=== PATIENT | male | born 1940 | race Caucasian/White ===

== ENCOUNTER → 2019-10-24 16:56 | Outpatient (BNVA) | payer MEDICARE, SELFPAY | PROVIDERS: Visit Provider Family Medicine | DX: E11.9 Type 2 diabetes mellitus without complications (principal); M1A.9XX0 Chronic gout, unspecified, without tophus (tophi); E03.9 Hypothyroidism, unspecified; F41.8 Other specified anxiety disorders; M54.40 Lumbago with sciatica, unspecified side; G89.29 Other chronic pain | CPT/HCPCS: 80053; 80061; 84443; 84550 ==

== ENCOUNTER → 2020-01-30 10:50 | Outpatient (BNVA) | payer MEDICARE, SELFPAY | PROVIDERS: Visit Provider Family Medicine | DX: E03.9 Hypothyroidism, unspecified (principal); E11.8 Type 2 diabetes mellitus with unspecified complications; E11.9 Type 2 diabetes mellitus without complications; I10 Essential (primary) hypertension; F41.9 Anxiety disorder, unspecified | CPT/HCPCS: 80053; 80061; 83036; 84443 ==

== ENCOUNTER 2021-01-15 17:30 | Observation (INO) | payer MEDICARE, SELFPAY ==
--- NOTE | 2021-01-15 18:38 | PM.HP ---
Providers/Chief Complaint Admitting Physician: Mónica Orellana Primary Care Provider: Della Jensen MD Chief Complaint: anemia, possible cholecystitis, diverticulitis History of Present Illness 80-year-old male with past medical history significant for gout, diabetes mellitus, diabetic neuropathy, hypertension, hypothyroidism, who was recently discharged from by x-ray yesterday previous admitted for urinary tract infection with retention discharged with Salomon catheter who returned to [place] [facility] with complaint of bladder pain. He was wanting salomon to be removed. Stated salomon was not attached to his leg and kept tugging leading to pain. He was discharged home on Omnicef. Upon return to ER lab work up was stable however he was noted to have hypotension with SBP in low 70s. He was given 1L of NS bolus after which BP improved. A CT abd/pelvis was performed which per Er doc showed gallbladder wall thickening suspicious for possible cholecystitis. Patient denied abdominal pain. AST/ALT/ALP were with in normal limits. Patient was transferred to [place] for further work up. Patient was stable, alert, awake and with out any distress at the time of my eval. Review of Systems General: Reports: 10 or more systems reviewed and unremarkable except in HPI and below Medications/Allergies Home Medications Medication Instructions Recorded Confirmed Last Taken Type allopurinol 300 mg tablet 150 mg PO DAILY 10/24/19 03/24/20 Unknown History diltiazem HCl 240 mg 240 mg PO DAILY 10/24/19 03/24/20 Unknown History capsule,extended release 24 hr furosemide 40 mg tablet 40 mg PO BID 10/24/19 03/24/20 Unknown History levalbuterol tartrate 45 2 inh INHALATION Q6H 10/24/19 03/24/20 Unknown History mcg/actuation aerosol inhaler levothyroxine 50 mcg tablet 50 mcg PO DAILY 10/24/19 03/24/20 Unknown History potassium chloride 20 mEq 40 meq PO TID tab 10/24/19 03/24/20 Unknown History tablet,extended release tamsulosin 0.4 mg capsule 0.4 mg PO DAILY 10/24/19 03/24/20 Unknown History Diabetic shoes #1 ea 12/12/19 03/24/20 Unknown Rx mupirocin 2 % topical ointment 1 applic TOPICAL BID #15 gm 12/12/19 03/24/20 Unknown Rx gabapentin 800 mg tablet 800 mg PO TID #90 tab 03/10/20 03/24/20 Unknown Rx glipizide 5 mg tablet, extended 5 mg PO QAM #30 tab 03/10/20 03/24/20 Unknown Rx release 24 hr blood sugar diagnostic #100 each 03/12/20 03/24/20 Unknown Rx omeprazole 40 mg capsule,delayed 40 mg PO .qhs #30 cap 03/24/20 03/24/20 Unknown Rx release clonazepam 1 mg tablet 1 mg PO TID PRN #90 tab 05/06/20 Unknown Rx Allergies Allergy/AdvReac Type Severity Reaction Status Date / Time No Known Allergies Allergy Verified 03/24/20 09:00 PFSH Acute PFSH: Medical History (Updated 01/15/21 @ 20:16 by Mónica Orellana MD) Anxiety BPH (benign prostatic hyperplasia) CHF (congestive heart failure) Diabetes Gout Hypertension Hypothyroidism Social History Smoking and tobacco status: never smoked Alcohol intake: never Physical Exam Narrative: EXAM NARRATIVE: General : Alert, Awake, NAD HEENT : EOMI CVS : RRR Chest : CTABL ABD; Soft, NT, ND Ext: No edema A&P Assessment and plan (1) Urinary retention due to benign prostatic hyperplasia: Status: Acute (2) Hypotension: Status: Acute (3) Abnormal CT scan, gallbladder: Status: Acute (4) Hypothyroidism: Status: Acute (5) Gout: Status: Acute (6) Diabetes: Status: Acute Urinary Retention due to BPH - Will continue salomon - change to leg bag - Continue flomax 0.4 mg PO daily - Will continue Omnicef 300 mg PO BID Suspected cholecystitis - Low suspicion - CMP in am - May consider surgery consult Hypotensive Episode - On Cartia 240 daily and Lasix - Will hold antihypertensive for now Anemia - Stool guiac was negative - Hb 8.3 - Iron studies in am - Will hold anticoagulation Diabetes mellitus - Sliding scale insulin - Diabetic diet Hypothyroidism - Continue Levothyroxine 50 mcg PO daily DVT ppx - SCDS Attestations Medical Necessity Statement*: anticipate less that 2 midnight stay in hospital for eval and treatment Time Spent in Patient Care: Greater than 35 minutes (>than 50% of time spent in counselling and/or direct pt care on unit). Coding Level of Care Code Acute Bullet Lubricant Mixer for Chg Fwd Diagnoses Urinary retention due to benign prostatic hyperplasia N40.1; R33.[address] scan, gallbladder R93.2 Hypothyroidism E03.9 Gout M10.9 Diabetes E11.9
[2021-01-15 18:46] VITALS: BP 126/57; PULSE 80; RESP 18; TEMP 37.1
[2021-01-15 20:00] VITALS: BP 114/68; PULSE 79; RESP 18; TEMP 36.9; O2SAT 93
[2021-01-15 20:29] VITALS: BMI 36.1
[2021-01-15] MEDS: gabapentin 400 mg Capsule 800 MG PO (21:59)
[2021-01-15] MEDS: acetaminophen 325 mg Tablet 650 MG PO (21:59)
[2021-01-15 23:05] LABS: Glucose Point of Care 133 mg/dL (70-110)
[2021-01-15 23:56] VITALS: BP 105/57; PULSE 77; RESP 18; TEMP 36.6; O2SAT 94
[2021-01-16] MEDS: CLONazepam 0.5 mg Tablet 0.25 MG PO (00:52)
[2021-01-16 04:00] VITALS: BP 122/60; PULSE 75; RESP 18; TEMP 36.8; O2SAT 91
[2021-01-16] MEDS: acetaminophen 325 mg Tablet 650 MG PO (04:42)
[2021-01-16 06:12] LABS: Basophils % 0.3 %; Hematocrit 26.2 % (42.0-52.0); Hemoglobin 7.9 g/dL (11.7-16.6); Lymphocytes # 0.8 10^3/uL (0.8-4.8); Lymphocytes % 23.8 %; Mean Corpuscular HGB Conc 30.2 g/dL (30.0-36.0); Mean Corpuscular Hemoglobin 26.4 pg (28.0-34.0); Mean Corpuscular Volume 87.6 fL (80-94); Monocytes # 0.8 10^3/uL (0.2-0.9); Monocytes % 26.7 %; Neutrophils # 1.49 10^3/uL (1.8-7.7); Neutrophils % 47.3 %; Nucleated Red Blood Cells % 0 %; Platelet Count 81 10^3/cmm (130-400); Red Blood Count 2.99 10^6/uL (4.1-5.3); Red Cell Distribution Width 19.5 % (12.1-15.1); White Blood Count 3.2 10^3/uL (4.0-10.0)
[2021-01-16 06:22] LABS: Glucose Point of Care 120 mg/dL (70-110)
[2021-01-16 06:45] LABS: Alanine Aminotransferase < 5 U/L (0-41); Albumin Level 3.6 g/dL (3.5-5.2); Alkaline Phosphatase 62 IU/L (40-130); Anion Gap 15.2 (5-19); Aspartate Amino Transferase 8 U/L (0-40); Blood Urea Nitrogen 12 mg/dL (8-23); Calcium 8.1 mg/dL (8.5-10.5); Carbon Dioxide 23 mmol/L (22-29); Chloride 104 mmol/L (98-107); Globulin 2.6 g/dL (1.3-4.6); Glucose 112 mg/dL (65-115); Osmolality Calculated 287 mOsm/kg (285-295); Potassium 4.2 mmol/L (3.5-5.1); Sodium 138 mmol/L (136-145); Total Bilirubin 0.5 mg/dL (0.15-1.2); Total Protein 6.2 g/dL (6.6-8.7)
[2021-01-16 06:50] LABS: Procalcitonin 0.15 ng/mL (0-0.5)
--- NOTE | 2021-01-16 07:10 | PC.NURSE ---
Bedside report given to MARCIO De Leon at this time.
[2021-01-16 08:00] VITALS: BP 130/64; PULSE 96; RESP 15; TEMP 36.6; O2SAT 92
[2021-01-16] MEDS: levothyroxine 50 mcg Tablet PO (08:30)
[2021-01-16] MEDS: famotidine 20 mg Tablet PO (08:30)
[2021-01-16] MEDS: gabapentin 400 mg Capsule 800 MG PO ×2 (08:30→16:08)
[2021-01-16] MEDS: tamsulosin 0.4 mg Capsule PO (08:30)
--- NOTE | 2021-01-16 09:30 | PC.NURSE ---
Patient's [place] Catheter was removed at this time for a voiding trial. Catheter intact and patient tolerated well.
[2021-01-16 11:07] LABS: Glucose Point of Care 160 mg/dL (70-110)
[2021-01-16 12:00] VITALS: BP 140/67; PULSE 82; RESP 18; TEMP 36.8; O2SAT 95
--- NOTE | 2021-01-16 12:37 | P.PN_ITS ---
Subjective Subjective: Interval history: Patient continued to complain of pain related to salomon, states he is just not able to tolerate. Salomon was removed. Medications: Reviewed: Yes Vitals/I&O/Wt Last Vital Signs Temp 98.3 F 01/16/21 12:00 Pulse 82 01/16/21 12:00 Resp 18 01/16/21 12:00 BP 140/67 01/16/21 12:00 Pulse Ox 95 01/16/21 12:00 01/15/21 01/16/21 01/16/21 22:59 06:59 14:59 Output Total 300 / 300 650 / 950 715 / 715 Balance -300 / -300 -650 / -950 -715 / -715 Weight last 48 hrs Weight 104.78 kg Physical Exam Narrative: EXAM NARRATIVE: General : Alert, Awake, NAD HEENT : EOMI CVS : RRR Chest : CTABL ABD; Soft, NT, ND Ext: No edema Data : 01/16/21 05:42 01/16/21 05:42 A&P Assessment and plan (1) Urinary retention due to benign prostatic hyperplasia: Status: Acute (2) Hypotension: Status: Acute (3) Abnormal CT scan, gallbladder: Status: Acute (4) Hypothyroidism: Status: Acute (5) Gout: Status: Acute (6) Diabetes: Status: Acute Urinary Retention due to BPH - Will continue salomon - change to leg bag - Continue flomax 0.4 mg PO daily - Increase to 0.8 - Omnicef 300 mg PO BID - Paged urology Suspected cholecystitis - Low suspicion - CMP in am - May consider surgery consult - Stable Hypotensive Episode - On Cartia 240 daily and Lasix - Will hold antihypertensive for now Anemia - Stool guiac was negative - Hb 8.3 - 7.9 - Iron studies - Will hold anticoagulation - No evidence of bleeding Diabetes mellitus - Sliding scale insulin - Diabetic diet Hypothyroidism - Continue Levothyroxine 50 mcg PO daily DVT ppx - SCDS Disposition: Possible d/c home later today if able to void. Attestations Medical Necessity Statement*: Possible additional day in hospital for management of urinary retention Time Spent in Patient Care: Greater than 35 minutes (>than 50% of time spent in counselling and/or direct pt care on unit) . Coding Level of Care Code Acute Validation Software Facilitator for g Fwd Diagnoses Urinary retention due to benign prostatic hyperplasia N40.1; R33.[address] scan, gallbladder R93.2 Hypothyroidism E03.9 Gout M10.9 Diabetes E11.9
--- NOTE | 2021-01-16 13:06 | PC.NURSE ---
Post void bladder scan shows 180mls at this time. Dr. Orellana notified.
--- NOTE | 2021-01-16 15:46 | PC.NURSE ---
Post void bladder scan shows 0mls in patient's bladder. Dr. Orellana notified.
--- NOTE | 2021-01-16 15:56 | P.DS_ITS ---
Discharge Providers Date of Admission: 01/15/21 17:30 Date of Discharge: January 16, 2021 Attending Provider at Admission: Mónica Orellana Attending Provider at Discharge: Mónica Orellana Primary Care Provider: Della Jensen MD Diagnoses at Discharge Discharge Diagnosis (1) Urinary retention due to benign prostatic hyperplasia: Status: Acute (2) Hypotension: Status: Resolved (3) Abnormal CT scan, gallbladder: Status: Resolved (4) Hypothyroidism: Status: Acute (5) Gout: Status: Acute (6) Diabetes: Status: Acute Reason for Visit Reason for Visit: anemia, possible cholecystitis, diverticulitis Hospital Course Hospital Course 80-year-old male with past medical history significant for gout, diabetes mellitus, diabetic neuropathy, hypertension, hypothyroidism, who was recently discharged from by x-ray yesterday previous admitted for urinary tract infection with retention discharged with Salomon catheter who returned to [place] ER with complaint of bladder pain. He was wanting salomon to be removed. Stated salomon was not attached to his leg and kept tugging leading to pain. He was discharged home on Omnicef. Upon return to ER lab work up was stable however he was noted to have hypotension with SBP in low 70s. He was given 1L of NS bolus after which BP improved. A CT abd/pelvis was performed which per Er doc showed gallbladder wall thickening suspicious for possible cholecystitis. Patient denied abdominal pain. AST/ALT/ALP were with in normal limits. Patient was transferred to [place] for further work up. Patient was stable, alert, awake and with out any distress at the time of my eval.Upon arrival to hospital he continued to complain of pain with Salomon. Eventually after multiple discussions he stated he understood the risks with the son at bedside and Salomon catheter was removed. Flomax was increased to twice daily. patients postvoid residuals were less than 100 at which point he was discharged home. Advised to continue the antibiotics he was prescribed after recent admission at [place]. Also advised to follow-up with urology. To return to hospital if any recurrence of urinary retention. Verbalized understanding of instructions. Physical Exam Narrative: EXAM NARRATIVE: General : Alert, Awake, NAD HEENT : EOMI CVS : RRR Chest : CTABL ABD; Soft, NT, ND Ext: No edema Discharge Data Data Completed and Pending: Labs from last 24 hours 01/16/21 01/16/21 01/16/21 10:58 06:16 05:42 WBC RBC Hgb Hct MCV MCH MCHC RDW Plt Count MPV Neut % (Auto) Lymph % (Auto) Faulkner % (Auto) Eos % (Auto) Baso % (Auto) Neut # (Auto) Lymph # (Auto) Faulkner # (Auto) Eos # (Auto) Baso # (Auto) Nucleated RBC % (a uto) Nucleated RBCs # Sodium 138 Potassium 4.2 Chloride 104 Carbon Dioxide 23 Anion Gap 15.2 BUN 12 Creatinine 0.8 GFR Calculation Not Reportable Glucose 112 POC Glucose 160 H 120 H Calculated Osmolal ity 287 Calcium 8.1 L Total Bilirubin 0.5 AST 8 ALT < 5 Alkaline Phosphata se 62 Total Protein 6.2 L Albumin 3.6 Globulin 2.6 Procalcitonin 0.15 01/16/21 01/15/21 05:42 22:57 WBC 3.2 L RBC 2.99 L Hgb 7.9 L Hct 26.2 L MCV 87.6 MCH 26.4 L MCHC 30.2 RDW 19.5 H Plt Count 81 L MPV 10.0 Neut % (Auto) 47.3 Lymph % (Auto) 23.8 Faulkner % (Auto) 26.7 Eos % (Auto) 0.0 Baso % (Auto) 0.3 Neut # (Auto) 1.49 L Lymph # (Auto) 0.8 Faulkner # (Auto) 0.8 Eos # (Auto) 0.0 Baso # (Auto) 0.0 Nucleated RBC % (a uto) 0 Nucleated RBCs # 0.0 Sodium Potassium Chloride Carbon Dioxide Anion Gap BUN Creatinine GFR Calculation Glucose POC Glucose 133 H Calculated Osmolal ity Calcium Total Bilirubin AST ALT Alkaline Phosphata se Total Protein Albumin Globulin Procalcitonin Vitals: Last Vital Signs Temp 98.3 F 01/16/21 12:00 Pulse 82 01/16/21 12:00 Resp 18 01/16/21 12:00 BP 140/67 01/16/21 12:00 Pulse Ox 95 01/16/21 12:00 Discharge Plan Discharge Patient Disposition: Home Condition: Stable Prescriptions: New tamsulosin 0.4 mg Capsule 0.4 mg PO BID Qty: 60 RF: 0 Continued allopurinol 300 mg tablet 150 mg PO DAILY@1999 RF: 0 levothyroxine 50 mcg tablet 50 mcg PO DAILY@0800 RF: 0 levalbuterol tartrate [Xopenex HFA] 45 mcg/actuation HFA aerosol inhaler 2 inh INHALATION Q6H RF: 0 (DME) Diabetic shoes Qty: 1 RF: 0 (DME) True Metrix Glucose Test Strip Strip See Rx Instructions .ROUTE .MEDSUPPLY Qty: 100 RF: 2 atorvastatin 40 mg tablet 40 mg PO DAILY@0800 RF: 0 metformin 1,000 mg tablet 1,000 mg PO BID@799,1999 RF: 0 clonazepam 1 mg tablet 1 mg PO TID PRN (Reason: Anxiety) RF: 0 aspirin 81 mg Tablet,Delayed Release (Dr/Ec) 81 mg PO DAILY@0800 RF: 0 gabapentin 300 mg capsule 900 mg PO BID@799,1999 RF: 0 cefdinir 300 mg Capsule 300 mg PO Q12H RF: 0 Changed metoprolol tartrate 25 mg tablet 12.5 mg PO BID@799,1999 Qty: 30 RF: 0 Discontinued furosemide 40 mg tablet 120 mg PO BID@799,1999 RF: 0 potassium chloride 20 mEq tablet extended release 40 meq PO TID@799,1199,1999 RF: 0 tamsulosin 0.4 mg capsule 0.4 mg PO DAILY@0600 RF: 0 Discharge Orders: Discharge Order (Routine); Ordered 01/16/21 Ordered By: Mónica Orellana Referrals: Tim Mejia MD [Physician] - 1 week Della Jensen MD [Primary Care Provider] - 1-3 days (Please call your primary care provider Monday morning to make a follow-up appointment. ) Discharge Diet: Usual diet Discharge Activity: Increase activity as tolerated Patient Instructions: Tamsulosin (By mouth), Urinary Retention in Men (GEN), Opioid Safety Activity Restrictions/Additional Instructions: Return to ER if having difficulty voiding Discharge Attestations Time Spent in Discharge Care*: greater than 30 min Specific Discharge Activities: educating patient, educating and/or supporting family/caregiver, discussing with pcp/other providers (Discussed with urology environmental field services technician), discussing with counseling case manager/social workers/dc planners, documenting/other paperwork and evaluating patient/reviewing data Quality Metrics Clinical Quality Measures During this hospital stay, did patient experience: None Coding Level of Care Code Acute Chg FW DC note Diagnoses Urinary retention due to benign prostatic hyperplasia N40.1; R33.[address] scan, gallbladder R93.2 Hypothyroidism E03.9 Gout M10.9 Diabetes E11.9
[2021-01-16 16:41] VITALS: BP 140/67; PULSE 82; RESP 18; TEMP 36.8; O2SAT 95
--- NOTE | 2021-01-16 16:45 | PC.NURSE ---
IV removed intact. Patient tolerated well. Reviewed patient's discharge with patient and daughter in law Blanca. Patient and Blanca verbalized understanding of discharge instructions including follow up appointments and medication changes. Patient is A&Ox3. Respirations even and non-labored on room air. Patient wheel chaired to private car.
== END 2021-01-16 16:48 | disposition home or self-care (01) ==
PROVIDERS: Admitting Provider Hospitalist; PCP Family Medicine; Visit Provider Hospitalist
DX: N40.1 Benign prostatic hyperplasia with lower urinary tract symptoms (principal); R33.8 Other retention of urine; I95.9 Hypotension, unspecified; R93.2 Abnormal findings on diagnostic imaging of liver and biliary tract; E03.9 Hypothyroidism, unspecified; M10.9 Gout, unspecified; E11.40 Type 2 diabetes mellitus with diabetic neuropathy, unspecified; D64.9 Anemia, unspecified; I11.0 Hypertensive heart disease with heart failure; I50.9 Heart failure, unspecified
CPT/HCPCS: 36415; 36416; 80053; 82962; 84145; 85025; 96372; 97161; G0378; G0379; J1815

== ENCOUNTER → 2021-10-28 12:05 | Outpatient (BNVA) | payer MEDICARE, SELFPAY | PROVIDERS: PCP Family Medicine; Visit Provider Nurse Practitioner Family | DX: E03.9 Hypothyroidism, unspecified (principal); I10 Essential (primary) hypertension; M10.9 Gout, unspecified; Z12.5 Encounter for screening for malignant neoplasm of prostate; E11.9 Type 2 diabetes mellitus without complications; N40.0 Benign prostatic hyperplasia without lower urinary tract symptoms; I50.9 Heart failure, unspecified | CPT/HCPCS: 80053 ==

== ENCOUNTER 2021-12-23 09:44 | Oncology outpatient (recurring) (ONCR) | payer MEDICARE, SELFPAY ==
[2021-12-23 12:54] LABS: LAB Peripheral Smear Sent for Review; Reticulocyte % 1.3 % (0.5-2.0)
[2021-12-23 12:58] LABS: Basophils % 0.3 %; Eosinophils % 0.3 %; Hematocrit 27.5 % (42.0-52.0); Lymphocytes % 31.1 %; Mean Corpuscular HGB Conc 32.7 g/dL (30.0-36.0); Mean Corpuscular Hemoglobin 28.3 pg (28.0-34.0); Mean Corpuscular Volume 86.5 fl (80-94); Monocytes # 0.7 10^3/uL (0.2-0.9); Monocytes % 22.8 %; Neutrophils # 1.28 10^3/uL (1.8-7.7); Nucleated Red Blood Cells % 0 %; Platelet Count 63 10^3/cmm (130-400); Red Blood Count 3.18 10^6/uL (4.1-5.3); Red Cell Distribution Width 18.6 % (12.1-15.1); White Blood Count 3.1 10^3/uL (4.0-10.0)
[2021-12-23 13:16] LABS: Alanine Aminotransferase 19 U/L (0-41); Albumin Level 5.1 g/dL (3.5-5.2); Alkaline Phosphatase 106 IU/L (40-130); Anion Gap 19.7 (5-19); Aspartate Amino Transferase 17 U/L (0-40); Blood Urea Nitrogen 45 mg/dL (8-23); Calcium 9.9 mg/dL (8.5-10.5); Carbon Dioxide 23 mmol/L (22-29); Chloride 97 mmol/L (98-107); Globulin 2.9 g/dL (1.3-4.6); Glucose 104 mg/dL (65-115); Iron 62 ug/dL (59-158); Osmolality Calculated 292 mOsm/kg (285-295); Percent Saturation 27.4 % (20-50); Potassium 4.7 mmol/L (3.5-5.1); Sodium 135 mmol/L (136-145); Total Bilirubin 0.5 mg/dL (0.15-1.2); Total Iron Binding Capacity 226 mcg/dl; Unsaturated Iron Binding 164 ug/dL (112-347)
[2021-12-23 13:28] LABS: Ferritin 1246 ng/mL (30-400)
[2021-12-23 13:29] LABS: Vitamin B12 666 pg/mL (232-1245)
[2021-12-23 13:33] LABS: Erythrocyte Sedimentation Rate 1 mm/hr (0-10); Slide Review Slide Review Perform
[2021-12-23 13:57] LABS: Estmated Average Glucose 128; Hemoglobin A1C 6.1 % (4.0-6.0)
== END 2022-01-04 23:59 | disposition home or self-care (01) ==
PROVIDERS: PCP Family Medicine; Visit Provider Internal Medicine Medical Oncology
DX: D61.818 Other pancytopenia (principal); D64.9 Anemia, unspecified; C80.1 Malignant (primary) neoplasm, unspecified; C77.0 Secondary and unspecified malignant neoplasm of lymph nodes of head, face and neck; K52.9 Noninfective gastroenteritis and colitis, unspecified; Z79.899 Other long term (current) drug therapy; E11.9 Type 2 diabetes mellitus without complications; Z79.4 Long term (current) use of insulin
CPT/HCPCS: 80053; 82607; 82728; 83010; 83036; 83540; 83550; 85025; 85045; 85651; 88184; 88185; 99204; 99205; 99999

== ENCOUNTER 2022-01-03 22:51 | Inpatient (IN) | payer MEDICARE, SELFPAY ==
--- NOTE | 2022-01-03 22:52 | ECG_ITS ---
[facility] Test Date: 2022-01-03 Pat Name: Guido Crump Department: Room: Gender: Male Tax Accountant: : 1940 Requested By: Dequan Rashid Order Number: [id number] Tari MD: Kvng Guerin M.D. Measurements Intervals [place] Rate: 126 P: 193 VA: 110 QRS: -11 QRSD: 130 T: 124 QT: 315 QTc: 458 Interpretive Statements ECTOPIC ATRIAL TACHYCARDIA WITH SHORT VA INTERVAL LEFT VENTRICULAR HYPERTROPHY AND ST-T CHANGE [VOLTAGE CRITERIA PLUS ST/T ABNORMALITY] No previous ECG available for comparison Electronically Signed On 01-04-2022 18:30:43 CDT by Kvng Guerin M.D. [email or web address]
--- NOTE | 2022-01-03 22:52 | XRR_ITS ---
PROCEDURE INFORMATION: Exam: XR Chest Exam date and time: 01/03/2022 11:14 PM Age: 81 years old Clinical indication: Pain; Chest pressure; Additional info: Cp TECHNIQUE: Imaging protocol: XR of the chest. Views: 1 view. COMPARISON: DX XR chest 1V portable [id number] 09/27/2021 3:20 AM FINDINGS: Lungs: Unremarkable. No consolidation. Pleural spaces: Unremarkable. No pleural effusion. No pneumothorax. Heart/Mediastinum: Unremarkable. No cardiomegaly. Bones/joints: Severe thoracic spondylosis. Mild dextroscoliosis. XR/XR chest 1V portable [id number] IMPRESSION: No acute findings.
--- NOTE | 2022-01-03 23:09 | CTR_ITS ---
PROCEDURE INFORMATION: Exam: CT Chest Without Contrast; Diagnostic Exam date and time: 01/04/2022 12:09 AM Age: 81 years old Clinical indication: Abdominal pain; On breathing; Additional info: Cp TECHNIQUE: Imaging protocol: Diagnostic computed tomography of the chest without contrast. Radiation optimization: All CT scans at this facility use at least one of these dose optimization techniques: automated exposure control; mA and/or kV adjustment per patient size (includes targeted exams where dose is matched to clinical indication); or iterative reconstruction. COMPARISON: CT chest w con* [id number] 08/16/2021 3:18 PM RADIATION DOSE METRICS: Total DLP (mGy-cm): 2500.87 FINDINGS: Lungs: Mild degree of smooth septal thickening changes of the lower lungs. No focal airspace consolidation. Left lower lobe small calcified pulmonary granuloma. Negative for endobronchial obstruction. Pleural spaces: Unremarkable. No pneumothorax. No pleural effusion. Heart: Unremarkable. No cardiomegaly. No pericardial effusion. Lymph nodes: Unremarkable. No enlarged lymph nodes. Vasculature: Unremarkable. No aortic aneurysm. Bones/joints: The thoracic spine demonstrates moderate degenerative changes at multiple levels. Circumscribed rounded lucency within the anterior aspect T8 is stable from comparison. Soft tissues: Unremarkable. PROCEDURE INFORMATION: Exam: CT Abdomen And Pelvis Without Contrast Exam date and time: 01/04/2022 12:09 AM Age: 81 years old Clinical indication: Abdominal pain; On breathing; Additional info: Cp TECHNIQUE: Imaging protocol: Computed tomography of the abdomen and pelvis without contrast. Radiation optimization: All CT scans at this facility use at least one of these dose optimization techniques: automated exposure control; mA and/or kV adjustment per patient size (includes targeted exams where dose is matched to clinical indication); or iterative reconstruction. COMPARISON: [place] [id number] 08/23/2021 12:43 PM RADIATION DOSE METRICS: Total DLP (mGy-cm): 2500.87 FINDINGS: Liver: Normal. No mass. Gallbladder and bile ducts: Normal. No calcified stones. No ductal dilation. Pancreas: Mostly fatty replaced. No ductal dilation. Small round hyperdense nodular structure in the anterior distal pancreatic body region stable in size from comparison. Spleen: Normal. No splenomegaly. Adrenal glands: Normal. No mass. Kidneys and ureters: No hydronephrosis. No renal stones. Small simple right kidney posterior lower pole cortical cyst. Adjacent partially exophytic circumscribed hyperdense lesion is stable in size from prior; favor proteinaceous cyst. Stomach and bowel: Unremarkable. No obstruction. No mucosal thickening. Appendix: No evidence of appendicitis. Intraperitoneal space: Unremarkable. No free air. No significant fluid collection. Vasculature: Diffuse abdominal aorta atherosclerosis without aneurysm. Lymph nodes: Unremarkable. No enlarged lymph nodes. Urinary bladder: Unremarkable as visualized. Reproductive: Unremarkable as visualized. Bones/joints: The lumbar spine demonstrates moderate discogenic and apophyseal joint degenerative changes at multiple levels. No fractures. Soft tissues: Unremarkable. CT/CT chest abd pel wo con IMPRESSION: Smooth septal thickening features of the lungs consistent with mild severity interstitial edema. IMPRESSION: 1. Negative for acute abdominopelvic abnormality. 2. No significant changes from comparison. COMMENTS: Consistent with the [employer]'s Incidental Findings Committee white paper (J Am Patrice Radiol 2018): Any incidental renal lesion less than 1 cm or classified as too small to characterize, or any incidental cystic renal lesion characterized as simple-appearing, is likely benign. No follow-up imaging is recommended for these lesions per consensus recommendations based on imaging criteria.
[2022-01-03 23:13] VITALS: BP 151/93; PULSE 123; RESP 20; TEMP 36.7; O2SAT 98; BMI 33.2
--- NOTE | 2022-01-03 23:20 | W.ED.CHESTPA ---
HPI - Chest Pain General: Chief Complaint: Chest Pain Stated Complaint: cp Time Seen by Provider: 01/03/22 22:53 Source: patient Mode of arrival: ambulatory Limitations: no limitations History of Present Illness: 7-year-old male states that 2 hours ago he started having severe chest pain in the center of his chest radiates to his back. States the pain is currently a 10 out of 10 he is also had some vomiting with it. Denies any abdominal pain denies any fevers patient states he actually had had a heart cath last year at [place] that was negative and had another [address] [facility] in September that was negative. He does have a history congestive heart failure. Associated symptoms: Reports vomiting; Deny abdominal pain, dyspnea, fever(s) or nausea Review of Systems Const: Denies: fever(s), chills, body aches or change in appetite Eyes: Denies: blurry vision or eye discomfort ENMT: Denies: throat pain or dental pain Card: Reports: chest pain Resp: Denies: dyspnea GI: Reports: vomiting; Denies: abdominal pain, nausea or diarrhea : Denies: dysuria Musc: Denies: neck pain or back pain Skin/Breast: Denies: rash Neuro: Denies: headache(s) Psych: Denies: depression Royce/Lymph: Denies: easy bruising All/Imm: Denies: urticaria PFSH ED PFSH: Medical History Anemia Anxiety BPH (benign prostatic hyperplasia) CHF (congestive heart failure) Diabetes Gout Hyperlipidemia Hypertension Hypothyroidism Pancytopenia Recurrent urinary tract infection 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 Surgical History History of cataract surgery History of parotidectomy (09/22/21) right parotidectomy with facial nerve preservation, with cervicofacial advancement flap, and with the right modified radical neck dissection Status post surgical removal of malignant neoplasm of skin (09/22/21) resection of right ear squamous cell carcinoma in situ Family History Father CAD (coronary artery disease) Mother CAD (coronary artery disease) Son Diabetes Grandfather Cancer Prostate Hypertension Grandmother Hypertension Denies family history of Clotting disorder Dementia Hyperlipidemia Psychiatric illness Chronic kidney disease (CKD) Suicide Anesthesia complication Bleeding disorder Lung disease Stroke Social History (Updated 12/23/21 @ 10:41 by Stefani Tanner LPN) Smoking and tobacco status: former smoker Alcohol intake: never Physical Exam Const: COMMON NORMALS: patient oriented x3 HENMT: COMMON NORMALS: normocephalic and atraumatic HEAD & SCALP: normocephalic and atraumatic Eye: COMMON NORMALS: Equal, round and reactive pupils present and EOMs intact bilaterally PUPIL: Yes Equal, round and reactive pupils present Neck/C-Spine: COMMON NORMALS: full ROM and supple Chest: COMMONS NORMALS: normal inspection of the chest and normal palpation of entire chest wall Resp: COMMON NORMALS: normal respiratory effort, No retractions, No use of accessory muscles and clear to auscultation bilaterally AUSCULTATION: clear to auscultation bilaterally Cardio: COMMON NORMALS: regular rhythm and No murmurs present (Cardio) RATE: tachycardic RHYTHM: regular rhythm GI: COMMON NORMALS: Normal to inspection, nondistended, normoactive bowel sounds present, Soft to palpation, non-tender and no masses PALPATION: Yes Soft to palpation Extremity: COMMON NORMALS: normal to inspection and full ROM Neuro: COMMON NORMALS: patient oriented x3, moves all extremities and no focal motor deficits Psych: COMMON NORMALS: mental status grossly normal, Normal thought process present and cooperative THOUGHT PROCESS: Normal thought process present Skin: COMMON NORMALS: no rashes or lesions noted and no wounds GENERAL SKIN EXAM: no rashes or lesions noted Course Vital Signs: Vital signs: Vital Signs Temperature 98.0 F 01/03/22 23:13 Pulse Rate 111 H 01/04/22 01:15 Respiratory Rate 18 01/04/22 01:15 Blood Pressure 126/66 01/04/22 01:15 Pulse Oximetry 94 01/04/22 01:15 MDM - Chest Pain Medical Decision Making Patient presents here with chest pain initial troponin is mildly elevated no signs of ST elevation on his EKG repeat troponin was elevated will start on Lovenox he did have a recent cardiac cath in September that was normal we will get results CT scanning of his chest abdomen pelvis here normal does have acute kidney injury with appearance of dehydration spoke to hospitalist will admit at this time. Lab Data : 01/03/22 23:10 01/03/22 23:10 Radiology Impressions Chest X-Ray 01/03/22 22:52 IMPRESSION: No acute findings. Chest/Abdomen/Pelvis CT 01/03/22 23:09 IMPRESSION: Smooth septal thickening features of the lungs consistent with mild severity interstitial edema. IMPRESSION: 1. Negative for acute abdominopelvic abnormality. 2. No significant changes from comparison. COMMENTS: Consistent with the [employer]'s Incidental Findings Committee white paper (J Am Patrice Radiol 2018): Any incidental renal lesion less than 1 cm or classified as too small to characterize, or any incidental cystic renal lesion characterized as simple-appearing, is likely benign. No follow-up imaging is recommended for these lesions per consensus recommendations based on imaging criteria. Laboratory Results WBC 2.7 10^3/uL (4.0-10.0) L 01/03/22 23:10 RBC 2.67 10^6/uL (4.1-5.3) L 01/03/22 23:10 Hgb 7.7 g/dL (11.7-16.6) L 01/03/22 23:10 Hct 23.1 % (42.0-52.0) L 01/03/22 23:10 MCV 86.5 fl (80-94) 01/03/22 23:10 MCH 28.8 pg (28.0-34.0) 01/03/22 23:10 MCHC 33.3 g/dL (30.0-36.0) 01/03/22 23:10 RDW 18.6 % (12.1-15.1) H 01/03/22 23:10 Plt Count 80 10^3/cmm (130-400) L 01/03/22 23:10 MPV 12.9 fL (7.4-10.4) H 01/03/22 23:10 Neut % (Auto) 35.0 % 01/03/22 23:10 Lymph % (Auto) 41.3 % 01/03/22 23:10 Coal % (Auto) 18.1 % 01/03/22 23:10 Eos % (Auto) 0.4 % 01/03/22 23:10 Baso % (Auto) 0.0 % 01/03/22 23:10 Neut # (Auto) 0.95 10^3/uL (1.8-7.7) L* 01/03/22 23:10 Lymph # (Auto) 1.1 10^3/uL (0.8-4.8) 01/03/22 23:10 Coal # (Auto) 0.5 10^3/uL (0.2-0.9) 01/03/22 23:10 Eos # (Auto) 0.0 10^3/uL (0.0-0.8) 01/03/22 23:10 Baso # (Auto) 0.0 10^3/uL (0.0-0.1) 01/03/22 23:10 Nucleated RBC % (auto) 0 % 01/03/22 23:10 Nucleated RBCs # 0.0 /100WBC 01/03/22 23:10 PT 14.20 SECONDS (12.1-14.9) 01/03/22 23:10 INR 1.07 (0.8-1.2) 01/03/22 23:10 Sodium 135 mmol/L (136-145) L 01/03/22 23:10 Potassium 5.7 mmol/L (3.5-5.1) H 01/03/22 23:10 Chloride 99 mmol/L (98-107) 01/03/22 23:10 Carbon Dioxide 18 mmol/L (22-29) L 01/03/22 23:10 Anion Gap 23.7 (5-19) H 01/03/22 23:10 BUN 91 mg/dL (8-23) H* D 01/03/22 23:10 Creatinine 2.5 mg/dL (0.7-1.2) H 01/03/22 23:10 GFR Calculation Not Reportable 01/03/22 23:10 Glucose 208 mg/dL (65-115) H 01/03/22 23:10 Calculated Osmolality 314 mOsm/kg (285-295) H 01/03/22 23:10 Calcium 9.5 mg/dL (8.5-10.5) 01/03/22 23:10 Total Bilirubin 0.4 mg/dL (0.15-1.2) 01/03/22 23:10 AST 12 U/L (0-40) 01/03/22 23:10 ALT 15 U/L (0-41) 01/03/22 23:10 Alkaline Phosphatase 116 IU/L (40-130) 01/03/22 23:10 Troponin T Baseline 44 ng/L (0-15) H 01/03/22 23:10 Total Protein 7.4 g/dL (6.6-8.7) 01/03/22 23:10 Albumin 4.9 g/dL (3.5-5.2) 01/03/22 23:10 Globulin 2.5 g/dL (1.3-4.6) 01/03/22 23:10 EKG Data EKG 1: I personally reviewed and interpreted this EKG as follows: EKG interpretation date: 01/03/22 EKG interpretation time: 23:00 Interpretation: tachycardia hr [address] or t wave abnormalities qrs 130 qtc 390 EKG 2: I personally reviewed and interpreted this EKG as follows: EKG interpretation date: 01/04/22 EKG interpretation time: 01:03 Interpretation: sinus tach hr [address] depression qrs 126 qtc 396 Discharge Plan Discharge Patient Disposition: Admitted As Inpatient Admit Provider: Mingo Flanagan Clinical Impression: Chest pain, Acute kidney injury Condition: Stable Coding Level of Care Code ED Transactional Paralegal for Chg Fwd Exam Comprehensive
[2022-01-03 23:21] LABS: Eosinophils % 0.4 %; Hematocrit 23.1 % (42.0-52.0); Hemoglobin 7.7 g/dL (11.7-16.6); Lymphocytes # 1.1 10^3/uL (0.8-4.8); Lymphocytes % 41.3 %; Mean Corpuscular HGB Conc 33.3 g/dL (30.0-36.0); Mean Corpuscular Hemoglobin 28.8 pg (28.0-34.0); Mean Corpuscular Volume 86.5 fl (80-94); Mean Platelet Volume 12.9 fL (7.4-10.4); Monocytes # 0.5 10^3/uL (0.2-0.9); Monocytes % 18.1 %; Nucleated Red Blood Cells % 0 %; Platelet Count 80 10^3/cmm (130-400); Red Blood Count 2.67 10^6/uL (4.1-5.3); Red Cell Distribution Width 18.6 % (12.1-15.1); White Blood Count 2.7 10^3/uL (4.0-10.0)
[2022-01-03] MEDS: ondansetron 2 mg/ML SDV 2 mL 4 MG IVP (23:23)
[2022-01-03 23:24] VITALS: RESP 24
[2022-01-03] MEDS: morphine 4 mg/mL SDV 1 mL IVP (23:24)
[2022-01-03 23:32] LABS: INR 1.07 (0.8-1.2)
[2022-01-03 23:37] LABS: Troponin(5th) Baseline 44 ng/L (0-15)
[2022-01-03 23:39] LABS: Alanine Aminotransferase 15 U/L (0-41); Albumin Level 4.9 g/dL (3.5-5.2); Alkaline Phosphatase 116 IU/L (40-130); Anion Gap 23.7 (5-19); Aspartate Amino Transferase 12 U/L (0-40); Calcium 9.5 mg/dL (8.5-10.5); Carbon Dioxide 18 mmol/L (22-29); Chloride 99 mmol/L (98-107); Globulin 2.5 g/dL (1.3-4.6); Glucose 208 mg/dL (65-115); Osmolality Calculated 314 mOsm/kg (285-295); Potassium 5.7 mmol/L (3.5-5.1); Sodium 135 mmol/L (136-145); Total Bilirubin 0.4 mg/dL (0.15-1.2); Total Protein 7.4 g/dL (6.6-8.7)
[2022-01-03 23:42] LABS: Blood Urea Nitrogen 91 mg/dL (8-23)
[2022-01-03 23:48] VITALS: BP 156/75; PULSE 117; RESP 18; O2SAT 100
[2022-01-03 23:56] LABS: Neutrophils # 0.95 10^3/uL (1.8-7.7)
[2022-01-03 23:57] LABS: Slide Review Slide Review Perform
[2022-01-04] VITALS (22 sets, daily range): BP systolic 90–141; BP diastolic 40–74; PULSE 86–114; RESP 14–30; TEMP 36.2–36.8; O2SAT 92–100; BMI 34.9
[2022-01-04] MEDS: HYDROmorphone 1 mg/mL INJ 1 mL 0.5 MG IVP (00:27)
[2022-01-04] MEDS: sodium chloride 0.9% 500 ML 999 ML IV (00:28)
--- NOTE | 2022-01-04 00:52 | ECG_ITS ---
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 Measurements Intervals [place] Rate: 109 P: 93 MA: 209 QRS: -11 QRSD: 126 T: 126 QT: 332 QTc: 448 Interpretive Statements SINUS TACHYCARDIA LEFT VENTRICULAR HYPERTROPHY AND ST-T CHANGE [VOLTAGE CRITERIA PLUS ST/T ABNORMALITY] Compared to ECG 01/03/2022 23:00:40 Short MA interval no longer present ST (T wave) deviation still present Electronically Signed On 01-04-2022 18:38:26 CDT by Kvng Guerin M.D. [id number]
[2022-01-04 01:40] LABS: Troponin 5 2HR 72.63 ng/L (0-15)
--- NOTE | 2022-01-04 01:40 | P.HP_ITS ---
Providers/Chief Complaint Admitting Physician: Mingo Flanagan MD Primary Care Provider: Della Jensen MD Chief Complaint: cp History of Present Illness Guiod Crump is a 81 year old male with a past medical history of myelodysplastic syndrome, pancytopenia, transfusion dependent anemia, BPH, dut-ylithtn-fmnxibngl type 2 diabetes mellitus, hypothyroidism, hypertension, CHF who presents to [facility] due to weakness, fatigue, lightheadedness, low blood pressures, chest pain. 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 He has had intermittent chest pain that is what prompted his cath back in September. He is received 3 units of blood in the last 2 weeks, due to his myelodysplastic syndrome. He lives at home, with his son, he ambulates with a wheeled walker, no recent falls. Patient tells me that recently he has been experiencing increased weakness, increased fatigue, has been feeling more winded. He also reports lightheadedness and dizziness, but no falls. No passing out. He also reports intermittent substernal chest pain, nonradiating, no nausea, no vomiting. The chest pain is a pressure-like pain, he tells me its similar to the chest pain when he had his cath. Denies any dysuria, but recently was treated for UTI. Review of Systems Const: Denies: fever(s) Eyes: Denies: change in vision Resp: Denies: productive cough, non-productive cough or wheezing GI: Denies: abdominal pain, nausea, vomiting or diarrhea : Denies: flank pain, difficulty urinating or dysuria Musc: Denies: back pain Neuro: Denies: headache(s) Medications/Allergies Home Medications Medication Instructions Recorded Confirmed Last Taken Type levalbuterol tartrate 45 2 inh INHALATION Q6H 10/24/19 12/23/21 Unknown History mcg/actuation aerosol inhaler (Xopenex HFA) levothyroxine 50 mcg tablet 50 mcg PO DAILY@0800 10/24/19 12/23/21 01/15/21 History Diabetic shoes #1 ea 12/12/19 10/28/21 Unknown Rx blood sugar diagnostic (True #100 each 03/12/20 12/23/21 Unknown Rx Metrix Glucose Test Strip) aspirin 81 mg tablet,delayed 81 mg PO DAILY@0800 01/16/21 12/23/21 01/15/21 History release atorvastatin 40 mg tablet 40 mg PO DAILY@0800 01/16/21 12/23/21 01/15/21 History metformin 1,000 mg tablet 1,000 mg PO BID@0800,199901/16/21 12/23/21 01/15/21 History tamsulosin 0.4 mg capsule 0.4 mg PO BID #60 cap 01/16/21 12/23/21 Unknown Rx allopurinol 300 mg tablet 300 mg PO DAILY tab 12/23/21 12/23/21 Unknown History clonazepam 1 mg tablet 1 mg PO TID 12/23/21 12/23/21 Unknown History clopidogrel 75 mg tablet 75 mg PO DAILY 12/23/21 12/23/21 Unknown History ferrous sulfate 325 mg (65 mg 325 mg PO BID 12/23/21 12/23/21 Unknown History iron) tablet finasteride 5 mg tablet 5 mg PO DAILY 12/23/21 12/23/21 Unknown History furosemide 80 mg tablet 80 mg PO BID 12/23/21 12/23/21 Unknown History gabapentin 300 mg capsule 600 mg PO DAILY cap 12/23/21 12/23/21 Unknown History lisinopril 5 mg tablet 5 mg PO DAILY 12/23/21 12/23/21 Unknown History metoprolol tartrate 25 mg tablet 50 mg PO BID@0800,1999 tab 12/23/21 Unknown History potassium chloride 20 mEq oral 40 meq PO BID ea 12/23/21 12/23/21 Unknown History packet (Klor-Con) trazodone 50 mg tablet 25 mg PO BEDTIME tab 12/23/21 12/23/21 Unknown History Allergies Allergy/AdvReac Type Severity Reaction Status Date / Time No Known Allergies Allergy Verified 12/23/21 10:36 PFSH Acute PFSH: Medical History Anemia Anxiety BPH (benign prostatic hyperplasia) CHF (congestive heart failure) Diabetes Gout Hyperlipidemia Hypertension Hypothyroidism Pancytopenia Recurrent urinary tract infection 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 Surgical History History of cataract surgery History of parotidectomy (09/22/21) right parotidectomy with facial nerve preservation, with cervicofacial advancement flap, and with the right modified radical neck dissection Status post surgical removal of malignant neoplasm of skin (09/22/21) resection of right ear squamous cell carcinoma in situ Family History Father CAD (coronary artery disease) Mother CAD (coronary artery disease) Son Diabetes Grandfather Cancer Prostate Hypertension Grandmother Hypertension Denies family history of Clotting disorder Dementia Hyperlipidemia Psychiatric illness Chronic kidney disease (CKD) Suicide Anesthesia complication Bleeding disorder Lung disease Stroke Social History (Updated 12/23/21 @ 10:41 by Stefani Tanner LPN) Smoking and tobacco status: former smoker Alcohol intake: never Vitals/I&O/Wt Last Vital Signs Temp 98.0 F 01/03/22 23:13 Pulse 109 H 01/04/22 00:47 Resp 20 H 01/04/22 00:47 BP 140/72 01/04/22 00:47 Pulse Ox 95 01/04/22 00:47 Weight last 48 hrs Weight 96.162 kg Physical Exam Const: COMMON NORMALS: no acute distress and patient oriented x3 HENMT: COMMON NORMALS: normocephalic HEAD & SCALP: normocephalic Neck/C-Spine: COMMON NORMALS: no JVD Resp: COMMON NORMALS: normal respiratory effort, No retractions, No use of accessory muscles and clear to auscultation bilaterally AUSCULTATION: clear to auscultation bilaterally Cardio: COMMON NORMALS: no JVD, regular rate, regular rhythm, S1 normal heart sound present and S2 normal heart sound present RATE: regular rate RHYTHM: regular rhythm HEART SOUNDS: S1 normal heart sound present and S2 normal heart sound present GI: COMMON NORMALS: Normal to inspection, nondistended, normoactive bowel sounds present, Soft to palpation, non-tender, No hepatosplenomegaly present, no masses and no bruits PALPATION: Yes Soft to palpation and Yes No hepat osplenomegaly present Extremity: COMMON NORMALS: capillary refill normal, no clubbing, cyanosis or edema, no calf tenderness and no pedal edema Neuro: COMMON NORMALS: patient oriented x3, CN's II-XII intact bilaterally, moves all extremities and no focal motor deficits Psych: COMMON NORMALS: mental status grossly normal Skin: NARRATIVE SKIN EXAM: 1+ pitting edema bilateral lower extremity Data : 01/03/22 23:10 01/03/22 23:10 A&P Assessment and plan (1) Chest pain: Status: Acute Qualifiers: Chest pain type: unspecified Qualified Code(s): R07.9 - Chest pain, unspecified (2) 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: Status: Acute (3) Anemia: Status: Acute (4) Pancytopenia: Status: Acute (5) Chronic diarrhea: Status: Acute (6) Diabetes: Status: Acute (7) CHF (congestive heart failure): Status: Acute (8) BPH (benign prostatic hyperplasia): Status: Acute Plan Chest pain -Substernal, atypical in nature -According to patient and family had a negative cardiac cath back in September, no history of stenting -Baseline troponin 44, 120-minute 72.63, delta 28.63 -EKG no acute ST-T wave changes Plan -Continue aspirin, statin, Plavix -Has received therapeutic Lovenox, hold off on further dosing -Order cardiac echocardiogram -Serial EKGs, serial troponins, monitor for chest pain -Sounds more like supply demand ischemia associated with anemia, RAHDA, -Full code -SCDs for DVT prophylaxis, anticoagulation relatively contraindicated given anemia, thrombocytopenia Weakness, fatigue, low blood pressures -Likely multifactorial, from RADHA, from anemia -UA pending, possible UTI Pancytopenia -Secondary myelodysplastic syndrome -Hemoglobin 7.7, has received 3 units in the last 2 weeks, will give 1 unit PRBC -Monitor platelet count -Has neutropenia, follow UA for UTI Bilateral lower extremity edema, 1+, avoid fluid overload Acute kidney injury on chronic kidney disease -BUN 91, creatinine 2.5 -Is on Lasix, lisinopril -Will hold off on giving fluids due to 1+ pitting edema -Has not received 1 L in the ER, will receive 500 cc of blood -Monitor creatinine, monitor urine output -CPK, urine studies Weakness, fatigue, PT OT Type 2 diabetes mellitus, low-dose sliding scale Chronic diarrhea, stool studies Attestations Medical Necessity Statement*: Patient requires hospitalization, outpatient with observation, chest pain, weakness, anemia Coding Level of Care Code Acute Seating And Mobility Technologist for [facility] Diagnoses Chest pain R07.9 Chest pain type: unspecified 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
[2022-01-04 01:43] LABS: Troponin 5 2HR Delta 28.63 ABS# (0-10)
[2022-01-04] MEDS: enoxaparin 100 mg/mL Syringe SUBCUT (02:04)
--- NOTE | 2022-01-04 02:13 | USCV_ITS ---
Guido Crump Age: 81 Gender: M : 1940 Exam Date: 01/04/2022 02:48 Ordering Phys: Mingo Flanagan MD Technologist: CKTwan Exam Location: [facility] [place], [place] Indication: murmur BP: / HR: 111 Rhythm: Sinus Technical Quality: Technically difficult study MEASUREMENTS (Male / Female) Normal Values 2D ECHO LV Diastolic Diameter PLAX 5.5 cm 4.2 - 5.9 / 3.9 - 5.3 cm LV Systolic Diameter PLAX 4.3 cm IVS Diastolic Thickness 1.1 cm 0.6 - 1.0 / 0.6 - 0.9 cm IVS Systolic Thickness 0.9 cm LVPW Diastolic Thickness 1.3 cm 0.6 - 1.0 / 0.6 - 0.9 cm LVPW Systolic Thickness 2.0 cm LVOT Diameter 1.9 cm LV Ejection Fraction 2D Teich 42.3 % LA Diameter 3.4 cm LA Width 3.3 cm LA Height 5.7 cm RA Width 3.8 cm RA Height 6.4 cm Aorta at Sinotubular Diameter 2.3 cm IVC Diameter 2.1 cm M-MODE Aortic Annulus Diameter 2.3 cm LA Ao Ratio MM 1.5 MV E Point Septal Separation 2.1 cm DOPPLER LVOT Peak Velocity 82.0 cm/s MV Peak Velocity 196.0 cm/s MV Area PHT 5.0 cm squared MV E' Velocity 205.0 cm/s TR Peak Velocity 293.2 cm/s TR Peak Gradient 34.4 mmHg TR Mean Velocity 217.7 cm/s TR Mean Gradient 21.2 mmHg TR Velocity Time Integral 61.8 cm Right Atrial Pressure 10.0 mmHg Pulmonary Artery Systolic Pressu 44.4 mmHg PV Peak Velocity 167.0 cm/s RV Acceleration Time 0.1 s RV Ejection Time 0.3 s RV AcT/ET 0.3 FINDINGS Left Ventricle Technically poor quality echocardiogram because of poor ultrasonic windows. LV is dilated. LV systolic function is at least moderately reduced. Regional wall motion abnormalities cannot be assessed accurately because of limited visualization Right Ventricle Grossly normal Right Atrium Not well visualized Left Atrium Normal in size Mitral Valve Moderate mitral annular calcification. There is mild mitral regurgitation Aortic Valve Aortic valve is thickened. No significant aortic regurgitation Tricuspid Valve Grossly normal. Mild tricuspid regurgitation. Insufficient TR jet to calculate RVSP Pulmonic Valve Not visualized Pericardium Grossly normal Aorta Normal in size IVC CONCLUSIONS Technically poor quality echocardiogram because of poor ultrasonic windows. LV is dilated. LV systolic function is at least moderately reduced. Regional wall motion abnormalities cannot be assessed accurately because of limited visualization Moderate mitral annular calcification. There is mild mitral regurgitation Mild tricuspid regurgitation. No comparison studies are available Kvng Guerin MD (Electronically Signed) Final Date: 04 Jan 2022 17:32 S
--- NOTE | 2022-01-04 02:26 | PC.NURSE ---
ADMIT NOTE Pt received to floor from ER via gurney. Ambulated with 2 assist to bed. Is weak with unsteadiness. Says he has been feeling bad with increased weakness, nausea/vomiting, fatigue and SOB. Came to the hospital for this and chest pain. Denies any chest pain at this time. Says he has been getting blood transfusions but not sure how oftern. Is to receive one unit tonight. Is pleasant and talkative. RN to bedside for admission assessment
[2022-01-04 02:52] LABS: Add Urine Microscopic? NO; Charge for UA Resulting for Rev
[2022-01-04 02:56] LABS: Bilirubin Urine Neg (Negative); Blood Urine Neg (Negative); Glucose Urine UA Norm (Normal); Ketones Urine Negative (Negative); Leukocyte Esterase Urine Negative (Negative); Nitrate Urine Negative (Negative); Protein Urine Neg (Negative); Specific Gravity, Urine 1.015 (1.005-1.030); Urine Appearance Clear (CLEAR); Urine Color Yellow (Yellow); Urobilinogen Urine Norm (Negative); pH Urine 5 (5-7)
[2022-01-04 03:07] LABS: Potassium, Radom Urine 42 mmol/L; Urine Creatinine 37 mg/dL (39-259); Urine Random Chloride 75 mmol/L; Urine Random Sodium 65 mmol/L
[2022-01-04] MEDS: sodium polystyrene sulfonate 15 gm/60 mL Btl PO ×2 (03:18→08:58)
[2022-01-04] MEDS: pantoprazole 40 mg SDV IVP ×2 (03:34→17:09)
[2022-01-04 03:55] LABS: Eosinophil Urine No Eosinophils Seen
[2022-01-04 04:12] LABS: Lactate (Lactic Acid level) 2.7 mmol/L (0.5-2.2)
[2022-01-04 04:24] LABS: NT Pro B Type Natriuretic Pept 3436 pg/mL (0-450); Procalcitonin 0.15 ng/mL (0-0.5)
[2022-01-04 04:35] LABS: Creatine Phosphokinase 81 U/L (39-308)
--- NOTE | 2022-01-04 04:52 | ECG_ITS ---
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 Measurements Intervals [place] Rate: 106 P: 33 DE: 202 QRS: 29 QRSD: 130 T: 151 QT: 331 QTc: 439 Interpretive Statements SINUS TACHYCARDIA MODERATE INTRAVENTRICULAR CONDUCTION DELAY [105+ ms QRS DURATION, 80+ ms Q/S IN V1/V2, NO Q AND 60+ ms R IN I/aVL/V5/V6] ST DEVIATION AND MODERATE T-WAVE ABNORMALITY, CONSIDER LATERAL ISCHEMIA [-0.1+ mV T-WAVE IN I/aVL/V5/V6] Compared to ECG 01/04/2022 01:03:59 Intraventricular conduction delay now present T-wave abnormality now present Possible ischemia now present Left ventricular hypertrophy no longer present ST (T wave) deviation no longer present Electronically Signed On 01-04-2022 18:38:22 CDT by Kvng Guerin M.D. [id number]
--- NOTE | 2022-01-04 05:27 | PC.NURSE ---
BLOOD TRANSFUSION Unit of PRBC's started by RN. Will monitor closely. Consent for transfusion was obtained
[2022-01-04 05:48] LABS: Troponin 5 6HR 130.6 ng/L (0-15); Troponin 5 6HR Delta 86.6 ng/L (0-12)
[2022-01-04 08:47] LABS: Glucose Point of Care 141 mg/dL (70-110)
[2022-01-04] MEDS: aspirin 81 mg EC Tablet PO (08:56)
[2022-01-04] MEDS: finasteride 5 mg Tablet PO (08:57)
[2022-01-04] MEDS: tamsulosin 0.4 mg Capsule PO ×2 (08:57→17:09)
[2022-01-04] MEDS: ferrous sulfate EC 325 mg Tablet PO ×2 (08:57→17:09)
[2022-01-04 08:58] LABS: Glucose Point of Care 130 mg/dL (70-110)
[2022-01-04] MEDS: CLONazepam 1 mg Tablet PO ×3 (08:58→20:59)
[2022-01-04] MEDS: clopidogrel 75 mg Tablet PO (08:58)
[2022-01-04] MEDS: levothyroxine 50 mcg Tablet PO (08:58)
[2022-01-04] MEDS: atorvastatin 40 mg Tablet PO (08:58)
[2022-01-04] MEDS: gabapentin 300 mg Capsule 600 MG PO (08:58)
--- NOTE | 2022-01-04 09:33 | PC.PHAR ---
PT UNABLE TO VERIFY. PT DAUGHTER [place] TAKES CARE OF HIS MEDS, ABLE TO CONTACT HER AND SHE VERIFIED ON PHONE
[2022-01-04 14:04] LABS: Glucose Point of Care 140 mg/dL (70-110)
--- NOTE | 2022-01-04 16:20 | PM.CONSULT ---
Providers/Reason For Consult Consulting Physician/Specialty*: Dr. 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 His hemoglobin goal is 8. His current hemoglobin is 7.7 and he is receiving a transfusion of PRBCs. He reported to the emergency room approximately 1 day ago with sudden severe substernal chest pain radiating to his back. The pain was sharp and constant. Nothing made the pain worse. Narcotics made the pain better. He is now pain free. He did have some nonbloody emesis associated with the pain which resolved when the pain resolved. He denies any abdominal pain. He does report that he has hemorrhoids and gets occasional hematochezia. Denies melena. He had an EGD and colonoscopy several years ago at an outside hospital but does not remember the results. Denies any other symptoms. Review of Systems General: Reports: 10 or more systems reviewed and unremarkable except in HPI and below Medications/Allergies Home Medications Medication Instructions Recorded Confirmed Last Taken Type levalbuterol tartrate 45 2 inh INHALATION Q6H 10/24/19 01/04/22 Unknown History mcg/actuation aerosol inhaler (Xopenex HFA) levothyroxine 50 mcg tablet 50 mcg PO DAILY@0800 10/24/19 01/04/22 01/15/21 History Diabetic shoes #1 ea 12/12/19 01/04/22 Unknown Rx blood sugar diagnostic (True #100 each 03/12/20 01/04/22 Unknown Rx Metrix Glucose Test Strip) aspirin 81 mg tablet,delayed 81 mg PO DAILY@0800 01/16/21 01/04/22 01/15/21 History release atorvastatin 40 mg tablet 40 mg PO DAILY@0801/16/21 01/04/22 01/15/21 History metformin 1,000 mg tablet 1,000 mg PO BID@0800,2000 01/16/21 01/04/22 01/15/21 History tamsulosin 0.4 mg capsule 0.4 mg PO BID #60 cap 01/16/21 01/04/22 Unknown Rx allopurinol 300 mg tablet 300 mg PO DAILY tab 12/23/21 01/04/22 Unknown History clonazepam 1 mg tablet 1 mg PO TID 12/23/21 01/04/22 Unknown History clopidogrel 75 mg tablet 75 mg PO DAILY 12/23/21 01/04/22 Unknown History finasteride 5 mg tablet 5 mg PO DAILY 12/23/21 01/04/22 Unknown History furosemide 80 mg tablet 80 mg PO BID 12/23/21 01/04/22 Unknown History gabapentin 300 mg capsule 600 mg PO DAILY cap 12/23/21 01/04/22 Unknown History lisinopril 5 mg tablet 5 mg PO DAILY 12/23/21 01/04/22 Unknown History metoprolol tartrate 25 mg tablet 50 mg PO BID@0800,1999 tab 12/23/21 01/04/22 Unknown History potassium chloride 20 mEq oral 40 meq PO BID ea 12/23/21 01/04/22 Unknown History packet ([employer]) Allergies Allergy/AdvReac Type Severity Reaction Status Date / Time No Known Allergies Allergy Verified 12/23/21 10:36 Current Medications Generic Name Dose Route Start Last Admin Trade Name Cedricq PRN Reason Stop Dose Admin Aspirin 81 mg 01/04/22 08:00 01/04/22 08:56 Aspirin 81 Mg Ec Tablet PO 81 mg DAILY@0800 VANDANA Administration Atorvastatin Calcium 40 mg 01/04/22 08:00 01/04/22 08:58 Atorvastatin 40 Mg Tablet PO 40 mg DAILY@0800 VANDANA Administration Clonazepam 1 mg 01/04/22 09:00 01/04/22 14:44 Clonazepam 1 Mg Tablet PO 1 mg TID VANDANA Administration Clopidogrel Bisulfate 75 mg 01/04/22 09:00 01/04/22 08:58 Clopidogrel 75 Mg Tablet PO 75 mg DAILY VANDANA Administration Ferrous Sulfate 325 mg 01/04/22 09:00 01/04/22 08:57 Ferrous Sulfate Ec 325 Mg Tablet PO 325 mg BID VANDANA Administration Finasteride 5 mg 01/04/22 09:00 01/04/22 08:57 Finasteride 5 Mg Tablet PO 5 mg DAILY VANDANA Administration Gabapentin 600 mg 01/04/22 09:00 01/04/22 08:58 Gabapentin 300 Mg Capsule PO 600 mg DAILY VANDANA Administration Insulin Human Lispro 0 unit 01/04/22 08:00 01/04/22 13:28 Insulin Lispro 100 Unit/1 Ml SUBCUT Not Given TIDWM [facility] Protocol Levothyroxine Sodium 50 mcg 01/04/22 08:00 01/04/22 08:58 Levothyroxine 50 Mcg Tablet PO 50 mcg DAILY@0800 VANDANA Administration Sodium Polystyrene Sulfonate 15 gm 01/04/22 02:13 01/04/22 14:45 Sodium Polystyrene Sulfonate 15 Gm/60 Ml Btl PO Not Given Q6H [facility] Tamsulosin HCl 0.4 mg 01/04/22 09:00 01/04/22 08:57 Tamsulosin 0.4 Mg Capsule PO 0.4 mg BID VANDANA Administration PFSH Acute PFSH: Medical History (Updated 01/04/22 @ 16:27 by Lucio Lima DO) Anemia Anxiety BPH (benign prostatic hyperplasia) CHF (congestive heart failure) Diabetes Gout Hemorrhoid Hyperlipidemia Hypertension Hypothyroidism Pancytopenia Recurrent urinary tract infection 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 Surgical History History of cataract surgery History of parotidectomy (09/22/21) right parotidectomy with facial nerve preservation, with cervicofacial advancement flap, and with the right modified radical neck dissection Status post surgical removal of malignant neoplasm of skin (09/22/21) resection of right ear squamous cell carcinoma in situ Family History Father CAD (coronary artery disease) Mother CAD (coronary artery disease) Son Diabetes Grandfather Cancer Prostate Hypertension Grandmother Hypertension Denies family history of Clotting disorder Dementia Hyperlipidemia Psychiatric illness Chronic kidney disease (CKD) Suicide Anesthesia complication Bleeding disorder Lung disease Stroke Social History Smoking and tobacco status: former smoker Alcohol intake: never Vitals/I&O/Wt Last Vital Signs Temp 98.1 F 01/04/22 15:43 Pulse 100 01/04/22 15:43 Resp 18 01/04/22 15:43 BP 90/40 01/04/22 15:43 Pulse Ox 100 01/04/22 15:43 01/04/22 01/04/22 01/04/22 06:59 14:59 22:59 Intake Total 620 / 620 710 / 710 Output Total 600 / 600 520 / 520 Balance 190 / 190 Weight last 48 hrs Weight 223 lb Weight 212 lb Physical Exam Narrative: General : Patient is well developed , no acute distress, oriented x3 Head : Normal cephalic, a-traumatic. Ears : Pinnae and external canal are normal. Hearing is normal. Eyes : PERRLA, Sclera and injection are normal. No conjunctival discharge. Nose : Mucous membranes are without erythema. Throat : buccal mucosa is normal, gums are without significant recession or hypertrophy. Lungs : Equal chest rise bilaterally, no use of accessory muscles, trachea is midline. Cor : Rate and rhythm are normal. Abdomen : Soft, ND, NT, no g/r/m Extremities : No edema, no cyanosis or clubbing, dorsalis pedis pulses are present bilaterally, non-tender to palpation of calves. Upper extremities are normal bilaterally. Back : non-tender to palpation, no CVA tenderness. Neuro : CN II - XII intact, Upper and lower extremities have equal and full strength Data : 01/03/22 23:10 01/03/22 23:10 Micro: Microbiology 01/04/22 05:14 Blood Culture - Preliminary Blood SPECIMEN COLLECTED 01/04/22 03:39 Blood Culture - Preliminary Blood SPECIMEN COLLECTED A&P Assessment and plan (1) Anemia: Status: Acute (2) Myelodysplasia (myelodysplastic syndrome): Status: Acute (3) Hemorrhoid: Status: Acute Plan EGD and colonoscopy to rule out intestinal source of bleeding causing anemia The risks and benefits of the procedure, including bleeding, infection, intestinal perforation requiring surgery, missed lesion, or explained to the patient. He is understanding of the risks and wishes to proceed. Patient will be scheduled as an outpatient for next Monday Thank you for this consultation Coding Level of Care Code Acute [place] Department Supervisor for [facility] Fwd Diagnoses Anemia D64.9 Myelodysplasia (myelodysplastic syndrome) D46.9 Hemorrhoid K64.9
[2022-01-04 16:38] LABS: Anion Gap 18.2 (5-19); Blood Urea Nitrogen 77 mg/dL (8-23); Carbon Dioxide 19 mmol/L (22-29); Chloride 102 mmol/L (98-107); Glucose 135 mg/dL (65-115); Iron 137 ug/dL (59-158); Lactate Dehydrogenase 277 U/L (135-225); Osmolality Calculated 303 mOsm/kg (285-295); Percent Saturation 60.6 % (20-50); Potassium 5.2 mmol/L (3.5-5.1); Sodium 134 mmol/L (136-145); Total Iron Binding Capacity 226 mcg/dl; Unsaturated Iron Binding 89 ug/dL (112-347)
[2022-01-04 16:53] LABS: Folate Level 11.4 ng/mL (4.5-32.2)
[2022-01-04 16:54] LABS: Vitamin B12 627 pg/mL (232-1245)
[2022-01-04 16:58] LABS: Troponin T (5th) Once 440 ng/L (0-15)
[2022-01-04 17:02] LABS: Glucose Point of Care 132 mg/dL (70-110)
[2022-01-04] MEDS: insulin regular-human 10 UNIT in SYRINGE 1 EACH IVP (17:49)
--- NOTE | 2022-01-04 18:17 | P.CONIM_ITS ---
Providers/Reason For Consult Consulting Physician/Specialty*: ALEAH Hassan MD/cardiology Reason for Consult*: Patient's elevated troponin T Requesting Physician: Dr. Ken Attending Physician: Jose Ken MD Primary Care Provider: Della Jensen MD History of Present Illness History of Present Illness Guido Crump is a 81 year old male, is admitted to the hospital through the emergency room where he presented with complaints of severe chest pain. He was found to have elevated troponin T with a significant delta. Cardiology consult is requested for further cardiac evaluation recommendations. This patient extremely poor historian. Information is mostly with her medical records and medical staff. Based on the ER records, patient presented with a severe chest pain of 10/10 in intensity. Based on the information from the family members, patient was having generalized weakness, dizziness and some chest discomfort. His blood pressure also was running low at home. 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 Hematuria had of 4 units of blood transfusion so far within the last 2 weeks. He came with a hemoglobin of 7.7 and received another unit of transfusion in the hospital. This patient is known to have coronary artery disease and had a most recent cardiac colorization at the [facility] in [place]. He was found to have chronic total occlusion of the right coronary artery with [id number] collaterals. Nonobstructive disease in the circumflex artery on the left anterior descending artery. Apparently he had a more or less similar findings on the angiogram done approximately a year ago in monitor at home as well. He had a recent carotid endarterectomy at? [facility]. At the time of my examination, patient denies having any chest pain. He just wanted to go home. Patient is known to have chronic diarrhea and GI bleed. He came to the hospital with elevated troponin T of 44. He had a 2-hour delta of 28 and a 6-hour delta of 86. No repeat troponin T level went up to 444. Has no chest pain or shortness of breath at this time. No fever, chills or cough. His myelodysplastic syndrome is being treated conservatively. He is being followed by our oncology service. He is deemed not to be an ideal candidate for treatment with hypo methylating agents Medications/Allergies Home Medications Medication Instructions Recorded Confirmed Last Taken Type levalbuterol tartrate 45 2 inh INHALATION Q6H 10/24/19 01/04/22 Unknown History mcg/actuation aerosol inhaler (Xopenex HFA) levothyroxine 50 mcg tablet 50 mcg PO DAILY@0800 10/24/19 01/04/22 01/15/21 History Diabetic shoes #1 ea 12/12/19 01/04/22 Unknown Rx blood sugar diagnostic (True #100 each 03/12/20 01/04/22 Unknown Rx Metrix Glucose Test Strip) aspirin 81 mg tablet,delayed 81 mg PO DAILY@0800 01/16/21 01/04/22 01/15/21 History release atorvastatin 40 mg tablet 40 mg PO DAILY@79901/16/21 01/04/22 01/15/21 History metformin 1,000 mg tablet 1,000 mg PO BID@0800,199901/16/21 01/04/22 01/15/21 History tamsulosin 0.4 mg capsule 0.4 mg PO BID #60 cap 01/16/21 01/04/22 Unknown Rx allopurinol 300 mg tablet 300 mg PO DAILY tab 12/23/21 01/04/22 Unknown History clonazepam 1 mg tablet 1 mg PO TID 12/23/21 01/04/22 Unknown History clopidogrel 75 mg tablet 75 mg PO DAILY 12/23/21 01/04/22 Unknown History finasteride 5 mg tablet 5 mg PO DAILY 12/23/21 01/04/22 Unknown History furosemide 80 mg tablet 80 mg PO BID 12/23/21 01/04/22 Unknown History gabapentin 300 mg capsule 600 mg PO DAILY cap 12/23/21 01/04/22 Unknown History lisinopril 5 mg tablet 5 mg PO DAILY 12/23/21 01/04/22 Unknown History metoprolol tartrate 25 mg tablet 50 mg PO BID@799,1999 tab 12/23/21 01/04/22 Unknown History potassium chloride 20 mEq oral 40 meq PO BID ea 12/23/21 01/04/22 Unknown History packet ([employer]) Allergies Allergy/AdvReac Type Severity Reaction Status Date / Time No Known Allergies Allergy Verified 12/23/21 10:36 Current Medications Generic Name Dose Route Start Last Admin Trade Name Freq PRN Reason Stop Dose Admin Aspirin 81 mg 01/04/22 08:00 01/04/22 08:56 Aspirin 81 Mg Ec Tablet PO 81 mg DAILY@0800 VANDANA Administration Atorvastatin Calcium 40 mg 01/04/22 08:00 01/04/22 08:58 Atorvastatin 40 Mg Tablet PO 40 mg DAILY@0800 VANDANA Administration Clonazepam 1 mg 01/04/22 09:00 01/04/22 14:44 Clonazepam 1 Mg Tablet PO 1 mg TID VANDANA Administration Clopidogrel Bisulfate 75 mg 01/04/22 09:00 01/04/22 08:58 Clopidogrel 75 Mg Tablet PO 75 mg DAILY VANDANA Administration Ferrous Sulfate 325 mg 01/04/22 09:00 01/04/22 17:09 Ferrous Sulfate Ec 325 Mg Tablet PO 325 mg BID VANDANA Administration Finasteride 5 mg 01/04/22 09:00 01/04/22 08:57 Finasteride 5 Mg Tablet PO 5 mg DAILY VANDANA Administration Gabapentin 600 mg 01/04/22 09:00 01/04/22 08:58 Gabapentin 300 Mg Capsule PO 600 mg DAILY VANDANA Administration Insulin Human Lispro 0 unit 01/04/22 08:00 01/04/22 18:09 Insulin Lispro 100 Unit/1 Ml SUBCUT Not Given TIDWM [facility] Protocol Levothyroxine Sodium 50 mcg 01/04/22 08:00 01/04/22 08:58 Levothyroxine 50 Mcg Tablet PO 50 mcg DAILY@0800 VANDANA Administration Pantoprazole Sodium 40 mg 01/04/22 18:00 01/04/22 17:09 Pantoprazole 40 Mg Sdv IVP 40 mg BID VANDANA Administration Tamsulosin HCl 0.4 mg 01/04/22 09:00 01/04/22 17:09 Tamsulosin 0.4 Mg Capsule PO 0.4 mg BID VANDANA Administration PFSH Acute PFSH: Medical History Anemia Anxiety BPH (benign prostatic hyperplasia) CHF (congestive heart failure) Diabetes Gout Hemorrhoid Hyperlipidemia Hypertension Hypothyroidism Pancytopenia Recurrent urinary tract infection 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 Surgical History History of cataract surgery History of parotidectomy (09/22/21) right parotidectomy with facial nerve preservation, with cervicofacial advancement flap, and with the right modified radical neck dissection Status post surgical removal of malignant neoplasm of skin (09/22/21) resection of right ear squamous cell carcinoma in situ Family History Father CAD (coronary artery disease) Mother CAD (coronary artery disease) Son Diabetes Grandfather Cancer Prostate Hypertension Grandmother Hypertension Denies family history of Clotting disorder Dementia Hyperlipidemia Psychiatric illness Chronic kidney disease (CKD) Suicide Anesthesia complication Bleeding disorder Lung disease Stroke Social History Smoking and tobacco status: former smoker Alcohol intake: never Vitals/I&O/Wt Last Vital Signs Temp 98.1 F 01/04/22 15:43 Pulse 100 01/04/22 15:43 Resp 18 01/04/22 15:43 BP 90/40 01/04/22 15:43 Pulse Ox 100 01/04/22 15:43 01/04/22 01/04/22 01/04/22 06:59 14:59 22:59 Intake Total 620 / 620 710 / 710 240 / 950 Output Total 600 / 600 520 / 520 Balance 190 / 190 240 / 430 Weight last 48 hrs Weight 223 lb Weight 212 lb Physical Exam Narrative: GENERAL: The patient is alert and oriented to place and person. Extremely poor historian .seems to have very poor comprehension. Not in any acute distress. HEENT: Moderate pallor with no, icterus or lymphadenopathy. The pupils are symmetrical oral cavity: There are no mucous membrane lesions. Funduscopic examination: Fundus is not visualized NECK: Trachea appears to be central. No masses noted. No JVD or thyromegaly appreciated. No carotid bruit. RESPIRATORY: Chest is symmetrical. No intercostals muscle retraction or any accessory muscle activation. There is no chest wall tenderness. Breath sounds are heard bilaterally. No rales or rhonchi heard. No evidence of any co nsolidation. BREASTS: Deferred. HEART: The PMI is not palpated. No other palpable precordial events. First and second heart sounds are normal. No S3. Short systolic murmur in the left sternal border. No diastolic murmurs. ABDOMEN: No vessel pulsations or distention. No tenderness. No organomegaly appreciated. No abdominal bruit. Bowel sounds are normally heard. : Deferred. RECTAL: Deferred. EXTREMITIES: 1-2+ edema both lower extremities. No cyanosis. Peripheral pulses are palpable but weak bilaterally. MUSCULOSKELETAL: No acute joint deformities or swelling SKIN: There are no significant scars or skin rash noted. NEUROPSYCHIATRIC: The patient is alert and oriented x3. Appears to be in a good mood. The higher functions are grossly within normal limits. No tremors or rigidity noted. Data : 01/04/22 22:00 01/04/22 15:59 Other Labs: Laboratory Last Values WBC 2.7 10^3/uL (4.0-10.0) L 01/03/22 23:10 RBC 2.67 10^6/uL (4.1-5.3) L 01/03/22 23:10 Hgb 7.7 g/dL (11.7-16.6) L 01/03/22 23:10 Hct 23.1 % (42.0-52.0) L 01/03/22 23:10 MCV 86.5 fl (80-94) 01/03/22 23:10 MCH 28.8 pg (28.0-34.0) 01/03/22 23:10 MCHC 33.3 g/dL (30.0-36.0) 01/03/22 23:10 RDW 18.6 % (12.1-15.1) H 01/03/22 23:10 Plt Count 80 10^3/cmm (130-400) L 01/03/22 23:10 MPV 12.9 fL (7.4-10.4) H 01/03/22 23:10 Neut % (Auto) 35.0 % 01/03/22 23:10 Lymph % (Auto) 41.3 % 01/03/22 23:10 [place] % (Auto) 18.1 % 01/03/22 23:10 Eos % (Auto) 0.4 % 01/03/22 23:10 Baso % (Auto) 0.0 % 01/03/22 23:10 Neut # (Auto) 0.95 10^3/uL (1.8-7.7) L* 01/03/22 23:10 Lymph # (Auto) 1.1 10^3/uL (0.8-4.8) 01/03/22 23:10 [place] # (Auto) 0.5 10^3/uL (0.2-0.9) 01/03/22 23:10 Eos # (Auto) 0.0 10^3/uL (0.0-0.8) 01/03/22 23:10 Baso # (Auto) 0.0 10^3/uL (0.0-0.1) 01/03/22 23:10 Nucleated RBC % (auto) 0 % 01/03/22 23:10 Nucleated RBCs # 0.0 /100WBC 01/03/22 23:10 PT 14.20 SECONDS (12.1-14.9) 01/03/22 23:10 INR 1.07 (0.8-1.2) 01/03/22 23:10 Sodium 134 mmol/L (136-145) L 01/04/22 15:59 Potassium 5.2 mmol/L (3.5-5.1) H 01/04/22 15:59 Chloride 102 mmol/L (98-107) 01/04/22 15:59 Carbon Dioxide 19 mmol/L (22-29) L 01/04/22 15:59 Anion Gap 18.2 (5-19) 01/04/22 15:59 BUN 77 mg/dL (8-23) H 01/04/22 15:59 Creatinine 2.0 mg/dL (0.7-1.2) H 01/04/22 15:59 GFR Calculation Not Reportable 01/04/22 15:59 Glucose 135 mg/dL (65-115) H 01/04/22 15:59 POC Glucose 132 mg/dL (70-110) H 01/04/22 16:57 Calculated Osmolality 303 mOsm/kg (285-295) H 01/04/22 15:59 Lactate 2.7 mmol/L (0.5-2.2) H 01/04/22 03:39 Calcium 9.0 mg/dL (8.5-10.5) 01/04/22 15:59 Iron 137 ug/dL (59-158) 01/04/22 15:59 TIBC 226 mcg/dl 01/04/22 15:59 % Saturation 60.6 % (20-50) H 01/04/22 15:59 Unsat Iron Binding 89 ug/dL (112-347) L 01/04/22 15:59 Total Bilirubin 0.4 mg/dL (0.15-1.2) 01/03/22 23:10 AST 12 U/L (0-40) 01/03/22 23:10 ALT 15 U/L (0-41) 01/03/22 23:10 Alkaline Phosphatase 116 IU/L (40-130) 01/03/22 23:10 Lactate Dehydrogenase 277 U/L (135-225) H 01/04/22 15:59 Creatine Kinase 81 U/L (39-308) 01/04/22 03:39 Troponin T Baseline 44 ng/L (0-15) H 01/03/22 23:10 Troponin T 120 Minute 72.63 ng/L (0-15) H 01/04/22 01:10 Delta Troponin T 28.63 ABS# (0-10) H* 01/04/22 01:10 Troponin T Hi Sens 6Hr 130.6 ng/L (0-15) H 01/04/22 05:14 Troponin T Hi Sens 6Hr Delta 86.6 ng/L (0-12) H* 01/04/22 05:14 C-Reactive Protein 3.0 mg/L (0.0-4.9) 01/04/22 03:39 Troponin T Gen 5 ng/L 440 ng/L (0-15) H* 01/04/22 15:59 NT-Pro-B Natriuret Pep 3436 pg/mL (0-450) H 01/04/22 03:39 Total Protein 7.4 g/dL (6.6-8.7) 01/03/22 23:10 Albumin 4.9 g/dL (3.5-5.2) 01/03/22 23:10 Globulin 2.5 g/dL (1.3-4.6) 01/03/22 23:10 Vitamin B12 627 pg/mL (232-1245) 01/04/22 15:59 Folate 11.4 ng/mL (4.5-32.2) 01/04/22 15:59 Procalcitonin 0.15 ng/mL (0-0.5) 01/04/22 03:39 TSH 3.90 uIU/mL (0.27-4.20) 01/04/22 03:39 Urine Color Yellow (Yellow) 01/04/22 02:45 Urine Appearance Clear (CLEAR) 01/04/22 02:45 Urine pH 5 (5-7) 01/04/22 02:45 Ur Specific [place] 1.015 (1.005-1.030) 01/04/22 02:45 Urine Protein Neg (Negative) 01/04/22 02:45 Urine Glucose (UA) Norm (Normal) 01/04/22 02:45 Urine Ketones Negative (Negative) 01/04/22 02:45 Urine Blood Neg (Negative) 01/04/22 02:45 Urine Nitrate Negative (Negative) 01/04/22 02:45 Urine Bilirubin Neg (Negative) 01/04/22 02:45 Urine Urobilinogen Norm mg/dL (Negative) 01/04/22 02:45 Ur Leukocyte Esterase Negative (Negative) 01/04/22 02:45 Ur Eosinophil Smear Not Reportable 01/04/22 02:45 Urine Eosinophils No eosinophils seen 01/04/22 02:45 Ur Random Sodium 65 mmol/L 01/04/22 02:45 Ur Random Potassium 42 mmol/L 01/04/22 02:45 Ur Random Chloride 75 mmol/L 01/04/22 02:45 Urine Creatinine 37 mg/dL (39-259) L 01/04/22 02:45 Blood Type O Positive 01/04/22 03:39 Rho(D) Type Positive 01/04/22 03:39 Antibody Screen Negative 01/04/22 03:39 Crossmatch See Detail 01/04/22 03:39 Micro: Microbiology 01/04/22 05:14 Blood Culture - Preliminary Blood SPECIMEN COLLECTED 01/04/22 03:39 Blood Culture - Preliminary Blood SPECIMEN COLLECTED Echo: My impression: ?Technically poor quality echocardiogram because of poor ?ultrasonic windows. ?LV is dilated.? LV systolic function is at least moderately ?reduced.? Regional wall motion abnormalities cannot be assessed ?accurately because of limited visualization ?Moderate mitral annular calcification. There is mild mitral ?regurgitation ?Mild tricuspid regurgitation. ?No comparison studies are available EKG 1: My Interpretation: The EKG showed sinus tachycardia rate of [address]-T changes involving lead V4 to V6, I and aVL and lead II. Poor R wave progression. Nonspecific IVCD. EKG computer-generated impression: Chest X-Ray 01/03/22 22:52 IMPRESSION: No acute findings. Chest/Abdomen/Pelvis CT 01/03/22 23:09 IMPRESSION: Smooth septal thickening features of the lungs consistent with mild severity interstitial edema. IMPRESSION: 1. Negative for acute abdominopelvic abnormality. 2. No significant changes from comparison. COMMENTS: Consistent with the [employer]'s Incidental Findings Committee white paper (J Am Patrice Radiol 2018): Any incidental renal lesion less than 1 cm or classified as too small to characterize, or any incidental cystic renal lesion characterized as simple-appearing, is likely benign. No follow-up imaging is recommended for these lesions per consensus recommendations based on imaging criteria. A&P Assessment and plan (1) Elevated troponin: The patient is the clinical features are consistent with a non-ST elevation m yocardial infarction. Hemodynamically he seems to be stable. At this point because of the transfusion dependent anemia and the GI bleed, he may not be a candidate for IV anticoagulation. He may be kept on the clopidogrel and aspirin. His hemoglobin needs to be closely monitored. Status: Acute (2) Ischemic cardiomyopathy: Patient seems to have moderately depressed LV ejection fraction by echocardiogram. The echo was a suboptimal quality. We do not have any medical records to compare with the previous echocardiogram. In view of his hypotension, he may not be able to tolerate many of the GDMT agents Status: Acute (3) Myelodysplasia (myelodysplastic syndrome): Patient only had 1 units of blood transfusion. This is being followed by oncology service. Status: Acute (4) Transfusion-dependent anemia: As mentioned above Status: Acute (5) Hyperlipidemia: May continue on the atorvastatin for the time being. Status: Acute (6) Acute kidney injury superimposed on chronic kidney disease: His BUN/creatinine seems to be progressively getting worse Status: Acute Plan Patient's family is not available for discussion at this time. Because of the markedly increased troponin T, it may be appropriate to do a myocardial perfusion imaging to evaluate for any underlying coronary ischemia. This decision will be made after discussing with the family. Based on the clinical progress, further recommendations will be made. Consult Attestations Medical Necessity Statement: Patient requires continued hospital stay for close monitoring and further management Coding Level of Care Code Acute Address Change Clerk for [facility] Fwd Diagnoses Elevated troponin R77.8 Ischemic cardiomyopathy I25.5 Myelodysplasia (myelodysplastic syndrome) D46.9 Transfusion-dependent anemia D64.9 Hyperlipidemia E78.5 Acute kidney injury superimposed on chronic kidney disease N17.9; N18.9
[2022-01-04 21:35] LABS: Glucose Point of Care 220 mg/dL (70-110)
--- NOTE | 2022-01-04 21:40 | ECG_ITS ---
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 Interpretive Statements NAME OF STUDY: LEXISCAN SESTAMIBI STRESS TEST INDICATION: Chest Pain PROCEDURE: At the baseline, the EKG revealed normal sinus rhythm with a poor R wave progression. Possible old anterior wall IA paroxysmal nocturnal dyspnea diffuse nonspecific ST-T changes. The baseline blood pressure was 103/59 mm Hg with a heart rate of 95 beats/min. Lexiscan was infused over a period of 20 seconds. A total of 0.4 milligrams of Lexiscan was infused. The stress phase was continued for a total of 5 minutes. Heart rate at the end of the stress phase was 100 with a blood pressure 91/43. The EKG at the peak infusion revealed no significant changes. Sestamibi was injected 20 seconds after the Lexiscan infusion. Blood pressure at the end of the recovery phase was 92/42 with a heart rate of 100 per minute. CONCLUSION: 1. No significant EKG changes with the LexiScan infusion 2. No LexiScan induced chest pain or cardiac arrhythmia 3. Normal blood pressure and heart rate response 4. Sestamibi/sestamibi perfusion scan pending; see separate report. Electronically Signed On 01-07-2022 12:27:01 CDT by Jl Hassan M.D. [id number]
[2022-01-04 22:28] LABS: Hematocrit 21.8 % (42.0-52.0); Hemoglobin 7.3 g/dL (11.7-16.6); Mean Corpuscular HGB Conc 33.5 g/dL (30.0-36.0); Mean Corpuscular Hemoglobin 28.7 pg (28.0-34.0); Mean Corpuscular Volume 85.8 fl (80-94); Mean Platelet Volume 12.2 fL (7.4-10.4); Platelet Count 62 10^3/cmm (130-400); Red Blood Count 2.54 10^6/uL (4.1-5.3); Red Cell Distribution Width 18.6 % (12.1-15.1); White Blood Count 2.1 10^3/uL (4.0-10.0)
[2022-01-04 23:52] LABS: Absolute Neutrophil 1.1 10^3/cmm (1.4-6.5); Absolute Segmented Neutrophil 1.1 10/cmm (1.6-7.1); Band Neutrophils Absolute 0.1 10^3/cmm (0.0-1.2); Eosinophils 0 %; Lymphocytes 34 %; Lymphocytes Absolute 0.7 10^3/cmm (1.2-3.4); Monocytes Absolute 0.2 10^3/cmm (0.1-0.6); Platelet Estimate Decreased (Normal); Segmented Neutrophils 51 %; Total Cells Counted 100 (0-100)
[2022-01-04 23:53] LABS: Poikilocytosis 1+
[2022-01-04 23:54] LABS: Anisocytosis 1+; Ovalocytes Trace; Schistocytes Trace; Tear Drop Cells Trace
[2022-01-05] VITALS (17 sets, daily range): BP systolic 97–145; BP diastolic 54–86; PULSE 63–119; RESP 16–19; TEMP 36.3–37.2; O2SAT 91–100
--- NOTE | 2022-01-05 06:59 | SUR.PREOP ---
STRESS ON HOLD AT THIS POINT. PATIENT UNSURE IF HE WANTS TO PROCEED. ON HOLD PENDING MD DISCUSSION WITH THE PATIENT. AWAITING FURTHER ORDERS.
[2022-01-05 07:14] LABS: Glucose Point of Care 118 mg/dL (70-110)
[2022-01-05 09:08] LABS: Hemoglobin 9.4 g/dL (11.7-16.6); Mean Corpuscular HGB Conc 33.6 g/dL (30.0-36.0); Mean Corpuscular Hemoglobin 28.6 pg (28.0-34.0); Mean Corpuscular Volume 85.1 fl (80-94); Platelet Count 64 10^3/cmm (130-400); Red Blood Count 3.29 10^6/uL (4.1-5.3); Red Cell Distribution Width 17.3 % (12.1-15.1)
--- NOTE | 2022-01-05 09:19 | PC.NURSE ---
spoke with patients sonFernando. per patients request. Patient agreed to lexiscan. Nuc med notified.
[2022-01-05] MEDS: aspirin 81 mg EC Tablet PO (09:28)
[2022-01-05] MEDS: finasteride 5 mg Tablet PO (09:28)
[2022-01-05] MEDS: atorvastatin 40 mg Tablet PO (09:28)
[2022-01-05] MEDS: ferrous sulfate EC 325 mg Tablet PO ×2 (09:28→17:23)
[2022-01-05] MEDS: clopidogrel 75 mg Tablet PO (09:28)
[2022-01-05] MEDS: pantoprazole 40 mg SDV IVP ×2 (09:29→17:24)
[2022-01-05] MEDS: gabapentin 300 mg Capsule 600 MG PO (09:29)
[2022-01-05] MEDS: levothyroxine 50 mcg Tablet PO (09:29)
[2022-01-05] MEDS: CLONazepam 1 mg Tablet PO ×3 (09:29→20:12)
[2022-01-05] MEDS: tamsulosin 0.4 mg Capsule PO ×2 (09:29→17:24)
[2022-01-05 09:32] LABS: Chol HDL Ratio 2.15 mg/dL (1.0-5.00); Cholesterol 84 mg/dL (0-200); HDL Cholesterol 39 mg/dL (60-100); LDL Cholesterol Calculated 29 mg/dL (50-129); Lactate (Lactic Acid level) 1.3 mmol/L (0.5-2.2); Triglycerides 78 mg/dL (0-150); VLDL Cholestrol Calculation 16 mg/dL (0-30)
[2022-01-05 09:34] LABS: Estmated Average Glucose 105; Hemoglobin A1C 5.3 % (4.0-6.0)
[2022-01-05 09:36] LABS: Troponin T (5th) Once 512 ng/L (0-15)
--- NOTE | 2022-01-05 09:48 | PM.PN ---
Subjective Subjective: Patient received 1 unit of blood transfusion last night. The most recent hemoglobin was 7.3 from around midnight. Repeat hemoglobin is pending. Patient denies any chest pain. No unusual shortness of breath. He is refusing to have a stress test. Medications: Medication Review Details: Current Medications Acetaminophen (Acetaminophen 325 Mg Tablet) 650 mg PO Q6H PRN PRN Reason: Mild/Mod Pain Or Temp >/= 101 Allopurinol (Allopurinol 300 Mg Tablet) 300 mg PO DAILY [facility] Aminophylline (Aminophylline 25 Mg/Ml Sdv 10 Ml) 25 mg IVP Q2M PRN PRN Reason: see dose instructions Stop: 01/06/22 06:52 Aspirin (Aspirin 81 Mg Ec Tablet) 81 mg PO DAILY@0800 [facility] Last Admin: 01/05/22 09:28 Dose: 81 mg Documented by: Atorvastatin Calcium (Atorvastatin 40 Mg Tablet) 40 mg PO DAILY@0800 [facility] Last Admin: 01/05/22 09:28 Dose: 40 mg Documented by: Clonazepam (Clonazepam 1 Mg Tablet) 1 mg PO TID [facility] Last Admin: 01/05/22 09:29 Dose: 1 mg Documented by: Clopidogrel Bisulfate (Clopidogrel 75 Mg Tablet) 75 mg PO DAILY [facility] Last Admin: 01/05/22 09:28 Dose: 75 mg Documented by: Dextrose (Dextrose 50% Syringe 50 Ml) 25 ml IVP ONCE PRN; Protocol PRN Reason: hypoglycemia protocol Dextrose (Dextrose 50% Syringe 50 Ml) 50 ml IVP PRN PRN; Protocol PRN Reason: hypoglycemia protocol Ferrous Sulfate (Ferrous Sulfate Ec 325 Mg Tablet) 325 mg PO BID [facility] Last Admin: 01/05/22 09:28 Dose: 325 mg Documented by: Finasteride (Finasteride 5 Mg Tablet) 5 mg PO DAILY [facility] Last Admin: 01/05/22 09:28 Dose: 5 mg Documented by: Furosemide (Furosemide 40 Mg Tablet) 80 mg PO BID [facility] Gabapentin (Gabapentin 300 Mg Capsule) 600 mg PO DAILY [facility] Last Admin: 01/05/22 09:29 Dose: 600 mg Documented by: Glucagon (Glucagon 1 Mg/Ml Inj 1 Ml) 1 mg IM ONCE PRN; Protocol PRN Reason: Adult Acute Hypoglycemia Prot. Dextrose (D5w) 500 mls @ 100 mls/hr IV ONCE PRN; Protocol PRN Reason: Adult Acute Hypoglycemia Prot Insulin Human Lispro (Insulin Lispro 100 Unit/1 Ml) 0 unit SUBCUT TIDWM [facility]; Protocol Last Admin: 01/05/22 08:12 Dose: Not Given Documented by: Levothyroxine Sodium (Levothyroxine 50 Mcg Tablet) 50 mcg PO DAILY@0800 [facility] Last Admin: 01/05/22 09:29 Dose: 50 mcg Documented by: Metformin HCl (Metformin 500 Mg Tablet) 1,000 mg PO BID@ [facility] Metoprolol Tartrate (Metoprolol Tartrate 50 Mg Tablet) 50 mg PO BID@ [facility] Morphine Sulfate (Morphine 4 Mg/Ml Sdv 1 Ml) 1 mg IVP Q4H PRN PRN Reason: SEVERE PAIN Nitroglycerin (Nitroglycerin 0.4 Mg Sublingual Tablet) 0.4 mg SUBLINGUAL Q5M PRN PRN Reason: CHEST PAIN Stop: 01/06/22 06:52 Non-Formulary Medication (Levalbuterol Tartrate [Xopenex Hfa]) 2 inh INHALATION Q6H [facility] Ondansetron HCl (Ondansetron 2 Mg/Ml Sdv 2 Ml) 4 mg IVP Q8H PRN PRN Reason: vomiting, or N/V if npo Ondansetron HCl (Ondansetron 2 Mg/Ml Sdv 2 Ml) 4 mg IVP Q2M PRN PRN Reason: NAUSEA Pantoprazole Sodium (Pantoprazole 40 Mg Sdv) 40 mg IVP BID [facility] Last Admin: 01/05/22 09:29 Dose: 40 mg Documented by: Potassium Chloride (Potassium Chloride Er 20 Meq Tablet) 40 meq PO BID [facility] Regadenoson (Regadenoson 0.4 Mg/5 Ml Syringe) 0.4 mg IVP ONCE PRN PRN Reason: Lexiscan Stress Test Tamsulosin HCl (Tamsulosin 0.4 Mg Capsule) 0.4 mg PO BID [facility] Last Admin: 01/05/22 09:29 Dose: 0.4 mg Documented by: Vitals/I&O/Wt Last Vital Signs Temp 97.7 F 01/05/22 08:00 Pulse 93 01/05/22 08:00 Resp 16 01/05/22 08:00 BP 139/74 01/05/22 08:00 Pulse Ox 98 01/05/22 08:00 01/04/22 01/05/2222 22:59 06:59 14:59 Intake Total 530.1 / 1240.1 480 / 1720.1 Output Total 825 / 1345 Balance 530.1 / 720.1 -345 / 375.1 Weight last 48 hrs Weight 223 lb Weight 212 lb Physical Exam Narrative: GENERAL: The patient is alert and oriented to place and person. Extremely poor historian .seems to have very poor comprehension. Not in any acute distress. HEENT: Moderate pallor with no, icterus or lymphadenopathy. The pupils are symmetrical oral cavity: There are no mucous membrane lesions. NECK: Trachea appears to be central. No masses noted. No JVD or thyromegaly appreciated. No carotid bruit. RESPIRATORY: Chest is symmetrical. No intercostals muscle retraction or any accessory muscle activation. There is no chest wall tenderness. Breath sounds are heard bilaterally. No rales or rhonchi heard. No evidence of any consolidation. BREASTS: Deferred. HEART: The PMI is not palpated. No other palpable precordial events. First and second heart sounds are normal. No S3. Short systolic murmur in the left sternal border. No diastolic murmurs. ABDOMEN: No vessel pulsations or distention. No tenderness. No organomegaly appreciated. No abdominal bruit. Bowel sounds are normally heard. : Deferred. RECTAL: Deferred. EXTREMITIES:1+ edema both lower extremities. No cyanosis. Peripheral pulses are palpable but weak bilaterally. MUSCULOSKELETAL: No acute joint deformities or swelling SKIN: There are no significant scars or skin rash noted. NEUROPSYCHIATRIC: The patient is alert and oriented x2. Appears to be in a good mood. No tremors or rigidity noted Data : 01/05/22 08:40 01/05/22 08:40 Micro: Microbiology 01/04/22 05:14 Blood Culture - Preliminary Blood NEGATIVE TO DATE 01/04/22 03:39 Blood Culture - Preliminary Blood NEGATIVE TO DATE A&P Assessment and plan (1) Elevated troponin: The patient is the clinical features are consistent with a non-ST elevation myocardial infarction. Hemodynamically he seems to be stable. At this point because of the transfusion dependent anemia and the GI bleed, he may not be a candidate for IV anticoagulation. Status: Acute (2) Ischemic cardiomyopathy: Patient seems to have moderately depressed LV ejection fraction by echocardiogram. The echo was a suboptimal quality. We do not have any medical records to compare with the previous echocardiogram. The blood pressure currently seems to be improving. Status: Acute (3) Myelodysplasia (myelodysplastic syndrome): Patient had 2 units of blood transfusion so far. Repeat CBC is pending. Status: Acute (4) Transfusion-dependent anemia: As mentioned above Status: Acute (5) Hyperlipidemia: May continue on the atorvastatin for the time being. Status: Acute (6) Acute kidney injury superimposed on chronic kidney disease: His BUN/creatinine seems to be progressively getting worse Status: Acute Plan After reviewing the repeat CBC, if the patient is willing to go for the procedure, we may consider doing the Lexiscan/sestamibi/sestamibi stress test today. I had discussed with the patient's son yesterday about the procedure. He is wanting to go ahead with the procedure. However since the patient is refusing it today, he may need to talk with his father again Attestations Medical Necessity Statement*: Patient requires continued hospital stay for close monitoring and further management Coding Level of Care Code Acute Financial Developer for Chg Fwd History Expanded Problem Focused Exam Expanded Problem Focused Medical Decision Making Moderate Complexity Diagnoses Elevated troponin R77.8 Ischemic cardiomyopathy I25.5 Myelodysplasia (myelodysplastic syndrome) D46.9 Transfusion-dependent anemia D64.9 Hyperlipidemia E78.5 Acute kidney injury superimposed on chronic kidney disease N17.9; N18.9
[2022-01-05 10:24] LABS: Alanine Aminotransferase 13 U/L (0-41); Albumin Level 4.7 g/dL (3.5-5.2); Alkaline Phosphatase 94 IU/L (40-130); Anion Gap 18.2 (5-19); Aspartate Amino Transferase 24 U/L (0-40); Blood Urea Nitrogen 63 mg/dL (8-23); Calcium 9.2 mg/dL (8.5-10.5); Carbon Dioxide 21 mmol/L (22-29); Chloride 103 mmol/L (98-107); Glucose 103 mg/dL (65-115); Magnesium 2.2 mg/dL (1.7-2.3); Osmolality Calculated 302 mOsm/kg (285-295); Phosphorus 3.4 mg/dL (2.5-4.5); Potassium 5.2 mmol/L (3.5-5.1); Sodium 137 mmol/L (136-145); Total Bilirubin 0.8 mg/dL (0.15-1.2); Total Protein 6.7 g/dL (6.6-8.7)
[2022-01-05 10:35] LABS: Absolute Segmented Neutrophil 0.5 10/cmm (1.6-7.1); Band Neutrophils Absolute 0.2 10^3/cmm (0.0-1.2); Lymphocytes 38 %; Monocytes Absolute 0.3 10^3/cmm (0.1-0.6); Segmented Neutrophils 24 %; Total Cells Counted 100 (0-100)
[2022-01-05 10:36] LABS: Anisocytosis 2+; Eosinophils 4 %; Giant Platelets Trace; Hypochromasia 1+; Lymphocytes Absolute 0.9 10^3/cmm (1.2-3.4); Macrocytosis 1+; Microcytosis Trace; Platelet Estimate Decreased (Normal)
[2022-01-05 10:37] LABS: Acanthocytes 2+; Ovalocytes 2+; Schistocytes 1+
[2022-01-05 10:39] LABS: Absolute Neutrophil 0.7 10^3/cmm (1.4-6.5)
[2022-01-05 10:42] LABS: Glucose Point of Care 133 mg/dL (70-110)
--- NOTE | 2022-01-05 10:54 | SUR.PREOP ---
STRESS TEST NOTE CBC results called to Dr Hassan. He states that medically the patient can have lexiscan today as long as the patient is still agreeable to proceed. Floor notified and they state that the patient is agreeable to proceed. Nuclear med notified to inject.
--- NOTE | 2022-01-05 11:02 | PC.CHAP ---
Pastoral Care Encounter/Spiritual Assessment Type of Contact [] Declined associate professor of history visit [] Patient/Family/Request visit [] Outpatient visit [] Follow-up visit [] Physician referral [] Code/Alert [x] Routine visit [] Staff referral [] Actively dying [] Patient sleeping [] Family support [] [] Out of room [] Palliative care [] [] Receiving care in room [] Pre-surgical visit [] Trauma [] Long length of stay [] ICU visit [] Other: Relational/Emotional Strength [x Spirituality of Patient []x Person of Aliyah [x Attends Anglican of their Aliyah [x] Believes in Prayer [] Reads Bible or Yazdanism materials [] There are Spiritual issues to be addressed Forging Operator Interventions [] Prayer [] Active listening [] Non-anxious presence [] Spiritual/emotional support [] Crisis/trauma care [] Spiritual counseling [] Bereavement support [] Provided bereavement packet [] Provided Bible/devotional materials [] Provided toy/stuffed animal, coloring book to patient or family member [] Provided Communion [] Anointing/Roy [] Salvation [] Completed spiritual assessment [] Other: Impact on Illness or Injury [] Angry [] Fearful [] Anxious [] Often cries [] Exhaustion [] Unable to work [] Unable to attend evangelical [] Unable to walk/stand [] Unable to read [] Unable to drive [] Unable to eat/drink [] Unable to sleep [] Unable to be with family [] Patient intubated [] Other: Summary Time spent with patient
[2022-01-05] MEDS: regadenoson 0.4 Mg/5 ml Syringe IVP (13:08)
--- NOTE | 2022-01-05 15:47 | PM.PN ---
Subjective Subjective: No acute distress overnight. Examination today patient lying comfortably in bed. Received 2 units of blood transfusion yesterday. Hemoglobin up to 9.4 today. Denies any active chest pain. Troponin cycle abnormal. Has remained hemodynamically stable and afebrile. On examination today patient is also slightly confused but after redirecting is able to have complete conversation. Vitals/I&O/Wt Last Vital Signs Temp 97.3 F L 01/05/22 15:20 Pulse 98 01/05/22 15:20 Resp 16 01/05/22 15:20 BP 126/75 01/05/22 15:20 Pulse Ox 99 01/05/22 15:20 01/05/22 01/05/22 01/05/22 06:59 14:59 22:59 Intake Total 480 / 1720.1 360 / 360 Output Total 825 / 1345 Balance -345 / 375.1 360 / 360 Weight last 48 hrs Weight 101.151 kg Weight 96.162 kg Physical Exam Const: COMMON NORMALS: no acute distress and patient oriented x3 HENMT: COMMON NORMALS: normocephalic HEAD & SCALP: normocephalic Neck/C-Spine: COMMON NORMALS: no JVD Resp: COMMON NORMALS: normal respiratory effort, No retractions, No use of accessory muscles and clear to auscultation bilaterally AUSCULTATION: clear to auscultation bilaterally Cardio: COMMON NORMALS: no JVD, regular rate, regular rhythm, S1 normal heart sound present and S2 normal heart sound present RATE: regular rate RHYTHM: regular rhythm HEART SOUNDS: S1 normal heart sound present and S2 normal heart sound present GI: COMMON NORMALS: Normal to inspection, nondistended, normoactive bowel sounds present, Soft to palpation, non-tender, No hepatosplenomegaly present, no masses and no bruits PALPATION: Yes Soft to palpation and Yes No hepatosplenomegaly present Extremity: COMMON NORMALS: capillary refill normal, no clubbing, cyanosis or edema, no calf tenderness and no pedal edema Neuro: COMMON NORMALS: patient oriented x3, CN's II-XII intact bilaterally, moves all extremities and no focal motor deficits Psych: COMMON NORMALS: mental status grossly normal Skin: NARRATIVE SKIN EXAM: 1+ pitting edema bilateral lower extremity Data : 01/05/22 08:40 01/05/22 08:40 Micro: Microbiology 01/04/22 05:14 Blood Culture - Preliminary Blood NEGATIVE TO DATE 01/04/22 03:39 Blood Culture - Preliminary Blood NEGATIVE TO DATE A&P Assessment and plan (1) NSTEMI (non-ST elevated myocardial infarction): Status: Acute (2) Ischemic cardiomyopathy: Status: Acute (3) Acute kidney injury superimposed on chronic kidney disease: Status: Acute (4) Transfusion-dependent anemia: Status: Acute (5) Myelodysplasia (myelodysplastic syndrome): Status: Acute (6) Diabetes: Status: Acute (7) CHF (congestive heart failure): Status: Acute (8) BPH (benign prostatic hyperplasia): Status: Acute Plan Non-ST elevation [place]: Troponin trending up. Echocardiogram done shows dilated LV, moderately reduced LV systolic function, mild MR. Appreciate cardiology recommendations. Keep hemoglobin over 8. Continue with aspirin, Plavix, statin. Continue with metoprolol. Hold off on anticoagulation given acute anemia. Plan for Lexiscan stress test today. Transfusion dependent anemia/myelodysplastic syndrome: Post unit blood transfusion. Appreciate iron panel, LDH, vitamin B12 level. Continue with oral iron supplementation. Continue with Protonix 40 mg twice daily. Appreciate surgical recommendations. Plan for endoscopy and colonoscopy as an outpatient. Ischemic cardiomyopathy: Echocardiogram as above. Monitor saturation. No current symptoms of CHF. Will try to uptitrate medications for heart failure regimen. Currently blood pressures on softer side. Hypertension: Goal blood pressure less than 140/90 mmHg with mean over 65. For now continue with metoprolol. Thrombocytopenia/leukopenia: Secondary to MDS. Follows up with oncology. Acute on chronic kidney disease: Medical reconciliation done for nephrotoxic drugs. Monitor renal function daily for now. Improving currently. FENa?2.5%. Intrinsic. Strict input output charting. Full code. Cardiac diet. SCD for DVT prophylaxis. Protonix will suffice for PUD prophylaxis. Patient's care discussed in detail with his son Mr. King over the phone. All the questions were answered. Attestations Medical Necessity Statement*: Requires further hospitalization for management of non-ST elevation [place] in setting of acute on chronic transfusion dependent anemia, ischemic cardiomyopathy, acute on chronic kidney disease Time Spent in Patient Care: Greater than 35 minutes Coding Level of Care Code Acute Electronics System Mechanic for [facility] Fwd Diagnoses Diabetes E11.9 CHF (congestive heart failure) I50.9 BPH (benign prostatic hyperplasia) N40.0 Transfusion-dependent anemia D64.9 Ischemic cardiomyopathy I25.5 NSTEMI (non-ST elevated myocardial infarction) I21.4 Acute kidney injury superimposed on chronic kidney disease N17.9; N18.9 Myelodysplasia (myelodysplastic syndrome) D46.9
[2022-01-05 17:17] LABS: Glucose Point of Care 221 mg/dL (70-110)
[2022-01-05] MEDS: potassium chloride ER 20 mEq Tablet 40 MEQ PO (17:24)
[2022-01-05] MEDS: insulin lispro 100 unit/1 mL SUBCUT (17:24)
[2022-01-05] MEDS: metoprolol tartrate 25 mg Tablet PO (20:12)
--- NOTE | 2022-01-05 21:41 | NMCV_ITS ---
NM dary perf SPECT r/s* [id number] Guiod Crump Age: 81 Gender: M : 1940 Exam Date: 01/05/2022 21:41 Ordering Phys: Jl Hassan MD ([email or web address]) Technologist: KIRT Tyler Exam Location: [facility] Indications: CHEST PAIN STRESS TEST Please [facility] IMAGE PROTOCOL Rest/Stress 1 Lexiscan Day Radiopharmaceutical Dose (mCi) Administration Site Administered by Rest: Tc-99m 10.9 IV KIRT Guerrero Sestamibi Stress:Tc-99m 32.5 IV KIRT Tyler Sestamisterling Rest: 05-Jan-2022 60 Discovery 630 Stress: 05-Jan-2022 30 Discovery 630 0.4mg Lexiscan. Supine position only as patient was unable to lay prone. SPECT RESULTS Technical Quality: Excellent Raw Data Analysis: Normal Image Corrections: No attenuation or motion correction applied Summed Stress Score: 21 Summed Rest Score: 21 Summed Difference Score: 4 PERFUSION FINDINGS Moderate area of severely decreased tracer uptake was noted in the basal mid and apical inferior, LV apex and apical lateral regions. Subtle areas of reversibility was noted in the LV apex and mid inferior regions. Small areas of decreased tracer uptake were noted in the inferoseptal and inferolateral regions with no significant reversibility. Small area of decreased tracer break was noted in the mid anterior region with some reversibility. FUNCTIONAL RESULTS (calculated via Gated SPECT) Stress Image LV EF (%): 34 Stress EDV (mL):153 TID: 1.09 Stress ESV (mL):101 FUNCTIONAL FINDINGS: Segmental wall motion analysis revealing severe diffuse hypokinesia of the LV apex, septum and moderate hypokinesia of the inferior wall regions. IMPRESSIONS 1. Myocardial perfusion imaging revealing moderate large areas of persistent decreases uptake in the inferior wall, inferoseptal, inferolateral and apical regions with a subtle areas of reversibility, suggesting myocardial scarring with very small area of sandra-infarction ischemia. Scarring is mostly in the distribution of the right coronary artery with some involvement of all the other arteries as well. Small area of reversibility in the mid anterior region, suggestive of ischemia in the distribution of the left anterior descending artery. 2. Diminished LV ejection fraction of 34%. 3. Multiple wall motion normalities as mentioned above. 4. Moderately dilated LV cavity with an end-systolic volume of 101 mL. No similar previous studies are available for comparison Dr Jl Hassan MD [facility] (Electronically Signed) Final Date: 05 January 2022 16:58 S
[2022-01-06] VITALS: BP 138/66; PULSE 78; RESP 18; TEMP 36.6; O2SAT 98
[2022-01-06 04:00] VITALS: BP 125/68; PULSE 80; RESP 18; TEMP 36.7; O2SAT 96
[2022-01-06 04:56] LABS: Eosinophils % 1.1 %; Hematocrit 23.6 % (42.0-52.0); Hemoglobin 7.8 g/dL (11.7-16.6); Lymphocytes # 0.8 10^3/uL (0.8-4.8); Lymphocytes % 42.3 %; Mean Corpuscular HGB Conc 33.1 g/dL (30.0-36.0); Mean Corpuscular Hemoglobin 28.4 pg (28.0-34.0); Mean Corpuscular Volume 85.8 fl (80-94); Monocytes # 0.4 10^3/uL (0.2-0.9); Monocytes % 21.2 %; Neutrophils % 29.6 %; Nucleated Red Blood Cells % 0 %; Platelet Count 54 10^3/cmm (130-400); Red Blood Count 2.75 10^6/uL (4.1-5.3); Red Cell Distribution Width 17.5 % (12.1-15.1); White Blood Count 1.9 10^3/uL (4.0-10.0)
[2022-01-06 05:17] LABS: Alanine Aminotransferase 11 U/L (0-41); Albumin Level 3.8 g/dL (3.5-5.2); Alkaline Phosphatase 80 IU/L (40-130); Anion Gap 16.7 (5-19); Aspartate Amino Transferase 14 U/L (0-40); Blood Urea Nitrogen 42 mg/dL (8-23); Calcium 8.7 mg/dL (8.5-10.5); Carbon Dioxide 20 mmol/L (22-29); Chloride 104 mmol/L (98-107); Globulin 2.2 g/dL (1.3-4.6); Glucose 105 mg/dL (65-115); Magnesium 2.2 mg/dL (1.7-2.3); Osmolality Calculated 293 mOsm/kg (285-295); Phosphorus 3.1 mg/dL (2.5-4.5); Potassium 4.7 mmol/L (3.5-5.1); Sodium 136 mmol/L (136-145); Total Bilirubin 0.6 mg/dL (0.15-1.2)
[2022-01-06 05:19] LABS: Mean Platelet Volume 12.9 fL (7.4-10.4)
[2022-01-06 05:20] LABS: Neutrophils # 0.56 10^3/uL (1.8-7.7)
[2022-01-06 05:21] LABS: Slide Review Slide Review Perform
[2022-01-06 05:57] VITALS: PULSE 88
[2022-01-06 07:22] VITALS: BP 177/70; PULSE 75; RESP 16; TEMP 36.6; O2SAT 98
[2022-01-06 07:51] LABS: Glucose Point of Care 121 mg/dL (70-110)
[2022-01-06] MEDS: finasteride 5 mg Tablet PO (07:56)
[2022-01-06] MEDS: gabapentin 300 mg Capsule 600 MG PO (07:56)
[2022-01-06] MEDS: metoprolol tartrate 25 mg Tablet PO (07:56)
[2022-01-06] MEDS: potassium chloride ER 20 mEq Tablet 40 MEQ PO (07:56)
[2022-01-06] MEDS: pantoprazole 40 mg SDV IVP (07:57)
[2022-01-06] MEDS: CLONazepam 1 mg Tablet PO (07:57)
[2022-01-06] MEDS: levothyroxine 50 mcg Tablet PO (07:57)
[2022-01-06] MEDS: allopurinol 300 mg Tablet PO (07:57)
[2022-01-06] MEDS: atorvastatin 40 mg Tablet PO (07:57)
[2022-01-06] MEDS: clopidogrel 75 mg Tablet PO (07:57)
[2022-01-06] MEDS: ferrous sulfate EC 325 mg Tablet PO (07:58)
[2022-01-06] MEDS: tamsulosin 0.4 mg Capsule PO (07:58)
[2022-01-06] MEDS: aspirin 81 mg EC Tablet PO (09:10)
[2022-01-06 11:26] LABS: Glucose Point of Care 168 mg/dL (70-110)
[2022-01-06 11:35] VITALS: BP 105/62; PULSE 66; RESP 12; TEMP 36.6; O2SAT 98
--- NOTE | 2022-01-06 11:39 | P.DS_ITS ---
Discharge Providers Date of Admission: 01/04/22 01:00 Date of Discharge: January 06, 2022 Attending Provider at Admission: Mingo Flanagan MD Attending Provider at Discharge: Jose Ken MD Consults: Cardiology: Dr. Hassan Surgery: Dr. Lima Primary Care Provider: Della Jensen MD Diagnoses at Discharge Discharge Diagnosis (1) Elevated troponin: Status: Acute (2) Ischemic cardiomyopathy: Status: Acute (3) Myelodysplasia (myelodysplastic syndrome): Status: Acute (4) Transfusion-dependent anemia: Status: Acute (5) Hyperlipidemia: Status: Acute (6) Acute kidney injury superimposed on chronic kidney disease: Status: Acute Reason for Visit Reason for Visit: cp Brief History: History as per HPI: Guido Crump is a 81 year old male with a past medical history of myelodysplastic syndrome, pancytopenia, transfusion dependent anemia, BPH, [id number] type 2 diabetes mellitus, hypothyroidism, hypertension, CHF who presents to [facility] due to weakness, fatigue, lightheadedness, low blood pressures, chest pain.? 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 He has had intermittent chest pain that is what prompted his cath back in September.? He is received 3 units of blood in the last 2 weeks, due to his myelodysplastic syndrome.? He lives at home, with his son, he ambulates with a wheeled walker, no recent falls.? Patient tells me that recently he has been experiencing increased weakness, increased fatigue, has been feeling more winded.? He also reports lightheadedness and dizziness, but no falls.? No passing out.? He also reports intermittent substernal chest pain, nonradiating, no nausea, no vomiting.? The chest pain is a pressure-like pain, he tells me its similar to the chest pain when he had his cath.? Denies any dysuria, but recently was treated for UTI. Hospital Course Hospital Course Patient was admitted to the hospital further evaluation and management of acute on chronic anemia and chest pain secondary to non-ST elevation AL. He received overall 2 units of blood transfusion. His hemoglobin remained stable at 7.8. Patient gave history of on and off black tarry bowel movements for which surgery was consulted for possibility of EGD and colonoscopy. As per surgical recommendation patient is to follow-up as an outpatient for further evaluation in around 10 days. On admission patient was also found to have elevated troponin with a positive delta cycle. Cardiology was consulted for concerns of non-ST ovation AL. Patient underwent echocardiogram which was concerning for dilated LV with at least moderately reduced LV functions. He underwent Lexiscan stress test on 01/05 which revealed?moderate large areas of persistent?decreases uptake in the inferior wall, inferoseptal, inferolateral and apical?regions with a subtle areas of reversibility, suggesting myocardial scarring?with very small area of sandra-infarction ischemia.? Scarring is mostly in the?distribution of the right coronary artery with some involvement of all the?other arteries as well.? Small area of reversibility in the? mid anterior?region, suggestive of ischemia in the distribution of the left anterior?descending artery with an EF of 34%. Given patient's persistent anemia secondary to myelodysplastic syndrome, possible slow GI bleed it is believed patient is not a good candidate for anticoagulation, given his CKD patient is at high risk of renal failure if he undergoes cardiac angiogram so decision was made to continue treatment medically. Multiple treatment options were discussed in detail with the family. Patient and the family were agreeable. He is been discharged in hemodynamically stable condition with advised to follow-up with Dr. Lima from surgery within the next 10 days, Dr. Hassan from cardiology within the next 2 weeks. He is being discharged on lisinopril, Lasix and metoprolol with advised to follow-up with the providers as above. Physical Exam Const: COMMON NORMALS: no acute distress and patient oriented x3 HENMT: COMMON NORMALS: normocephalic HEAD & SCALP: normocephalic Neck/C-Spine: COMMON NORMALS: no JVD Resp: COMMON NORMALS: normal respiratory effort, No retractions, No use of accessory muscles and clear to auscultation bilaterally AUSCULTATION: clear to auscultation bilaterally Cardio: COMMON NORMALS: no JVD, regular rate, regular rhythm, S1 normal heart sound present and S2 normal heart sound present RATE: regular rate RHYTHM: regular rhythm HEART SOUNDS: S1 normal heart sound present and S2 normal heart sound present GI: COMMON NORMALS: Normal to inspection, nondistended, normoactive bowel sounds present, Soft to palpation, non-tender, No hepatosplenomegaly present, no masses and no bruits PALPATION: Yes Soft to palpation and Yes No hepatosplenomegaly present Extremity: COMMON NORMALS: capillary refill normal, no clubbing, cyanosis or edema, no calf tenderness and no pedal edema Neuro: COMMON NORMALS: patient oriented x3, CN's II-XII intact bilaterally, moves all extremities and no focal motor deficits Psych: COMMON NORMALS: mental status grossly normal Skin: NARRATIVE SKIN EXAM: 1+ pitting edema bilateral lower extremity Discharge Data Studies Completed and Pending Completed Studies During Hospitalization Category Date Time Status CT chest abd pel wo con Urgent Cat Scan 01/03/22 23:09 Completed Cardiac Stress Test MIBI [Sestamibi Stress Test Request Exams 01/04/22 21:40 Draft ] Routine XR chest 1V portable [id number] Stat Exams 01/03/22 22:52 Completed NM dary perf SPECT r/s* [id number] Routine Nuc Med 01/05/22 21:41 Completed CV. echo complete* [id number] Routine Ultrasound 01/04/22 02:13 Completed Pending at discharge Category Date Time Status Blood Culture Routine Lab 01/04/22 05:14 Results Clostridioides Difficile PCR Routine Lab 01/04/22 02:13 Ordered Complete Blood Count w/Auto AM LABS Lab 01/07/22 04:00 Ordered Comprehensive Metabolic Panel AM LABS Lab 01/07/22 04:00 Ordered Enteric Bacterial Panel by PCR Routine Lab 01/04/22 02:13 Ordered Enteric Parasite Panel by PCR Routine Lab 01/04/22 02:13 Ordered Immunochemical Fecal OCB Routine Lab 01/04/22 02:13 Ordered Lactoferrin Routine Lab 01/04/22 02:13 Ordered Magnesium AM LABS Lab 01/07/22 04:00 Ordered Phosphorus AM LABS Lab 01/07/22 04:00 Ordered Radiology Impressions Chest X-Ray 01/03/22 22:52 IMPRESSION: No acute findings. Chest/Abdomen/Pelvis CT 01/03/22 23:09 IMPRESSION: Smooth septal thickening features of the lungs consistent with mild severity interstitial edema. IMPRESSION: 1. Negative for acute abdominopelvic abnormality. 2. No significant changes from comparison. COMMENTS: Consistent with the [employer]'s Incidental Findings Committee white paper (J Am Patrice Radiol 2018): Any incidental renal lesion less than 1 cm or classified as too small to characterize, or any incidental cystic renal lesion characterized as simple-appearing, is likely benign. No follow-up imaging is recommended for these lesions per consensus recommendations based on imaging criteria. Echocardiogram: ?CONCLUSIONS ?Technically poor quality echocardiogram because of poor ?ultrasonic windows. ?LV is dilated.? LV systolic function is at least moderately ?reduced.? Regional wall motion abnormalities cannot be assessed ?accurately because of limited visualization ?Moderate mitral annular calcification. There is mild mitral ?regurgitation ?Mild tricuspid regurgitation. ?No comparison studies are available ?Kvng Guerin MD ?(Electronically Signed) ?Final Date:? ? ? 04 Jan 2022 17:32 Lexiscan stress test: PERFUSION FINDINGS ?Moderate area of severely decreased tracer uptake was noted in the basal mid?and apical inferior, LV apex and apical lateral regions.? Subtle areas of?reversibility was noted in the LV apex and mid inferior regions.? Small areas?of decreased tracer uptake were noted in the inferoseptal and inferolateral?regions with no significant reversibility.? Small area of decreased tracer?break was noted in the mid anterior region with some reversibility. ?FUNCTIONAL RESULTS ? ? (calculated via Gated SPECT) ? Stress Image LV EF (%):? ? 34 ? Stress EDV (mL):153? TID:? 1.09 ? Stress ESV (mL):101 ?FUNCTIONAL FINDINGS: ?Segmental wall motion analysis revealing severe diffuse hypokinesia of the LV?apex, septum and moderate hypokinesia of the inferior wall regions. ?IMPRESSIONS ?1.? Myocardial perfusion imaging revealing moderate large areas of persistent?decreases uptake in the inferior wall, inferoseptal, inferolateral and apical?regions with a subtle areas of reversibility, suggesting myocardial scarring?with very small area of sandra-infarction ischemia.? Scarring is mostly in the?distribution of the right coronary artery with some involvement of all the?other arteries as well.? Small area of reversibility in the? mid anterior?region, suggestive of ischemia in the distribution of the left anterior?descending artery. ?2.? Diminished LV ejection fraction of 34%. ?3.? Multiple wall motion normalities as mentioned above. ?4.? Moderately dilated LV cavity with an end-systolic volume of 101 mL. ?No similar previous studies are available for comparison ?Dr Jl Hassan MD [facility] ?(Electronically Signed) ?Final Date:? ? ? 05 January 2022 ? 16:58 Laboratory Results WBC 1.9 10^3/uL (4.0-10.0) L 01/06/22 04:30 RBC 2.75 10^6/uL (4.1-5.3) L 01/06/22 04:30 Hgb 7.8 g/dL (11.7-16.6) L 01/06/22 04:30 Hct 23.6 % (42.0-52.0) L 01/06/22 04:30 MCV 85.8 fl (80-94) 01/06/22 04:30 MCH 28.4 pg (28.0-34.0) 01/06/22 04:30 MCHC 33.1 g/dL (30.0-36.0) 01/06/22 04:30 RDW 17.5 % (12.1-15.1) H 01/06/22 04:30 Plt Count 54 10^3/cmm (130-400) L 01/06/22 04:30 MPV 12.9 fL (7.4-10.4) H 01/06/22 04:30 Neut % (Auto) 29.6 % 01/06/22 04:30 Lymph % (Auto) 42.3 % 01/06/22 04:30 Meigs % (Auto) 21.2 % 01/06/22 04:30 Eos % (Auto) 1.1 % 01/06/22 04:30 Baso % (Auto) 0.0 % 01/06/22 04:30 Neut # (Auto) 0.56 10^3/uL (1.8-7.7) L* 01/06/22 04:30 Lymph # (Auto) 0.8 10^3/uL (0.8-4.8) 01/06/22 04:30 Meigs # (Auto) 0.4 10^3/uL (0.2-0.9) 01/06/22 04:30 Eos # (Auto) 0.0 10^3/uL (0.0-0.8) 01/06/22 04:30 Baso # (Auto) 0.0 10^3/uL (0.0-0.1) 01/06/22 04:30 Nucleated RBC % (auto) 0 % 01/06/22 04:30 Total Counted 100 (0-100) 01/05/22 08:40 Atypical Lymphs % 6.0 % (0-5) H 01/05/22 08:40 Absolute Neutrophils 0.7 10^3/cmm (1.4-6.5) L* 01/05/22 08:40 Segmented Neutrophils 24 % 01/05/22 08:40 Abs Segm Neuts (Man) 0.5 10/cmm (1.6-7.1) L 01/05/22 08:40 Band Neutrophils 9.0 % 01/05/22 08:40 Abs Band Neuts (Man) 0.2 10^3/cmm (0.0-1.2) 01/05/22 08:40 Absolute Lymphocytes 0.9 10^3/cmm (1.2-3.4) L 01/05/22 08:40 Lymphocytes (Manual) 38 % 01/05/22 08:40 Monocytes (Manual) 17.0 % 01/05/22 08:40 Absolute Monocytes 0.3 10^3/cmm (0.1-0.6) 01/05/22 08:40 Eosinophils (Manual) 4 % 01/05/22 08:40 Absolute Eosinophils 0.0 10^3/cmm (0.0-0.7) 01/05/22 08:40 Basophils (Manual) Not Reportable 01/05/22 08:40 Absolute Basophils 0.0 10^3/cmm (0.0-0.2) 01/04/22 22:00 Metamyelocytes 1.0 % 01/05/22 08:40 Nucleated RBCs 1.0 /100WBC (0-1) 01/05/22 08:40 Nucleated RBCs # 0.0 /100WBC 01/06/22 04:30 Platelet Estimate Decreased (Normal) 01/05/22 08:40 Giant Platelets Trace 01/05/22 08:40 Hypochromasia 1+ H 01/05/22 08:40 Poikilocytosis 1+ H 01/04/22 22:00 Anisocytosis 2+ H 01/05/22 08:40 Microcytosis Trace 01/05/22 08:40 Macrocytosis 1+ H 01/05/22 08:40 Tear Drop Cells Trace 01/04/22 22:00 Ovalocytes 2+ H 01/05/22 08:40 Acanthocytes (Spur) 2+ H 01/05/22 08:40 Schistocytes 1+ H 01/05/22 08:40 PT 14.20 SECONDS (12.1-14.9) 01/03/22 23:10 INR 1.07 (0.8-1.2) 01/03/22 23:10 Sodium 136 mmol/L (136-145) 01/06/22 04:30 Potassium 4.7 mmol/L (3.5-5.1) 01/06/22 04:30 Chloride 104 mmol/L (98-107) 01/06/22 04:30 Carbon Dioxide 20 mmol/L (22-29) L 01/06/22 04:30 Anion Gap 16.7 (5-19) 01/06/22 04:30 BUN 42 mg/dL (8-23) H 01/06/22 04:30 Creatinine 1.4 mg/dL (0.7-1.2) H 01/06/22 04:30 GFR Calculation Not Reportable 01/06/22 04:30 Glucose 105 mg/dL (65-115) 01/06/22 04:30 POC Glucose 168 mg/dL (70-110) H 01/06/22 11:11 Estimat Average Glucose 105 01/05/22 08:40 Hemoglobin A1c 5.3 % (4.0-6.0) 01/05/22 08:40 Calculated Osmolality 293 mOsm/kg (285-295) 01/06/22 04:30 Lactate 1.3 mmol/L (0.5-2.2) 01/05/22 08:40 Calcium 8.7 mg/dL (8.5-10.5) 01/06/22 04:30 Phosphorus 3.1 mg/dL (2.5-4.5) 01/06/22 04:30 Magnesium 2.2 mg/dL (1.7-2.3) 01/06/22 04:30 Iron 137 ug/dL (59-158) 01/04/22 15:59 TIBC 226 mcg/dl 01/04/22 15:59 % Saturation 60.6 % (20-50) H 01/04/22 15:59 Unsat Iron Binding 89 ug/dL (112-347) L 01/04/22 15:59 Total Bilirubin 0.6 mg/dL (0.15-1.2) 01/06/22 04:30 AST 14 U/L (0-40) 01/06/22 04:30 ALT 11 U/L (0-41) 01/06/22 04:30 Alkaline Phosphatase 80 IU/L (40-130) 01/06/22 04:30 Lactate Dehydrogenase 277 U/L (135-225) H 01/04/22 15:59 Creatine Kinase 81 U/L (39-308) 01/04/22 03:39 Troponin T Baseline 44 ng/L (0-15) H 01/03/22 23:10 Troponin T 120 Minute 72.63 ng/L (0-15) H 01/04/22 01:10 Delta Troponin T 28.63 ABS# (0-10) H* 01/04/22 01:10 Troponin T Hi Sens 6Hr 130.6 ng/L (0-15) H 01/04/22 05:14 Troponin T Hi Sens 6Hr Delta 86.6 ng/L (0-12) H* 01/04/22 05:14 C-Reactive Protein 3.0 mg/L (0.0-4.9) 01/04/22 03:39 Troponin T Gen 5 ng/L 512 ng/L (0-15) H* 01/05/22 08:40 NT-Pro-B Natriuret Pep 3436 pg/mL (0-450) H 01/04/22 03:39 Total Protein 6.0 g/dL (6.6-8.7) L 01/06/22 04:30 Albumin 3.8 g/dL (3.5-5.2) 01/06/22 04:30 Globulin 2.2 g/dL (1.3-4.6) 01/06/22 04:30 Triglycerides 78 mg/dL (0-150) 01/05/22 08:40 Cholesterol 84 mg/dL (0-200) 01/05/22 08:40 LDL Cholesterol, Calc 29 mg/dL (50-129) L 01/05/22 08:40 Total VLDL Cholesterol 16 mg/dL (0-30) 01/05/22 08:40 HDL Cholesterol 39 mg/dL (60-100) L 01/05/22 08:40 Cholesterol/HDL Ratio 2.15 mg/dL (1.0-5.00) 01/05/22 08:40 Vitamin B12 627 pg/mL (232-1245) 01/04/22 15:59 Folate 11.4 ng/mL (4.5-32.2) 01/04/22 15:59 Procalcitonin 0.15 ng/mL (0-0.5) 01/04/22 03:39 TSH 3.90 uIU/mL (0.27-4.20) 01/04/22 03:39 Urine Color Yellow (Yellow) 01/04/22 02:45 Urine Appearance Clear (CLEAR) 01/04/22 02:45 Urine pH 5 (5-7) 01/04/22 02:45 Ur Specific [place] 1.015 (1.005-1.030) 01/04/22 02:45 Urine Protein Neg (Negative) 01/04/22 02:45 Urine Glucose (UA) Norm (Normal) 01/04/22 02:45 Urine Ketones Negative (Negative) 01/04/22 02:45 Urine Blood Neg (Negative) 01/04/22 02:45 Urine Nitrate Negative (Negative) 01/04/22 02:45 Urine Bilirubin Neg (Negative) 01/04/22 02:45 Urine Urobilinogen Norm mg/dL (Negative) 01/04/22 02:45 Ur Leukocyte Esterase Negative (Negative) 01/04/22 02:45 Ur Eosinophil Smear Not Reportable 01/04/22 02:45 Urine Eosinophils No eosinophils seen 01/04/22 02:45 Ur Random Sodium 65 mmol/L 01/04/22 02:45 Ur Random Potassium 42 mmol/L 01/04/22 02:45 Ur Random Chloride 75 mmol/L 01/04/22 02:45 Urine Creatinine 37 mg/dL (39-259) L 01/04/22 02:45 Blood Type O Positive 01/04/22 03:39 Rho(D) Type Positive 01/04/22 03:39 Antibody Screen Negative 01/04/22 03:39 Crossmatch See Detail 01/04/22 03:39 Vitals Last Vital Signs Temp 97.8 F 01/06/22 11:35 Pulse 66 01/06/22 11:35 Resp 12 01/06/22 11:35 BP 105/62 01/06/22 11:35 Pulse Ox 98 01/06/22 11:35 Discharge Plan Discharge Patient Disposition: Home Condition: Stable Prescriptions: New Protonix 40 mg tablet,delayed release (DR/EC) 40 mg PO BID 56 Days Qty: 112 0RF Carafate 1 gram tablet 1 g PO BID 84 Days Qty: 168 0RF Continued levothyroxine 50 mcg tablet 50 mcg PO DAILY@0800 0RF levalbuterol tartrate [Xopenex HFA] 45 mcg/actuation HFA aerosol inhaler 2 inh INHALATION Q6H 0RF allopurinol 300 mg tablet 300 mg PO DAILY 0RF (DME) Diabetic shoes Qty: 1 0RF Rx Instructions: As directed metoprolol tartrate 25 mg tablet 50 mg PO BID@799,1999 0RF finasteride 5 mg tablet 5 mg PO DAILY 0RF clopidogrel 75 mg tablet 75 mg PO DAILY 0RF potassium chloride [Klor-Con] 20 mEq packet 40 meq PO BID 0RF (DME) True Metrix Glucose Test Strip Strip See Rx Instructions .ROUTE .MEDSUPPLY Qty: 100 2RF Rx Instructions: TEST TWICE A DAY AND PRN atorvastatin 40 mg tablet 40 mg PO DAILY@0800 0RF tamsulosin 0.4 mg Capsule 0.4 mg PO BID Qty: 60 0RF clonazepam 1 mg tablet 1 mg PO TID 0RF gabapentin 300 mg capsule 600 mg PO DAILY 0RF Changed lisinopril 5 mg tablet 10 mg PO DAILY Qty: 0 0RF furosemide 80 mg tablet 40 mg PO BID Qty: 0 0RF Discontinued metformin 1,000 mg tablet 1,000 mg PO BID@799,1999 0RF aspirin 81 mg Tablet,Delayed Release (Dr/Ec) 81 mg PO DAILY@0800 0RF Discharge Orders: Discharge Order (Routine); Ordered 01/06/22 Ordered By: Jose Ken Referrals: [facility] [Other] Lucio Lima DO [Physician] - 4-7 days Jl Hassan MD [Physician] - 2 weeks Shay Tse MD [Hospitalist] - 2 weeks Della Jensen MD [Primary Care Provider] - Discharge Diet: Cardiac Discharge Activity: Resume usual activity Patient Instructions: Opioid Safety Activity Restrictions/Additional Instructions: Multiple medication changes has been done. Do not take aspirin or metformin going forward. We do not have diabetes anymore so you do not need any medicine for diabetes. Dose of Lasix has been decreased to 40 mg twice daily. Dose of lisinopril has been increased to 10 mg daily. Take Protonix 40 mg twice daily along with sucralfate twice daily before meals. Please follow-up with surgery/Dr. Lima within next [address] Hassan from cardiology within next [address] Tse from oncology within next 2 weeks. Discharge Attestations Time Spent in Discharge Care*: greater than 30 min Specific Discharge Activities: educating patient, educating and/or supporting family/caregiver, discussing with pcp/other providers, discussing with case operator/social workers/dc planners, documenting/other paperwork and evaluating patient/reviewing data Status at Discharge: Cognitive status at discharge: cognitively intact , Behavioral status at discharge: cooperative , Functional status at discharge: uses cane/walker , Overall status at discharge: patient is progressing back to baseline Quality Metrics Clinical Quality Measures [ Acute Myocardial Infaction { Clinical Trial Participant: No; Contraindication to aspirin: Medical contraindication; Contraindication to statin: None; Statin prescribed; Contraindication to PCI: Medical contraindication; Contraindication to Fibrinolytics: Medical contraindication}. No reported AMI, CVA or VTE this stay] Coding Level of Care Code Acute [facility] note History Comprehensive Exam Comprehensive Medical Decision Making High Complexity Diagnoses Elevated troponin R77.8 Ischemic cardiomyopathy I25.5 Myelodysplasia (myelodysplastic syndrome) D46.9 Transfusion-dependent anemia D64.9 Hyperlipidemia E78.5 Acute kidney injury superimposed on chronic kidney disease N17.9; N18.9
[2022-01-06] MEDS: insulin lispro 100 unit/1 mL SUBCUT (12:10)
--- NOTE | 2022-01-06 17:59 | PM.PN ---
Subjective Subjective: Patient had a myocardial perfusion imaging yesterday. He was found to have areas of fixed defect with small areas of reversible defect. Since the patient is remaining stable with no recurrence of chest pain, it was thought to be appropriate to continue the medical treatment. He denies any chest pain or shortness of breath. No fever or chills. Vitals/I&O/Wt Last Vital Signs Temp 97.8 F 01/06/22 11:35 Pulse 66 01/06/22 11:35 Resp 12 01/06/22 11:35 BP 105/62 01/06/22 11:35 Pulse Ox 98 01/06/22 11:35 01/06/22 01/06/22 01/06/22 06:59 14:59 22:59 Intake Total 120 / 1320 240 / 240 Output Total 200 / 200 Balance 120 / 520 40 / 40 Physical Exam Narrative: GENERAL: The patient is alert and oriented to place and person. Extremely poor historian .seems to have very poor comprehension. Not in any acute distress. HEENT: Moderate pallor with no, icterus or lymphadenopathy. The pupils are symmetrical oral cavity: There are no mucous membrane lesions. NECK: Trachea appears to be central. No masses noted. No JVD or thyromegaly appreciated. No carotid bruit. RESPIRATORY: Chest is symmetrical. No intercostals muscle retraction or any accessory muscle activation. There is no chest wall tenderness. Breath sounds are heard bilaterally. No rales or rhonchi heard. No evidence of any consolidation. BREASTS: Deferred. HEART: The PMI is not palpated. No other palpable precordial events. First and second heart sounds are normal. No S3. Short systolic murmur in the left sternal border. No diastolic murmurs. ABDOMEN: No vessel pulsations or distention. No tenderness. No organomegaly appreciated. No abdominal bruit. Bowel sounds are normally heard. : Deferred. RECTAL: Deferred. EXTREMITIES:1+ edema both lower extremities. No cyanosis. Peripheral pulses are palpable but weak bilaterally. MUSCULOSKELETAL: No acute joint deformities or swelling SKIN: There are no significant scars or skin rash noted. NEUROPSYCHIATRIC: The patient is alert and oriented x2. Appears to be in a good mood. No tremors or rigidity noted Data : 01/06/22 04:30 01/06/22 04:30 A&P Assessment and plan (1) Elevated troponin: The myocardial imaging from yesterday was reviewed. The results are discussed with the patient and his son. Since the area of ischemia is small and the patient is remaining stable with no recurrence of chest pain, it was thought to be appropriate to continue the medical treatment. Because of his anemia and high bleeding risk, may take him off the aspirin and just keep him on Plavix . Status: Acute (2) Ischemic cardiomyopathy: Patient may be continued on the current medications for the time being. Status: Acute (3) Myelodysplasia (myelodysplastic syndrome): Patient had 2 units of blood transfusion so far. The hemoglobin seems to be dropping again. Management as per the oncology/primary care Status: Acute (4) Transfusion-dependent anemia: As mentioned above Status: Acute (5) Hyperlipidemia: May continue on the atorvastatin for the time being. Status: Acute (6) Acute kidney injury superimposed on chronic kidney disease: The BUN/creatinine levels seems to be improving. Status: Acute Plan I discussed in detail with the patient's son about the current cardiac status, implications of the test findings. Since the patient's overall cardiovascular status seems to be stable, he may continue on the current medications. He may keep his follow-up appointments with his licensed master social worker in [place]. Discussed my recommendations with Dr. Suellen Han Medical Necessity Statement*: Disposition as per the primary Coding Level of Care Code Acute Transit Coach Operator for [facility] Fwd Diagnoses Elevated troponin R77.8 Ischemic cardiomyopathy I25.5 Myelodysplasia (myelodysplastic syndrome) D46.9 Transfusion-dependent anemia D64.9 Hyperlipidemia E78.5 Acute kidney injury superimposed on chronic kidney disease N17.9; N18.9
== END 2022-01-06 13:47 | disposition home health service (06) | DRG 811 ==
LOC: ER 01-04 01:02 → MEDSURG 01-04 01:34
PROVIDERS: Admitting Provider Family Medicine; Emergency Provider Emergency Medicine; PCP Family Medicine; Visit Provider Student in an Organized Health Care Education/Training Program
DX: D46.9 Myelodysplastic syndrome, unspecified (principal); I21.4 Non-ST elevation (NSTEMI) myocardial infarction; I13.0 Hypertensive heart and chronic kidney disease with heart failure and stage 1 through stage 4 chronic kidney disease, or unspecified chronic kidney disease; I50.20 Unspecified systolic (congestive) heart failure; C79.9 Secondary malignant neoplasm of unspecified site; C77.0 Secondary and unspecified malignant neoplasm of lymph nodes of head, face and neck; N17.9 Acute kidney failure, unspecified; F41.9 Anxiety disorder, unspecified; N40.0 Benign prostatic hyperplasia without lower urinary tract symptoms; N18.9 Chronic kidney disease, unspecified; E11.22 Type 2 diabetes mellitus with diabetic chronic kidney disease; M10.9 Gout, unspecified; E78.5 Hyperlipidemia, unspecified; E03.9 Hypothyroidism, unspecified; Z87.440 Personal history of urinary (tract) infections; Z85.828 Personal history of other malignant neoplasm of skin; Z87.891 Personal history of nicotine dependence; Z99.81 Dependence on supplemental oxygen; Z79.02 Long term (current) use of antithrombotics/antiplatelets; I25.5 Ischemic cardiomyopathy; I25.10 Atherosclerotic heart disease of native coronary artery without angina pectoris; F03.90 Unspecified dementia, unspecified severity, without behavioral disturbance, psychotic disturbance, mood disturbance, and anxiety; K64.9 Unspecified hemorrhoids; K52.9 Noninfective gastroenteritis and colitis, unspecified; D70.9 Neutropenia, unspecified
CPT/HCPCS: 36415; 36416; 36430; 71045; 71250; 74176; 78452; 80048; 80053; 80061; 81003; 82436; 82550; 82570; 82607; 82746; 82962; 83036; 83540; 83550; 83605; 83615; 83735; 83880; 84100; 84133; 84145; 84300; 84443; 84484; 85007; 85025; 85610; 85999; 86140; 86850; 86900; 86920; 87040; 93005; 93017; 93306; 94664; 96372; 96374; 96375; 97110; 97116; 97161; 97165; 97530; 99285; A9500; C9113; J1170; J1650; J1815; J2270; J2405; J2785; J7040; P9016

== ENCOUNTER 2022-01-09 21:15 | Inpatient (IN) | payer MEDICARE, SELFPAY ==
[2022-01-09 21:20] VITALS: BP 130/81; PULSE 103; RESP 24; TEMP 36.6; O2SAT 97
--- NOTE | 2022-01-09 21:42 | XRR_ITS ---
PROCEDURE INFORMATION: Exam: XR Chest Exam date and time: 01/09/2022 10:23 PM Age: 81 years old Clinical indication: Sternal or substernal pain; Additional info: Cp TECHNIQUE: Imaging protocol: XR of the chest. Views: 1 view. COMPARISON: CT chest abd pel wo con 01/04/2022 12:09 AM FINDINGS: Lungs: There is enlargement of the pulmonary vascularity. There is thickening of the interstitial markings. Pleural spaces: Unremarkable. No pleural effusion. No pneumothorax. Heart/Mediastinum: The heart is mildly enlarged. Bones/joints: Unremarkable. XR/XR chest 1V portable [id number] IMPRESSION: Congestive heart failure.
--- NOTE | 2022-01-09 21:42 | ECG_ITS ---
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 Measurements Intervals [place] Rate: 103 P: 68 [place]: 201 QRS: 24 QRSD: 101 T: 82 QT: 315 QTc: 414 Interpretive Statements SINUS TACHYCARDIA ST & T-WAVE ABNORMALITY, consider lateral ischemia ABNORMAL RHYTHM ECG Compared to ECG 01/04/2022 04:32:06 Intraventricular conduction delay no longer present T-wave abnormality still present Electronically Signed On 01-10-2022 16:22:14 CDT by Ace Simon M.D. [email or web address] [employer] Accountingblanch[facility] valley [email or web address] system.[email or web address]/store/OM/[id number]
[2022-01-09 22:00] VITALS: BP 88/48
--- NOTE | 2022-01-09 22:00 | ED_ITS ---
HPI - Chest Pain General: Chief Complaint: Chest Pain Stated Complaint: Chest Pain Time Seen by Provider: 01/09/22 21:39 Source: patient and EMS History of Present Illness: 81-year-old gentleman with a history heart failure, hypertension, myelodysplastic syndrome. He had a recent admission with discharge on 01/06 for acute on chronic anemia with heart failure. He presents confused. He is complaining of chest pain and shortness of breath, but also states I need to pee . He has tried to urinate in the room, with only a few drops of very bloody urine in the jug. MD complaint: chest pain Pertinent past history: coronary artery disease and other Onset (ago): hour(s) Prior episodes: Yes Onset: during rest Pain location: right chest Pain radiation: none Relieving factors: nothing Associated symptoms: Reports dyspnea Review of Systems General: Reports: ROS unobtainable due to mental status Card: Reports: chest pain Resp: Reports: dyspnea : Reports: urinary frequency, urinary urgency and urinary dribbling PFSH ED PFSH: Medical History Anemia Anxiety BPH (benign prostatic hyperplasia) CHF (congestive heart failure) Chronic diarrhea Diabetes Gout Hemorrhoid Hyperlipidemia Hypertension Hypothyroidism Myelodysplasia (myelodysplastic syndrome) Pancytopenia Recurrent urinary tract infection 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 Surgical History History of cataract surgery History of parotidectomy (09/22/21) right parotidectomy with facial nerve preservation, with cervicofacial advancement flap, and with the right modified radical neck dissection Status post surgical removal of malignant neoplasm of skin (09/22/21) resection of right ear squamous cell carcinoma in situ Family History Father CAD (coronary artery disease) Mother CAD (coronary artery disease) Son Diabetes Grandfather Cancer Prostate Hypertension Grandmother Hypertension Denies family history of Clotting disorder Dementia Hyperlipidemia Psychiatric illness Chronic kidney disease (CKD) Suicide Anesthesia complication Bleeding disorder Lung disease Stroke Social History Smoking and tobacco status: former smoker Alcohol intake: never Physical Exam Const: COMMON NORMALS: no acute distress HENMT: COMMON NORMALS: normocephalic and atraumatic HEAD & SCALP: normocephalic and atraumatic Eye: COMMON NORMALS: Equal, round and reactive pupils present and EOMs intact bilaterally PUPIL: Yes Equal, round and reactive pupils present Chest: CHEST: Yes Symmetrical chest wall rise Resp: COMMON NORMALS: clear to auscultation bilaterally EFFORT & INSPECTION: Yes tachypneic and Yes respiratory distress (mild) AUSCULTATION: clear to auscultation bilaterally Cardio: COMMON NORMALS: regular rate and regular rhythm RATE: regular rate RHYTHM: regular rhythm GI: INSPECTION: Yes abdominal distension Extremity: GENERAL: Yes edema (trace) Neuro: BLAIR COMA SCALE: document GCS findings Blair coma scale eye opening: Spontaneous Blair coma scale verbal response: Confused Franklin coma scale motor response: Obey commands Franklin coma scale total score: 14 Course Vital Signs: Vital signs: Vital Signs Temperature 98.4 F 01/14/22 00:00 Pulse Rate 100 01/14/22 00:00 Respiratory Rate 18 01/14/22 00:00 Blood Pressure 123/74 01/14/22 00:00 Pulse Oximetry 97 01/14/22 00:00 MDM - Chest Pain Medical Decision Making 81 yo confused male with signficant urinary retention. His pain is improved after catheter placement. His tropnin ben significantly at 2h. He presented ill appearing and tachycardic. He will be admitted for the above findings, given his history. Lab Data : 01/13/22 05:17 01/13/22 05:[address] 01/10/22 14:36 IMPRESSION: 1. No evidence of intracranial hemorrhage or mass effect. 2. Moderate small vessel changes with moderate parenchymal volume loss. 3. No acute intracranial findings. Chest X-Ray 01/13/22 06:00 IMPRESSION: 1. Interval cardiomegaly. 2. Increased ground-glass opacities in the lungs slightly worse on the left versus the right, which may be seen with pulmonary edema versus pneumonia. Recommend clinical correlation. Laboratory Results WBC 2.8 10^3/uL (4.0-10.0) L 01/09/22 22:17 RBC 3.16 10^6/uL (4.1-5.3) L 01/09/22 22:17 Hgb 9.1 g/dL (11.7-16.6) L 01/09/22 22:17 Hct 27.9 % (42.0-52.0) L 01/09/22 22:17 MCV 88.3 fl (80-94) 01/09/22 22:17 MCH 28.8 pg (28.0-34.0) 01/09/22 22:17 MCHC 32.6 g/dL (30.0-36.0) 01/09/22 22:17 RDW 17.3 % (12.1-15.1) H 01/09/22 22:17 Plt Count 50 10^3/cmm (130-400) L 01/09/22 22:17 MPV Not Reportable 01/09/22 22:17 Neut % (Auto) 56.7 % 01/09/22 22:17 Lymph % (Auto) 25.5 % 01/09/22 22:17 Mineral % (Auto) 12.1 % 01/09/22 22:17 Eos % (Auto) 0.0 % 01/09/22 22:17 Baso % (Auto) 0.4 % 01/09/22 22:17 Neut # (Auto) 1.60 10^3/uL (1.8-7.7) L 01/09/22 22:17 Lymph # (Auto) 0.7 10^3/uL (0.8-4.8) L 01/09/22 22:17 Mineral # (Auto) 0.3 10^3/uL (0.2-0.9) 01/09/22 22:17 Eos # (Auto) 0.0 10^3/uL (0.0-0.8) 01/09/22 22:17 Baso # (Auto) 0.0 10^3/uL (0.0-0.1) 01/09/22 22:17 Nucleated RBC % (auto) 0 % 01/09/22 22:17 Nucleated RBCs # 0.0 /100WBC 01/09/22 22:17 Poikilocytosis 2+ H 01/09/22 22:17 Anisocytosis 2+ H 01/09/22 22:17 Spherocytes Trace 01/09/22 22:17 Tear Drop Cells 1+ 01/09/22 22:17 Ovalocytes 1+ H 01/09/22 22:17 Sodium 136 mmol/L (136-145) 01/09/22 22:17 Potassium 5.8 mmol/L (3.5-5.1) H 01/09/22 22:17 Chloride 102 mmol/L (98-107) 01/09/22 22:17 Carbon Dioxide 22 mmol/L (22-29) 01/09/22 22:17 Anion Gap 17.8 (5-19) 01/09/22 22:17 BUN 35 mg/dL (8-23) H 01/09/22 22:17 Creatinine 1.6 mg/dL (0.7-1.2) H 01/09/22 22:17 GFR Calculation Not Reportable 01/09/22 22:17 Glucose 141 mg/dL (65-115) H 01/09/22 22:17 Calculated Osmolality 292 mOsm/kg (285-295) 01/09/22 22:17 Calcium 8.8 mg/dL (8.5-10.5) 01/09/22 22:17 Total Bilirubin 0.6 mg/dL (0.15-1.2) 01/09/22 22:17 AST 14 U/L (0-40) 01/09/22 22:17 ALT 17 U/L (0-41) 01/09/22 22:17 Alkaline Phosphatase 107 IU/L (40-130) 01/09/22 22:17 Troponin T Baseline 614 ng/L (0-15) H* 01/09/22 22:17 Troponin T 120 Minute 568.1 ng/L (0-15) H 01/10/22 00:45 Delta Troponin T -45.9 ABS# (0-10) L 01/10/22 00:45 NT-Pro-B Natriuret Pep 5135 pg/mL (0-450) H 01/09/22 22:17 Total Protein 7.2 g/dL (6.6-8.7) 01/09/22 22:17 Albumin 4.7 g/dL (3.5-5.2) 01/09/22 22:17 Globulin 2.5 g/dL (1.3-4.6) 01/09/22 22:17 Urine Color Yellow (Yellow) 01/09/22 22:30 Urine Appearance Clear (CLEAR) 01/09/22 22:30 Urine pH 5 (5-7) 01/09/22 22:30 Ur Specific [place] 1.010 (1.005-1.030) 01/09/22 22:30 Urine Protein Neg (Negative) 01/09/22 22:30 Urine Glucose (UA) Norm (Normal) 01/09/22 22:30 Urine Ketones Negative (Negative) 01/09/22 22:30 Urine Blood Neg (Negative) 01/09/22 22:30 Urine Nitrate Negative (Negative) 01/09/22 22:30 Urine Bilirubin Neg (Negative) 01/09/22 22:30 Urine Urobilinogen Norm mg/dL (Negative) 01/09/22 22:30 Ur Leukocyte Esterase Negative (Negative) 01/09/22 22:30 Discharge Plan Discharge Patient Disposition: Admitted As Inpatient Admit Provider: Gaston Giles Clinical Impression: Acute kidney injury superimposed on chronic kidney disease, Urinary retention due to benign prostatic hyperplasia, NSTEMI (non-ST elevated myocardial infarction) Condition: Stable Discharge Diet: As Directed and Cardiac Discharge Activity: Increase activity as tolerated and As per PT/OT instructions Coding Level of Care Code ED Commercial Intern for Chg Fwd Exam Comprehensive
[2022-01-09] MEDS: lidocaine 2% Urojet 20 mL TOPICAL (22:10)
[2022-01-09 22:22] LABS: Basophils % 0.4 %; Hematocrit 27.9 % (42.0-52.0); Hemoglobin 9.1 g/dL (11.7-16.6); Lymphocytes # 0.7 10^3/uL (0.8-4.8); Lymphocytes % 25.5 %; Mean Corpuscular HGB Conc 32.6 g/dL (30.0-36.0); Mean Corpuscular Hemoglobin 28.8 pg (28.0-34.0); Mean Corpuscular Volume 88.3 fl (80-94); Monocytes # 0.3 10^3/uL (0.2-0.9); Monocytes % 12.1 %; Neutrophils % 56.7 %; Nucleated Red Blood Cells % 0 %; Platelet Count 50 10^3/cmm (130-400); Red Blood Count 3.16 10^6/uL (4.1-5.3); Red Cell Distribution Width 17.3 % (12.1-15.1); White Blood Count 2.8 10^3/uL (4.0-10.0)
[2022-01-09 22:41] LABS: Add RBC Morph Yes; RBC Morph Comp No; Slide Review Slide Review Perform
[2022-01-09 22:42] LABS: Anisocytosis 2+; Ovalocytes 1+; Poikilocytosis 2+; Spherocytes Trace; Tear Drop Cells 1+
[2022-01-09 22:43] LABS: Alanine Aminotransferase 17 U/L (0-41); Albumin Level 4.7 g/dL (3.5-5.2); Alkaline Phosphatase 107 IU/L (40-130); Anion Gap 17.8 (5-19); Aspartate Amino Transferase 14 U/L (0-40); Blood Urea Nitrogen 35 mg/dL (8-23); Calcium 8.8 mg/dL (8.5-10.5); Carbon Dioxide 22 mmol/L (22-29); Chloride 102 mmol/L (98-107); Globulin 2.5 g/dL (1.3-4.6); Glucose 141 mg/dL (65-115); Osmolality Calculated 292 mOsm/kg (285-295); Potassium 5.8 mmol/L (3.5-5.1); Sodium 136 mmol/L (136-145); Total Bilirubin 0.6 mg/dL (0.15-1.2); Total Protein 7.2 g/dL (6.6-8.7)
[2022-01-09 22:44] LABS: Troponin(5th) Baseline 614 ng/L (0-15)
[2022-01-09 22:47] LABS: NT Pro B Type Natriuretic Pept 5135 pg/mL (0-450)
[2022-01-09] MEDS: ondansetron 2 mg/ML SDV 2 mL 4 MG IVP (22:50)
[2022-01-09] MEDS: morphine 4 mg/mL SDV 1 mL IVP (22:50)
[2022-01-09 22:57] LABS: Add Urine Microscopic? NO; Charge for UA Resulting for Rev
[2022-01-09 23:02] LABS: Bilirubin Urine Neg (Negative); Blood Urine Neg (Negative); Glucose Urine UA Norm (Normal); Ketones Urine Negative (Negative); Leukocyte Esterase Urine Negative (Negative); Nitrate Urine Negative (Negative); Protein Urine Neg (Negative); Urine Appearance Clear (CLEAR); Urine Color Yellow (Yellow); Urobilinogen Urine Norm (Negative); pH Urine 5 (5-7)
[2022-01-09 23:30] VITALS: BP 93/62
--- NOTE | 2022-01-09 23:42 | ECG_ITS ---
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 Measurements Intervals [place] Rate: 101 P: 59 [place]: 208 QRS: 30 QRSD: 97 T: 77 QT: 316 QTc: 411 Interpretive Statements SINUS TACHYCARDIA ST & T-WAVE ABNORMALITY, consider lateral ischemia ABNORMAL RHYTHM ECG INTERPRETATION BASED ON A DEFAULT AGE OF 40 YEARS Compared to ECG 01/04/2022 04:32:06 Intraventricular conduction delay no longer present T-wave abnormality still present Electronically Signed On 01-10-2022 16:29:53 CDT by Ace Simon M.D. [email or web address] [email or web address] medical specialty [facility] [place].[employer]/store/NU/[id number] f
[2022-01-10] VITALS (31 sets, daily range): BP systolic 79–112; BP diastolic 40–76; PULSE 60–97; RESP 12–24; TEMP 36.6–37.3; O2SAT 90–99
[2022-01-10 01:32] LABS: Troponin 5 2HR 568.1 ng/L (0-15)
--- NOTE | 2022-01-10 03:37 | P.HP_ITS ---
Providers/Chief Complaint Admitting Physician: Gaston Giles MD Primary Care Provider: Della Jensen MD Chief Complaint: Chest Pain History of Present Illness Guido Crump is a 81 year old male with past medical history of HFrEF, gout, MDS, chronic blood transfusion dependent anemia, CKD, Came in with chief complaint of right-sided chest pain, shortness of breath, as well as difficulty passing urine. Post Greene placement in the ER, he voided close to 800 cc urine.Patient is a poor historian, history taking has been very difficult, at the time of my evaluation, he was not complaining of chest pain or shortness of breath. Upon arrival in the ER he was worked up for above-mentioned complaints: Pertinent imaging studies: X-ray chest: Pulmonary vascular congestion. EKG: Sinus tach with nonspecific ST-T wave changes Pertinent labs: WBC 2.8, H&H 9.1 / 27.9 , PLT : 50 , serum sodium 136 serum potassium 5.8 BUN serum creatinine 35/ 1.6 , random blood sugar 141 Troponin trend:614,568 , proBNP:5135 Urinalysis clean Review of Systems General: Reports: 10 or more systems reviewed and unremarkable except in HPI and below Const: Denies: fever(s), chills, body aches, change in appetite or diaphoresis Card: Denies: palpitations, edema, swelling of feet/ankles, dyspnea on exertion, orthopnea or leg pain with exertion Resp: Reports: dyspnea; Denies: productive cough, wheezing or pain on inspiration GI: Denies: abdominal pain, nausea, vomiting, diarrhea or constipation : Reports: difficulty urinating; Denies: flank pain Musc: Denies: back pain, extremity pain or extremity swelling Neuro: Denies: headache(s), difficulty walking or confusion Medications/Allergies Home Medications Medication Instructions Recorded Confirmed Last Taken Type levothyroxine 50 mcg tablet 50 mcg PO DAILY@0800 10/24/19 01/04/22 01/15/21 History Diabetic shoes #1 ea 12/12/19 01/04/22 Unknown Rx blood sugar diagnostic (True #100 each 03/12/20 01/04/22 Unknown Rx Metrix Glucose Test Strip) atorvastatin 40 mg tablet 40 mg PO DAILY@0800 01/16/21 01/04/22 01/15/21 History allopurinol 300 mg tablet 300 mg PO DAILY tab 12/23/21 01/04/22 Unknown History clonazepam 1 mg tablet 1 mg PO TID 12/23/21 01/04/22 Unknown History clopidogrel 75 mg tablet 75 mg PO DAILY 12/23/21 01/04/22 Unknown History finasteride 5 mg tablet 5 mg PO DAILY 12/23/21 01/04/22 Unknown History metoprolol tartrate 25 mg tablet 50 mg PO BID@0800,2000 tab 12/23/21 01/04/22 Unknown History furosemide 80 mg tablet 40 mg PO BID #0 tab 01/06/22 01/04/22 Unknown Rx pantoprazole 40 mg tablet,delayed 40 mg PO BID 56 Days #112 tab 01/06/22 Unknown Rx release (Protonix) sucralfate 1 gram tablet (Carafate) 1 g PO BID 84 Days #168 tab 01/06/22 Unknown Rx albuterol sulfate 90 mcg/actuation 2 puff INHALATION QID PRN 01/10/22 01/10/22 Unknown History aerosol inhaler (ProAir HFA) gabapentin 600 mg tablet 600 mg PO BID 01/10/22 01/10/22 Unknown History lisinopril 5 mg tablet 10 mg PO DAILY@12 01/10/22 01/10/22 Unknown History nystatin-triamcinolone 100,000 1 applic TOPICAL BID PRN 01/10/22 01/10/22 Unknown History unit/g-0.1 % topical cream potassium chloride 20 mEq 40 meq PO BID 01/10/22 01/10/22 Unknown History tablet,extended release(part/cryst) (Klor-Con M) tamsulosin 0.4 mg capsule (Flomax) 0.4 mg PO DAILY@12 01/10/22 01/10/22 Unknown History Allergies Allergy/AdvReac Type Severity Reaction Status Date / Time No Known Allergies Allergy Verified 01/10/22 09:25 PFSH Acute PFSH: Medical History Anemia Anxiety BPH (benign prostatic hyperplasia) CHF (congestive heart failure) Chronic diarrhea Diabetes Gout Hemorrhoid Hyperlipidemia Hypertension Hypothyroidism Myelodysplasia (myelodysplastic syndrome) Pancytopenia Recurrent urinary tract infection 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 Surgical History History of cataract surgery History of parotidectomy (09/22/21) right parotidectomy with facial nerve preservation, with cervicofacial advancement flap, and with the right modified radical neck dissection Status post surgical removal of malignant neoplasm of skin (09/22/21) resection of right ear squamous cell carcinoma in situ Family History Father CAD (coronary artery disease) Mother CAD (coronary artery disease) Son Diabetes Grandfather Cancer Prostate Hypertension Grandmother Hypertension Denies family history of Clotting disorder Dementia Hyperlipidemia Psychiatric illness Chronic kidney disease (CKD) Suicide Anesthesia complication Bleeding disorder Lung disease Stroke Social History Smoking and tobacco status: former smoker Alcohol intake: never Vitals/I&O/Wt Last Vital Signs Temp 97.8 F 01/09/22 21:20 Pulse 93 01/10/22 02:31 Resp 18 01/10/22 02:31 BP 104/62 01/10/22 02:31 Pulse Ox 95 01/10/22 02:31 Physical Exam HENMT: COMMON NORMALS: normocephalic and atraumatic HEAD & SCALP: normocephalic and atraumatic Chest: CHEST: Yes Symmetrical chest wall rise Resp: COMMON NORMALS: normal respiratory effort, No retractions, No use of accessory muscles and clear to auscultation bilaterally EFFORT & INSPECTION: Yes symmetric chest movement AUSCULTATION: clear to auscultation bilaterally Cardio: COMMON NORMALS: regular rate, regular rhythm, S1 normal heart sound present, S2 normal heart sound present, No gallops present (Cardio), No murmurs present (Cardio), No rub (Cardio) and Peripheral pulses 2+ throughout RATE: regular rate RHYTHM: regular rhythm HEART SOUNDS: S1 normal heart sound present and S2 normal heart sound present PERIPHERAL PULSES: Peripheral pulses 2+ throughout GI: COMMON NORMALS: Normal to inspection, nondistended, normoactive bowel sounds present, Soft to palpation, non-tender, No hepatosplenomegaly present and no masses AUSCULTATION: Yes normoactive bowel sounds PALPATION: Yes Soft to palpation and Yes No hepatosplenomegaly present RECTAL EXAM: Yes deferred Extremity: OTHER: 2+ bilateral lower extremity pitting edema Neuro: COMMON NORMALS: patient oriented x3 Urinary Catheter Management: Greene: Cath Placed During This Visit: yes Urinary Catheter Date of Insertion: 01/09/22 Urinary Catheter Time of Insertion: 20:10 Data : 01/10/22 05:30 01/10/22 10:55 A&P Assessment and plan (1) NSTEMI (non-ST elevated myocardial infarction): Status: Acute (2) Chest pain: Status: Acute Qualifiers: Chest pain type: unspecified Qualified Code(s): R07.9 - Chest pain, unspecified (3) Hypothyroidism: Status: Acute (4) Gout: Status: Acute (5) CKD (chronic kidney disease): Status: Acute (6) Myelodysplastic syndrome: Status: Acute (7) Thrombocytopenia: Status: Acute (8) Heart failure: Status: Acute (9) Transfusion-dependent anemia: Status: Acute Plan 81 year old male with past medical history of HFrEF, gout, MDS, chronic blood transfusion dependent anemia, CKD, Came in with chief complaint of right-sided chest pain, shortness of breath, as well as difficulty passing urine. Assessment: NSTEMI: Likely type II NSTEMI: In the presence of decompensated heart failure CKD, Patient is a recent coronary angiogram done in September this year: Which showed some nonocclusive coronary artery disease Recent nuclear stress test: ?moderate large areas of persistent ?decreases uptake in the inferior wall, inferoseptal, inferolateral and apical ?regions with a subtle areas of reversibility, suggesting myocardial scarring?with very small area of sandra-infarction ischemia. EKG is failed to show any new: ST-T wave changes Currently patient is denying any chest pain Continue Plavix, statin, sublingual nitro as needed. Follow 6-hour troponin Possible cardiology consult Continue telemetry monitoring #Chest pain: Plan as above # HFrEF: Continue Lasix 40 mg p.o. twice daily Monitor intake output charting Monitor daily weight K>4, MG>2 #History of MDS: Monitor H&H #History of chronic thrombocytopenia Monitor platelet count #RADHA On CKD stage III:Likely 2/2 Obstructive uropathy Admission serum creatinine is 1.6 Monitor BMP Avoid nephrotoxic's Monitoring intake output charting Hyperkalemia: Admission serum potassium is 5.8. Hyperkalemia Cocktail Follow repeat BMP No significant EKG changes #BPH: Continue tamsulosin and finasteride #Acute urinary retention: S/p Greene placement Voiding trial prior to discharge Attestations Medical Necessity Statement*: Patient needs to be in hospital for management of NSTEMI. Anticipated length of stay greater than 2 midnights Time Spent in Patient Care: Greater than 35 minutes (>than 50% of time spent in counselling and/or direct pt care on unit) . Coding Level of Care Code Acute Accordion Repairer for g Fwd Exam Detailed Diagnoses NSTEMI (non-ST elevated myocardial infarction) I21.4 Chest pain R07.9 Chest pain type: unspecified Hypothyroidism E03.9 Gout M10.9 CKD (chronic kidney disease) N18.9 Myelodysplastic syndrome D46.9 Thrombocytopenia D69.6 Heart failure I50.9 Transfusion-dependent anemia D64.9
--- NOTE | 2022-01-10 03:42 | ECG_ITS ---
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 Measurements Intervals [place] Rate: 80 P: 50 KY: 223 QRS: 16 QRSD: 107 T: 51 QT: 371 QTc: 428 Interpretive Statements SINUS RHYTHM WITH FIRST DEGREE AV BLOCK NONSPECIFIC ST & T-WAVE ABNORMALITY Compared to ECG 01/09/2022 22:45:31 First degree AV block now present Sinus tachycardia no longer present T-wave abnormality still present Electronically Signed On 01-10-2022 16:32:12 CDT by Ace Simon M.D. [email or web address].[employer]/store/OM/[id number]
[2022-01-10] MEDS: midodrine 5 mg TABLET 10 MG PO ×4 (04:42→22:09)
[2022-01-10 06:05] LABS: Basophils % 0.3 %; Eosinophils % 0.1 %; Hematocrit 24.7 % (42.0-52.0); Hemoglobin 7.9 g/dL (11.7-16.6); Lymphocytes # 0.7 10^3/uL (0.8-4.8); Lymphocytes % 6.4 %; Mean Corpuscular Hemoglobin 28.7 pg (28.0-34.0); Mean Corpuscular Volume 89.8 fl (80-94); Monocytes # 2.2 10^3/uL (0.2-0.9); Monocytes % 20.8 %; Neutrophils # 7.37 10^3/uL (1.8-7.7); Neutrophils % 69.6 %; Nucleated Red Blood Cells % 0 %; Platelet Count 56 10^3/cmm (130-400); Red Blood Count 2.75 10^6/uL (4.1-5.3); Red Cell Distribution Width 17.3 % (12.1-15.1); White Blood Count 10.6 10^3/uL (4.0-10.0)
[2022-01-10 06:35] LABS: Anion Gap 16.7 (5-19); Blood Urea Nitrogen 37 mg/dL (8-23); Calcium 8.5 mg/dL (8.5-10.5); Carbon Dioxide 23 mmol/L (22-29); Chloride 103 mmol/L (98-107); Glucose 131 mg/dL (65-115); Osmolality Calculated 292 mOsm/kg (285-295); Sodium 136 mmol/L (136-145)
[2022-01-10 06:42] LABS: Potassium 6.7 mmol/L (3.5-5.1)
[2022-01-10 06:43] LABS: Troponin 5 6HR 621.4 ng/L (0-15); Troponin 5 6HR Delta 7.4 ng/L (0-12)
--- NOTE | 2022-01-10 07:15 | PC.NURSE ---
received report, reviewed poc and assumed care of patient. no needs identified at this time
[2022-01-10] MEDS: dextrose 50% syringe 50 mL 25 ML IVP (07:33)
[2022-01-10] MEDS: insulin regular-human 5 UNIT in SYRINGE 1 EACH IVP (07:33)
[2022-01-10] MEDS: sodium polystyrene sulfonate 15 gm/60 mL Btl PO ×2 (07:34→18:48)
[2022-01-10] MEDS: finasteride 5 mg Tablet PO (07:39)
[2022-01-10] MEDS: levothyroxine 50 mcg Tablet PO (07:39)
[2022-01-10] MEDS: atorvastatin 40 mg Tablet PO (07:39)
[2022-01-10] MEDS: pantoprazole DR 40 mg Tablet PO ×2 (07:39→18:47)
[2022-01-10] MEDS: FUROsemide 40 mg Tablet PO ×2 (07:40→18:48)
[2022-01-10] MEDS: tamsulosin 0.4 mg Capsule PO ×2 (07:40→18:48)
[2022-01-10] MEDS: clopidogrel 75 mg Tablet PO (07:40)
--- NOTE | 2022-01-10 09:26 | PC.PHAR ---
pt states his daughter in law liudmila [phone] takes care of his medications-liudmila states the pt takes the medications entered-notes are made in the pharmacy comments-liudmila states the pts plavix was put on hold on monday01/07/22 states the pt has a colonoscopy scheduled for 01/12/22-liudmila states the pts aspirin,diltiazem er 240mg,metformin,metolazone and trazodone was dced-notes are made in the pharmacy comments
--- NOTE | 2022-01-10 09:27 | PC.NURSE ---
Dr. Lopez notified that pt is refusing kayexalate. I will continue to encourage him to take it
--- NOTE | 2022-01-10 09:40 | P.PN_ITS ---
Subjective Subjective: Denies chest pain, shortness of breath. Is asking for ice cream. Vitals/I&O/Wt Last Vital Signs Temp 99.1 F 01/10/22 04:30 Pulse 75 01/10/22 09:00 Resp 23 H 01/10/22 09:00 BP 98/51 01/10/22 09:00 Pulse Ox 96 01/10/22 09:00 01/09/22 01/10/22 01/10/22 22:59 06:59 14:59 Intake Total 100 / 100 0.05 / 0.05 Output Total 850 / 850 Balance -750 / -750 0.05 / 0.05 Physical Exam Const: COMMON NORMALS: alert GENERAL APPEARANCE: cooperative NUTRITIONAL APPEARANCE: obese ORIENTATION/CONSCIOUSNESS: Yes awake OTHER: Mildly [place], slightly sluggish HENMT: COMMON NORMALS: normocephalic, EAC's normal, Normal external nose present and moist oral mucous membranes HEAD & SCALP: normocephalic NOSE: Normal external nose present EXTERNAL AUDITORY CANAL: EAC's normal Neck/C-Spine: COMMON NORMALS: no meningeal signs Chest: CHEST: Yes Symmetrical chest wall rise Resp: COMMON NORMALS: clear to auscultation bilaterally AUSCULTATION: clear to auscultation bilaterally Cardio: COMMON NORMALS: regular rate, regular rhythm and No murmurs present (Cardio) RATE: regular rate RHYTHM: regular rhythm GI: COMMON NORMALS: Normal to inspection, nondistended, normoactive bowel sounds present, Soft to palpation and non-tender PALPATION: Yes Soft to palpation Extremity: COMMON NORMALS: no pedal edema Neuro: COMMON NORMALS: moves all extremities SENSORIUM/ORIENTATION: Yes alert MENINGEAL SIGNS: Yes no meningeal signs Psych: COMMON NORMALS: mental status grossly normal Skin: COMMON NORMALS: no wounds RASHES: no rashes Urinary Catheter Management: Greene: Cath Placed During This Visit: yes Reason for Continuing Indwelling Catheter: Accurate Measurement of Urinary Output in Critically Ill Patients Urinary Catheter Date of Insertion: 01/09/22 Urinary Catheter Time of Insertion: 20:10 Data : 01/10/22 05:30 01/10/22 05:30 A&P Assessment and plan (1) Hypotension: Hold lisinopril, metoprolol. Monitor blood pressure. Reassess renal function. Low K diet. Status: Acute (2) Hyperkalemia: Received Kayexalate. Lisinopril, potassium supplement held. Follow-up recheck potassium. Status: Acute (3) Acute kidney injury superimposed on CKD: Creatinine up to 1.9. Also with associated hyperkalemia. Potassium 6.7. RADHA on CKD, suspect secondary to episodes of hypotension. Hold lisinopril, metoprolol. Monitor blood pressure. Status: Acute (4) NSTEMI (non-ST elevated myocardial infarction): He denies any chest pain or pressure. In the setting of RADHA on CKD. Troponin elevated, without peak. Had an angiogram in September after abnormal stress which showed nonobstructive disease. Status: Acute (5) Chest pain: Denies any chest pain or pressure. Status: Acute Qualifiers: Chest pain type: unspecified Qualified Code(s): R07.9 - Chest pain, unspecified (6) Hypothyroidism: Status: Acute (7) Gout: Status: Acute (8) CKD (chronic kidney disease): Status: Acute (9) Myelodysplastic syndrome: Status: Acute (10) Thrombocytopenia: Status: Acute (11) Heart failure: Status: Acute (12) Transfusion-dependent anemia: Status: Acute Plan #BPH: Continue tamsulosin and finasteride #Acute urinary retention: S/p Greene placement Continue flomax, increased to BID Attestations Medical Necessity Statement*: Continue admission for assessment management of hypotension, RADHA on CKD, hyperkalemia, elevated troponin. Coding Level of Care Code Acute Financial Reporting Accountant for [facility] Fwd Exam Comprehensive Diagnoses NSTEMI (non-ST elevated myocardial infarction) I21.4 Chest pain R07.9 Chest pain type: unspecified Hypothyroidism E03.9 Gout M10.9 CKD (chronic kidney disease) N18.9 Myelodysplastic syndrome D46.9 Thrombocytopenia D69.6 Heart failure I50.9 Transfusion-dependent anemia D64.9 Hypotension I95.9 Acute kidney injury superimposed on CKD N17.9; N18.9 Hyperkalemia E87.5
--- NOTE | 2022-01-10 10:02 | PC.CHAP ---
Pastoral Care Encounter/Spiritual Assessment Type of Contact [] Declined electrical software engineer visit [] Patient/Family/Request visit [] Outpatient visit [] Follow-up visit [] Physician referral [] Code/Alert [x] Routine visit [] Staff referral [] Actively dying [x] Patient sleeping [] Family support [] [] Out of room [] Palliative care [] [] Receiving care in room [] Pre-surgical visit [] Trauma [] Long length of stay [x] ICU visit [] Other: Relational/Emotional Strength [] Patient feels connected with others/family/visitors/staff [] Distress [] Loneliness/isolation [] Abandonment Spirituality of Patient [] Person of Aliyah [] Attends Oriental Orthodox of their Aliyah [] Believes in Prayer [] Reads Bible or Sabianist materials [] There are Spiritual issues to be addressed Cnc Grinder Interventions [x] Prayer [] Active listening [] Non-anxious presence [] Spiritual/emotional support [] Crisis/trauma care [] Spiritual counseling [] Bereavement support [] Provided bereavement packet [] Provided Bible/devotional materials [] Provided toy/stuffed animal, coloring book to patient or family member [] Provided Communion [] Anointing/[place] [] Salvation [x] Completed spiritual assessment [] Other: Impact on Illness or Injury [] Angry [] Fearful [] Anxious [] Often cries [] Exhaustion [] Unable to work [] Unable to attend yazidi [] Unable to walk/stand [] Unable to read [] Unable to drive [] Unable to eat/drink [] Unable to sleep [] Unable to be with family [] Patient intubated [] Other: Summary Time spent with patient
[2022-01-10 11:43] LABS: Anion Gap 15.1 (5-19); Blood Urea Nitrogen 42 mg/dL (8-23); Calcium 8.3 mg/dL (8.5-10.5); Carbon Dioxide 23 mmol/L (22-29); Chloride 105 mmol/L (98-107); Glucose 105 mg/dL (65-115); Osmolality Calculated 295 mOsm/kg (285-295); Potassium 6.1 mmol/L (3.5-5.1); Sodium 137 mmol/L (136-145)
--- NOTE | 2022-01-10 14:36 | CT_ITS ---
WS: [id number] CT HEAD TECHNIQUE: Noncontrast CT of the head obtained from the skullbase to the vertex. CLINICAL INFORMATION: confused, speech problem COMPARISON: September 26, 2021 DLP: 701.[address] scans at [facility] use at least one of these dose optimization techniques: automated e xposure control; mA and/or kV adjustment per patient size (includes targeted exams where dose is matc hed to clinical indication); or iterative reconstruction. FINDINGS: No evidence of intracranial hemorrhage or mass effect. Ventricular system and basal cisterns are corrales nt. Moderate small vessel changes with moderate parenchymal volume loss. No extra-axial fluid collect ions. No evidence of mass or mass effect. Small retention cyst LEFT maxillary sinus. Mastoid air cells well aerated. CT/CT head wo con* [id number] IMPRESSION: 1. No evidence of intracranial hemorrhage or mass effect. 2. Moderate small vessel changes with moderate parenchymal volume loss. 3. No acute intracranial findings.
[2022-01-10] MEDS: CLONazepam 1 mg Tablet 0.5 MG PO ×2 (15:56→22:08)
[2022-01-10] MEDS: acetaminophen 325 mg Tablet 650 MG PO (16:06)
--- NOTE | 2022-01-10 16:13 | PC.NURSE ---
dr colorado called regarding pts neuro status earlier. he is confused, difficulty finding his words and following directions. head ct done. son is at bedside and states that pt is not normally confused, this is an acute change for him. pt is now getting aggitated but still confused. dr schofield. bed alarm on.
[2022-01-11] VITALS (21 sets, daily range): BP systolic 84–169; BP diastolic 43–79; PULSE 60–107; RESP 13–26; TEMP 36.5–37.2; O2SAT 92–100
[2022-01-11 04:32] LABS: Basophils % 0.2 %; Eosinophils % 0.2 %; Hemoglobin 6.6 g/dL (11.7-16.6); Lymphocytes # 0.8 10^3/uL (0.8-4.8); Lymphocytes % 14.4 %; Mean Corpuscular Hemoglobin 28.4 pg (28.0-34.0); Mean Corpuscular Volume 88.8 fl (80-94); Monocytes # 0.7 10^3/uL (0.2-0.9); Monocytes % 13.3 %; Neutrophils # 3.83 10^3/uL (1.8-7.7); Nucleated Red Blood Cells % 0 %; Platelet Count 38 10^3/cmm (130-400); Red Blood Count 2.32 10^6/uL (4.1-5.3); Red Cell Distribution Width 17.7 % (12.1-15.1); White Blood Count 5.6 10^3/uL (4.0-10.0)
[2022-01-11 04:33] LABS: Anion Gap 14.6 (5-19); Blood Urea Nitrogen 46 mg/dL (8-23); Calcium 8.2 mg/dL (8.5-10.5); Carbon Dioxide 24 mmol/L (22-29); Chloride 102 mmol/L (98-107); Glucose 106 mg/dL (65-115); Osmolality Calculated 294 mOsm/kg (285-295); Potassium 4.6 mmol/L (3.5-5.1); Sodium 136 mmol/L (136-145)
[2022-01-11 05:07] LABS: Hematocrit 20.6 % (42.0-52.0)
[2022-01-11 05:08] LABS: Slide Review Slide Review Perform
--- NOTE | 2022-01-11 07:34 | PC.NURSE ---
received report, reviewed poc and assumed care of patient. sitting in bed, no needs identified, waiting for blood to be ready.
[2022-01-11] MEDS: levothyroxine 50 mcg Tablet PO (08:23)
[2022-01-11] MEDS: CLONazepam 1 mg Tablet 0.5 MG PO ×3 (08:23→20:35)
[2022-01-11] MEDS: atorvastatin 40 mg Tablet PO (08:23)
[2022-01-11] MEDS: pantoprazole DR 40 mg Tablet PO ×2 (08:23→18:20)
[2022-01-11] MEDS: tamsulosin 0.4 mg Capsule PO ×2 (08:23→18:20)
[2022-01-11] MEDS: clopidogrel 75 mg Tablet PO (08:23)
[2022-01-11] MEDS: midodrine 5 mg TABLET 10 MG PO ×3 (08:23→20:35)
[2022-01-11] MEDS: FUROsemide 40 mg Tablet PO ×2 (08:23→18:20)
[2022-01-11] MEDS: finasteride 5 mg Tablet PO (08:24)
--- NOTE | 2022-01-11 09:45 | PC.CHAP ---
Pastoral Care Encounter/Spiritual Assessment Type of Contact [] Declined broadband technician visit [] Patient/Family/Request visit [] Outpatient visit [] Follow-up visit [] Physician referral [] Code/Alert [x] Routine visit [] Staff referral [] Actively dying [] Patient sleeping [] Family support [] [] Out of room [] Palliative care [] [] Receiving care in room [] Pre-surgical visit [] Trauma [] Long length of stay [x] ICU visit [] Other: Relational/Emotional Strength [] Patient feels connected with others/family/visitors/staff [] Distress [] Loneliness/isolation [] Abandonment Spirituality of Patient [] Person of Aliyah [] Attends Presybeterian of their Aliyah [] Believes in Prayer [] Reads Bible or Yazdanism materials [] There are Spiritual issues to be addressed Director Child Abuse Therapy Interventions [x] Prayer [x] Active listening [x] Non-anxious presence [x] Spiritual/emotional support [] Crisis/trauma care [] Spiritual counseling [] Bereavement support [] Provided bereavement packet [] Provided Bible/devotional materials [] Provided toy/stuffed animal, coloring book to patient or family member [] Provided Communion [] Anointing/[place] [] Salvation [x] Completed spiritual assessment [] Other: Impact on Illness or Injury [] Angry [] Fearful [] Anxious [] Often cries [] Exhaustion [] Unable to work [] Unable to attend christianity [] Unable to walk/stand [] Unable to read [] Unable to drive [] Unable to eat/drink [] Unable to sleep [] Unable to be with family [] Patient intubated [] Other: Summary some weakness and confusion ... but feeling stronger Time spent with patient 10 min
[2022-01-11 16:43] LABS: Hemoglobin 8.5 g/dL (11.7-16.6)
--- NOTE | 2022-01-11 19:16 | P.PN_ITS ---
Subjective Subjective: This morning hemoglobin 6.6. She did not notice any active bleeding. Denies noticing hematochezia or melena. No hematuria. Reports he is doing all right today. Denies chest pain or pressure. States is not short of breath. Vitals/I&O/Wt Last Vital Signs Temp 98.1 F 01/11/22 17:30 Pulse 78 01/11/22 17:30 Resp 17 01/11/22 17:30 BP 126/74 01/11/22 17:30 Pulse Ox 94 01/11/22 17:30 01/11/22 01/11/22 01/11/22 06:59 14:59 22:59 Intake Total 240 / 640.05 300 / 300 Output Total 1400 / 2200 1825 / 1825 Balance -1160 / -1559.95 300 / 300 -1825 / -1525 Physical Exam Const: COMMON NORMALS: alert GENERAL APPEARANCE: cooperative NUTRITIONAL APPEARANCE: obese ORIENTATION/CONSCIOUSNESS: Yes awake OTHER: [place] HENMT: COMMON NORMALS: normocephalic, EAC's normal, Normal external nose present and moist oral mucous membranes HEAD & SCALP: normocephalic NOSE: Normal external nose present EXTERNAL AUDITORY CANAL: EAC's normal Neck/C-Spine: COMMON NORMALS: no meningeal signs Chest: CHEST: Yes Symmetrical chest wall rise Resp: COMMON NORMALS: clear to auscultation bilaterally AUSCULTATION: clear to auscultation bilaterally Cardio: COMMON NORMALS: regular rate, regular rhythm and No murmurs present (Cardio) RATE: regular rate RHYTHM: regular rhythm GI: COMMON NORMALS: Normal to inspection, nondistended, normoactive bowel sounds present, Soft to palpation and non-tender PALPATION: Yes Soft to palpation Extremity: COMMON NORMALS: no pedal edema Neuro: COMMON NORMALS: moves all extremities SENSORIUM/ORIENTATION: Yes alert MENINGEAL SIGNS: Yes no meningeal signs Psych: COMMON NORMALS: mental status grossly normal Skin: COMMON NORMALS: no wounds RASHES: no rashes Urinary Catheter Management: Greene: Cath Placed During This Visit: yes Reason for Continuing Indwelling Catheter: Acute Urinary Retention or Obstruction Urinary Catheter Date of Insertion: 01/09/22 Urinary Catheter Time of Insertion: 20:10 Data : 01/11/22 16:18 01/11/22 03:41 A&P Assessment and plan (1) Transfusion-dependent anemia: Acute anemia this morning, hemoglobin dropped to 6.6. Had to receive 1 unit PBC transfusion. Hemoglobin rechecked, and appears to responded well to 8.5. Hemoccult requested. Platelets are slightly lower today at 38,000. Recheck hemoglobin and platelets in the morning. For now is continued on Plavix. Status: Acute (2) Hypotension: Blood pressures appear to be gradually improving. Monitor for now. Continue to hold lisinopril, metoprolol. Renal function appears to have steadied with creatinine 2.1 Status: Acute (3) Acute kidney injury superimposed on CKD: Renal function appears to have steadied with creatinine 2.1 Continue to prioritize blood pressure, monitor, avoid hypotension. Recheck chemistry in the morning. Status: Acute (4) NSTEMI (non-ST elevated myocardial infarction): He denies any chest pain or pressure.? In the setting of RADHA on CKD. Troponin elevated, without peak. Had an angiogram in September after abnormal stress which showed nonobstructive disease. Status: Acute (5) Chest pain: No chest pain. Status: Acute Qualifiers: Chest pain type: unspecified Qualified Code(s): R07.9 - Chest pain, unspecified (6) Hypothyroidism: Status: Acute (7) Gout: Status: Acute (8) CKD (chronic kidney disease): Status: Acute (9) Myelodysplastic syndrome: Status: Acute (10) Thrombocytopenia: Status: Acute (11) Heart failure: Status: Acute (12) Hyperkalemia: Status: Acute Attestations Medical Necessity Statement*: Continue admission for reassessment of acute an emia requiring transfusion, acute kidney injury in the setting of hypotension. Coding Level of Care Code Acute Control Area Operator for [facility] Diagnoses NSTEMI (non-ST elevated myocardial infarction) I21.4 Chest pain R07.9 Chest pain type: unspecified Hypothyroidism E03.9 Gout M10.9 CKD (chronic kidney disease) N18.9 Myelodysplastic syndrome D46.9 Thrombocytopenia D69.6 Heart failure I50.9 Transfusion-dependent anemia D64.9 Hypotension I95.9 Hyperkalemia E87.5 Acute kidney injury superimposed on CKD N17.9; N18.9
[2022-01-12] VITALS (7 sets, daily range): BP systolic 120–157; BP diastolic 65–83; PULSE 0–105; RESP 14–24; TEMP 36.4–37; O2SAT 90–96
[2022-01-12] MEDS: acetaminophen 325 mg Tablet 650 MG PO ×2 (00:36→19:52)
[2022-01-12 06:32] LABS: Hematocrit 23.9 % (42.0-52.0); Hemoglobin 8.1 g/dL (11.7-16.6); Lymphocytes # 0.7 10^3/uL (0.8-4.8); Lymphocytes % 26.2 %; Mean Corpuscular HGB Conc 33.9 g/dL (30.0-36.0); Mean Corpuscular Hemoglobin 28.5 pg (28.0-34.0); Mean Corpuscular Volume 84.2 fl (80-94); Monocytes # 0.4 10^3/uL (0.2-0.9); Monocytes % 13.1 %; Neutrophils # 1.62 10^3/uL (1.8-7.7); Neutrophils % 57.5 %; Nucleated Red Blood Cells % 0 %; Platelet Count 49 10^3/cmm (130-400); Red Blood Count 2.84 10^6/uL (4.1-5.3); Red Cell Distribution Width 16.7 % (12.1-15.1); White Blood Count 2.8 10^3/uL (4.0-10.0)
[2022-01-12 07:03] LABS: Anion Gap 15.6 (5-19); Blood Urea Nitrogen 35 mg/dL (8-23); Calcium 8.9 mg/dL (8.5-10.5); Carbon Dioxide 25 mmol/L (22-29); Chloride 100 mmol/L (98-107); Glucose 126 mg/dL (65-115); Osmolality Calculated 294 mOsm/kg (285-295); Potassium 3.6 mmol/L (3.5-5.1); Sodium 137 mmol/L (136-145)
[2022-01-12 07:11] LABS: Slide Review Slide Review Perform
[2022-01-12] MEDS: clopidogrel 75 mg Tablet PO (08:46)
[2022-01-12] MEDS: levothyroxine 50 mcg Tablet PO (08:46)
[2022-01-12] MEDS: pantoprazole DR 40 mg Tablet PO ×2 (08:46→17:57)
[2022-01-12] MEDS: atorvastatin 40 mg Tablet PO (08:46)
[2022-01-12] MEDS: FUROsemide 40 mg Tablet PO ×2 (08:47→17:57)
[2022-01-12] MEDS: midodrine 5 mg TABLET 10 MG PO ×3 (08:47→20:01)
[2022-01-12] MEDS: tamsulosin 0.4 mg Capsule PO ×2 (08:47→17:57)
[2022-01-12] MEDS: CLONazepam 1 mg Tablet 0.5 MG PO ×3 (08:47→20:01)
[2022-01-12] MEDS: finasteride 5 mg Tablet PO (08:47)
--- NOTE | 2022-01-12 13:11 | PC.NURSE ---
Nurse entered room to find patient with small nosebleed. Discussed with patient to apply pressure and lean head forward. Patient has scant amount of blood in tissue.
--- NOTE | 2022-01-12 19:45 | PM.PN ---
Subjective Subjective: This morning he denies any complaints. Denies chest pain or pressure. Denies being short of breath. Request how he can get the Greene catheter out, discussed with him nursing staff to take it out, asking him to make sure not to pull it out due to catheter balloon causing injury, states he is aware. With nursing observation getting up to restroom with one-person to standby assist. Later on during the visit by his son, he is found to be confused, did not recognize his son until later on in the visit. Vitals/I&O/Wt Last Vital Signs Temp 98.3 F 01/12/22 16:00 Pulse 90 01/12/22 16:00 Resp 17 01/12/22 16:00 BP 133/65 01/12/22 16:00 Pulse Ox 92 01/12/22 16:00 01/12/22 01/12/22 01/12/22 06:59 14:59 22:59 Intake Total 100 / 450 100 / 100 Output Total 2250 / 4575 1018 / 1018 480 / 1498 Balance -2150 / -4125 -1018 / -1018 -380 / -1398 Physical Exam Const: COMMON NORMALS: alert GENERAL APPEARANCE: cooperative NUTRITIONAL APPEARANCE: obese ORIENTATION/CONSCIOUSNESS: Yes awake OTHER: [place] HENMT: COMMON NORMALS: normocephalic, EAC's normal, Normal external nose present and moist oral mucous membranes HEAD & SCALP: normocephalic NOSE: Normal external nose present EXTERNAL AUDITORY CANAL: EAC's normal Neck/C-Spine: COMMON NORMALS: no meningeal signs Chest: CHEST: Yes Symmetrical chest wall rise Resp: COMMON NORMALS: clear to auscultation bilaterally AUSCULTATION: clear to auscultation bilaterally Cardio: COMMON NORMALS: regular rate, regular rhythm and No murmurs present (Cardio) RATE: regular rate RHYTHM: regular rhythm GI: COMMON NORMALS: Normal to inspection, nondistended, normoactive bowel sounds present, Soft to palpation and non-tender PALPATION: Yes Soft to palpation Extremity: COMMON NORMALS: no pedal edema Neuro: COMMON NORMALS: moves all extremities SENSORIUM/ORIENTATION: Yes alert MENINGEAL SIGNS: Yes no meningeal signs Psych: COMMON NORMALS: mental status grossly normal Skin: COMMON NORMALS: no wounds RASHES: no rashes Urinary Catheter Management: Greene: Cath Placed During This Visit: yes Reason for Continuing Indwelling Catheter: Acute Urinary Retention or Obstruction Urinary Catheter Date of Insertion: 01/09/22 Urinary Catheter Time of Insertion: 20:10 Data : 01/12/22 06:02 01/12/22 06:02 A&P Assessment and plan (1) Acute encephalopathy: Recurrent confusional states. On presentation particularly confused, try to get out of bed, restless, at that time with acute metabolic encephalopathy with acute kidney injury, possibly toxic encephalopathy secondary to some of the medications, possibly gabapentin, possibly clonazepam. Versus possible withdrawal. Hypotension at that time as well. No suggestion of acute infection. He has been afebrile, without leukocytosis, although with pancytopenia with history of MDS, with chest imaging nostras of pneumonia, no other symptoms of pneumonia, urinalysis consistent with UTI. Blood cultures without growth. Mental status overall improved, but still episodic confusion, and noted confused again today by his son, more so, not recognizing family. This despite improvement in his blood pressures, gradually improving renal function. Clonazepam had been continued at lower dose. Will resume gabapentin at lower dose as well in case he is now withdrawing. This prescription with his son, not formally diagnosed with dementia, usually does not normally show signs of dementia, but with acute illness does get confused, and last time during hospitalization took him a while to recover, at least several days after confusional state. Discussed additional possibility of protracted delirium secondary to acute medical condition on presentation which now itself may be resolved, but may take him a while to return to his previous baseline, and discussed also consideration and sometimes with underlying cognitive impairment possibility may be also not returning entirely to the prior baseline. Once he is out of acute illness we discussed that he may benefit also from more formal assessment for possible dementia with neuropsychiatric battery on outpatient basis to which son expressed agreement. Given pancytopenia we will repeat again chest x-ray, urinalysis. As he is also noted to require 1 person standby assist, with multiple recent hospitalizations, will request also assessment by PT. Status: Acute (2) Transfusion-dependent anemia: Responded well to RBC transfusion. Hemoccult has been requested, so far not collected. Follow-up hemoglobin in the morning. For now is continued on Plavix. Status: Acute (3) Hypotension: Improved. Now with some hyper, discontinue midodrine. Hold his antihypertensives for now. Status: Acute (4) Acute kidney injury superimposed on CKD: Improving. Continue to prioritize blood pressure, monitor, avoid hypotension. Recheck chemistry in the morning. Discontinued Greene catheter, voiding trial. Status: Acute (5) NSTEMI (non-ST elevated myocardial infarction): He denies any chest pain or pressure.? In the setting of RADHA on CKD. Troponin elevated, without peak. Had an angiogram in September after abnormal stress which showed nonobstructive disease. Status: Acute (6) Chest pain: No chest pain. Status: Acute Qualifiers: Chest pain type: unspecified Qualified Code(s): R07.9 - Chest pain, unspecified (7) Hypothyroidism: Status: Acute (8) Gout: Status: Acute (9) CKD (chronic kidney disease): Status: Acute (10) Myelodysplastic syndrome: Status: Acute (11) Thrombocytopenia: Status: Acute (12) Heart failure: Continue Lasix Status: Acute (13) Hyperkalemia: Status: Acute Plan Minor epistaxis: Today, resolved after external compression, reassess for any additional bleeding. Prior history of epistaxis, follow-up with ENT. Attestations Medical Necessity Statement*: Continue admission for assessment and management of acute encephalopathy. Coding Level of Care Code Acute Engine Repair Supervisor for [facility] Diagnoses Transfusion-dependent anemia D64.9 Hypotension I95.9 Acute kidney injury superimposed on CKD N17.9; N18.9 NSTEMI (non-ST elevated myocardial infarction) I21.4 Chest pain R07.9 Chest pain type: unspecified Hypothyroidism E03.9 Gout M10.9 CKD (chronic kidney disease) N18.9 Myelodysplastic syndrome D46.9 Thrombocytopenia D69.6 Heart failure I50.9 Hyperkalemia E87.5 Acute encephalopathy G93.40
[2022-01-12] MEDS: gabapentin 100 mg Capsule 200 MG PO (20:02)
[2022-01-13] VITALS (7 sets, daily range): BP systolic 110–146; BP diastolic 49–70; PULSE 0–104; RESP 13–20; TEMP 36.3–36.8; O2SAT 92–96
[2022-01-13 04:29] LABS: Add Urine Microscopic? YES; Bilirubin Urine Neg (Negative); Blood Urine Neg (Negative); Glucose Urine UA Norm (Normal); Ketones Urine Negative (Negative); Leukocyte Esterase Urine 2+ (Negative); Nitrate Urine Negative (Negative); Protein Urine Neg (Negative); RBC Urine 0-4 /hpf (0-2); Urine Appearance SL Hazy (CLEAR); Urine Color Yellow (Yellow); Urobilinogen Urine Norm (Negative); pH Urine 5 (5-7)
[2022-01-13 04:30] LABS: Add Urine Culture? Yes; Bacteria Urine 3+ /hpf; Mucus Urine TRACE /hpf; Squamous Epithelial Cell Urine 0-4 /hpf (0-5); WBC Urine 15-25 /hpf (0-5)
[2022-01-13 05:36] LABS: Hematocrit 25.4 % (42.0-52.0); Hemoglobin 8.1 g/dL (11.7-16.6); Lymphocytes # 0.7 10^3/uL (0.8-4.8); Lymphocytes % 36.5 %; Mean Corpuscular HGB Conc 31.9 g/dL (30.0-36.0); Mean Corpuscular Hemoglobin 28.4 pg (28.0-34.0); Mean Corpuscular Volume 89.1 fl (80-94); Monocytes # 0.3 10^3/uL (0.2-0.9); Monocytes % 18.8 %; Neutrophils % 39.7 %; Nucleated Red Blood Cells % 0 %; Platelet Count 48 10^3/cmm (130-400); Red Blood Count 2.85 10^6/uL (4.1-5.3); Red Cell Distribution Width 16.8 % (12.1-15.1); White Blood Count 1.8 10^3/uL (4.0-10.0)
--- NOTE | 2022-01-13 06:00 | XRR_ITS ---
PROCEDURE INFORMATION: Exam: XR Chest Exam date and time: 01/13/2022 6:01 AM Age: 81 years old Clinical indication: Other: Hypoxia TECHNIQUE: Imaging protocol: XR of the chest. Views: 1 view. COMPARISON: CR (CHEST, ) 01/09/2022 10:23 PM FINDINGS: Lungs: Increased ground-glass opacities in the lungs slightly worse on the left versus the right. Pleural spaces: No pneumothorax. No large pleural effusion. Heart/Mediastinum: The cardiomediastinal silhouette is enlarged, worsened compared to prior exam. Bones/joints: Unremarkable. XR/XR chest 1V portable [id number] IMPRESSION: 1. Interval cardiomegaly. 2. Increased ground-glass opacities in the lungs slightly worse on the left versus the right, which may be seen with pulmonary edema versus pneumonia. Recommend clinical correlation.
[2022-01-13 06:09] LABS: Anion Gap 15.2 (5-19); Blood Urea Nitrogen 23 mg/dL (8-23); Calcium 8.7 mg/dL (8.5-10.5); Carbon Dioxide 25 mmol/L (22-29); Chloride 102 mmol/L (98-107); Glucose 122 mg/dL (65-115); Osmolality Calculated 293 mOsm/kg (285-295); Potassium 3.2 mmol/L (3.5-5.1); Sodium 139 mmol/L (136-145)
[2022-01-13 07:30] LABS: Add RBC Morph Yes
[2022-01-13 07:31] LABS: Slide Review Slide Review Perform
[2022-01-13 07:33] LABS: Neutrophils # 0.72 10^3/uL (1.8-7.7)
[2022-01-13 07:38] LABS: Anisocytosis 2+; Giant Platelets 1+; Ovalocytes 2+; Polychromasia Trace; Tear Drop Cells 1+
[2022-01-13 07:39] LABS: Pathology Refferal No; Schistocytes 1+
[2022-01-13 07:40] LABS: RBC Morph Comp Yes
[2022-01-13 07:41] LABS: Macrocytosis 1+; Microcytosis Trace
[2022-01-13] MEDS: piperacillin-tazobactam 3.375 GM in sodium chloride 0.9% (plus) 50 ML IV (09:46)
[2022-01-13] MEDS: tamsulosin 0.4 mg Capsule PO ×2 (09:49→17:07)
[2022-01-13] MEDS: levothyroxine 50 mcg Tablet PO (09:49)
[2022-01-13] MEDS: FUROsemide 40 mg Tablet PO ×2 (09:50→17:07)
[2022-01-13] MEDS: clopidogrel 75 mg Tablet PO (09:50)
[2022-01-13] MEDS: pantoprazole DR 40 mg Tablet PO ×2 (09:50→17:07)
[2022-01-13] MEDS: CLONazepam 1 mg Tablet 0.5 MG PO ×3 (09:50→19:31)
[2022-01-13] MEDS: atorvastatin 40 mg Tablet PO (09:50)
[2022-01-13] MEDS: potassium chloride ER 20 mEq Tablet PO (09:50)
[2022-01-13] MEDS: finasteride 5 mg Tablet PO (09:51)
[2022-01-13] MEDS: gabapentin 100 mg Capsule 200 MG PO ×2 (09:55→17:07)
--- NOTE | 2022-01-13 13:41 | PC.SOCIAL ---
Pg 2 IMM Explained to pt Pg 2 IMM. No questions voiced. Provided pt a copy. Initialed, dated, & timed a copy & placed in chart.
--- NOTE | 2022-01-13 18:30 | PM.PN ---
Subjective Subjective: Tells me he is doing okay today. He is looking for his shoes. Knows he is in the [facility] . States the year is 2020. Denies abdominal pain or discomfort. Denies difficulty urinating. Vitals/I&O/Wt Last Vital Signs Temp 97.9 F 01/13/22 07:49 Pulse 86 01/13/22 16:00 Resp 13 01/13/22 07:49 BP 146/70 01/13/22 16:00 Pulse Ox 96 01/13/22 16:00 01/13/22 01/13/22 01/13/22 06:59 14:59 22:59 Intake Total 840 / 1360 150 / 150 Output Total 700 / 2198 Balance 140 / -838 150 / 150 Weight last 48 hrs Weight 101 kg Physical Exam Const: COMMON NORMALS: alert GENERAL APPEARANCE: cooperative NUTRITIONAL APPEARANCE: obese ORIENTATION/CONSCIOUSNESS: Yes awake and Yes oriented to place; not oriented to time OTHER: [place] HENMT: COMMON NORMALS: normocephalic, EAC's normal, Normal external nose present and moist oral mucous membranes HEAD & SCALP: normocephalic NOSE: Normal external nose present EXTERNAL AUDITORY CANAL: EAC's normal Neck/C-Spine: COMMON NORMALS: no meningeal signs Chest: CHEST: Yes Symmetrical chest wall rise Resp: COMMON NORMALS: clear to auscultation bilaterally AUSCULTATION: clear to auscultation bilaterally Cardio: COMMON NORMALS: regular rate, regular rhythm and No murmurs present (Cardio) RATE: regular rate RHYTHM: regular rhythm GI: COMMON NORMALS: Normal to inspection, nondistended, normoactive bowel sounds present, Soft to palpation and non-tender PALPATION: Yes Soft to palpation Extremity: COMMON NORMALS: no pedal edema Neuro: COMMON NORMALS: moves all extremities SENSORIUM/ORIENTATION: Yes alert, Yes oriented to place and No oriented to time MENINGEAL SIGNS: Yes no meningeal signs Psych: COMMON NORMALS: mental status grossly normal Skin: COMMON NORMALS: no wounds RASHES: no rashes Urinary Catheter Management: Greene: Cath Placed During This Visit: yes Reason for Continuing Indwelling Catheter: Acute Urinary Retention or Obstruction Urinary Catheter Date of Insertion: 01/09/22 Urinary Catheter Time of Insertion: 20:10 Data : 01/13/22 05:17 01/13/22 05:17 A&P Assessment and plan (1) Acute encephalopathy: Confusion appears to be slightly better today. On reassessment he is more neutropenic, 0.72 ANC. UA repeated, appears to have possible UTI, with 15-25 WBC. Started on Zosyn empirically. Follow-up urine culture. Noted increased groundglass opacities in the lungs slightly worse on the left versus right on chest x-ray. Pulmonary edema versus pneumonia. Recurrent confusional states. On presentation particularly confused, try to get out of bed, restless, at that time with acute metabolic encephalopathy with acute kidney injury, possibly toxic encephalopathy secondary to some of the medications, possibly gabapentin, possibly clonazepam. Versus possible withdrawal. Hypotension at that time as well. No suggestion of acute infection. He has been afebrile, without leukocytosis, although with pancytopenia with history of MDS, with chest imaging nostras of pneumonia, no other symptoms of pneumonia, initial urinalysis not consistent with UTI. Blood cultures without growth. Mental status overall improved, but still episodic confusion, and noted confused again today by his son, more so, not recognizing family. This despite improvement in his blood pressures, gradually improving renal function. Clonazepam had been continued at lower dose. Will resume gabapentin at lower dose as well in case he is now withdrawing. This prescription with his son, not formally diagnosed with dementia, usually does not normally show signs of dementia, but with acute illness does get confused, and last time during hospitalization took him a while to recover, at least several days after confusional state. Discussed additional possibility of protracted delirium secondary to acute medical condition on presentation which now itself may be resolved, but may take him a while to return to his previous baseline, and discussed also consideration and sometimes with underlying cognitive impairment possibility may be also not returning entirely to the prior baseline. Once he is out of acute illness we discussed that he may benefit also from more formal assessment for possible dementia with neuropsychiatric battery on outpatient basis to which son expressed agreement. Did well with PT. Status: Acute (2) UTI (urinary tract infection): Zosyn. Follow-up culture. Status: Acute (3) Transfusion-dependent anemia: Responded well to RBC transfusion. Hemoccult has been requested, so far not collected. Follow-up hemoglobin in the morning. For now is continued on Plavix. Status: Acute (4) Hypotension: Improved. Now with some hyper, discontinue midodrine. Hold his antihypertensives for now. Status: Acute (5) Acute kidney injury superimposed on CKD: Improving. Continue to prioritize blood pressure, monitor, avoid hypotension. Recheck chemistry in the morning. Discontinued Greene catheter, voiding trial. Status: Acute (6) NSTEMI (non-ST elevated myocardial infarction): He denies any chest pain or pressure.? In the setting of RADHA on CKD. Troponin elevated, without peak. Had an angiogram in September after abnormal stress which showed nonobstructive disease. Status: Acute (7) Chest pain: No chest pain. Status: Acute Qualifiers: Chest pain type: unspecified Qualified Code(s): R07.9 - Chest pain, unspecified (8) Hypothyroidism: Status: Acute (9) Gout: Status: Acute (10) CKD (chronic kidney disease): Status: Acute (11) Myelodysplastic syndrome: Status: Acute (12) Thrombocytopenia: Status: Acute (13) Heart failure: Continue Lasix Status: Acute (14) Hyperkalemia: Status: Acute Plan Minor epistaxis: 01/12. Resolved. Prior history of epistaxis, follow-up with ENT. Neutropenia: neutropenic precautions. Underlying MDS. As above. Will need follow-up with hematology. Attestations Medical Necessity Statement*: Continue admission for cyst management of acute encephalopathy, UTI and gentleman with neutropenia. Coding Level of Care Code Acute Shiftman for [facility] Fwd Exam Comprehensive Diagnoses Acute encephalopathy G93.40 Transfusion-dependent anemia D64.9 Hypotension I95.9 Acute kidney injury superimposed on CKD N17.9; N18.9 NSTEMI (non-ST elevated myocardial infarction) I21.4 Chest pain R07.9 Chest pain type: unspecified Hypothyroidism E03.9 Gout M10.9 CKD (chronic kidney disease) N18.9 Myelodysplastic syndrome D46.9 Thrombocytopenia D69.6 Heart failure I50.9 Hyperkalemia E87.5 UTI (urinary tract infection) N39.0
--- NOTE | 2022-01-13 19:16 | PC.NURSE ---
Patient has no IV access at this time. Unable to administer IV Zosyn. Per report from day shift, 3 nurses attempted IV access. tire center supervisor notified. IV access will be attempted with US. IV Zosyn will be administered when access is obtained.
[2022-01-14] VITALS (7 sets, daily range): BP systolic 122–128; BP diastolic 72–74; PULSE 95–102; RESP 18; TEMP 36.6–37.1; O2SAT 94–98
[2022-01-14] MEDS: piperacillin-tazobactam 3.375 GM in sodium chloride 0.9% (plus) 50 ML IV ×2 (00:45→08:03)
[2022-01-14 06:44] LABS: Hematocrit 24.1 % (42.0-52.0); Hemoglobin 8.1 g/dL (11.7-16.6); Mean Corpuscular HGB Conc 33.6 g/dL (30.0-36.0); Mean Corpuscular Hemoglobin 28.5 pg (28.0-34.0); Mean Corpuscular Volume 84.9 fl (80-94); Platelet Count 56 10^3/cmm (130-400); Red Blood Count 2.84 10^6/uL (4.1-5.3); Red Cell Distribution Width 16.6 % (12.1-15.1); White Blood Count 1.8 10^3/uL (4.0-10.0)
[2022-01-14 06:57] LABS: Alanine Aminotransferase 9 U/L (0-41); Albumin Level 3.8 g/dL (3.5-5.2); Alkaline Phosphatase 71 IU/L (40-130); Anion Gap 17.2 (5-19); Aspartate Amino Transferase 11 U/L (0-40); Blood Urea Nitrogen 21 mg/dL (8-23); Calcium 8.5 mg/dL (8.5-10.5); Carbon Dioxide 24 mmol/L (22-29); Chloride 99 mmol/L (98-107); Globulin 2.9 g/dL (1.3-4.6); Glucose 129 mg/dL (65-115); Osmolality Calculated 289 mOsm/kg (285-295); Potassium 3.2 mmol/L (3.5-5.1); Sodium 137 mmol/L (136-145); Total Bilirubin 1.1 mg/dL (0.15-1.2); Total Protein 6.7 g/dL (6.6-8.7)
[2022-01-14] MEDS: tamsulosin 0.4 mg Capsule PO (08:01)
[2022-01-14] MEDS: CLONazepam 1 mg Tablet 0.5 MG PO (08:01)
[2022-01-14] MEDS: pantoprazole DR 40 mg Tablet PO (08:02)
[2022-01-14] MEDS: levothyroxine 50 mcg Tablet PO (08:02)
[2022-01-14] MEDS: gabapentin 100 mg Capsule 200 MG PO (08:02)
[2022-01-14] MEDS: atorvastatin 40 mg Tablet PO (08:02)
[2022-01-14] MEDS: clopidogrel 75 mg Tablet PO (08:02)
[2022-01-14] MEDS: FUROsemide 40 mg Tablet PO (08:02)
[2022-01-14] MEDS: finasteride 5 mg Tablet PO (08:03)
[2022-01-14 08:28] LABS: Slide Review Slide Review Perform
[2022-01-14 08:29] LABS: Absolute Segmented Neutrophil 0.9 10/cmm (1.6-7.1); Eosinophils 0 %; Lymphocytes 38 %; Lymphocytes Absolute 0.7 10^3/cmm (1.2-3.4); Monocytes Absolute 0.2 10^3/cmm (0.1-0.6); Platelet Estimate Decreased (Normal); Segmented Neutrophils 50 %; Total Cells Counted 100 (0-100)
[2022-01-14 08:33] LABS: Absolute Neutrophil 0.9 10^3/cmm (1.4-6.5)
--- NOTE | 2022-01-14 14:53 | PM.DCS ---
Discharge Providers Date of Admission: 01/10/22 03:17 Date of Discharge: January 14, 2022 Attending Provider at Admission: Gaston Giles MD Attending Provider at Discharge: Reynaldo Vásquez Primary Care Provider: Della Jensen MD Diagnoses at Discharge Discharge Diagnosis (1) Acute encephalopathy: Status: Acute (2) UTI (urinary tract infection): Status: Acute (3) Transfusion-dependent anemia: Status: Acute (4) Hypotension: Status: Acute (5) Acute kidney injury superimposed on CKD: Status: Acute (6) NSTEMI (non-ST elevated myocardial infarction): Status: Acute (7) Chest pain: Status: Acute Qualifiers: Chest pain type: unspecified Qualified Code(s): R07.9 - Chest pain, unspecified (8) Hypothyroidism: Status: Acute (9) Gout: Status: Acute (10) CKD (chronic kidney disease): Status: Acute (11) Myelodysplastic syndrome: Status: Acute (12) Thrombocytopenia: Status: Acute (13) Heart failure: Status: Acute (14) Hyperkalemia: Status: Acute Reason for Visit Reason for Visit: Chest Pain Hospital Course Hospital Course Very pleasant 81-year-old gentleman with MDS, blood transfusion dependent anemia, HFrEF, CKD, BPH, other chronic morbidities return to the hospital after recent hospitalization with complaint of right-sided chest pain, shortness of breath, difficulty passing urine. Greene catheter was placed transiently during hospitalization. Initial urine studies not suggestive of urinary infection. With on and off confusional episodes during hospitalization. Clonazepam dose was reduced 2.5 mg. Please continue to wean off benzodiazepine and consider discontinuation entirely. Gabapentin dose was reduced down to 300 mg twice daily. On repeat urine studies he is also found to have urinary tract infection, already growing gram-negative nora so far, pending ID and sensitivities. Chest x-ray repeated as well, with finding of increased groundglass opacities in the lung slightly worse on the left versus right. Afebrile without respiratory symptoms. Consideration of pulmonary edema in setting of diastolic CHF, was continued on Lasix. Did well in terms of oxygenation, continues on 2 L nasal cannula oxygen saturating in the high 90s. He was started on Zosyn while in the hospital, antibiotic course with Levaquin. With noted pancytopenia, with neutropenia, ANC with fluctuation, lowest 700 on 01/13. Today better at 2.9, but still low. Discussed with him and his son regarding maintaining neutropenic precautions, neutropenic diet. Mental status has improved. He is oriented x3, comfortable, following directions. Discussed with his son consideration of additional assessment for possible progressive cognitive impairment/early dementia if mental status not improving for a while after recovery from acute conditions. On presentation also with acute kidney injury which has been gradually improving. Creatinine down to 1.4. For now lisinopril is held. With soft blood pressures here, metoprolol is held for now as well, possibly some blood pressures contributed to RADHA on CKD. Please reassess blood pressures, reassess renal function, resume medications if needed and if renal function stable. During hospitalization received 1 unit RBC transfusion after hemoglobin found down trended to 6.6. Responded well to transfusion, hemoglobin staying at 8.1. Hemoccult was negative. On presentation troponin elevation, but without definite peak, without chest pain or pressure, thought to be demand ischemia also in setting of RADHA on CKD. He is continued on Plavix, although platelets are on the low side, 56,000. During hospitalization had a minor self-limited nasal bleed on 01/12 which had resolved. Please reassess platelet level and safety of continuation of Plavix. He is asked to follow-up with hematology with regards to MDS, as well as ENT for reassessment given he had previously had a nosebleed in the past which required cauterization. He he did well, independent to standby assist on physical therapy assessment. On voiding trial did well, without any further urinary difficulties, continues on BPH therapy. Physical Exam Narrative: Pleasant, conversant, asking about going home. Denies any pain or discomfort. States he is doing great. States he had urinated twice, had a bowel movement. States a stool sample was sent to the lab. Const: COMMON NORMALS: alert GENERAL APPEARANCE: cooperative NUTRITIONAL APPEARANCE: obese ORIENTATION/CONSCIOUSNESS: Yes awake and Yes oriented to place; not oriented to time OTHER: [place]: COMMON NORMALS: normocephalic, EAC's normal, Normal external nose present and moist oral mucous membranes HEAD & SCALP: normocephalic NOSE: Normal external nose present EXTERNAL AUDITORY CANAL: EAC's normal Neck/C-Spine: COMMON NORMALS: no meningeal signs Chest: CHEST: Yes Symmetrical chest wall rise Resp: COMMON NORMALS: clear to auscultation bilaterally AUSCULTATION: clear to auscultation bilaterally Cardio: COMMON NORMALS: regular rate, regular rhythm and No murmurs present (Cardio) RATE: regular rate RHYTHM: regular rhythm GI: COMMON NORMALS: Normal to inspection, nondistended, normoactive bowel sounds present, Soft to palpation and non-tender PALPATION: Yes Soft to palpation Extremity: COMMON NORMALS: no pedal edema Neuro: COMMON NORMALS: moves all extremities SENSORIUM/ORIENTATION: Yes alert, Yes oriented to place and No oriented to time MENINGEAL SIGNS: Yes no meningeal signs Psych: COMMON NORMALS: mental status grossly normal Skin: COMMON NORMALS: no wounds RASHES: no rashes Urinary Catheter Management: Greene: Cath Placed During This Visit: yes Reason for Continuing Indwelling Catheter: Acute Urinary Retention or Obstruction Urinary Catheter Date of Insertion: 01/09/22 Urinary Catheter Time of Insertion: 20:10 Discharge Data Studies Completed and Pending Completed Studies During Hospitalization Category Date Time Status CT head wo con* [id number] Urgent Cat Scan 01/10/22 14:36 Completed XR chest 1V portable [id number] Routine Exams 01/13/22 06:00 Completed XR chest 1V portable [id number] Stat Exams 01/09/22 21:42 Completed Pending at discharge Category Date Time Status Complete Blood Count w/Auto AM LABS Lab 01/15/22 04:00 Ordered Complete Blood Count w/Auto AM LABS Lab 01/16/22 04:00 Ordered Comprehensive Metabolic Panel AM LABS Lab 01/15/22 04:00 Ordered Comprehensive Metabolic Panel AM LABS Lab 01/16/22 04:00 Ordered Urine Culture Routine Lab 01/13/22 04:00 Results Radiology Impressions Head CT 01/10/22 14:36 IMPRESSION: 1. No evidence of intracranial hemorrhage or mass effect. 2. Moderate small vessel changes with moderate parenchymal volume loss. 3. No acute intracranial findings. Chest X-Ray 01/13/22 06:00 IMPRESSION: 1. Interval cardiomegaly. 2. Increased ground-glass opacities in the lungs slightly worse on the left versus the right, which may be seen with pulmonary edema versus pneumonia. Recommend clinical correlation. Laboratory Results WBC 1.8 10^3/uL (4.0-10.0) L 01/14/22 05:16 RBC 2.84 10^6/uL (4.1-5.3) L 01/14/22 05:16 Hgb 8.1 g/dL (11.7-16.6) L 01/14/22 05:16 Hct 24.1 % (42.0-52.0) L 01/14/22 05:16 MCV 84.9 fl (80-94) 01/14/22 05:16 MCH 28.5 pg (28.0-34.0) 01/14/22 05:16 MCHC 33.6 g/dL (30.0-36.0) D 01/14/22 05:16 RDW 16.6 % (12.1-15.1) H 01/14/22 05:16 Plt Count 56 10^3/cmm (130-400) L 01/14/22 05:16 MPV Not Reportable 01/14/22 05:16 Neut % (Auto) 39.7 % 01/13/22 05:17 Lymph % (Auto) Not Reportable 01/14/22 05:16 [place] % (Auto) Not Reportable 01/14/22 05:16 Eos % (Auto) 0.0 % 01/13/22 05:17 Baso % (Auto) 0.0 % 01/13/22 05:17 Neut # (Auto) Service Station Helper 01/14/22 05:16 Lymph # (Auto) Not Reportable 01/14/22 05:16 [place] # (Auto) Not Reportable 01/14/22 05:16 Eos # (Auto) 0.0 10^3/uL (0.0-0.8) 01/13/22 05:17 Baso # (Auto) 0.0 10^3/uL (0.0-0.1) 01/13/22 05:17 Nucleated RBC % (auto) 0 % 01/13/22 05:17 Total Counted 100 (0-100) 01/14/22 05:16 Atypical Lymphs % 0.0 % (0-5) 01/14/22 05:16 Absolute Neutrophils 0.9 10^3/cmm (1.4-6.5) L 01/14/22 05:16 Segmented Neutrophils 50 % 01/14/22 05:16 Abs Segm Neuts (Man) 0.9 10/cmm (1.6-7.1) L 01/14/22 05:16 Band Neutrophils 0.0 % 01/14/22 05:16 Abs Band Neuts (Man) 0.0 10^3/cmm (0.0-1.2) 01/14/22 05:16 Absolute Lymphocytes 0.7 10^3/cmm (1.2-3.4) L 01/14/22 05:16 Lymphocytes (Manual) 38 % 01/14/22 05:16 Monocytes (Manual) 12.0 % 01/14/22 05:16 Absolute Monocytes 0.2 10^3/cmm (0.1-0.6) 01/14/22 05:16 Eosinophils (Manual) 0 % 01/14/22 05:16 Absolute Eosinophils 0.0 10^3/cmm (0.0-0.7) 01/14/22 05:16 Basophils (Manual) 0.0 % 01/14/22 05:16 Absolute Basophils 0.0 10^3/cmm (0.0-0.2) 01/14/22 05:16 Nucleated RBCs 1.0 /100WBC (0-1) 01/14/22 05:16 Nucleated RBCs # 0.0 /100WBC 01/13/22 05:17 Pathologist Review No 01/13/22 05:17 Platelet Estimate Decreased (Normal) 01/14/22 05:16 Giant Platelets 1+ H 01/13/22 05:17 Polychromasia Trace 01/13/22 05:17 Poikilocytosis 2+ H 01/09/22 22:17 Anisocytosis 2+ H 01/13/22 05:17 Microcytosis Trace 01/13/22 05:17 Macrocytosis 1+ H 01/13/22 05:17 Spherocytes Trace 01/09/22 22:17 Tear Drop Cells 1+ 01/13/22 05:17 Ovalocytes 2+ H 01/13/22 05:17 Schistocytes 1+ H 01/13/22 05:17 Sodium 137 mmol/L (136-145) 01/14/22 05:16 Potassium 3.2 mmol/L (3.5-5.1) L 01/14/22 05:16 Chloride 99 mmol/L (98-107) 01/14/22 05:16 Carbon Dioxide 24 mmol/L (22-29) 01/14/22 05:16 Anion Gap 17.2 (5-19) 01/14/22 05:16 BUN 21 mg/dL (8-23) 01/14/22 05:16 Creatinine 1.4 mg/dL (0.7-1.2) H 01/14/22 05:16 GFR Calculation Not Reportable 01/14/22 05:16 Glucose 129 mg/dL (65-115) H 01/14/22 05:16 Calculated Osmolality 289 mOsm/kg (285-295) 01/14/22 05:16 Calcium 8.5 mg/dL (8.5-10.5) 01/14/22 05:16 Total Bilirubin 1.1 mg/dL (0.15-1.2) 01/14/22 05:16 AST 11 U/L (0-40) 01/14/22 05:16 ALT 9 U/L (0-41) 01/14/22 05:16 Alkaline Phosphatase 71 IU/L (40-130) 01/14/22 05:16 Troponin T Baseline 614 ng/L (0-15) H* 01/09/22 22:17 Troponin T 120 Minute 568.1 ng/L (0-15) H 01/10/22 00:45 Delta Troponin T -45.9 ABS# (0-10) L 01/10/22 00:45 Troponin T Hi Sens 6Hr 621.4 ng/L (0-15) H 01/10/22 05:30 Troponin T Hi Sens 6Hr Delta 7.4 ng/L (0-12) 01/10/22 05:30 NT-Pro-B Natriuret Pep 5135 pg/mL (0-450) H 01/09/22 22:17 Total Protein 6.7 g/dL (6.6-8.7) 01/14/22 05:16 Albumin 3.8 g/dL (3.5-5.2) 01/14/22 05:16 Globulin 2.9 g/dL (1.3-4.6) 01/14/22 05:16 Urine Color Yellow (Yellow) 01/13/22 04:00 Urine Appearance Sl hazy (CLEAR) 01/13/22 04:00 Urine pH 5 (5-7) 01/13/22 04:00 Ur Specific Jal 1.010 (1.005-1.030) 01/13/22 04:00 Urine Protein Neg (Negative) 01/13/22 04:00 Urine Glucose (UA) Norm (Normal) 01/13/22 04:00 Urine Ketones Negative (Negative) 01/13/22 04:00 Urine Blood Neg (Negative) 01/13/22 04:00 Urine Nitrate Negative (Negative) 01/13/22 04:00 Urine Bilirubin Neg (Negative) 01/13/22 04:00 Urine Urobilinogen Norm mg/dL (Negative) 01/13/22 04:00 Ur Leukocyte Esterase 2+ (Negative) H 01/13/22 04:00 Urine RBC 0-4 /hpf (0-2) H 01/13/22 04:00 Urine WBC 15-25 /hpf (0-5) H 01/13/22 04:00 Ur Squamous Epith Cells 0-4 /hpf (0-5) H 01/13/22 04:00 Amorphous Sediment Not Reportable 01/13/22 04:00 Urine Bacteria 3+ /hpf (NONE) H 01/13/22 04:00 Urine Mucus Trace /hpf 01/13/22 04:00 Blood Type O Positive 01/11/22 06:09 Rho(D) Type Positive 01/11/22 06:09 Antibody Screen Negative 01/11/22 06:09 Crossmatch See Detail 01/11/22 06:09 Vitals Last Vital Signs Temp 97.8 F 01/14/22 11:51 Pulse 101 H 01/14/22 11:51 Resp 18 01/14/22 11:51 BP 124/74 01/14/22 11:51 Pulse Ox 96 01/14/22 11:51 Discharge Plan Discharge Patient Disposition: Home Health Service Condition: Stable Prescriptions: New levofloxacin 750 mg tablet 750 mg PO DAILY 7 Days Qty: 7 0RF Continued levothyroxine 50 mcg tablet 50 mcg PO DAILY@05 0RF allopurinol 300 mg tablet 300 mg PO BEDTIME 0RF (DME) Diabetic shoes Qty: 1 0RF Rx Instructions: As directed finasteride 5 mg tablet 5 mg PO DAILY@1200 0RF clopidogrel 75 mg tablet 75 mg PO DAILY 0RF (DME) True Metrix Glucose Test Strip Strip See Rx Instructions .ROUTE .MEDSUPPLY Qty: 100 2RF Rx Instructions: TEST TWICE A DAY AND PRN atorvastatin 40 mg tablet 40 mg PO DAILY@1200 0RF Flomax 0.4 mg Capsule 0.4 mg PO DAILY@12 0RF nystatin-triamcinolone 100,000-0.1 unit/g-% cream 1 applic TOPICAL BID PRN (Reason: Rash) 0RF ProAir HFA 90 mcg/actuation Hfa Aerosol Inhaler 2 puff INHALATION QID PRN (Reason: Shortness Of Breath) 0RF pantoprazole [Protonix] 40 mg tablet,delayed release (DR/EC) 40 mg PO BID 56 Days Qty: 112 0RF sucralfate [Carafate] 1 gram tablet 1 g PO BID 84 Days Qty: 168 0RF furosemide 80 mg tablet 40 mg PO BID Qty: 0 0RF Changed gabapentin 600 mg tablet 300 mg PO BID Qty: 0 0RF clonazepam 1 mg tablet 0.5 mg PO TID Qty: 0 0RF Klor-Con M20 20 mEq tablet,ER particles/crystals 10 meq PO DAILY Qty: 0 0RF Discontinued metoprolol tartrate 25 mg tablet 25 mg PO BID 0RF lisinopril 5 mg tablet 10 mg PO DAILY@12 0RF Discharge Orders: Discharge Order (Routine); Ordered 01/14/22 Ordered By: Reynaldo Vásquez Referrals: [facility] [Provider Group] - 2 weeks (Recurrent epistaxis) Whitney Gonzalez FNP [Nurse Practitioner] - 01/20/22 1:15 pm Shay Tse MD [Hospitalist] - 1 week (please call monday to set up follow up appointment with Dr. Tse) Della Jensen MD [Primary Care Provider] - 01/24/22 3:20 pm Discharge Diet: As Directed and Cardiac Discharge Activity: Increase activity as tolerated and As per PT/OT instructions Patient Instructions: Levofloxacin (By mouth), Acute Kidney Injury (GEN), Hypotension (GEN), Neutropenic Precautions (GEN), Neutropenic Diet Activity Restrictions/Additional Instructions: Please monitor blood pressures at least twice daily, write down values to bring to your appointment. For now please do not restart lisinopril, metoprolol due to low blood pressures noted initially, also with kidney injury. Do not also resume potassium supplementation due to high potassium at the beginning of hospitalization. Please have your primary doctor follow-up your blood pressures, consider resumption of metoprolol and lisinopril at lower doses if blood pressures are rising and if kidney function is stabilized. Have your primary doctor recheck your kidney function to make sure it is continuing to improve. Avoid any NSAIDs like ibuprofen, Aleve, or other medications that may cause kidney injury. Please follow-up with your hematolgist for reassessment. Please have your primary doctor and industrial maintenance mechanic recheck your blood counts. Due to noted low white blood cell counts including low neutrophils, for now please maintain neutropenic precautions and neutropenic diet. Complete antibiotic course for possible urinary tract infection. Due to low platelets, in case of bleeding, stop Plavix, in case bleeding is not resolving, seek medical attention. In case of nosebleed, hold pressure on your nose from outside for 10-15 minutes, leaning forward, do not lean backwards. Do not insert anything in your nose. Follow-up with ear nose throat doctor. Discharge Attestations Time Spent in Discharge Care*: greater than 30 min Status at Discharge: Cognitive status at discharge: cognitively intact, Behavioral status at discharge: cooperative, Quality Metrics Clinical Quality Measures [ No reported AMI, CVA or VTE this stay] Coding Level of Care Code Acute Chg FW DC note Diagnoses Acute encephalopathy G93.40 UTI (urinary tract infection) N39.0 Transfusion-dependent anemia D64.9 Hypotension I95.9 Acute kidney injury superimposed on CKD N17.9; N18.9 NSTEMI (non-ST elevated myocardial infarction) I21.4 Chest pain R07.9 Chest pain type: unspecified Hypothyroidism E03.9 Gout M10.9 CKD (chronic kidney disease) N18.9 Myelodysplastic syndrome D46.9 Thrombocytopenia D69.6 Heart failure I50.9 Hyperkalemia E87.5
== END 2022-01-14 16:30 | disposition home health service (06) | DRG 682 ==
LOC: ER 01-10 02:53 → ICU 01-10 03:27 → MEDSURG 01-11 16:45
PROVIDERS: Admitting Provider Internal Medicine; Emergency Provider Emergency Medicine; PCP Family Medicine; Visit Provider Internal Medicine
DX: N17.9 Acute kidney failure, unspecified (principal); G93.41 Metabolic encephalopathy; I13.0 Hypertensive heart and chronic kidney disease with heart failure and stage 1 through stage 4 chronic kidney disease, or unspecified chronic kidney disease; I50.32 Chronic diastolic (congestive) heart failure; N13.8 Other obstructive and reflux uropathy; C77.0 Secondary and unspecified malignant neoplasm of lymph nodes of head, face and neck; K11.3 Abscess of salivary gland; I24.8 Other forms of acute ischemic heart disease; N39.0 Urinary tract infection, site not specified; D46.9 Myelodysplastic syndrome, unspecified; N18.30 Chronic kidney disease, stage 3 unspecified; E11.22 Type 2 diabetes mellitus with diabetic chronic kidney disease; N40.1 Benign prostatic hyperplasia with lower urinary tract symptoms; R33.8 Other retention of urine; K52.9 Noninfective gastroenteritis and colitis, unspecified; M10.9 Gout, unspecified; E78.5 Hyperlipidemia, unspecified; E03.9 Hypothyroidism, unspecified; Z87.440 Personal history of urinary (tract) infections; C80.1 Malignant (primary) neoplasm, unspecified; Z85.828 Personal history of other malignant neoplasm of skin; Z87.891 Personal history of nicotine dependence; I25.10 Atherosclerotic heart disease of native coronary artery without angina pectoris; E87.5 Hyperkalemia; Z79.02 Long term (current) use of antithrombotics/antiplatelets; F03.90 Unspecified dementia, unspecified severity, without behavioral disturbance, psychotic disturbance, mood disturbance, and anxiety; I95.9 Hypotension, unspecified
CPT/HCPCS: 36415; 51702; 70450; 71045; 80048; 80053; 81001; 81003; 82274; 83880; 84484; 85007; 85018; 85025; 86403; 86850; 86900; 86920; 87077; 87086; 87186; 87449; 93005; 96374; 96375; 97110; 97116; 97161; 97530; 99285; J1815; J2270; J2405; J2543; P9016

== ENCOUNTER 2022-01-18 13:44 | Outpatient (CLI) | payer MEDICARE, SELFPAY ==
[2022-01-18 14:34] LABS: Hematocrit 23.8 % (42.0-52.0); Lymphocytes # 0.8 10^3/uL (0.8-4.8); Lymphocytes % 40.5 %; Mean Corpuscular HGB Conc 33.6 g/dL (30.0-36.0); Mean Corpuscular Hemoglobin 28.3 pg (28.0-34.0); Mean Corpuscular Volume 84.1 fl (80-94); Monocytes # 0.4 10^3/uL (0.2-0.9); Monocytes % 19.5 %; Nucleated Red Blood Cells % 0 %; Platelet Count 74 10^3/cmm (130-400); Positive C 1; Positive M 1; Red Blood Count 2.83 10^6/uL (4.1-5.3); Red Cell Distribution Width 16.3 % (12.1-15.1); White Blood Count 1.9 10^3/uL (4.0-10.0)
[2022-01-18 15:09] LABS: Neutrophils # 0.61 10^3/uL (1.8-7.7)
[2022-01-18 15:10] LABS: Slide Review Slide Review Perform
== END 2022-01-18 13:45 | disposition home or self-care (01) ==
PROVIDERS: PCP Family Medicine; Visit Provider Internal Medicine Medical Oncology
DX: D64.9 Anemia, unspecified (principal)
CPT/HCPCS: 36415; 85025

== ENCOUNTER 2022-02-03 08:17 | Oncology outpatient (recurring) (ONCR) | payer MEDICARE, SELFPAY ==
[2022-01-21] VITALS (11 sets, daily range): BP systolic 100–154; BP diastolic 58–73; PULSE 68–81; RESP 16–20; TEMP 35.9–36.4; O2SAT 92–100
[2022-01-21] MEDS: diphenhydrAMINE 25 mg Capsule PO (08:07)
[2022-01-21] MEDS: acetaminophen 325 mg Tablet 650 MG PO (08:08)
[2022-01-21] MEDS: sodium chloride 0.9% 100 mL Bag 250 ML IV (08:08)
[2022-01-21] MEDS: FUROsemide 10 mg/mL SDV 2mL 20 MG IVP (10:32)
[2022-02-03 09:35] LABS: Eosinophils % 0.6 %; Hematocrit 26.9 % (42.0-52.0); Hemoglobin 9.1 g/dL (11.7-16.6); Lymphocytes # 0.6 10^3/uL (0.8-4.8); Lymphocytes % 40.6 %; Mean Corpuscular HGB Conc 33.8 g/dL (30.0-36.0); Mean Corpuscular Volume 82.8 fl (80-94); Monocytes # 0.4 10^3/uL (0.2-0.9); Monocytes % 27.1 %; Neutrophils % 27.8 %; Nucleated Red Blood Cells % 0 %; Platelet Count 63 10^3/cmm (130-400); Red Blood Count 3.25 10^6/uL (4.1-5.3); Red Cell Distribution Width 16.1 % (12.1-15.1); White Blood Count 1.6 10^3/uL (4.0-10.0)
[2022-02-03 10:22] LABS: Neutrophils # 0.43 10^3/uL (1.8-7.7); Slide Review Slide Review Perform
== END 2022-02-03 23:59 | disposition home or self-care (01) ==
PROVIDERS: Internal Medicine Medical Oncology; PCP Family Medicine; Visit Provider Nurse Practitioner Family
DX: Z53.9 Procedure and treatment not carried out, unspecified reason (principal); D61.818 Other pancytopenia; D64.9 Anemia, unspecified; C77.0 Secondary and unspecified malignant neoplasm of lymph nodes of head, face and neck; C80.1 Malignant (primary) neoplasm, unspecified; Z79.899 Other long term (current) drug therapy; Z98.890 Other specified postprocedural states; Z87.891 Personal history of nicotine dependence
CPT/HCPCS: 36415; 36430; 85025; 86850; 86900; 86920; 96375; 99214; J1940; P9040

== ENCOUNTER 2022-03-03 07:41 | Oncology outpatient (recurring) (ONCR) | payer MEDICARE, SELFPAY ==
[2022-03-03] VITALS (10 sets, daily range): BP systolic 132–169; BP diastolic 63–75; PULSE 66–90; RESP 16–18; TEMP 35.8–36.2; O2SAT 95–98
[2022-03-03 08:00] LABS: Eosinophils % 0.4 %; Hematocrit 24.2 % (42.0-52.0); Hemoglobin 7.8 g/dL (11.7-16.6); Lymphocytes # 1.1 10^3/uL (0.8-4.8); Lymphocytes % 45.9 %; Mean Corpuscular HGB Conc 32.2 g/dL (30.0-36.0); Mean Corpuscular Hemoglobin 28.1 pg (28.0-34.0); Mean Corpuscular Volume 87.1 fl (80-94); Monocytes # 0.5 10^3/uL (0.2-0.9); Monocytes % 18.7 %; Neutrophils % 30.5 %; Nucleated Red Blood Cells % 0 %; Platelet Count 67 10^3/cmm (130-400); Red Blood Count 2.78 10^6/uL (4.1-5.3); Red Cell Distribution Width 19.2 % (12.1-15.1); White Blood Count 2.5 10^3/uL (4.0-10.0)
[2022-03-03 08:36] LABS: Slide Review Slide Review Perform
[2022-03-03 08:38] LABS: Neutrophils # 0.75 10^3/uL (1.8-7.7)
[2022-03-03] MEDS: acetaminophen 325 mg Tablet 650 MG PO (11:16)
[2022-03-03] MEDS: sodium chloride 0.9% 250 ML 75 ML IV (11:16)
[2022-03-03] MEDS: diphenhydrAMINE 25 mg Capsule PO (11:17)
[2022-03-03] MEDS: FUROsemide 10 mg/mL SDV 2mL 20 MG IVP (13:32)
== END 2022-03-06 23:59 | disposition home or self-care (01) ==
PROVIDERS: Internal Medicine Medical Oncology; PCP Family Medicine; Visit Provider Nurse Practitioner Family
DX: D46.9 Myelodysplastic syndrome, unspecified (principal); L57.0 Actinic keratosis; D61.818 Other pancytopenia; Z85.09 Personal history of malignant neoplasm of other digestive organs; Z79.899 Other long term (current) drug therapy
CPT/HCPCS: 36415; 36430; 85025; 86850; 86900; 86920; 96375; 99214; 99215; J1940; J7050; P9040

== ENCOUNTER 2022-03-31 08:30 | Oncology outpatient (recurring) (ONCR) | payer MEDICARE, SELFPAY ==
[2022-03-17 12:56] LABS: Basophils % 0.5 %; Eosinophils % 0.5 %; Hematocrit 28.1 % (42.0-52.0); Hemoglobin 8.7 g/dL (11.7-16.6); Lymphocytes % 49.2 %; Mean Corpuscular Hemoglobin 27.4 pg (28.0-34.0); Mean Corpuscular Volume 88.6 fl (80-94); Monocytes # 0.4 10^3/uL (0.2-0.9); Monocytes % 17.8 %; Neutrophils % 26.9 %; Nucleated Red Blood Cells % 0 %; Platelet Count 81 10^3/cmm (130-400); Red Blood Count 3.17 10^6/uL (4.1-5.3); Red Cell Distribution Width 17.9 % (12.1-15.1)
[2022-03-17 13:16] LABS: Slide Review Slide Review Perform
[2022-03-17 13:19] LABS: Neutrophils # 0.53 10^3/uL (1.8-7.7)
--- NOTE | 2022-03-17 15:58 | PC.NURSE ---
phone call to the home talking with patient son with the results of the lab reports earlier per Dr Tse's review which the patient did not have any issues that seemed out of ordinary for the son. I did review the lab results and informed him if Guido should be running a temp or any changes to go to ER with voiced understanding.arabella
[2022-03-31 09:39] LABS: Eosinophils % 0.5 %; Hematocrit 28.3 % (42.0-52.0); Hemoglobin 8.8 g/dL (11.7-16.6); Lymphocytes # 1.1 10^3/uL (0.8-4.8); Lymphocytes % 48.4 %; Mean Corpuscular HGB Conc 31.1 g/dL (30.0-36.0); Mean Corpuscular Hemoglobin 27.5 pg (28.0-34.0); Mean Corpuscular Volume 88.4 fl (80-94); Monocytes # 0.4 10^3/uL (0.2-0.9); Monocytes % 20.3 %; Neutrophils % 25.3 %; Nucleated Red Blood Cells % 0 %; Platelet Count 68 10^3/cmm (130-400); Red Cell Distribution Width 19.1 % (12.1-15.1); White Blood Count 2.2 10^3/uL (4.0-10.0)
[2022-03-31 10:30] LABS: Neutrophils # 0.55 10^3/uL (1.8-7.7)
[2022-03-31 10:31] LABS: Slide Review Slide Review Perform
== END 2022-04-06 23:59 | disposition home or self-care (01) ==
PROVIDERS: Internal Medicine Medical Oncology; PCP Family Medicine; Visit Provider Nurse Practitioner Family
DX: D64.9 Anemia, unspecified (principal)
CPT/HCPCS: 36415; 85025; 86850; 86900

== ENCOUNTER 2022-04-28 08:30 | Oncology outpatient (recurring) (ONCR) | payer MEDICARE, SELFPAY ==
[2022-04-14 09:31] LABS: Basophils % 0.5 %; Hematocrit 25.5 % (42.0-52.0); Lymphocytes # 0.9 10^3/uL (0.8-4.8); Lymphocytes % 45.4 %; Mean Corpuscular HGB Conc 31.4 g/dL (30.0-36.0); Mean Corpuscular Hemoglobin 27.7 pg (28.0-34.0); Mean Corpuscular Volume 88.2 fl (80-94); Monocytes # 0.4 10^3/uL (0.2-0.9); Monocytes % 22.7 %; Neutrophils % 26.2 %; Nucleated Red Blood Cells % 0 %; Platelet Count 67 10^3/cmm (130-400); Red Blood Count 2.89 10^6/uL (4.1-5.3); Red Cell Distribution Width 19.6 % (12.1-15.1); White Blood Count 1.9 10^3/uL (4.0-10.0)
[2022-04-14 09:56] LABS: Neutrophils # 0.51 10^3/uL (1.8-7.7); Slide Review Slide Review Perform
[2022-04-18] VITALS (10 sets, daily range): BP systolic 122–158; BP diastolic 58–67; PULSE 57–84; RESP 16–18; TEMP 36.1–36.2; O2SAT 98–99
[2022-04-18 08:27] LABS: Hematocrit 24.3 % (42.0-52.0); Hemoglobin 7.9 g/dL (11.7-16.6); Mean Corpuscular HGB Conc 32.5 g/dL (30.0-36.0); Mean Corpuscular Hemoglobin 27.1 pg (28.0-34.0); Mean Corpuscular Volume 83.2 fl (80-94); Platelet Count 77 10^3/cmm (130-400); Red Blood Count 2.92 10^6/uL (4.1-5.3); Red Cell Distribution Width 19.5 % (12.1-15.1); White Blood Count 2.7 10^3/uL (4.0-10.0)
[2022-04-18 09:03] LABS: Slide Review Slide Review Perform
[2022-04-18 09:22] LABS: Absolute Segmented Neutrophil 0.7 10/cmm (1.6-7.1); Band Neutrophils Absolute 0.1 10^3/cmm (0.0-1.2); Eosinophils 0 %; Lymphocytes 55 %; Lymphocytes Absolute 1.5 10^3/cmm (1.2-3.4); Monocytes Absolute 0.1 10^3/cmm (0.1-0.6); Segmented Neutrophils 25 %; Total Cells Counted 100 (0-100)
[2022-04-18 09:23] LABS: Anisocytosis 1+; Poikilocytosis 2+; Tear Drop Cells 1+
[2022-04-18 09:24] LABS: Giant Platelets Trace; Schistocytes Trace
[2022-04-18 09:25] LABS: Ovalocytes 1+; Platelet Estimate Decreased (Normal)
[2022-04-18 09:26] LABS: Absolute Neutrophil 0.8 10^3/cmm (1.4-6.5)
[2022-04-18] MEDS: acetaminophen 325 mg Tablet 650 MG PO (09:27)
[2022-04-18] MEDS: sodium chloride 0.9% 100 mL Bag 250 ML IV (09:27)
[2022-04-18] MEDS: diphenhydrAMINE 25 mg Capsule PO (09:27)
[2022-04-18] MEDS: FUROsemide 10 mg/mL SDV 2mL 20 MG IVP (11:42)
[2022-04-28 09:06] LABS: Eosinophils % 0.3 %; Hematocrit 27.7 % (42.0-52.0); Lymphocytes # 1.1 10^3/uL (0.8-4.8); Lymphocytes % 29.6 %; Mean Corpuscular HGB Conc 32.5 g/dL (30.0-36.0); Mean Corpuscular Hemoglobin 27.9 pg (28.0-34.0); Mean Corpuscular Volume 85.8 fl (80-94); Monocytes % 25.1 %; Neutrophils % 42.4 %; Nucleated Red Blood Cells % 0 %; Platelet Count 49 10^3/cmm (130-400); Red Blood Count 3.23 10^6/uL (4.1-5.3); Red Cell Distribution Width 18.9 % (12.1-15.1); White Blood Count 3.8 10^3/uL (4.0-10.0)
[2022-04-28 09:09] LABS: Slide Review Slide Review Perform
== END 2022-05-06 23:59 | disposition home or self-care (01) ==
PROVIDERS: Internal Medicine Medical Oncology; PCP Family Medicine; Visit Provider Nurse Practitioner Family
DX: D64.9 Anemia, unspecified (principal)
CPT/HCPCS: 36415; 36430; 85007; 85025; 86850; 86900; 86920; 96375; J1940; P9040

== ENCOUNTER 2022-05-26 10:30 | Oncology outpatient (recurring) (ONCR) | payer MEDICARE, SELFPAY ==
[2022-05-12 09:49] LABS: Hematocrit 26.3 % (42.0-52.0); Hemoglobin 8.5 g/dL (11.7-16.6); Mean Corpuscular HGB Conc 32.3 g/dL (30.0-36.0); Mean Corpuscular Hemoglobin 27.8 pg (28.0-34.0); Mean Corpuscular Volume 85.9 fl (80-94); Platelet Count 66 10^3/cmm (130-400); Red Blood Count 3.06 10^6/uL (4.1-5.3); Red Cell Distribution Width 19.1 % (12.1-15.1); White Blood Count 2.4 10^3/uL (4.0-10.0)
[2022-05-12 10:37] LABS: Absolute Segmented Neutrophil 0.8 10/cmm (1.6-7.1); Segmented Neutrophils 32 %; Total Cells Counted 100 (0-100)
[2022-05-12 10:38] LABS: Absolute Neutrophil 0.9 10^3/cmm (1.4-6.5); Band Neutrophils Absolute 0.2 10^3/cmm (0.0-1.2); Eosinophils 1 %; Lymphocytes 46 %; Lymphocytes Absolute 1.1 10^3/cmm (1.2-3.4); Monocytes Absolute 0.3 10^3/cmm (0.1-0.6); Platelet Estimate Decreased (Normal)
[2022-05-12 10:39] LABS: Anisocytosis 2+; Ovalocytes 1+; Tear Drop Cells 1+
[2022-05-26] VITALS (11 sets, daily range): BP systolic 100–131; BP diastolic 54–64; PULSE 75–98; RESP 16; TEMP 36.2–36.7; O2SAT 98–99
[2022-05-26 09:36] LABS: Basophils % 0.4 %; Hemoglobin 7.5 g/dL (11.7-16.6); Lymphocytes # 0.9 10^3/uL (0.8-4.8); Lymphocytes % 36.8 %; Mean Corpuscular HGB Conc 32.6 g/dL (30.0-36.0); Mean Corpuscular Hemoglobin 28.1 pg (28.0-34.0); Mean Corpuscular Volume 86.1 fl (80-94); Monocytes # 0.4 10^3/uL (0.2-0.9); Monocytes % 17.1 %; Neutrophils % 39.7 %; Nucleated Red Blood Cells % 0 %; Platelet Count 54 10^3/cmm (130-400); Red Blood Count 2.67 10^6/uL (4.1-5.3); Red Cell Distribution Width 20.1 % (12.1-15.1); White Blood Count 2.3 10^3/uL (4.0-10.0)
[2022-05-26 10:09] LABS: Neutrophils # 0.93 10^3/uL (1.8-7.7); Slide Review Slide Review Perform
[2022-05-26 10:34] LABS: Alanine Aminotransferase 15 U/L (0-41); Albumin Level 4.4 g/dL (3.5-5.2); Alkaline Phosphatase 123 U/L (40-130); Aspartate Amino Transferase 13 U/L (0-40); Blood Urea Nitrogen 46 mg/dL (8-23); Calcium 9.3 mg/dL (8.5-10.5); Carbon Dioxide 23 mmol/L (22-29); Chloride 101 mmol/L (98-107); Globulin 2.9 g/dL (1.3-4.6); Glucose 128 mg/dL (65-115); Iron 88 ug/dL (59-158); Osmolality Calculated 296 mOsm/kg (285-295); Percent Saturation 45.3 % (20-50); Sodium 136 mmol/L (136-145); Total Bilirubin 0.4 mg/dL (0.15-1.2); Total Iron Binding Capacity 194 mcg/dl; Total Protein 7.3 g/dL (6.6-8.7); Unsaturated Iron Binding 106 ug/dL (112-347)
[2022-05-26 10:46] LABS: Ferritin 1550 ng/mL (30-400)
[2022-05-26] MEDS: acetaminophen 325 mg Tablet 650 MG PO (10:55)
[2022-05-26] MEDS: diphenhydrAMINE 25 mg Capsule PO (10:56)
[2022-05-26] MEDS: FUROsemide 10 mg/mL SDV 2mL 20 MG IVP (13:08)
== END 2022-06-06 23:59 | disposition home or self-care (01) ==
PROVIDERS: Internal Medicine Medical Oncology; PCP Nurse Practitioner Family; Visit Provider Nurse Practitioner Family
DX: Z53.9 Procedure and treatment not carried out, unspecified reason (principal); D61.818 Other pancytopenia; Z79.899 Other long term (current) drug therapy; D46.9 Myelodysplastic syndrome, unspecified; R06.02 Shortness of breath; E83.118 Other hemochromatosis
CPT/HCPCS: 36415; 36430; 80053; 82728; 83540; 83550; 85007; 85025; 86850; 86900; 86920; 96375; 99214; J1940; P9040

== ENCOUNTER → 2022-05-31 10:31 | Outpatient (BNVA) | payer MEDICARE, SELFPAY | PROVIDERS: PCP Nurse Practitioner Family; Visit Provider Internal Medicine Cardiovascular Disease | DX: I20.8 Other forms of angina pectoris (principal); R06.02 Shortness of breath; I25.5 Ischemic cardiomyopathy; I13.0 Hypertensive heart and chronic kidney disease with heart failure and stage 1 through stage 4 chronic kidney disease, or unspecified chronic kidney disease; E11.22 Type 2 diabetes mellitus with diabetic chronic kidney disease; N18.9 Chronic kidney disease, unspecified; I50.9 Heart failure, unspecified; Z87.891 Personal history of nicotine dependence; Z79.84 Long term (current) use of oral hypoglycemic drugs; E78.5 Hyperlipidemia, unspecified; D46.9 Myelodysplastic syndrome, unspecified; I49.3 Ventricular premature depolarization | CPT/HCPCS: 93005; 99214; 99215 ==

== ENCOUNTER 2022-06-23 08:00 | Oncology outpatient (recurring) (ONCR) | payer MEDICARE, SELFPAY ==
[2022-06-09 08:45] VITALS: BP 161/72; PULSE 59; RESP 18; TEMP 36.4
[2022-06-09 09:00] LABS: Basophils % 0.4 %; Eosinophils % 0.4 %; Hematocrit 26.1 % (42.0-52.0); Hemoglobin 8.4 g/dL (11.7-16.6); Mean Corpuscular HGB Conc 32.2 g/dL (30.0-36.0); Mean Corpuscular Hemoglobin 28.4 pg (28.0-34.0); Mean Corpuscular Volume 88.2 fl (80-94); Monocytes # 0.5 10^3/uL (0.2-0.9); Monocytes % 17.8 %; Neutrophils # 0.99 10^3/uL (1.8-7.7); Neutrophils % 35.9 %; Nucleated Red Blood Cells % 0 %; Platelet Count 57 10^3/cmm (130-400); Red Blood Count 2.96 10^6/uL (4.1-5.3); Red Cell Distribution Width 19.2 % (12.1-15.1); White Blood Count 2.8 10^3/uL (4.0-10.0)
[2022-06-09 09:37] LABS: Slide Review Slide Review Perform
[2022-06-09] MEDS: acetaminophen 325 mg Tablet 650 MG PO (10:08)
[2022-06-09] MEDS: diphenhydrAMINE 25 mg Capsule PO (10:09)
[2022-06-09] MEDS: sodium chloride 0.9% 50 ML IV (10:14)
[2022-06-09 10:21] VITALS: BP 161/72; PULSE 59; RESP 18; TEMP 36.6; O2SAT 98
[2022-06-09 10:40] VITALS: BP 155/75; PULSE 57; RESP 18; TEMP 36.4; O2SAT 98
[2022-06-09 10:55] VITALS: BP 138/68; PULSE 59; RESP 18; TEMP 36.6; O2SAT 98
[2022-06-09 11:25] VITALS: BP 166/69; PULSE 56; RESP 18; TEMP 36.6; O2SAT 98
[2022-06-09 12:00] VITALS: BP 164/74; PULSE 57; RESP 18; TEMP 36.6; O2SAT 98
[2022-06-23 09:08] LABS: Eosinophils % 0.3 %; Hematocrit 29.7 % (42.0-52.0); Hemoglobin 9.6 g/dL (11.7-16.6); Lymphocytes % 35.3 %; Mean Corpuscular HGB Conc 32.3 g/dL (30.0-36.0); Mean Corpuscular Hemoglobin 28.5 pg (28.0-34.0); Mean Corpuscular Volume 88.1 fl (80-94); Monocytes # 0.6 10^3/uL (0.2-0.9); Monocytes % 21.1 %; Neutrophils % 34.6 %; Nucleated Red Blood Cells % 0.7 %; Platelet Count 54 10^3/cmm (130-400); Red Blood Count 3.37 10^6/uL (4.1-5.3); Red Cell Distribution Width 18.7 % (12.1-15.1); White Blood Count 2.9 10^3/uL (4.0-10.0)
== END 2022-07-06 23:59 | disposition home or self-care (01) ==
PROVIDERS: Internal Medicine Medical Oncology; PCP Nurse Practitioner Family; Visit Provider Nurse Practitioner Family
DX: D64.9 Anemia, unspecified (principal)
CPT/HCPCS: 36415; 36430; 85025; 86850; 86900; 86920; P9040

== ENCOUNTER → 2022-06-27 14:13 | Outpatient (BNVA) | payer MEDICARE, SELFPAY | PROVIDERS: PCP Nurse Practitioner Family; Visit Provider Family Medicine | DX: J02.9 Acute pharyngitis, unspecified (principal) | CPT/HCPCS: 87880 ==

== ENCOUNTER 2022-08-04 08:00 | Oncology outpatient (recurring) (ONCR) | payer MEDICARE, SELFPAY ==
[2022-07-07] VITALS (9 sets, daily range): BP systolic 142–156; BP diastolic 62–74; PULSE 56–68; RESP 18; TEMP 36.4–36.6; O2SAT 96–98
[2022-07-07 08:27] LABS: Hematocrit 22.9 % (42.0-52.0); Hemoglobin 7.4 g/dL (11.7-16.6); Lymphocytes # 1.1 10^3/uL (0.8-4.8); Mean Corpuscular HGB Conc 32.3 g/dL (30.0-36.0); Mean Corpuscular Volume 86.7 fl (80-94); Monocytes # 0.5 10^3/uL (0.2-0.9); Monocytes % 17.1 %; Neutrophils % 34.7 %; Nucleated Red Blood Cells % 0 %; Platelet Count 49 10^3/cmm (130-400); Red Blood Count 2.64 10^6/uL (4.1-5.3); Red Cell Distribution Width 18.8 % (12.1-15.1); White Blood Count 2.8 10^3/uL (4.0-10.0)
[2022-07-07 08:49] LABS: Neutrophils # 0.97 10^3/uL (1.8-7.7); Slide Review Slide Review Perform
[2022-07-07] MEDS: acetaminophen 325 mg Tablet 650 MG PO (09:53)
[2022-07-07] MEDS: diphenhydrAMINE 25 mg Capsule PO (09:54)
[2022-07-07] MEDS: sodium chloride 0.9% 250 mL Bag IV ×2 (09:55→10:03)
[2022-07-07] MEDS: FUROsemide 10 mg/mL SDV 2mL 20 MG IVP (12:35)
[2022-07-21] VITALS (9 sets, daily range): BP systolic 124–165; BP diastolic 65–80; PULSE 55–74; RESP 18; TEMP 36.1–36.6; O2SAT 94–98
[2022-07-21 08:32] LABS: Basophils % 0.3 %; Hematocrit 24.7 % (42.0-52.0); Hemoglobin 7.9 g/dL (11.7-16.6); Lymphocytes # 1.1 10^3/uL (0.8-4.8); Lymphocytes % 32.6 %; Mean Corpuscular Hemoglobin 28.6 pg (28.0-34.0); Mean Corpuscular Volume 89.5 fl (80-94); Monocytes # 0.5 10^3/uL (0.2-0.9); Monocytes % 12.9 %; Neutrophils # 1.55 10^3/uL (1.8-7.7); Neutrophils % 44.2 %; Nucleated Red Blood Cells % 0 %; Platelet Count 47 10^3/cmm (130-400); Red Blood Count 2.76 10^6/uL (4.1-5.3); Red Cell Distribution Width 18.9 % (12.1-15.1); White Blood Count 3.5 10^3/uL (4.0-10.0)
[2022-07-21 09:11] LABS: Add RBC Morph Yes; Anisocytosis 2+; Ovalocytes 2+; Poikilocytosis 2+; RBC Morph Comp No; Slide Review Slide Review Perform
[2022-07-21 09:12] LABS: Tear Drop Cells 1+
[2022-07-21] MEDS: diphenhydrAMINE 25 mg Capsule PO (09:50)
[2022-07-21] MEDS: acetaminophen 325 mg Tablet 650 MG PO (09:50)
[2022-07-21] MEDS: sodium chloride 0.9% 250 mL Bag IV ×2 (09:51)
[2022-07-21] MEDS: FUROsemide 10 mg/mL SDV 2mL 20 MG IVP (09:51)
[2022-08-04 08:26] LABS: Hematocrit 28.8 % (42.0-52.0); Hemoglobin 9.2 g/dL (11.7-16.6); Mean Corpuscular HGB Conc 31.9 g/dL (30.0-36.0); Mean Corpuscular Hemoglobin 27.1 pg (28.0-34.0); Platelet Count 46 10^3/cmm (130-400); Red Blood Count 3.39 10^6/uL (4.1-5.3); Red Cell Distribution Width 19.5 % (12.1-15.1); White Blood Count 2.4 10^3/uL (4.0-10.0)
[2022-08-04] MEDS: acetaminophen 325 mg Tablet 650 MG PO (08:37)
[2022-08-04 09:43] LABS: Slide Review Slide Review Perform
[2022-08-04 09:45] LABS: Absolute Segmented Neutrophil 0.7 10/cmm (1.6-7.1); Band Neutrophils Absolute 0.1 10^3/cmm (0.0-1.2); Eosinophils 0 %; Lymphocytes 56 %; Lymphocytes Absolute 1.3 10^3/cmm (1.2-3.4); Segmented Neutrophils 28 %; Total Cells Counted 25 (0-100)
[2022-08-04 09:46] LABS: Absolute Neutrophil 0.8 10^3/cmm (1.4-6.5); Monocytes Absolute 0.2 10^3/cmm (0.1-0.6); Platelet Estimate Decreased (Normal)
[2022-08-04 09:48] LABS: Poikilocytosis 1+; Schistocytes 1+
[2022-08-04 09:50] VITALS: BP 137/67; PULSE 54; RESP 18; TEMP 36.7; O2SAT 97
== END 2022-08-06 23:59 | disposition home or self-care (01) ==
PROVIDERS: Internal Medicine Hematology & Oncology; Internal Medicine Medical Oncology; PCP Nurse Practitioner Family; Visit Provider Nurse Practitioner Family
DX: D64.9 Anemia, unspecified (principal)
CPT/HCPCS: 36415; 36430; 85007; 85025; 86850; 86900; 86920; 96375; 99213; J1940; J7050; P9040

== ENCOUNTER 2022-08-30 08:30 | Oncology outpatient (recurring) (ONCR) | payer MEDICARE, SELFPAY ==
[2022-08-18 08:32] LABS: Hematocrit 27.3 % (42.0-52.0); Hemoglobin 8.6 g/dL (11.7-16.6); Lymphocytes # 1.4 10^3/uL (0.8-4.8); Lymphocytes % 47.6 %; Mean Corpuscular HGB Conc 31.5 g/dL (30.0-36.0); Mean Corpuscular Hemoglobin 26.5 pg (28.0-34.0); Mean Corpuscular Volume 84.3 fl (80-94); Monocytes # 0.5 10^3/uL (0.2-0.9); Monocytes % 15.8 %; Neutrophils % 31.5 %; Nucleated Red Blood Cells % 0 %; Platelet Count 43 10^3/cmm (130-400); Red Blood Count 3.24 10^6/uL (4.1-5.3); Red Cell Distribution Width 20.2 % (12.1-15.1); White Blood Count 2.9 10^3/uL (4.0-10.0)
[2022-08-18 08:39] LABS: Neutrophils # 0.92 10^3/uL (1.8-7.7); Slide Review Slide Review Perform
[2022-08-18 08:49] LABS: Alanine Aminotransferase 19 U/L (0-41); Albumin Level 4.4 g/dL (3.5-5.2); Alkaline Phosphatase 123 U/L (40-130); Aspartate Amino Transferase 18 U/L (0-40); Blood Urea Nitrogen 24 mg/dL (8-23); Calcium 9.6 mg/dL (8.5-10.5); Carbon Dioxide 27 mmol/L (22-29); Chloride 100 mmol/L (98-107); Globulin 3.2 g/dL (1.3-4.6); Glucose 112 mg/dL (65-115); Iron 121 ug/dL (59-158); Lactate Dehydrogenase 319 U/L (135-225); Osmolality Calculated 289 mOsm/kg (285-295); Percent Saturation 57.6 % (20-50); Sodium 137 mmol/L (136-145); Total Bilirubin 0.9 mg/dL (0.15-1.2); Total Iron Binding Capacity 210 mcg/dl; Total Protein 7.6 g/dL (6.6-8.7); Unsaturated Iron Binding 89 ug/dL (112-347)
[2022-08-18 09:12] LABS: Ferritin 1832 ng/mL (30-400)
[2022-08-30] VITALS (10 sets, daily range): BP systolic 118–152; BP diastolic 53–68; PULSE 55–67; RESP 18; TEMP 36.1–36.6; O2SAT 93–98
[2022-08-30 08:43] LABS: Basophils % 0.4 %; Hematocrit 23.7 % (42.0-52.0); Hemoglobin 7.4 g/dL (11.7-16.6); Lymphocytes # 1.2 10^3/uL (0.8-4.8); Lymphocytes % 42.7 %; Mean Corpuscular HGB Conc 31.2 g/dL (30.0-36.0); Mean Corpuscular Hemoglobin 26.7 pg (28.0-34.0); Mean Corpuscular Volume 85.6 fl (80-94); Monocytes # 0.5 10^3/uL (0.2-0.9); Monocytes % 17.2 %; Neutrophils % 31.1 %; Nucleated Red Blood Cells % 0.7 %; Platelet Count 45 10^3/cmm (130-400); Red Blood Count 2.77 10^6/uL (4.1-5.3); Red Cell Distribution Width 21.7 % (12.1-15.1); White Blood Count 2.8 10^3/uL (4.0-10.0)
[2022-08-30 09:25] LABS: Slide Review Slide Review Perform
[2022-08-30 09:27] LABS: Neutrophils # 0.87 10^3/uL (1.8-7.7)
[2022-08-30] MEDS: acetaminophen 325 mg Tablet 650 MG PO (09:57)
[2022-08-30] MEDS: sodium chloride 0.9% 250 mL Bag IV (09:58)
[2022-08-30] MEDS: diphenhydrAMINE 25 mg Capsule PO (09:58)
[2022-08-30] MEDS: FUROsemide 10 mg/mL SDV 2mL 20 MG IVP (12:15)
== END 2022-09-06 23:59 | disposition home or self-care (01) ==
PROVIDERS: Internal Medicine Medical Oncology; PCP Clinical Nurse Specialist Adult Health; Visit Provider Nurse Practitioner Family
DX: D46.9 Myelodysplastic syndrome, unspecified; D61.818 Other pancytopenia; Z79.891 Long term (current) use of opiate analgesic; Z79.899 Other long term (current) drug therapy
CPT/HCPCS: 36415; 36430; 80053; 82728; 83540; 83550; 83615; 85025; 86850; 86900; 86920; 99214; J1940; J7050; P9040

== ENCOUNTER 2022-09-27 08:00 | Oncology outpatient (recurring) (ONCR) | payer MEDICARE, SELFPAY ==
[2022-09-13] VITALS (13 sets, daily range): BP systolic 141–154; BP diastolic 52–80; PULSE 58–64; RESP 18; TEMP 36.2–36.5; O2SAT 96–98
[2022-09-13 08:43] LABS: Basophils % 0.3 %; Hematocrit 24.6 % (42.0-52.0); Hemoglobin 7.9 g/dL (11.7-16.6); Lymphocytes # 1.3 10^3/uL (0.8-4.8); Lymphocytes % 37.1 %; Mean Corpuscular HGB Conc 32.1 g/dL (30.0-36.0); Mean Corpuscular Hemoglobin 26.7 pg (28.0-34.0); Mean Corpuscular Volume 83.1 fl (80-94); Monocytes # 0.6 10^3/uL (0.2-0.9); Monocytes % 16.1 %; Neutrophils # 1.34 10^3/uL (1.8-7.7); Neutrophils % 37.1 %; Nucleated Red Blood Cells % 0.6 %; Platelet Count 46 10^3/cmm (130-400); Red Blood Count 2.96 10^6/uL (4.1-5.3); Red Cell Distribution Width 20.7 % (12.1-15.1); White Blood Count 3.6 10^3/uL (4.0-10.0)
[2022-09-13 09:31] LABS: Slide Review Slide Review Perform
[2022-09-13] MEDS: acetaminophen 325 mg Tablet 650 MG PO (10:33)
[2022-09-13] MEDS: FUROsemide 10 mg/mL SDV 2mL 20 MG IVP (10:34)
[2022-09-13] MEDS: sodium chloride 0.9% 250 mL Bag IV (10:34)
[2022-09-13] MEDS: diphenhydrAMINE 25 mg Capsule PO (10:34)
[2022-09-27 08:29] LABS: Basophils % 0.3 %; Hematocrit 27.8 % (42.0-52.0); Lymphocytes # 1.1 10^3/uL (0.8-4.8); Lymphocytes % 33.7 %; Mean Corpuscular HGB Conc 32.4 g/dL (30.0-36.0); Mean Corpuscular Hemoglobin 27.5 pg (28.0-34.0); Monocytes # 0.6 10^3/uL (0.2-0.9); Monocytes % 17.6 %; Neutrophils # 1.31 10^3/uL (1.8-7.7); Neutrophils % 40.7 %; Nucleated Red Blood Cells % 0 %; Platelet Count 37 10^3/cmm (130-400); Red Blood Count 3.27 10^6/uL (4.1-5.3); Red Cell Distribution Width 20.8 % (12.1-15.1); White Blood Count 3.2 10^3/uL (4.0-10.0)
[2022-09-27 08:45] VITALS: BP 120/76; PULSE 74; RESP 18; TEMP 36.6; O2SAT 98
[2022-09-27 09:18] LABS: Slide Review Slide Review Perform
--- NOTE | 2022-09-27 14:30 | PC.NURSE ---
Labs drawn with the results informed with Dr Tse with no transfusion today. Repeat labs in 2 weeks.arabella
== END 2022-10-04 23:59 | disposition home or self-care (01) ==
PROVIDERS: PCP Clinical Nurse Specialist Adult Health; Visit Provider Internal Medicine Medical Oncology
DX: D64.9 Anemia, unspecified (principal)
CPT/HCPCS: 36415; 36430; 85025; 86850; 86900; 86920; 96374; J1940; J7050; P9016

== ENCOUNTER 2022-10-21 09:37 | Outpatient (CLI) | payer MEDICARE, SELFPAY ==
--- NOTE | 2022-10-21 10:00 | USCV_ITS ---
Crump Guido Age: 82 Gender: M : 1940 Exam Date: 10/21/2022 10:35 Ordering Phys: Jl Hassan MD ([email or web address]) Technologist: ZBIGNIEW Exam Location: [facility] [place] Indication: AORTIC STENOSIS BP: 129 / 69 HR: 68 Rhythm: Sinus Technical Quality: Adequate MEASUREMENTS (Male / Female) Normal Values 2D ECHO LVOT Diameter 2.0 cm LV Ejection Fraction MOD 2C 54.1 % LV Ejection Fraction 2C AL 56.7 % LA Diameter 3.6 cm LA Width 4.3 cm LA Height 4.9 cm RA Width 3.7 cm RA Height 5.0 cm Aorta at Sinotubular Diameter 2.4 cm IVC Diameter 1.5 cm M-MODE Aortic Annulus Diameter 3.1 cm LA Ao Ratio MM 1.2 MV E Point Septal Separation 1.3 cm DOPPLER AV Peak Velocity 299.8 cm/s MV Peak Velocity 168.0 cm/s MV Area PHT 2.6 cm squared Mitral E to A Ratio 0.9 MV E' Velocity 76.0 cm/s Mitral E to MV E' Ratio 17.9 Mitral E to LV E' Lateral Ratio 13.2 Mitral E to LV E' Septal Ratio 28.3 TR Peak Velocity 257.1 cm/s TR Peak Gradient 26.4 mmHg TR Mean Velocity 216.3 cm/s TR Mean Gradient 20.0 mmHg TR Velocity Time Integral 78.4 cm TV Peak E Velocity 52.0 cm/s Right Atrial Pressure 3.0 mmHg Pulmonary Artery Systolic Pressu 29.4 mmHg PV Peak Velocity 172.0 cm/s RV Acceleration Time 0.1 s RV Ejection Time 0.3 s RV AcT/ET 0.4 FINDINGS Left Ventricle Normal left ventricular size with mild diffuse hypokinesia of the LV apex. Ejection fraction around 53%. Grade I/IV diastolic dysfunction (abnormal relaxation filling pattern), normal to mildly elevated filling pressures. Mild hypokinesia of the basal inferior wall segment Right Ventricle The right ventricle is normal in size and function. Right Atrium The right atrium is normal in size. Left Atrium Mildly increased left atrial size. Mitral Valve Thickened mitral valve. Moderate mitral annular calcification. Mild mitral valve regurgitation. Aortic Valve Thickened aortic valve. Trace aortic valve regurgitation. The aortic valve peak velocity of 3.45 m/s with a peak gradient of 50 and a mean gradient of 30 mmHg. The valve area was calculated to be 0.66 cm squared Tricuspid Valve No gross abnormalities noted.trace tricuspid valve regurgitation. Pulmonic Valve Pulmonic valve not well visualized. Pericardium No pericardial effusion. Aorta Normal aortic annulus size. IVC Normal inferior vena cava. CONCLUSIONS Severe low gradient aortic valve stenosis with a valve area of 0.66 cm squared. Peak velocity of 3.45 m/s, peak gradient of 50 and a mean gradient of 30 mmHg. Ejection fraction around 53%. Type I diastolic dysfunction. Wall motion normalities as mentioned above Thickened mitral valve. Moderate mitral annular calcification. Mild mitral valve regurgitation. Estimated pulmonary artery peak systolic pressure 29 mmHg There is no pericardial effusion. Comparison with the previous study is difficult because of the difference in the technical quality. Dr Jl Hassan MD [facility] (Electronically Signed) Final Date: 26 October 2022 08:41 S
[2022-10-21] MEDS: perflutren protein-a microsphr 0.22 mg/mL SDV 3 mL IV (11:01)
== END 2022-10-21 09:38 | disposition home or self-care (01) ==
PROVIDERS: PCP Clinical Nurse Specialist Adult Health; Visit Provider Internal Medicine Cardiovascular Disease
DX: I08.3 Combined rheumatic disorders of mitral, aortic and tricuspid valves (principal)
CPT/HCPCS: 99214; C8929; Q9956

== ENCOUNTER 2022-11-01 08:00 | Oncology outpatient (recurring) (ONCR) | payer MEDICARE, SELFPAY ==
[2022-10-11] VITALS (10 sets, daily range): BP systolic 118–137; BP diastolic 52–66; PULSE 56–58; RESP 16–18; TEMP 35.8–36.7; O2SAT 95–98
[2022-10-11 08:27] LABS: Basophils % 0.3 %; Hematocrit 24.7 % (42.0-52.0); Hemoglobin 7.8 g/dL (11.7-16.6); Lymphocytes # 2.3 10^3/uL (0.8-4.8); Lymphocytes % 30.9 %; Mean Corpuscular HGB Conc 31.6 g/dL (30.0-36.0); Mean Corpuscular Hemoglobin 27.4 pg (28.0-34.0); Mean Corpuscular Volume 86.7 fl (80-94); Monocytes # 1.3 10^3/uL (0.2-0.9); Monocytes % 18.3 %; Neutrophils # 2.87 10^3/uL (1.8-7.7); Neutrophils % 39.5 %; Nucleated Red Blood Cells % 0.4 %; Platelet Count 69 10^3/cmm (130-400); Red Blood Count 2.85 10^6/uL (4.1-5.3); Red Cell Distribution Width 21.2 % (12.1-15.1); White Blood Count 7.3 10^3/uL (4.0-10.0)
[2022-10-11 09:29] LABS: Slide Review Slide Review Perform
[2022-10-11] MEDS: sodium chloride 0.9% 250 mL Bag IV (10:42)
[2022-10-11] MEDS: acetaminophen 325 mg Tablet 650 MG PO (10:45)
[2022-10-11] MEDS: diphenhydrAMINE 25 mg Capsule PO (10:45)
[2022-10-25 08:25] VITALS: BP 112/63; PULSE 66; RESP 18; TEMP 36.3; O2SAT 94
[2022-10-25 09:12] LABS: Hematocrit 24.7 % (42.0-52.0); Hemoglobin 7.9 g/dL (11.7-16.6); Mean Corpuscular Hemoglobin 27.2 pg (28.0-34.0); Mean Corpuscular Volume 85.2 fl (80-94); Platelet Count 40 10^3/cmm (130-400); Red Cell Distribution Width 20.4 % (12.1-15.1); White Blood Count 4.5 10^3/uL (4.0-10.0)
[2022-10-25 10:34] LABS: Absolute Segmented Neutrophil 1.3 10/cmm (1.6-7.1); Band Neutrophils Absolute 0.4 10^3/cmm (0.0-1.2); Segmented Neutrophils 29 %; Slide Review Slide Review Perform; Total Cells Counted 100 (0-100)
[2022-10-25 10:35] LABS: Absolute Neutrophil 1.7 10^3/cmm (1.4-6.5); Eosinophils 1 %; Lymphocytes 48 %; Lymphocytes Absolute 2.2 10^3/cmm (1.2-3.4); Monocytes Absolute 0.3 10^3/cmm (0.1-0.6); Platelet Estimate Decreased (Normal); Tear Drop Cells 1+
[2022-10-25 10:36] LABS: Acanthocytes Trace; Ovalocytes Trace
[2022-10-25] MEDS: acetaminophen 325 mg Tablet 650 MG PO (12:03)
[2022-10-25] MEDS: sodium chloride 0.9% 250 mL Bag IV (12:03)
[2022-10-25] MEDS: diphenhydrAMINE 25 mg Capsule PO (12:03)
[2022-10-25 12:27] VITALS: BP 112/52; PULSE 58; RESP 18; TEMP 36.6; O2SAT 94
[2022-10-25 12:35] VITALS: BP 108/63; PULSE 57; RESP 18; TEMP 36.3; O2SAT 94
[2022-10-25 12:52] VITALS: BP 118/61; PULSE 58; RESP 18; TEMP 36.3; O2SAT 94
[2022-10-25 13:19] VITALS: BP 119/54; PULSE 60; RESP 18; TEMP 36.3; O2SAT 94
[2022-10-25 13:20] VITALS: BP 119/54; PULSE 60; RESP 18; TEMP 36.3; O2SAT 94
[2022-11-01 08:10] VITALS: BP 151/74; PULSE 74; RESP 18; TEMP 36.7; O2SAT 98
[2022-11-01 08:50] LABS: Basophils % 0.2 %; Hematocrit 29.6 % (42.0-52.0); Hemoglobin 9.5 g/dL (11.7-16.6); Lymphocytes # 1.6 10^3/uL (0.8-4.8); Lymphocytes % 36.2 %; Mean Corpuscular HGB Conc 32.1 g/dL (30.0-36.0); Mean Corpuscular Hemoglobin 27.5 pg (28.0-34.0); Mean Corpuscular Volume 85.5 fl (80-94); Monocytes # 0.7 10^3/uL (0.2-0.9); Monocytes % 16.3 %; Neutrophils # 1.66 10^3/uL (1.8-7.7); Nucleated Red Blood Cells % 0 %; Platelet Count 51 10^3/cmm (130-400); Red Blood Count 3.46 10^6/uL (4.1-5.3); Red Cell Distribution Width 19.9 % (12.1-15.1); White Blood Count 4.5 10^3/uL (4.0-10.0)
[2022-11-01 09:25] LABS: Slide Review Slide Review Perform
== END 2022-11-04 23:59 | disposition home or self-care (01) ==
PROVIDERS: Nurse Practitioner; PCP Clinical Nurse Specialist Adult Health; Visit Provider Internal Medicine Medical Oncology
DX: D46.9 Myelodysplastic syndrome, unspecified (principal); Z79.899 Other long term (current) drug therapy
CPT/HCPCS: 36430; 85007; 85025; 86850; 86900; 86920; 96374; J7050; P9016

== ENCOUNTER → 2022-11-10 16:29 | Outpatient (BNVA) | payer MEDICARE, SELFPAY | PROVIDERS: PCP Clinical Nurse Specialist Adult Health; Visit Provider Internal Medicine Cardiovascular Disease | DX: I35.0 Nonrheumatic aortic (valve) stenosis (principal); I25.5 Ischemic cardiomyopathy; I50.9 Heart failure, unspecified; E11.9 Type 2 diabetes mellitus without complications; D46.9 Myelodysplastic syndrome, unspecified; E78.5 Hyperlipidemia, unspecified; Z87.891 Personal history of nicotine dependence | CPT/HCPCS: 36415; 80048; 80053; 82728; 83540; 83550; 83880; 85007; 85025; 86850; 86900; 99214 ==

== ENCOUNTER → 2022-11-16 08:58 | Outpatient (BNVA) | payer MEDICARE, SELFPAY | PROVIDERS: PCP Clinical Nurse Specialist Adult Health; Visit Provider Clinical Nurse Specialist Adult Health | DX: E11.9 Type 2 diabetes mellitus without complications (principal); E78.5 Hyperlipidemia, unspecified | CPT/HCPCS: 80061; 83036 ==

== ENCOUNTER 2022-11-29 08:00 | Oncology outpatient (recurring) (ONCR) | payer MEDICARE, SELFPAY ==
[2022-11-15] VITALS (7 sets, daily range): BP systolic 120–143; BP diastolic 63–74; PULSE 57–60; RESP 18; TEMP 36.2–36.4; O2SAT 93–98
[2022-11-15 08:31] LABS: Hematocrit 24.5 % (42.0-52.0); Mean Corpuscular HGB Conc 32.7 g/dL (30.0-36.0); Mean Corpuscular Hemoglobin 27.7 pg (28.0-34.0); Mean Corpuscular Volume 84.8 fl (80-94); Platelet Count 51 10^3/cmm (130-400); Red Blood Count 2.89 10^6/uL (4.1-5.3); White Blood Count 4.1 10^3/uL (4.0-10.0)
[2022-11-15 09:29] LABS: Slide Review Slide Review Perform
[2022-11-15 09:30] LABS: Absolute Neutrophil 1.8 10^3/cmm (1.4-6.5); Absolute Segmented Neutrophil 1.3 10/cmm (1.6-7.1); Band Neutrophils Absolute 0.5 10^3/cmm (0.0-1.2); Eosinophils 0 %; Lymphocytes 33 %; Lymphocytes Absolute 1.8 10^3/cmm (1.2-3.4); Monocytes Absolute 0.3 10^3/cmm (0.1-0.6); Platelet Estimate Decreased (Normal); Segmented Neutrophils 32 %; Total Cells Counted 100 (0-100)
[2022-11-15 09:33] LABS: Giant Platelets Trace; Polychromasia Trace
[2022-11-15 09:34] LABS: Macrocytosis 1+
[2022-11-15] MEDS: acetaminophen 325 mg Tablet 650 MG PO (10:14)
[2022-11-15] MEDS: diphenhydrAMINE 25 mg Capsule PO (10:15)
[2022-11-29] VITALS (7 sets, daily range): BP systolic 103–124; BP diastolic 56–78; PULSE 57–68; RESP 18; TEMP 36–36.6; O2SAT 94–98
[2022-11-29 08:30] LABS: Hematocrit 24.2 % (42.0-52.0); Hemoglobin 7.9 g/dL (11.7-16.6); Mean Corpuscular HGB Conc 32.6 g/dL (30.0-36.0); Mean Corpuscular Hemoglobin 27.8 pg (28.0-34.0); Mean Corpuscular Volume 85.2 fl (80-94); Platelet Count 40 10^3/cmm (130-400); Red Blood Count 2.84 10^6/uL (4.1-5.3); Red Cell Distribution Width 19.8 % (12.1-15.1); White Blood Count 4.6 10^3/uL (4.0-10.0)
[2022-11-29 09:11] LABS: Slide Review Slide Review Perform
[2022-11-29 09:14] LABS: Absolute Segmented Neutrophil 1.6 10/cmm (1.6-7.1); Band Neutrophils Absolute 0.4 10^3/cmm (0.0-1.2); Lymphocytes 3 %; Monocytes Absolute 0.9 10^3/cmm (0.1-0.6); Segmented Neutrophils 34 %; Total Cells Counted 100 (0-100)
[2022-11-29 09:15] LABS: Lymphocytes Absolute 0.3 10^3/cmm (1.2-3.4)
[2022-11-29 09:16] LABS: Absolute Neutrophil 1.9 10^3/cmm (1.4-6.5); Blastocytes 2 % (0-0); Platelet Estimate Decreased (Normal)
[2022-11-29 09:17] LABS: Anisocytosis 2+; Tear Drop Cells Trace
[2022-11-29 09:18] LABS: Poikilocytosis 1+
[2022-11-29] MEDS: acetaminophen 325 mg Tablet 650 MG PO (09:48)
[2022-11-29] MEDS: diphenhydrAMINE 25 mg Capsule PO (09:49)
[2022-11-29] MEDS: FUROsemide 10 mg/mL SDV 2mL 20 MG IVP (09:49)
[2022-11-29] MEDS: sodium chloride 0.9% 250 ML IV (09:54)
== END 2022-12-04 23:59 | disposition home or self-care (01) ==
PROVIDERS: PCP Clinical Nurse Specialist Adult Health; Visit Provider Internal Medicine Medical Oncology
DX: D46.9 Myelodysplastic syndrome, unspecified (principal); Z79.899 Other long term (current) drug therapy
CPT/HCPCS: 36415; 36430; 85007; 85025; 86850; 86900; 86920; 96375; 99214; J1940; J7050; P9016

== ENCOUNTER 2022-12-27 08:00 | Oncology outpatient (recurring) (ONCR) | payer MEDICARE, SELFPAY ==
[2022-12-13 08:10] VITALS: BP 110/78; PULSE 60; RESP 18; O2SAT 98
[2022-12-13 09:05] LABS: Hematocrit 27.5 % (42.0-52.0); Mean Corpuscular HGB Conc 32.7 g/dL (30.0-36.0); Mean Corpuscular Hemoglobin 27.6 pg (28.0-34.0); Mean Corpuscular Volume 84.4 fl (80-94); Platelet Count 43 10^3/cmm (130-400); Red Blood Count 3.26 10^6/uL (4.1-5.3); Red Cell Distribution Width 19.5 % (12.1-15.1); White Blood Count 4.5 10^3/uL (4.0-10.0)
[2022-12-13 10:12] LABS: Slide Review Slide Review Perform
[2022-12-13 10:13] LABS: Absolute Segmented Neutrophil 1.6 10/cmm (1.6-7.1); Band Neutrophils Absolute 0.3 10^3/cmm (0.0-1.2); Eosinophils 1 %; Lymphocytes 30 %; Monocytes Absolute 0.5 10^3/cmm (0.1-0.6); Segmented Neutrophils 36 %; Total Cells Counted 100 (0-100)
[2022-12-13 10:14] LABS: Absolute Neutrophil 1.9 10^3/cmm (1.4-6.5); Giant Platelets 1+; Macrocytosis 1+; Microcytosis 1+; Platelet Estimate Decreased (Normal)
[2022-12-13 10:15] LABS: Ovalocytes 1+; Tear Drop Cells 1+
[2022-12-13 10:16] LABS: Stomatocytes 1+
--- NOTE | 2022-12-13 15:46 | PC.NURSE ---
labs reviewed by Dr Tse no transfusion needed repeat in 2 weeks/mm
[2022-12-27] VITALS (8 sets, daily range): BP systolic 112–154; BP diastolic 62–77; PULSE 56–76; RESP 18; TEMP 36.3–36.6; O2SAT 93–96
[2022-12-27 08:35] LABS: Hemoglobin 7.8 g/dL (11.7-16.6); Mean Corpuscular HGB Conc 32.5 g/dL (30.0-36.0); Mean Corpuscular Hemoglobin 27.4 pg (28.0-34.0); Mean Corpuscular Volume 84.2 fl (80-94); Platelet Count 41 10^3/cmm (130-400); Red Blood Count 2.85 10^6/uL (4.1-5.3); White Blood Count 5.1 10^3/uL (4.0-10.0)
[2022-12-27 09:24] LABS: Slide Review Slide Review Perform
[2022-12-27 09:25] LABS: Absolute Neutrophil 2.5 10^3/cmm (1.4-6.5); Absolute Segmented Neutrophil 2.1 10/cmm (1.6-7.1); Band Neutrophils Absolute 0.4 10^3/cmm (0.0-1.2); Eosinophils 0 %; Lymphocytes 24 %; Lymphocytes Absolute 1.8 10^3/cmm (1.2-3.4); Monocytes Absolute 0.5 10^3/cmm (0.1-0.6); Platelet Estimate Decreased (Normal); Segmented Neutrophils 42 %; Total Cells Counted 100 (0-100)
[2022-12-27 09:26] LABS: Macrocytosis Trace; Microcytosis Trace; Ovalocytes 1+; Polychromasia Trace; Tear Drop Cells 1+
[2022-12-27] MEDS: acetaminophen 325 mg Tablet 650 MG PO (10:40)
[2022-12-27] MEDS: sodium chloride 0.9% 250 mL Bag IV (10:41)
[2022-12-27] MEDS: diphenhydrAMINE 25 mg Capsule PO (10:41)
[2022-12-27] MEDS: FUROsemide 10 mg/mL SDV 2mL 20 MG IVP (13:09)
== END 2023-01-04 23:59 | disposition home or self-care (01) ==
PROVIDERS: PCP Clinical Nurse Specialist Adult Health; Visit Provider Internal Medicine Medical Oncology
DX: D46.9 Myelodysplastic syndrome, unspecified (principal); D64.9 Anemia, unspecified
CPT/HCPCS: 36415; 36430; 36591; 85007; 85025; 86850; 86900; 86920; 96374; J1940; J7050; P9016

== ENCOUNTER 2023-01-31 10:04 | Oncology outpatient (recurring) (ONCR) | payer MEDICARE, SELFPAY ==
[2023-01-10 08:20] VITALS: BP 143/65; PULSE 94; RESP 18; TEMP 36.9; O2SAT 95
[2023-01-10 08:45] LABS: Hematocrit 28.2 % (42.0-52.0); Mean Corpuscular HGB Conc 31.9 g/dL (30.0-36.0); Mean Corpuscular Hemoglobin 27.6 pg (28.0-34.0); Mean Corpuscular Volume 86.5 fl (80-94); Platelet Count 40 10^3/cmm (130-400); Red Blood Count 3.26 10^6/uL (4.1-5.3)
[2023-01-10 09:24] LABS: Absolute Segmented Neutrophil 1.6 10/cmm (1.6-7.1); Band Neutrophils Absolute 0.4 10^3/cmm (0.0-1.2); Eosinophils 0 %; Lymphocytes 25 %; Monocytes Absolute 0.2 10^3/cmm (0.1-0.6); Segmented Neutrophils 39 %; Slide Review Slide Review Perform; Total Cells Counted 100 (0-100)
[2023-01-10 09:25] LABS: Lymphocytes Absolute 1.4 10^3/cmm (1.2-3.4); Macrocytosis 1+; Microcytosis 1+; Ovalocytes Trace; Platelet Estimate Decreased (Normal); Tear Drop Cells Trace
[2023-01-10 11:00] VITALS: BP 110/78; PULSE 64; RESP 18; TEMP 36.6; O2SAT 98
--- NOTE | 2023-01-10 15:17 | PC.NURSE ---
Addendum entered by Jimena Marina RN 01/10/23 15:19: DR Hercules reviewed the cbc with new orders for today and return in 2 weeks.mm Original Note: Dr Clay
[2023-01-24 07:41] VITALS: BP 120/58; PULSE 79; RESP 16; TEMP 36.3; O2SAT 95
[2023-01-24 07:57] LABS: Basophils % 0.3 %; Hematocrit 26.2 % (42.0-52.0); Hemoglobin 8.4 g/dL (11.7-16.6); Lymphocytes # 1.4 10^3/uL (0.8-4.8); Lymphocytes % 35.4 %; Mean Corpuscular HGB Conc 32.1 g/dL (30.0-36.0); Mean Corpuscular Hemoglobin 27.3 pg (28.0-34.0); Mean Corpuscular Volume 85.1 fl (80-94); Monocytes # 0.7 10^3/uL (0.2-0.9); Monocytes % 18.1 %; Neutrophils # 1.42 10^3/uL (1.8-7.7); Neutrophils % 36.6 %; Nucleated Red Blood Cells % 0 %; Platelet Count 47 10^3/cmm (130-400); Positive C 1; Positive M 1; Red Blood Count 3.08 10^6/uL (4.1-5.3); Red Cell Distribution Width 21.2 % (12.1-15.1); White Blood Count 3.9 10^3/uL (4.0-10.0)
[2023-01-31 10:04] VITALS: BP 93/52; PULSE 77; RESP 18; TEMP 36.7; O2SAT 94
[2023-01-31 10:36] LABS: Hematocrit 24.1 % (42.0-52.0); Hemoglobin 7.6 g/dL (11.7-16.6); Mean Corpuscular HGB Conc 31.5 g/dL (30.0-36.0); Mean Corpuscular Hemoglobin 26.9 pg (28.0-34.0); Mean Corpuscular Volume 85.2 fl (80-94); Platelet Count 45 10^3/cmm (130-400); Red Blood Count 2.83 10^6/uL (4.1-5.3); Red Cell Distribution Width 21.8 % (12.1-15.1); White Blood Count 4.1 10^3/uL (4.0-10.0)
[2023-01-31 11:42] LABS: Slide Review Slide Review Perform
[2023-01-31 11:43] LABS: Absolute Segmented Neutrophil 1.4 10/cmm (1.6-7.1); Band Neutrophils Absolute 0.3 10^3/cmm (0.0-1.2); Lymphocytes 19 %; Monocytes Absolute 0.4 10^3/cmm (0.1-0.6); Segmented Neutrophils 33 %; Total Cells Counted 100 (0-100)
[2023-01-31 11:44] LABS: Eosinophils 0 %
[2023-01-31 11:45] LABS: Absolute Neutrophil 1.7 10^3/cmm (1.4-6.5); Platelet Estimate Decreased (Normal)
[2023-01-31 11:46] LABS: Hypersegmented Polys 1+; Polychromasia 1+
[2023-01-31 11:47] LABS: Macrocytosis 1+; Microcytosis 1+
[2023-01-31 11:48] LABS: Ovalocytes 1+; Tear Drop Cells 1+
[2023-01-31] MEDS: diphenhydrAMINE 25 mg Capsule PO (12:38)
[2023-01-31] MEDS: acetaminophen 325 mg Tablet 650 MG PO (12:38)
[2023-01-31] MEDS: sodium chloride 0.9% 250 mL Bag IV (13:10)
[2023-01-31 17:15] VITALS: BP 148/68; PULSE 91; RESP 18; TEMP 36.6; O2SAT 99
== END 2023-02-03 23:59 | disposition home or self-care (01) ==
PROVIDERS: Internal Medicine Medical Oncology; PCP Clinical Nurse Specialist Adult Health; Visit Provider Internal Medicine Medical Oncology
DX: D46.9 Myelodysplastic syndrome, unspecified (principal); D64.9 Anemia, unspecified
CPT/HCPCS: 85007; 85025; 86850; 86900; 86920; 99214; J7050; P9040

== ENCOUNTER → 2023-02-01 07:49 | Outpatient (BNVA) | payer MEDICARE, SELFPAY | PROVIDERS: PCP Clinical Nurse Specialist Adult Health; Visit Provider Clinical Nurse Specialist Adult Health | DX: R35.0 Frequency of micturition (principal) | CPT/HCPCS: 81000 ==

== ENCOUNTER 2023-02-28 10:00 | Oncology outpatient (recurring) (ONCR) | payer MEDICARE, SELFPAY ==
[2023-02-06 07:46] VITALS: BP 107/62; PULSE 78; RESP 18; TEMP 36.5; O2SAT 91
[2023-02-06 08:08] LABS: Basophils % 0.2 %; Hematocrit 27.3 % (42.0-52.0); Hemoglobin 8.9 g/dL (11.7-16.6); Lymphocytes # 1.5 10^3/uL (0.8-4.8); Mean Corpuscular HGB Conc 32.6 g/dL (30.0-36.0); Mean Corpuscular Hemoglobin 27.4 pg (28.0-34.0); Monocytes # 0.6 10^3/uL (0.2-0.9); Monocytes % 14.1 %; Neutrophils # 1.81 10^3/uL (1.8-7.7); Neutrophils % 42.5 %; Nucleated Red Blood Cells % 0.5 %; Platelet Count 34 10^3/cmm (130-400); Red Blood Count 3.25 10^6/uL (4.1-5.3); Red Cell Distribution Width 20.5 % (12.1-15.1); White Blood Count 4.3 10^3/uL (4.0-10.0)
[2023-02-06 08:26] LABS: Alanine Aminotransferase 7 U/L (0-41); Alkaline Phosphatase 92 U/L (40-130); Anion Gap 15.8 (5-19); Aspartate Amino Transferase 10 U/L (0-40); Blood Urea Nitrogen 25 mg/dL (8-23); Calcium 8.7 mg/dL (8.5-10.5); Carbon Dioxide 25 mmol/L (22-29); Chloride 97 mmol/L (98-107); Glucose 113 mg/dL (65-115); Lactate Dehydrogenase 391 U/L (135-225); Osmolality Calculated 283 mOsm/kg (285-295); Potassium 3.8 mmol/L (3.5-5.1); Sodium 134 mmol/L (136-145); Total Bilirubin 0.8 mg/dL (0.15-1.2)
[2023-02-06 08:50] LABS: Add RBC Morph Yes; Slide Review Slide Review Perform
[2023-02-06 08:51] LABS: Anisocytosis 1+; Giant Platelets Trace; Ovalocytes 2+; Poikilocytosis 2+
[2023-02-06 08:52] LABS: RBC Morph Comp Yes; Tear Drop Cells Trace
[2023-02-06 09:35] VITALS: BP 113/61; PULSE 70; RESP 16; TEMP 36.6; O2SAT 95
[2023-02-14] VITALS (12 sets, daily range): BP systolic 93–170; BP diastolic 55–85; PULSE 66–94; RESP 16–18; TEMP 36.1–36.7; O2SAT 93–98
[2023-02-14 10:02] LABS: Hematocrit 24.2 % (42.0-52.0); Hemoglobin 7.8 g/dL (11.7-16.6); Mean Corpuscular HGB Conc 32.2 g/dL (30.0-36.0); Mean Corpuscular Hemoglobin 27.7 pg (28.0-34.0); Mean Corpuscular Volume 85.8 fl (80-94); Platelet Count 61 10^3/cmm (130-400); Red Blood Count 2.82 10^6/uL (4.1-5.3); White Blood Count 5.6 10^3/uL (4.0-10.0)
[2023-02-14] MEDS: acetaminophen 325 mg Tablet 650 MG PO (11:11)
[2023-02-14] MEDS: sodium chloride 0.9% 250 mL Bag IV (11:11)
[2023-02-14] MEDS: diphenhydrAMINE 25 mg Capsule PO (11:12)
[2023-02-14 11:57] LABS: Slide Review Slide Review Perform
[2023-02-14 11:59] LABS: Absolute Neutrophil 3.1 10^3/cmm (1.4-6.5); Absolute Segmented Neutrophil 2.9 10/cmm (1.6-7.1); Band Neutrophils Absolute 0.2 10^3/cmm (0.0-1.2); Eosinophils 0 %; Giant Platelets Trace; Lymphocytes 25 %; Lymphocytes Absolute 1.4 10^3/cmm (1.2-3.4); Monocytes Absolute 0.5 10^3/cmm (0.1-0.6); Platelet Estimate Decreased (Normal); Polychromasia 1+; Segmented Neutrophils 52 %; Total Cells Counted 100 (0-100)
[2023-02-14 12:00] LABS: Ovalocytes 1+
[2023-02-14] MEDS: FUROsemide 10 mg/mL SDV 2mL 20 MG IVP (14:01)
[2023-02-28 09:56] LABS: Hematocrit 25.7 % (42.0-52.0); Hemoglobin 8.5 g/dL (11.7-16.6); Mean Corpuscular HGB Conc 33.1 g/dL (30.0-36.0); Mean Corpuscular Hemoglobin 28.1 pg (28.0-34.0); Mean Corpuscular Volume 84.8 fl (80-94); Platelet Count 50 10^3/cmm (130-400); Red Blood Count 3.03 10^6/uL (4.1-5.3); Red Cell Distribution Width 20.4 % (12.1-15.1); White Blood Count 4.9 10^3/uL (4.0-10.0)
[2023-02-28 10:04] VITALS: BP 97/61; PULSE 81; RESP 18; TEMP 36.1; O2SAT 90
[2023-02-28 10:38] LABS: Slide Review Slide Review Perform
[2023-02-28 10:41] LABS: Absolute Neutrophil 2.6 10^3/cmm (1.4-6.5); Absolute Segmented Neutrophil 2.5 10/cmm (1.6-7.1); Band Neutrophils Absolute 0.1 10^3/cmm (0.0-1.2); Eosinophils 0 %; Lymphocytes 29 %; Lymphocytes Absolute 1.6 10^3/cmm (1.2-3.4); Monocytes Absolute 0.5 10^3/cmm (0.1-0.6); Platelet Estimate Decreased (Normal); Segmented Neutrophils 51 %; Total Cells Counted 100 (0-100)
--- NOTE | 2023-02-28 16:39 | PC.NURSE ---
labs reviewed by Dr Hercules no transfusion needed.mm
== END 2023-03-06 23:59 | disposition home or self-care (01) ==
PROVIDERS: Nurse Practitioner Family; PCP Clinical Nurse Specialist Adult Health; Visit Provider Internal Medicine Medical Oncology
DX: D46.9 Myelodysplastic syndrome, unspecified (principal)
CPT/HCPCS: 36430; 80053; 83615; 85007; 85025; 86850; 86900; 86920; 96374; 99213; J1940; J7050; P9016

== ENCOUNTER 2023-03-03 23:48 | Inpatient (IN) | payer MEDICARE, SELFPAY ==
[2023-03-03 23:54] VITALS: BP 192/91; PULSE 90; RESP 20; TEMP 36.7; O2SAT 90; BMI 37.5
[2023-03-04] VITALS (23 sets, daily range): BP systolic 101–198; BP diastolic 54–98; PULSE 80–113; RESP 18–34; TEMP 36.7–36.9; O2SAT 94–100
--- NOTE | 2023-03-04 00:05 | XRR_ITS ---
PROCEDURE INFORMATION: Exam: XR Chest Exam date and time: 03/04/2023 12:10 AM Age: 82 years old Clinical indication: Shortness of breath; Chest pressure; Prior surgery; Surgery date: 6+ months; Surgery type: Parotidectomy; Patient HX: C/O chest pain with SOB. Tachycardic and hypertensive on monitor. History of parotid cancer. ; Additional info: Cp TECHNIQUE: Imaging protocol: Radiologic exam of the chest. Views: 1 view. COMPARISON: CR XR chest 1V portable [id number] 01/13/2022 6:01 AM FINDINGS: Lungs: Redemonstration of more central and mild peripheral ground-glass opacities, similar or perhaps slightly worse compared to the prior, especially on the left side although the lung volumes are improved on the current study compared to the prior. Pleural spaces: Unremarkable. No pleural effusion. No pneumothorax. Heart/Mediastinum: The cardiomediastinal silhouette appears mildly enlarged, similar or perhaps slightly decreased compared to the prior. Bones/joints: There are degenerative changes of the spine and shoulder joints. XR/XR chest 1V portable [id number] IMPRESSION: Cardiomegaly and pulmonary infiltrates.
--- NOTE | 2023-03-04 00:05 | ECG_ITS ---
[facility] Test Date: 2023-03-03 Pat Name: Guido Crump Department: Room: 102 Gender: Male Data Visualization Developer: : 1940 Requested By: John Olson Order Number: [id number] Tari MD: Kvng Guerin M.D. Measurements Intervals [place] Rate: 108 P: 233 CA: 123 QRS: 30 QRSD: 104 T: 139 QT: 331 QTc: 445 Interpretive Statements SINUS TACHYCARDIA ST DEVIATION AND MODERATE T-WAVE ABNORMALITY, CONSIDER LATERAL ISCHEMIA [-0.1+ mV T-WAVE IN I/aVL/V5/V6] Compared to ECG 01/10/2022 05:37:51 Possible ischemia now present Sinus rhythm no longer present First degree AV block no longer present T-wave abnormality still present Electronically Signed On 03-06-2023 8:34:51 CDT by Kvng Guerin M.D. [id number]
[2023-03-04] MEDS: morphine 4 mg/mL SDV 1 mL IVP (00:15)
[2023-03-04] MEDS: ondansetron 2 mg/ML SDV 2 mL 4 MG IVP (00:15)
[2023-03-04] MEDS: nitroglycerin 1 gm/inch oint Pkt 2 INCH TOPICAL (00:16)
[2023-03-04 00:19] LABS: Basophils % 0.3 %; Hematocrit 28.6 % (42.0-52.0); Hemoglobin 9.1 g/dL (11.7-16.6); Lymphocytes # 1.9 10^3/uL (0.8-4.8); Lymphocytes % 29.3 %; Mean Corpuscular HGB Conc 31.8 g/dL (30.0-36.0); Mean Corpuscular Hemoglobin 26.9 pg (28.0-34.0); Mean Corpuscular Volume 84.6 fl (80-94); Monocytes # 0.9 10^3/uL (0.2-0.9); Monocytes % 13.2 %; Neutrophils # 2.84 10^3/uL (1.8-7.7); Neutrophils % 43.9 %; Nucleated Red Blood Cells % 0.3 %; Platelet Count 60 10^3/cmm (130-400); Red Blood Count 3.38 10^6/uL (4.1-5.3); Red Cell Distribution Width 20.6 % (12.1-15.1); White Blood Count 6.5 10^3/uL (4.0-10.0)
[2023-03-04] MEDS: metoprolol tartrate 1 mg/1 mL SDV 5 mL 5 MG IVP (00:19)
[2023-03-04 00:24] LABS: D Dimer 0.62 ug/mIFEU (0-0.59)
[2023-03-04 00:34] LABS: Troponin(5th) Baseline 41 ng/L (0-15)
[2023-03-04 00:44] LABS: Alanine Aminotransferase 9 U/L (0-41); Albumin Level 4.4 g/dL (3.5-5.2); Alkaline Phosphatase 109 U/L (40-130); Aspartate Amino Transferase 18 U/L (0-40); Blood Urea Nitrogen 16 mg/dL (8-23); Calcium 8.7 mg/dL (8.5-10.5); Carbon Dioxide 27 mmol/L (22-29); Chloride 95 mmol/L (98-107); Creatine Phosphokinase 40 U/L (39-308); Globulin 3.5 g/dL (1.3-4.6); Glucose 167 mg/dL (65-115); NT Pro B Type Natriuretic Pept 4753 pg/mL (0-450); Osmolality Calculated 287 mOsm/kg (285-295); Sodium 136 mmol/L (136-145); Total Bilirubin 0.9 mg/dL (0.15-1.2); Total Protein 7.9 g/dL (6.6-8.7)
--- NOTE | 2023-03-04 00:57 | W.ED.CHESTPA ---
HPI - Chest Pain General: Chief Complaint: Chest Pain Stated Complaint: Chest Pain Time Seen by Provider: 03/04/23 00:03 Source: patient and family History of Present Illness: 82-year-old male gentleman presenting with chest pain and shortness of breath. He has had an increased cough recently. He presents hypoxic. MD complaint: chest pain and chest heaviness Pertinent past history: other Onset (ago): hour(s) Timing of current episode: constant Prior episodes: Yes Onset: during rest Pain location: substernal and right chest Pain radiation: none Exacerbating factors: exertion Associated symptoms: Reports dyspnea and leg edema; Deny abdominal pain, diaphoresis, fever(s), nausea, palpitations or vomiting Treatment prior to arrival: none and nitroglycerin Review of Systems Const: Denies: fever(s) or diaphoresis ENMT: Denies: throat pain Card: Reports: chest pain; Denies: palpitations Resp: Reports: dyspnea GI: Denies: abdominal pain, nausea or vomiting PFS ED PFSH: Medical History Anxiety BPH (benign prostatic hyperplasia) CHF (congestive heart failure) Chronic diarrhea CKD (chronic kidney disease) Gout History of hypertension Hyperlipidemia Hypotension Hypothyroidism Myelodysplastic syndrome Recurrent urinary tract infection 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 Type 2 diabetes mellitus Surgical History History of cataract surgery History of nasal surgery History of parotidectomy (09/22/21) right parotidectomy with facial nerve preservation, with cervicofacial advancement flap, and with the right modified radical neck dissection Status post surgical removal of malignant neoplasm of skin (09/22/21) resection of right ear squamous cell carcinoma in situ Family History Father CAD (coronary artery disease) Mother CAD (coronary artery disease) Son Diabetes Grandfather Cancer Prostate Hypertension Grandmother Hypertension Denies family history of Clotting disorder Dementia Hyperlipidemia Psychiatric illness Chronic kidney disease (CKD) Suicide Anesthesia complication Bleeding disorder Lung disease Stroke Social History Smoking and tobacco status: former smoker Alcohol intake: never Substance/Drug Use: never Physical Exam Const: GENERAL APPEARANCE: ill appearing and frail appearing HENMT: COMMON NORMALS: normocephalic and atraumatic HEAD & SCALP: normocephalic and atraumatic FACE & SINUS: normal facial exam and face symmetric Eye: COMMON NORMALS: Equal, round and reactive pupils present and EOMs intact bilaterally PUPIL: Yes Equal, round and reactive pupils present Neck/C-Spine: GENERAL: Yes trachea midline Chest: CHEST: Yes Symmetrical chest wall rise Resp: EFFORT & INSPECTION: Yes symmetric chest movement AUSCULTATION: rales and diminished lung sounds Cardio: COMMON NORMALS: regular rhythm RATE: tachycardic RHYTHM: regular rhythm GI: COMMON NORMALS: Normal to inspection, nondistended, normoactive bowel sounds present and Soft to palpation PALPATION: Yes Soft to palpation Extremity: GENERAL: Yes edema Neuro: BLAIR COMA SCALE: document GCS findings Galt coma scale eye opening: Spontaneous Galt coma scale verbal response: Confused Blair coma scale motor response: Obey commands Blair coma scale total score: 14 Psych: COMMON NORMALS: cooperative Course Vital Signs: Vital signs: Vital Signs Temperature 98.1 F 03/03/23 23:54 Pulse Rate 99 03/04/23 00:50 Respiratory Rate 22 H 03/04/23 00:50 Blood Pressure 141/93 03/04/23 00:30 Pulse Oximetry 97 03/04/23 00:50 Oxygen Delivery Me thod BiPAP 03/04/23 00:50 Fraction of Inspir ed Oxygen 50 03/04/23 00:42 MDM - Chest Pain Medical Decision Making 82-year-old gentleman presents with chest pain and respiratory distress. Pulse ox was 78 on 2-1/2 L. He was placed briefly on a nonrebreather, and then BiPAP. Initially, he was quite hypertensive with blood pressures in the 190s systolic, and heart rates in the 120s and 30s. He is given metoprolol, nitroglycerin paste, morphine. Heart rate is improved to 100. Blood pressure is 159/85. He is breathing much better, and his chest pain is gone. Creatinine is 1.5. Troponin is near his baseline at 41. His D-dimer is not significantly elevated for patient his age. His BNP is 4700. Chest x-ray shows pulmonary edema. He is given IV Lasix as well. He will be admitted. His hemoglobin is 9. Lab Data 03/04/23 00:10 03/04/23 00:10 Radiology Impressions Chest X-Ray 03/04/23 00:05 IMPRESSION: Cardiomegaly and pulmonary infiltrates. Laboratory Results WBC 6.5 10^3/uL (4.0-10.0) 03/04/23 00:10 RBC 3.38 10^6/uL (4.1-5.3) L 03/04/23 00:10 Hgb 9.1 g/dL (11.7-16.6) L 03/04/23 00:10 Hct 28.6 % (42.0-52.0) L 03/04/23 00:10 MCV 84.6 fl (80-94) 03/04/23 00:10 MCH 26.9 pg (28.0-34.0) L 03/04/23 00:10 MCHC 31.8 g/dL (30.0-36.0) 03/04/23 00:10 RDW 20.6 % (12.1-15.1) H 03/04/23 00:10 Plt Count 60 10^3/cmm (130-400) L 03/04/23 00:10 MPV TNP 03/04/23 00:10 Neut % (Auto) 43.9 % 03/04/23 00:10 Lymph % (Auto) 29.3 % 03/04/23 00:10 [place] % (Auto) 13.2 % 03/04/23 00:10 Eos % (Auto) 0.0 % 03/04/23 00:10 Baso % (Auto) 0.3 % 03/04/23 00:10 Neut # (Auto) 2.84 10^3/uL (1.8-7.7) 03/04/23 00:10 Lymph # (Auto) 1.9 10^3/uL (0.8-4.8) 03/04/23 00:10 [place] # (Auto) 0.9 10^3/uL (0.2-0.9) 03/04/23 00:10 Eos # (Auto) 0.0 10^3/uL (0.0-0.8) 03/04/23 00:10 Baso # (Auto) 0.0 10^3/uL (0.0-0.1) 03/04/23 00:10 Nucleated RBC % (auto) 0.3 % 03/04/23 00:10 Nucleated RBCs # 0.0 /100WBC 03/04/23 00:10 D-Dimer 0.62 ug/mIFEU (0-0.59) H 03/04/23 00:10 Sodium 136 mmol/L (136-145) 03/04/23 00:10 Potassium 4.0 mmol/L (3.5-5.1) 03/04/23 00:10 Chloride 95 mmol/L (98-107) L 03/04/23 00:10 Carbon Dioxide 27 mmol/L (22-29) 03/04/23 00:10 Anion Gap 18.0 (5-19) 03/04/23 00:10 BUN 16 mg/dL (8-23) 03/04/23 00:10 Creatinine 1.5 mg/dL (0.7-1.2) H 03/04/23 00:10 GFR Calculation Not Reportable 03/04/23 00:10 Glucose 167 mg/dL (65-115) H 03/04/23 00:10 Calculated Osmolality 287 mOsm/kg (285-295) 03/04/23 00:10 Calcium 8.7 mg/dL (8.5-10.5) 03/04/23 00:10 Total Bilirubin 0.9 mg/dL (0.15-1.2) 03/04/23 00:10 AST 18 U/L (0-40) 03/04/23 00:10 ALT 9 U/L (0-41) 03/04/23 00:10 Alkaline Phosphatase 109 U/L (40-130) 03/04/23 00:10 Creatine Kinase 40 U/L (39-308) 03/04/23 00:10 Troponin T Baseline 41 ng/L (0-15) H 03/04/23 00:10 NT-Pro-B Natriuret Pep 4753 pg/mL (0-450) H 03/04/23 00:10 Total Protein 7.9 g/dL (6.6-8.7) 03/04/23 00:10 Albumin 4.4 g/dL (3.5-5.2) 03/04/23 00:10 Globulin 3.5 g/dL (1.3-4.6) 03/04/23 00:10 Critical Care Time Critical Care Time: Critical Care Time: Yes Total Critical Care Time: 35 Attestation: This case had a high probability of a clinically significant, sudden, or life threatening deterioration of this patient's condition which required my full and direct attention, intervention and personal management. Time is independent of any procedures performed. Discharge Plan Discharge Patient Disposition: Admitted As Inpatient Clinical Impression: Pulmonary edema, Acute respiratory failure with hypoxia Condition: Fair Prescriptions: No Action (DME) Diabetic shoes Qty: 1 0RF Rx Instructions: As directed gabapentin 300 mg capsule 300 mg PO BID Qty: 180 3RF ProAir HFA 90 mcg/actuation HFA aerosol inhaler 2 puff INHALATION QID PRN (Reason: Shortness Of Breath) Qty: 8.5 6RF melatonin 10 mg capsule 10 mg PO DAILY nitroglycerin [Nitrostat] 0.4 mg tablet, sublingual 0.4 mg sublingual Q5M PRN (Reason: chest pain) Qty: 50 3RF Rx Instructions: do not exceed 3 doses per episode metoprolol tartrate 25 mg tablet 12.5 mg PO BID Qty: 90 3RF isosorbide mononitrate 30 mg tablet extended release 24 hr 30 mg PO BID Qty: 180 3RF ranolazine 500 mg tablet extended release 12 hr 500 mg PO BID 60 Days Qty: 120 5RF (DME) lancets [BD Ultra-Fine II Lancets] 30 gauge misc See Rx Instructions .Route Qty: 200 0RF Rx Instructions: As directed (DME) True Metrix Glucose Test Strip Strip See Rx Instructions .ROUTE .MEDSUPPLY Qty: 100 3RF Rx Instructions: TEST TWICE A DAY AND PRN finasteride 5 mg tablet 5 mg PO DAILY@1200 Qty: 90 3RF pantoprazole 40 mg tablet,delayed release (DR/EC) 40 mg PO DAILY 90 Days Qty: 90 3RF clonazepam 1 mg tablet 0.5 mg PO TID Qty: 45 2RF Flomax 0.4 mg capsule 0.4 mg PO DAILY@12 Qty: 90 3RF lisinopril 5 mg tablet 5 mg PO DAILY Qty: 90 0RF levothyroxine 50 mcg tablet 50 mcg PO DAILY@05 Qty: 90 0RF allopurinol 100 mg tablet 100 mg PO DAILY Qty: 30 11RF clopidogrel 75 mg tablet 75 mg PO DAILY Qty: 30 11RF furosemide 40 mg tablet 40 mg PO BID Qty: 60 11RF atorvastatin 40 mg tablet 40 mg PO DAILY@1200 Klor-Con M20 20 mEq tablet,ER particles/crystals 10 meq PO DAILY Qty: 0 0RF Hold Instructions: Doctor's Order Referrals: Amando Sanchez [employer] [Primary Care Provider] - Coding Level of Care Code ED Criminal Justice Department Chair for Danielle Nye
[2023-03-04] MEDS: FUROsemide 10 mg/mL SDV 10mL 80 MG IVP (01:21)
--- NOTE | 2023-03-04 01:57 | P.HP_ITS ---
Providers/Chief Complaint Admitting Physician: Wesley Temple MD Primary Care Provider: Amando Sanchez Chief Complaint: Chest Pain History of Present Illness Guido Crump is a 82 year old male with a past medical history significant for cardiomyopathy, aortic valve stenosis, hyperlipidemia, chronic kidney disease, myelodysplastic syndrome, type 2 diabetes mellitus, and chronic hypoxic respiratory failure who presents to the emergency department with chest tightnes s and shortness of breath. Patient reports chronic shortness of breath with symptoms worsening in the past several days with acute decompensation today requiring emergency department evaluation for respiratory distress. He endorses associated symptoms of productive cough with clear sputum production, lower extremity edema, wheezing, weight gain and fatigue. Denies fevers, chills, nausea or emesis. Denies any sick contacts. Reports exertion worsens symptoms. Reports rest improves symptoms. Denies other alleviating or aggravating factors. States he wears a couple liters of oxygen typically at baseline but denies prior need for home BiPAP or CPAP. In the ED, patient was found to have pulmonary edema with fluid overload in respiratory distress requiring BiPAP. Patient reports he follows with Dr. Hassan. Last echocardiogram in October 2022 showed some areas of hypokinesis, diastolic dysfunction and LVEF of 53 percent. Review of Systems Narrative: A complete review of systems was obtained and is negative except as stated in HPI. Medications/Allergies Home Medications Medication Instructions Recorded Confirmed Last Taken Type Diabetic shoes #1 ea 12/12/19 02/14/23 Unknown Rx atorvastatin 40 mg tablet 40 mg PO DAILY@1200 01/16/21 02/14/23 01/15/21 History potassium chloride 20 mEq 10 meq PO DAILY #0 tabs 01/14/22 02/14/23 Unknown Rx tablet,extended release(part/cryst) (Klor-Con M) finasteride 5 mg tablet 5 mg PO DAILY@1200 #90 tabs 04/10/22 02/14/23 Unknown Rx melatonin 10 mg capsule 10 mg PO DAILY 05/31/22 02/14/23 Unknown History metoprolol tartrate 25 mg tablet 12.5 mg PO BID #90 tabs 05/31/22 02/14/23 Unknown Rx nitroglycerin 0.4 mg sublingual 0.4 mg sublingual Q5M PRN chest 05/31/22 02/14/23 Unknown Rx tablet (Nitrostat) pain #50 tabs pantoprazole 40 mg tablet,delayed 40 mg PO DAILY 90 days #90 tabs 06/06/22 02/14/23 Unknown Rx release isosorbide mononitrate 30 mg 30 mg PO BID #180 tabs 07/07/22 02/14/23 Unknown Rx tablet,extended release 24 hr gabapentin 300 mg capsule 300 mg PO BID #180 caps 08/10/22 02/14/23 Unknown Rx blood sugar diagnostic (True #100 ea 11/16/22 02/14/23 Unknown Rx Metrix Glucose Test Strip) lancets 30 gauge (BD Ultra-Fine II #200 ea 11/16/22 02/14/23 Unknown Rx Lancets) clonazepam 1 mg tablet 0.5 mg PO TID Anxiety #45 tabs 12/05/22 02/14/23 Unknown Rx lisinopril 5 mg tablet 5 mg PO DAILY #90 tabs 01/10/23 02/14/23 Unknown Rx tamsulosin 0.4 mg capsule (Flomax) 0.4 mg PO DAILY@12 #90 caps 01/10/23 02/14/23 Unknown Rx ranolazine 500 mg tablet,extended 500 mg PO BID 60 days #120 tabs 01/24/23 02/14/23 Unknown Rx release,12 hr levothyroxine 50 mcg tablet 50 mcg PO DAILY@05 #90 tabs 01/31/23 02/14/23 Unknown Rx albuterol sulfate 90 mcg/actuation 2 puff inhalation QID PRN 02/01/23 02/14/23 Unknown Rx aerosol inhaler (ProAir HFA) Shortness Of Breath #8.5 grams allopurinol 100 mg tablet 100 mg PO DAILY #30 tabs 02/07/23 02/14/23 Unknown Rx clopidogrel 75 mg tablet 75 mg PO DAILY #30 tabs 02/07/23 02/14/23 Unknown Rx furosemide 40 mg tablet 40 mg PO BID #60 tabs 02/07/23 02/14/23 Unknown Rx Allergies Allergy/AdvReac Type Severity Reaction Status Date / Time No Known Allergies Allergy Verified 02/14/23 11:17 PFSH Acute PFSH: Medical History (Updated 03/04/23 @ 03:16 by Wesley Temple MD) Abnormal cardiovascular stress test Acute bronchitis Anxiety BPH (benign prostatic hyperplasia) CHF (congestive heart failure) Chronic diarrhea CKD (chronic kidney disease) Confusion Gout History of hypertension Hyperlipidemia Hypotension Hypothyroidism Myelodysplastic syndrome Recurrent urinary tract infection 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 Type 2 diabetes mellitus UTI (urinary tract infection) Surgical History History of cataract surgery History of nasal surgery History of parotidectomy (09/22/21) right parotidectomy with facial nerve preservation, with cervicofacial adv ancement flap, and with the right modified radical neck dissection Status post surgical removal of malignant neoplasm of skin (09/22/21) resection of right ear squamous cell carcinoma in situ Family History Father CAD (coronary artery disease) Mother CAD (coronary artery disease) Son Diabetes Grandfather Cancer Prostate Hypertension Grandmother Hypertension Denies family history of Clotting disorder Dementia Hyperlipidemia Psychiatric illness Chronic kidney disease (CKD) Suicide Anesthesia complication Bleeding disorder Lung disease Stroke Social History Smoking and tobacco status: former smoker Alcohol intake: never Substance/Drug Use: never Vitals/I&O/Wt Last Vital Signs Temp 98.1 F 03/03/23 23:54 Pulse 99 03/04/23 00:50 Resp 22 H 03/04/23 00:50 BP 141/93 03/04/23 00:30 Pulse Ox 97 03/04/23 00:50 O2 Del Method BiPAP 03/04/23 00:50 FiO2 50 03/04/23 00:42 Weight last 48 hrs Weight 108.862 kg Physical Exam Narrative: General: Patient is awake and alert. Wearing BiPAP. Head: Normocephalic. Atraumatic. EOM intact. Neck: Elevated JVD. Cardiovascular: Systolic ejection murmur. No gallops. No murmurs. 3+ pitting edema in bilateral lower extremities extending to abdomen. Lungs: Breath sounds diminished in bilateral bases with dependent crackles, faint wheezing and accessory muscle use with speaking. On BiPAP. Skin: No jaundice. No rashes. Abdomen: Normal bowel sounds, abdomen soft and nontender. Genito Urinary: Genital exam not performed since complaints not related. Rectal: Rectal exam not performed since no symptoms indicated blood loss. Extremities: No cyanosis or clubbing. Musculoskeletal: No erythematous joints. Neurological: Moves all 4 extremities. No myoclonus. Data 03/04/23 00:10 03/04/23 00:10 A&P Assessment and plan (1) CHF (congestive heart failure): Acute on chronic decompensated diastolic heart failure exacerbation with preserved ejection fraction Associated with ischemic cardiomyopathy and aortic valve stenosis Monitor fluid status daily Strict I&Os Daily weights Hold oral Lasix, rotate to IV Lasix Continue beta gabrielle and ACEI Consider cardiology consult, following w/ Dr Hassan (2) Chest pain: With associated myocardial injury No acute ischemic changes on EKG Telemetry monitoring Chest tightness likely related to CHF exacerbation Continue Imdur and Ranexa Continue Plavix (3) Hypertension: Continue lisinopril Continue metoprolol (4) Myelodysplastic syndrome: Monitor blood counts (5) Type 2 diabetes mellitus: ldSSI Qualifiers: Diabetes mellitus termite treater insulin use: without termite treater use Diabetes mellitus complication detail: with chronic kidney disease Chronic kidney disease stage: unspecified stage (6) Hypothyroidism: Continue Synthroid (7) Gout: Continue allopurinol Plan DVT ppx: Lovenox Code Status: Full Code Attestations Medical Necessity Statement*: Patient presents with respiratory distress with hospitalization expected to cross two midnights. Coding Level of Care Code Acute Code for [facility] Diagnoses CHF (congestive heart failure) I50.9 Chest pain R07.9 Hypertension I10 Myelodysplastic syndrome D46.9 Type 2 diabetes mellitus E11.9 Diabetes mellitus termite treater insulin use: without termite treater use Diabetes mellitus complication detail: with chronic kidney disease Chronic kidney disease stage: unspecified stage Hypothyroidism E03.9 Gout M10.9
--- NOTE | 2023-03-04 02:09 | ECG_ITS ---
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 Measurements Intervals [place] Rate: 92 P: 56 FL: 191 QRS: 10 QRSD: 108 T: 16 QT: 373 QTc: 463 Interpretive Statements SINUS RHYTHM NONSPECIFIC ST & T-WAVE ABNORMALITY Compared to ECG 01/10/2022 05:37:51 First degree AV block no longer present T-wave abnormality still present Electronically Signed On 03-06-2023 8:38:23 CDT by Kvng Guerin M.D. [id number]
[2023-03-04 02:12] LABS: Troponin 5 2HR 52.11 ng/L (0-15)
[2023-03-04 02:17] LABS: Troponin 5 2HR Delta 11.11 ABS# (0-10)
[2023-03-04] MEDS: enoxaparin 40 mg/0.4 mL Syringe SUBCUT (03:22)
[2023-03-04 04:46] LABS: C Reactive Protein 12.6 mg/L (0.0-4.9); Phosphorus 3.6 mg/dL (2.5-4.5)
[2023-03-04 04:52] LABS: Procalcitonin 0.15 ng/mL (0-0.5)
[2023-03-04] MEDS: levothyroxine 50 mcg Tablet PO (04:57)
--- NOTE | 2023-03-04 06:05 | ECG_ITS ---
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 Measurements Intervals [place] Rate: 96 P: 59 [place]: 181 QRS: 20 QRSD: 106 T: 17 QT: 345 QTc: 437 Interpretive Statements SINUS RHYTHM NONSPECIFIC ST & T-WAVE ABNORMALITY Compared to ECG 03/04/2023 02:09:35 No significant changes Electronically Signed On 03-06-2023 8:38:17 CDT by Kvng Guerin M.D. [id number]
[2023-03-04 06:30] LABS: Glucose Point of Care 144 mg/dL (70-110)
[2023-03-04] MEDS: FUROsemide 10 mg/mL SDV 4mL 40 MG IVP ×2 (07:19→17:40)
--- NOTE | 2023-03-04 08:03 | USCV_ITS ---
Guido Crump Age: 82 Gender: M : 1940 Exam Date: 03/04/2023 11:12 Ordering Phys: Mingo Flanagan MD Technologist: JAMES Exam Location: [facility] [place] Indication: sob BP: / HR: Rhythm: Sinus Technical Quality: MEASUREMENTS (Male / Female) Normal Values FINDINGS Left Ventricle Normal left ventricular size, systolic function and wall thickness, with no regional wall motion abnormalities.left ventricular ejection fraction is estimated at 55 %. . Normal diastolic filling pattern. Right Ventricle The right ventricle is normal in size and function. Right Atrium The right atrium is normal in size. Left Atrium The left atrium is normal in size. Mitral Valve Structurally normal mitral valve without significant stenosis or prolapse. Moderate mitral annular calcification. There is no mitral regurgitation. Aortic Valve Thickened aortic valve. Moderate aortic valve calcification. No aortic valve stenosis. . There is no aortic regurgitation. Tricuspid Valve Structurally normal tricuspid valve without significant stenosis or regurgitation. Pulmonary artery systolic pressure is normal. Pulmonic Valve Structurally normal pulmonic valve without significant stenosis. There is no pulmonic regurgitation. Pericardium Normal pericardium without effusion. Aorta Normal ascending aorta dimension. IVC The inferior vena cava appears normal. CONCLUSIONS 1-Normal left ventricular size, systolic function and wall thickness, with no regional wall motion abnormalities.left ventricular ejection fraction is estimated at 55 %. . Normal diastolic filling pattern. 2-There is no pericardial effusion. 3-No significant valve abnormalities. Right atrial pressure is around 5 mm of mercury. Nikki Henley MD (Electronically Signed) Final Date: 04 March 2023 14:15 S
--- NOTE | 2023-03-04 08:12 | PC.PHAR ---
DISCREPANCY ON STRENGTH OF [id number] FOR PHARMACY TO OPEN FOR VERIFICATION. ALL OTHER MEDS VERIFIED MIRTHA REBEKAH (DAUGHTER IN LAW)
[2023-03-04] MEDS: lisinopril 5 mg Tablet PO (08:30)
[2023-03-04] MEDS: potassium chloride ER 20 mEq Tablet 10 MEQ PO (08:30)
[2023-03-04] MEDS: clopidogrel 75 mg Tablet PO (08:30)
[2023-03-04] MEDS: ranolazine (12HR) 500 mg Tablet PO ×2 (08:30→17:41)
[2023-03-04] MEDS: gabapentin 300 mg Capsule PO ×2 (08:30→17:41)
[2023-03-04] MEDS: isosorbide mononitrate ER 30 mg Tablet PO ×2 (08:31→17:41)
[2023-03-04] MEDS: insulin lispro 100 unit/1 mL SUBCUT (08:31)
[2023-03-04] MEDS: sucralfate 1 gm Tablet PO ×2 (08:31→21:05)
[2023-03-04] MEDS: allopurinol 100 mg Tablet PO (08:31)
[2023-03-04] MEDS: metoprolol tartrate 25 mg Tablet 12.5 MG PO ×2 (08:31→17:40)
[2023-03-04] MEDS: CLONazepam 0.5 mg Tablet PO ×3 (08:31→21:05)
[2023-03-04] MEDS: pantoprazole DR 40 mg Tablet PO ×2 (08:31→21:05)
[2023-03-04] MEDS: enoxaparin 80 mg/0.8 mL Syringe 70 MG SUBCUT (08:32)
[2023-03-04 08:34] LABS: Iron 54 ug/dL (59-158); Percent Saturation 28.4 % (20-50); Total Iron Binding Capacity 190 mcg/dl; Unsaturated Iron Binding 136 ug/dL (112-347)
[2023-03-04 08:56] LABS: Ferritin 2077 ng/mL (30-400)
[2023-03-04] MEDS: tamsulosin 0.4 mg Capsule PO (11:50)
[2023-03-04] MEDS: finasteride 5 mg Tablet PO (11:50)
[2023-03-04] MEDS: atorvastatin 40 mg Tablet PO (11:50)
[2023-03-04 11:51] LABS: Glucose Point of Care 116 mg/dL (70-110)
--- NOTE | 2023-03-04 12:51 | PM.PN ---
Subjective Subjective: Patient was examined multiple times throughout the morning, and with son at bedside, he is on BiPAP currently, he tells me he feels significantly better, less short of breath, does have 3+ pitting edema bilateral extremities, does report increased shortness of breath, denies any chest pain -I had extensive discussion with patient and his son at bedside, patient has severe aortic stenosis, he now is here in the hospital for CHF exacerbation with fluid overload, he also has evidence of NSTEMI, given his myelodysplastic syndrome his anemia, thrombocytopenia this certainly makes things difficult for anticoagulant therapy, given his complaints of chest tightness and shortness of breath have elected to place him on anticoagulant therapy will monitor his hemoglobin closely and his platelet count closely, will monitor for bleeding, discussed risk and benefits, they voiced understanding, all questions are, agreed to proceed, we will have to diurese him carefully, given his severe aortic stenosis, but he does have significant shortness of breath requiring BiPAP and lower extremity edema Vitals/I&O/Wt Last Vital Signs Temp 98.5 F 03/04/23 11:34 Pulse 85 03/04/23 11:38 Resp 22 H 03/04/23 11:34 BP 134/63 03/04/23 11:34 Pulse Ox 97 03/04/23 11:38 O2 Del Method BiPAP 03/04/23 11:34 O2 Flow Rate 4 03/04/23 07:43 FiO2 35 03/04/23 11:38 03/03/23 03/04/23 03/04/23 22:59 06:59 14:59 Output Total 1320 / 1320 850 / 850 Balance -1320 / -1320 -850 / -850 Weight last 48 hrs Weight 110.268 kg Weight 108.862 kg Physical Exam Const: COMMON NORMALS: no acute distress and patient oriented x3 Resp: COMMON NORMALS: normal respiratory effort, No retractions and No use of accessory muscles AUSCULTATION: crackles Cardio: COMMON NORMALS: regular rate, regular rhythm, S1 normal heart sound present and S2 normal heart sound present RATE: regular rate RHYTHM: regular rhythm HEART SOUNDS: S1 normal heart sound present and S2 normal heart sound present GI: COMMON NORMALS: Normal to inspection, nondistended, normoactive bowel sounds present and non-tender Extremity: NARRATIVE EXTREMITY EXAM: 3+ pitting edema bilateral extremity Neuro: COMMON NORMALS: patient oriented x3 Psych: COMMON NORMALS: mental status grossly normal Data 03/04/23 00:10 03/04/23 00:10 A&P Assessment and plan (1) CHF (congestive heart failure): (2) Chest pain: (3) Hypertension: Continue lisinopril Continue metoprolol (4) Myelodysplastic syndrome: Monitor blood counts (5) Type 2 diabetes mellitus: ldSSI Qualifiers: Chronic kidney disease stage: unspecified stage Diabetes mellitus complication detail: with chronic kidney disease Diabetes mellitus tank terminal gauger insulin use: without half-way use (6) Hypothyroidism: Continue Synthroid (7) Gout: Continue allopurinol (8) NSTEMI (non-ST elevated myocardial infarction): (9) Abnormal cardiovascular stress test: (10) Aortic valve stenosis: (11) Pulmonary edema: (12) Acute respiratory failure with hypoxia: (13) Cardiomyopathy: (14) Goals of care, counseling/discussion: Plan Acute hypoxic respiratory failure -Secondary to CHF exacerbation -Secondary to pulm edema Plan -Continue BiPAP therapy -Continue Lasix therapy -Monitor respiratory status closely -Monitor potassium, creatinine -Patient declines Greene catheter placement NSTEMI -, Serial EKGs, surgical scar telemetry monitoring -Currently on Plavix, statin, Ranexa, beta-gabrielle -Stress test in 2021 -?1.? Myocardial perfusion imaging revealing moderate large areas of persistent ?decreases uptake in the inferior wall, inferoseptal, inferolateral and apical ?regions with a subtle areas of reversibility, suggesting myocardial scarring ?with very small area of sandra-infarction ischemia.? Scarring is mostly in the ?distribution of the right coronary artery with some involvement of all the ?other arteries as well.? Small area of reversibility in the? mid anterior ?region, suggestive of ischemia in the distribution of the left anterior ?descending artery. ?2.? Diminished LV ejection fraction of 34%. ?3.? Multiple wall motion normalities as mentioned above. ?4.? Moderately dilated LV cavity with an end-systolic volume of 101 mL. 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 -No reported bloody or black stools Goals of care discussion, patient tells me he is a full code however he does not want to be kept indefinitely on life-sustaining measures he does not want to have aggressive interventions if the likelihood of him having a meaningful recovery is unlikely DVT ppx: Therapeutic Lovenox Code Status: Full Code Attestations Medical Necessity Statement*: patient requires hospitaliation for chf, nstemi, acute resp failure, Diagnoses CHF (congestive heart failure) I50.9 Chest pain R07.9 Hypertension I10 Myelodysplastic syndrome D46.9 Type 2 diabetes mellitus E11.9 Chronic kidney disease stage: unspecified stage Diabetes mellitus complication detail: with chronic kidney disease Diabetes mellitus tank terminal gauger insulin use: without half-way use Hypothyroidism E03.9 Gout M10.9 NSTEMI (non-ST elevated myocardial infarction) I21.4 Abnormal cardiovascular stress test R94.39 Aortic valve stenosis I35.0 Pulmonary edema J81.1 Acute respiratory failure with hypoxia J96.01 Cardiomyopathy I42.9 Goals of care, counseling/discussion Z71.89
[2023-03-04] MEDS: acetaminophen 325 mg Tablet 650 MG PO ×2 (13:18→23:23)
[2023-03-04 14:27] LABS: Basophils % 0.2 %; Eosinophils % 0.2 %; Hematocrit 23.8 % (42.0-52.0); Hemoglobin 7.7 g/dL (11.7-16.6); Lymphocytes # 1.5 10^3/uL (0.8-4.8); Lymphocytes % 24.7 %; Mean Corpuscular HGB Conc 32.4 g/dL (30.0-36.0); Mean Corpuscular Hemoglobin 27.4 pg (28.0-34.0); Mean Corpuscular Volume 84.7 fl (80-94); Monocytes # 1.2 10^3/uL (0.2-0.9); Monocytes % 19.4 %; Neutrophils # 2.75 10^3/uL (1.8-7.7); Neutrophils % 46.4 %; Nucleated Red Blood Cells % 0.5 %; Platelet Count 44 10^3/cmm (130-400); Red Blood Count 2.81 10^6/uL (4.1-5.3); Red Cell Distribution Width 20.7 % (12.1-15.1); White Blood Count 5.9 10^3/uL (4.0-10.0)
[2023-03-04 16:33] LABS: Glucose Point of Care 119 mg/dL (70-110)
[2023-03-04 21:03] LABS: Glucose Point of Care 142 mg/dL (70-110)
[2023-03-04] MEDS: enoxaparin 100 mg/mL Syringe SUBCUT (21:06)
[2023-03-05] VITALS (18 sets, daily range): BP systolic 109–127; BP diastolic 56–70; PULSE 70–88; RESP 16–22; TEMP 36.2–36.9; O2SAT 93–100
[2023-03-05 03:34] LABS: Mean Corpuscular HGB Conc 31.9 g/dL (30.0-36.0); Mean Corpuscular Hemoglobin 26.7 pg (28.0-34.0); Platelet Count 47 10^3/cmm (130-400); Red Blood Count 2.43 10^6/uL (4.1-5.3); Red Cell Distribution Width 20.7 % (12.1-15.1); White Blood Count 4.7 10^3/uL (4.0-10.0)
[2023-03-05 04:05] LABS: Anion Gap 14.8 (5-19); Blood Urea Nitrogen 26 mg/dL (8-23); Calcium 8.1 mg/dL (8.5-10.5); Carbon Dioxide 30 mmol/L (22-29); Chloride 96 mmol/L (98-107); Glucose 114 mg/dL (65-115); Magnesium 1.8 mg/dL (1.7-2.3); Osmolality Calculated 290 mOsm/kg (285-295); Potassium 3.8 mmol/L (3.5-5.1); Sodium 137 mmol/L (136-145)
[2023-03-05 04:26] LABS: Hematocrit 20.4 % (42.0-52.0); Hemoglobin 6.5 g/dL (11.7-16.6)
[2023-03-05] MEDS: levothyroxine 50 mcg Tablet PO (05:31)
[2023-03-05] MEDS: FUROsemide 10 mg/mL SDV 4mL 40 MG IVP ×2 (05:32→15:03)
[2023-03-05 06:30] LABS: Glucose Point of Care 112 mg/dL (70-110)
[2023-03-05] MEDS: pantoprazole DR 40 mg Tablet PO ×2 (07:42→20:03)
[2023-03-05] MEDS: sucralfate 1 gm Tablet PO ×2 (07:42→20:03)
[2023-03-05] MEDS: isosorbide mononitrate ER 30 mg Tablet PO ×2 (08:06→17:39)
[2023-03-05] MEDS: allopurinol 100 mg Tablet PO (08:06)
[2023-03-05] MEDS: lisinopril 5 mg Tablet PO (08:06)
[2023-03-05] MEDS: metOLazone 5 MG Tablet PO (08:06)
[2023-03-05] MEDS: ranolazine (12HR) 500 mg Tablet PO ×2 (08:06→17:41)
[2023-03-05] MEDS: clopidogrel 75 mg Tablet PO (08:07)
[2023-03-05] MEDS: CLONazepam 0.5 mg Tablet PO ×3 (08:07→20:03)
[2023-03-05] MEDS: metoprolol tartrate 25 mg Tablet 12.5 MG PO ×2 (08:07→17:39)
[2023-03-05] MEDS: gabapentin 300 mg Capsule PO ×2 (08:08→17:40)
[2023-03-05] MEDS: potassium chloride ER 20 mEq Tablet 10 MEQ PO (08:08)
[2023-03-05] MEDS: guaiFENesin 600 mg Tablet PO ×2 (09:30→17:41)
[2023-03-05 12:02] LABS: Glucose Point of Care 173 mg/dL (70-110)
[2023-03-05] MEDS: atorvastatin 40 mg Tablet PO (12:19)
[2023-03-05] MEDS: finasteride 5 mg Tablet PO (12:20)
[2023-03-05] MEDS: tamsulosin 0.4 mg Capsule PO (12:20)
[2023-03-05] MEDS: insulin lispro 100 unit/1 mL SUBCUT ×2 (12:21→20:19)
--- NOTE | 2023-03-05 15:35 | P.PN_ITS ---
Subjective Subjective: Patient was seen this morning, he tells me he feels better, he continues to have bilateral lower extremity 2+ pitting edema, denies any fevers, no chills, no chest pain, no palpitations, we discussed his hemoglobin of 6.5, will give him a unit of blood, monitor his hemoglobin closely, will hold off on anticoagulating him due to his anemia, this is certainly difficult given his NSTEMI, but with his anemia we will have to hold anticoagulation, discussed risk and benefits he voiced understanding, all questions answered, Vitals/I&O/Wt Last Vital Signs Temp 97.8 F 03/05/23 11:31 Pulse 88 03/05/23 14:08 Resp 18 03/05/23 11:31 BP 120/62 03/05/23 11:31 Pulse Ox 98 03/05/23 11:31 O2 Del Method Nasal Cannula 03/05/23 11:31 O2 Flow Rate 3 03/05/23 07:52 FiO2 35 03/04/23 12:00 03/05/23 03/05/23 03/05/23 06:59 14:59 22:59 Intake Total 400 / 1020 720 / 720 Output Total 0 / 975 325 / 325 Balance 400 / 45 395 / 395 Weight last 48 hrs Weight 110.45 kg Weight 110.268 kg Weight 108.862 kg Physical Exam Const: COMMON NORMALS: no acute distress and patient oriented x3 Resp: COMMON NORMALS: normal respiratory effort, No retractions and No use of accessory muscles Cardio: COMMON NORMALS: regular rate, regular rhythm, S1 normal heart sound present and S2 normal heart sound present RATE: regular rate RHYTHM: regular rhythm HEART SOUNDS: S1 normal heart sound present and S2 normal heart sound present GI: COMMON NORMALS: Normal to inspection, nondistended, normoactive bowel sounds present and non-tender Extremity: NARRATIVE EXTREMITY EXAM: 2+ pitting edema bilateral extremity Neuro: COMMON NORMALS: patient oriented x3 Psych: COMMON NORMALS: mental status grossly normal Data 03/05/23 03:14 03/05/23 03:14 A&P Assessment and plan (1) CHF (congestive heart failure): (2) Chest pain: (3) Hypertension: Continue lisinopril Continue metoprolol (4) Myelodysplastic syndrome: Monitor blood counts (5) Type 2 diabetes mellitus: ldSSI Qualifiers: 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 mellitus 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 insulin use: without 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 use Diabetes mellitus complication detail: with chronic kidney disease Chronic kidney disease stage: unspecified stage (6) Hypothyroidism: Continue Synthroid (7) Gout: Continue allopurinol (8) NSTEMI (non-ST elevated myocardial infarction): (9) Abnormal cardiovascular stress test: (10) Aortic valve stenosis: (11) Pulmonary edema: (12) Acute respiratory failure with hypoxia: (13) Cardiomyopathy: (14) Goals of care, counseling/discussion: (15) Acute anemia: Plan Acute hypoxic respiratory failure -Secondary to CHF exacerbation -Secondary to pulm edema Plan -Continue BiPAP therapy -Continue Lasix therapy, diuresis lackluster, continue fluid restrictions at 1000 cc, creatinine is 2.2, will give 1 dose of metolazone in addition -Monitor respiratory status closely -Monitor potassium, creatinine -Patient declines Greene catheter placement NSTEMI -, Serial EKGs, surgical scar telemetry monitoring -Currently on Plavix, statin, Ranexa, beta-gabrielle -Stress test in 2021 -?1.? Myocardial perfusion imaging revealing moderate large areas of persistent ?decreases uptake in the inferior wall, inferoseptal, inferolateral and apical ?regions with a subtle areas of reversibility, suggesting myocardial scarring ?with very small area of sandra-infarction ischemia.? Scarring is mostly in the ?distribution of the right coronary artery with some involvement of all the ?other arteries as well.? Small area of reversibility in the? mid anterior ?region, suggestive of ischemia in the distribution of the left anterior ?descending artery. ?2.? Diminished LV ejection fraction of 34%. ?3.? Multiple wall motion normalities as mentioned above. ?4.? Moderately dilated LV cavity with an end-systolic volume of 101 mL. 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 -No reported bloody or black stools Goals of care discussion, patient tells me he is a full code however he does not want to be kept indefinitely on life-sustaining measures he does not want to have aggressive interventions if the likelihood of him having a meaningful recov adiran is unlikely DVT ppx: SCDs, anticoagulation on hold Code Status: Full Code Plan for today, transfuse 1 unit PRBC, Protonix, Carafate, add on metolazone, monitor urine output Attestations Medical Necessity Statement*: Plan for today, transfuse 1 unit PRBC, Protonix, Carafate, add on metolazone, monitor urine output Diagnoses CHF (congestive heart failure) I50.9 Chest pain R07.9 Hypertension I10 Myelodysplastic syndrome D46.9 Type 2 diabetes mellitus E11.9 Diabetes mellitus 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 insulin use: without care home use Diabetes mellitus complication detail: with chronic kidney disease Chronic kidney disease stage: unspecified stage Hypothyroidism E03.9 Gout M10.9 NSTEMI (non-ST elevated myocardial infarction) I21.4 Abnormal cardiovascular stress test R94.39 Aortic valve stenosis I35.0 Pulmonary edema J81.1 Acute respiratory failure with hypoxia J96.01 Cardiomyopathy I42.9 Goals of care, counseling/discussion Z71.89 Acute anemia D64.9
[2023-03-05 16:14] LABS: Glucose Point of Care 144 mg/dL (70-110)
[2023-03-05] MEDS: nystatin powder 15 gm Btl 1 APPLIC TOPICAL (17:41)
[2023-03-05 20:17] LABS: Glucose Point of Care 164 mg/dL (70-110)
[2023-03-06] VITALS (10 sets, daily range): BP systolic 102–144; BP diastolic 52–63; PULSE 75–85; RESP 14–20; TEMP 36.4–37.1; O2SAT 94–99
[2023-03-06] MEDS: FUROsemide 10 mg/mL SDV 4mL 40 MG IVP ×2 (05:16→17:29)
[2023-03-06] MEDS: levothyroxine 50 mcg Tablet PO (05:16)
[2023-03-06 06:29] LABS: Glucose Point of Care 119 mg/dL (70-110)
[2023-03-06] MEDS: ranolazine (12HR) 500 mg Tablet PO ×2 (08:23→17:29)
[2023-03-06] MEDS: potassium chloride ER 20 mEq Tablet 10 MEQ PO (08:23)
[2023-03-06] MEDS: CLONazepam 0.5 mg Tablet PO ×3 (08:24→20:25)
[2023-03-06] MEDS: isosorbide mononitrate ER 30 mg Tablet PO ×2 (08:24→17:29)
[2023-03-06] MEDS: gabapentin 300 mg Capsule PO ×2 (08:24→17:29)
[2023-03-06] MEDS: allopurinol 100 mg Tablet PO (08:24)
[2023-03-06] MEDS: lisinopril 5 mg Tablet PO (08:24)
[2023-03-06] MEDS: guaiFENesin 600 mg Tablet PO ×2 (08:24→17:28)
[2023-03-06] MEDS: sucralfate 1 gm Tablet PO ×2 (08:24→20:25)
[2023-03-06] MEDS: pantoprazole DR 40 mg Tablet PO ×2 (08:25→20:25)
[2023-03-06] MEDS: clopidogrel 75 mg Tablet PO (08:25)
[2023-03-06] MEDS: metoprolol tartrate 25 mg Tablet 12.5 MG PO ×2 (08:25→17:29)
[2023-03-06 09:43] LABS: Hematocrit 23.9 % (42.0-52.0); Lymphocytes # 0.9 10^3/uL (0.8-4.8); Lymphocytes % 25.6 %; Mean Corpuscular HGB Conc 33.5 g/dL (30.0-36.0); Mean Corpuscular Volume 83.6 fl (80-94); Monocytes # 0.6 10^3/uL (0.2-0.9); Monocytes % 16.2 %; Neutrophils # 1.64 10^3/uL (1.8-7.7); Neutrophils % 45.7 %; Nucleated Red Blood Cells % 0 %; Platelet Count 47 10^3/cmm (130-400); Red Blood Count 2.86 10^6/uL (4.1-5.3); Red Cell Distribution Width 19.5 % (12.1-15.1); White Blood Count 3.6 10^3/uL (4.0-10.0)
[2023-03-06 10:00] LABS: Anion Gap 13.5 (5-19); Blood Urea Nitrogen 30 mg/dL (8-23); Calcium 8.5 mg/dL (8.5-10.5); Carbon Dioxide 32 mmol/L (22-29); Chloride 94 mmol/L (98-107); Glucose 173 mg/dL (65-115); Osmolality Calculated 292 mOsm/kg (285-295); Potassium 3.5 mmol/L (3.5-5.1); Sodium 136 mmol/L (136-145)
[2023-03-06 12:21] LABS: Glucose Point of Care 212 mg/dL (70-110)
[2023-03-06] MEDS: finasteride 5 mg Tablet PO (12:25)
[2023-03-06] MEDS: atorvastatin 40 mg Tablet PO (12:25)
[2023-03-06] MEDS: insulin lispro 100 unit/1 mL SUBCUT ×2 (12:25→22:01)
[2023-03-06] MEDS: tamsulosin 0.4 mg Capsule PO (12:25)
[2023-03-06 16:33] LABS: Glucose Point of Care 95 mg/dL (70-110)
[2023-03-06] MEDS: nystatin powder 15 gm Btl 1 APPLIC TOPICAL (17:30)
--- NOTE | 2023-03-06 20:38 | PM.PN ---
Subjective Subjective: He reports overall he is improving. He has not been ambulating, has gotten up to the commode, did not get excessively out of breath. Denies chest pain. At home lives with his son and [id number]. Vitals/I&O/Wt Last Vital Signs Temp 98.8 F 03/06/23 15:45 Pulse 78 03/06/23 20:00 Resp 14 03/06/23 20:00 BP 128/57 03/06/23 15:45 Pulse Ox 96 03/06/23 20:00 O2 Del Method Nasal Cannula 03/06/23 20:00 O2 Flow Rate 3 03/06/23 20:00 FiO2 35 03/04/23 12:00 03/06/23 03/06/23 03/06/23 06:59 14:59 22:59 Intake Total 0 / 960 Output Total 520 / 2625 1725 / 1725 Balance -520 / -1665 -1725 / -1725 Weight last 48 hrs Weight 112.491 kg Weight 110.45 kg Physical Exam Narrative: Accompanied by his son. Const: COMMON NORMALS: patient oriented x3 and alert GENERAL APPEARANCE: cooperative ORIENTATION/CONSCIOUSNESS: Yes awake HENMT: COMMON NORMALS: oropharynx normal Neck/C-Spine: COMMON NORMALS: no JVD Resp: COMMON NORMALS: normal respiratory effort and clear to auscultation bilaterally AUSCULTATION: clear to auscultation bilaterally Cardio: COMMON NORMALS: no JVD, regular rhythm, S1 normal heart sound present, S2 normal heart sound present and No murmurs present (Cardio) RHYTHM: regular rhythm HEART SOUNDS: S1 normal heart sound present and S2 normal heart sound present GI: COMMON NORMALS: Normal to inspection, nondistended, normoactive bowel sounds present, Soft to palpation and non-tender PALPATION: Yes Soft to palpation Extremity: COMMON NORMALS: no joint enlargement GENERAL: Yes edema (3+ BLK LE below knees) Neuro: COMMON NORMALS: patient oriented x3 and moves all extremities SENSORIUM/ORIENTATION: Yes alert Skin: COMMON NORMALS: no rashes or lesions noted GENERAL SKIN EXAM: no rashes or lesions noted Data 03/06/23 09:28 03/06/23 09:28 Micro: Microbiology 03/05/23 14:56 Occult Blood (FIT) - Final Stool - Stool Aspirate A&P Assessment and plan (1) CHF (congestive heart failure): (2) Chest pain: (3) Hypertension: Continue lisinopril Continue metoprolol (4) Myelodysplastic syndrome: Monitor blood counts (5) Type 2 diabetes mellitus: ldSSI Qualifiers: Diabetes mellitus senior care insulin use: without cabana attendant use Diabetes mellitus complication detail: with chronic kidney disease Chronic kidney disease stage: unspecified stage (6) Hypothyroidism: Continue Synthroid (7) Gout: Continue allopurinol (8) NSTEMI (non-ST elevated myocardial infarction): (9) Abnormal cardiovascular stress test: (10) Aortic valve stenosis: (11) Pulmonary edema: (12) Acute respiratory failure with hypoxia: (13) Cardiomyopathy: (14) Goals of care, counseling/discussion: (15) Acute anemia: Plan Acute hypoxic respiratory failure Improving. He feels he is breathing better. He is on 3 L nasal cannula oxygen which is close to his baseline at 203 L. He has not been ambulatory. -Secondary to acute diastolic CHF exacerbation -Secondary to pulm edema Still persistent severe lower extremity edema. Limited mobility. Plan Continue Lasix IV twice daily. Monitor ROBIN. Reassess renal function. Potassium noted 3.5. BUN 30, creatinine 2. At risk of electrolyte abnormality, monitor on telemetry for risk of any arrhythmia. He is noted diuresing well, -2.7 L. Declines urinary catheter. NSTEMI -, Serial EKGs, surgical scar telemetry monitoring -Currently on Plavix, statin, Ranexa, beta-gabrielle -Stress test in 2021 -?1.? Myocardial perfusion imaging revealing moderate large areas of persistent ?decreases uptake in the inferior wall, inferoseptal, inferolateral and apical ?regions with a subtle areas of reversibility, suggesting myocardial scarring ?with very small area of sandra-infarction ischemia.? Scarring is mostly in the ?distribution of the right coronary artery with some involvement of all the ?other arteries as well.? Small area of reversibility in the? mid anterior ?region, suggestive of ischemia in the distribution of the left anterior ?descending artery. ?2.? Diminished LV ejection fraction of 34%. ?3.? Multiple wall motion normalities as mentioned above. ?4.? Moderately dilated LV cavity with an end-systolic volume of 101 mL. ?No similar previous studies are available for comparison -We will repeat cardiac echo -Therapeutic Lovenox currently discontinued due to anemia -Monitor CBC closely Acute on chronic anemia: Responded well to blood transfusion. Hemoglobin noted up to 8. Platelets about the same at 47. Continue Protonix. Reassess CBC. He is on Plavix, at risk of further worsening in her. chest pain: Resolved -plavix, beta gabrielle, lovenox Aortic valve stenosis, severe, repeat cardiac echocardiogram with noted normal EF, normal diastolic filling pattern. No pericardial effusion. 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 Attestations Medical Necessity Statement*: Continue admission for assessment and management of acute decompensation of diastolic CHF. Diagnoses CHF (congestive heart failure) I50.9 Chest pain R07.9 Hypertension I10 Myelodysplastic syndrome D46.9 Type 2 diabetes mellitus E11.9 Diabetes mellitus cabana attendant insulin use: without senior care use Diabetes mellitus complication detail: with chronic kidney disease Chronic kidney disease stage: unspecified stage Hypothyroidism E03.9 Gout M10.9 NSTEMI (non-ST elevated myocardial infarction) I21.4 Abnormal cardiovascular stress test R94.39 Aortic valve stenosis I35.0 Pulmonary edema J81.1 Acute respiratory failure with hypoxia J96.01 Cardiomyopathy I42.9 Goals of care, counseling/discussion Z71.89 Acute anemia D64.9
[2023-03-06 21:40] LABS: Glucose Point of Care 157 mg/dL (70-110)
[2023-03-07] VITALS (11 sets, daily range): BP systolic 100–166; BP diastolic 54–89; PULSE 84–122; RESP 17–28; TEMP 36.6–39.4; O2SAT 93–97
--- NOTE | 2023-03-07 00:36 | PC.NURSE ---
Patient c/o pain at IV site. Skin around IV access in right AC is red, swollen, warm. Firm to touch. Iv catheter removed, warm compress applied, Dr notified.
[2023-03-07 04:37] LABS: Basophils % 0.3 %; Hemoglobin 8.5 g/dL (11.7-16.6); Lymphocytes % 25.7 %; Mean Corpuscular HGB Conc 32.7 g/dL (30.0-36.0); Mean Corpuscular Hemoglobin 27.4 pg (28.0-34.0); Mean Corpuscular Volume 83.9 fl (80-94); Monocytes # 0.7 10^3/uL (0.2-0.9); Monocytes % 19.6 %; Neutrophils # 1.73 10^3/uL (1.8-7.7); Neutrophils % 46.4 %; Nucleated Red Blood Cells % 0.8 %; Platelet Count 52 10^3/cmm (130-400); Red Cell Distribution Width 19.9 % (12.1-15.1); White Blood Count 3.7 10^3/uL (4.0-10.0)
[2023-03-07 04:54] LABS: Anion Gap 15.7 (5-19); Blood Urea Nitrogen 28 mg/dL (8-23); Carbon Dioxide 33 mmol/L (22-29); Chloride 93 mmol/L (98-107); Glucose 123 mg/dL (65-115); Osmolality Calculated 293 mOsm/kg (285-295); Potassium 3.7 mmol/L (3.5-5.1); Sodium 138 mmol/L (136-145)
--- NOTE | 2023-03-07 05:02 | ECG_ITS ---
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 Measurements Intervals [place] Rate: 110 P: 103 CT: 195 QRS: 33 QRSD: 110 T: 8 QT: 342 QTc: 463 Interpretive Statements SINUS TACHYCARDIA MODERATE INTRAVENTRICULAR CONDUCTION DELAY [105+ ms QRS DURATION, 80+ ms Q/S IN V1/V2, NO Q AND 60+ ms R IN I/aVL/V5/V6] NONSPECIFIC ST & T-WAVE ABNORMALITY Compared to ECG 03/04/2023 06:13:00 Intraventricular conduction delay now present Sinus rhythm no longer present T-wave abnormality still present Electronically Signed On 03-07-2023 20:23:26 CDT by Jl Hassan M.D. [id number]
[2023-03-07] MEDS: levothyroxine 50 mcg Tablet PO (05:25)
[2023-03-07] MEDS: FUROsemide 10 mg/mL SDV 4mL 40 MG IVP ×2 (05:25→18:13)
[2023-03-07 06:54] LABS: Glucose Point of Care 171 mg/dL (70-110)
[2023-03-07] MEDS: acetaminophen 325 mg Tablet 650 MG PO ×3 (07:33→23:22)
[2023-03-07] MEDS: nitroglycerin 0.4 mg sublingual Tablet SUBLINGUAL (08:08)
[2023-03-07] MEDS: pantoprazole DR 40 mg Tablet PO ×2 (08:11→19:48)
[2023-03-07] MEDS: allopurinol 100 mg Tablet PO (08:11)
[2023-03-07] MEDS: sucralfate 1 gm Tablet PO ×2 (08:11→19:48)
[2023-03-07] MEDS: potassium chloride ER 20 mEq Tablet 10 MEQ PO (08:11)
[2023-03-07] MEDS: ranolazine (12HR) 500 mg Tablet PO ×2 (08:13→18:13)
[2023-03-07] MEDS: clopidogrel 75 mg Tablet PO (08:13)
[2023-03-07] MEDS: CLONazepam 0.5 mg Tablet PO ×3 (08:13→21:29)
[2023-03-07] MEDS: gabapentin 300 mg Capsule PO ×2 (08:14→18:14)
[2023-03-07] MEDS: guaiFENesin 600 mg Tablet PO ×2 (08:14→18:13)
[2023-03-07] MEDS: isosorbide mononitrate ER 30 mg Tablet PO ×2 (08:14→18:13)
[2023-03-07] MEDS: metoprolol tartrate 25 mg Tablet 12.5 MG PO ×2 (08:15→18:14)
[2023-03-07] MEDS: lisinopril 5 mg Tablet PO (08:15)
[2023-03-07] MEDS: insulin lispro 100 unit/1 mL SUBCUT ×4 (08:57→22:16)
--- NOTE | 2023-03-07 09:05 | USCV_ITS ---
Crump Guido Age: 82 Gender: M : 1940 Exam Date: 03/07/2023 09:31 Ordering Phys: Reynaldo Vásquez MD Technologist: ZBIGNIEW Exam Location: [facility] [place] Indication: BLE SWELLING HISTORY: Lower extremity swelling. PROCEDURES: Venous duplex imaging was performed in bilateral lower extremities. The following venous structures were evaluated: common femoral vein, profunda vein, proximal portion of the greater saphenous vein, superficial femoral vein, and the popliteal vein. In addition, the posterior tibial and peroneal trunk were evaluated. Serial compression, augmentation maneuvers, and spectral Doppler flow evaluation were performed. FINDINGS: No evidence of DVT seen in any vessel visualized at this time. Examination was technically limited due to body habitus. CONCLUSIONS No DVT bilateral lower extremities. Dr. Shruthi Carmona DO (Electronically Signed) Final Date: 07 March 2023 09:55 S
--- NOTE | 2023-03-07 09:08 | PC.SOCIAL ---
IMM update IMM updated with patient. Verbalized an understanding. Copy Pg 2 provided. Initialled, dated, timed, and placed in chart.
--- NOTE | 2023-03-07 09:53 | PC.CHAP ---
Pastoral Care Encounter/Spiritual Assessment Type of Contact [] Declined structural architect visit [] Patient/Family/Request visit [] Outpatient visit [] Follow-up visit [] Physician referral [] Code/Alert [x] Routine visit [] Staff referral [] Actively dying [] Patient sleeping [] Family support [] [] Out of room [] Palliative care [] [] Receiving care in room [] Pre-surgical visit [] Trauma [] Long length of stay [] ICU visit [] Other: Relational/Emotional Strength [x] Patient feels connected with others/family/visitors/staff [] Distress [] Loneliness/isolation [] Abandonment Spirituality of Patient [x] Person of Aliyah [] Attends Taoist of their Aliyah [x] Believes in Prayer [] Reads Bible or Religion materials [] There are Spiritual issues to be addressed Special Services Director Interventions [x] Prayer [] Active listening [] Non-anxious presence [x] Spiritual/emotional support [] Crisis/trauma care [] Spiritual counseling [] Bereavement support [] Provided bereavement packet [] Provided Bible/devotional materials [] Provided toy/stuffed animal, coloring book to patient or family member [] Provided Communion [] Anointing/[place] [] Salvation [x] Completed spiritual assessment [] Other: Impact on Illness or Injury [] Angry [] Fearful [] Anxious [] Often cries [] Exhaustion [] Unable to work [] Unable to attend methodist [] Unable to walk/stand [] Unable to read [] Unable to drive [] Unable to eat/drink [] Unable to sleep [] Unable to be with family [] Patient intubated [] Other: Summary Time spent with patient 5 min
--- NOTE | 2023-03-07 09:54 | PC.NURSE ---
0700 - upon morning assessment, patient is very anxious, frequently going form bed to chair trying to get comfortable. Patient is weak and has difficulty transferring. Mentation is altered, he keeps talking about cucumbers and is talking to his sons Jeffrey who are not present in the room. NUrse called Jarred states that his baseline is alert and oriented, only time he had confusion was with a previous UTI.. Patient complains of chest pain 7/10, unsure of urine output this morning as no urinal is at bedisde and sheets are wet. Nurse administered nitro for chest pain, bladder scan to assess for retention as a cause for agitation but showed a volume of 30mL. About 5 minute after the first nitro, patient reports pain relief and is now resting comfortably in bed. Nurse updated Dr colorado on condition.
--- NOTE | 2023-03-07 11:04 | XRR_ITS ---
PROCEDURE INFORMATION: Exam: XR Chest Exam date and time: 03/07/2023 11:10 AM Age: 82 years old Clinical indication: Cough; Prior surgery; Surgery date: 6+ months; Surgery type: Parotid TECHNIQUE: Imaging protocol: Radiologic exam of the chest. Views: 1 view. COMPARISON: CR (CHEST, ) 03/04/2023 12:10 AM FINDINGS: Lungs: Previously seen prominent interstitial opacities are improved with no focal consolidation. Pleural spaces: Unremarkable. No pleural effusion. No pneumothorax. Heart/Mediastinum: Stable cardiomegaly. Bones/joints: Unremarkable. XR/XR chest 1V portable [id number] IMPRESSION: Improvement in the appearance of the lungs.
[2023-03-07] MEDS: cefTRIAXone 1,000 MG in sodium chloride 0.9% (plus) 50 ML 100 MG IV (11:06)
[2023-03-07] MEDS: nystatin powder 15 gm Btl 1 APPLIC TOPICAL (11:11)
[2023-03-07 11:12] LABS: Urine Appearance Clear (CLEAR); Urine Color Dark Yellow (Yellow); pH Urine 5 (5-7)
[2023-03-07 11:13] LABS: Add Urine Microscopic? YES; Bacteria Urine TRACE /hpf; Bilirubin Urine Neg (Negative); Blood Urine Neg (Negative); Glucose Urine UA Norm (Normal); Ketones Urine 1+ (Negative); Leukocyte Esterase Urine Negative (Negative); Nitrate Urine Negative (Negative); Protein Urine Trace (Negative); RBC Urine RARE /hpf (0-2); Squamous Epithelial Cell Urine 0-4 /hpf (0-5); Urobilinogen Urine 1 mg/dL (Negative); WBC Urine RARE /hpf (0-5)
[2023-03-07 11:14] LABS: Hyaline Casts Urine 0-4 /lpf
[2023-03-07 11:33] LABS: Glucose Point of Care 151 mg/dL (70-110)
[2023-03-07] MEDS: atorvastatin 40 mg Tablet PO (12:47)
[2023-03-07] MEDS: finasteride 5 mg Tablet PO (12:47)
[2023-03-07] MEDS: tamsulosin 0.4 mg Capsule PO (12:47)
[2023-03-07 13:07] LABS: Adenovirus Not Detected (NOT DETECT); Chlamydia Pneumoniae Not Detected (NOT DETECT); Coronavirus 229E,HKU1,NL63,OC4 Not Detected (NOT DETECT); Human Metapneumovirus Not Detected (NOT DETECT); Human Rhinovirus/Enterovirus Not Detected (NOT DETECT); Influenza A Not Detected (NOT DETECT); Influenza A H1 Not Detected (NOT DETECT); Influenza A H1-2009 Not Detected (NOT DETECT); Influenza A H3 Not Detected (NOT DETECT); Influenza B Not Detected (NOT DETECT); Mycoplasma Pneumoniae Not Detected (NOT DETECT); Parainfluenza Virus Type 1 Not Detected (NOT DETECT); Parainfluenza Virus Type 2 Not Detected (NOT DETECT); Parainfluenza Virus Type 3 Not Detected (NOT DETECT); Parainfluenza Virus Type 4 Not Detected (NOT DETECT); Respiratory Syncytial Virus A Not Detected (NOT DETECT); Respiratory Syncytial Virus B Not Detected (NOT DETECT); SARS-COV-2 Not Detected (NOT DETECT)
--- NOTE | 2023-03-07 17:12 | PC.NURSE ---
Shift Summary : after morning events (see previous nurse note), it has been an uneventful shift. Patient has been up frequently to urinate but has produced very little urine over all, about 200mL of dark concentrated urine. Mental status is still altered according to his sons at bedside, but he is improved compared to this morning.
[2023-03-07 17:30] LABS: Glucose Point of Care 150 mg/dL (70-110)
--- NOTE | 2023-03-07 20:06 | P.PN_ITS ---
Subjective Subjective: Overnight episode of chest pain, resolved with nitroglycerin. This morning noted confused, not oriented, early in the morning brief report of seeing people who are not there. Later in the morning during my visit he is awake and alert, states that he is comfortable, joking around. Being visited by his son. Some mild alteration of mental status still present, but definitely doing better. Denies any change in his symptoms or condition, but has been coughing. Vitals/I&O/Wt Last Vital Signs Temp 100.5 F H 03/07/23 16:00 Pulse 101 H 03/07/23 16:00 Resp 19 H 03/07/23 16:00 BP 126/69 03/07/23 16:00 Pulse Ox 95 03/07/23 16:00 O2 Del Method Nasal Cannula 03/07/23 16:00 O2 Flow Rate 2 03/07/23 09:03 FiO2 35 03/07/23 15:54 03/07/23 03/07/23 03/07/23 06:59 14:59 22:59 Intake Total 100 / 100 530 / 630 Output Total 200 / 200 175 / 375 Balance -100 / -100 355 / 255 Weight last 48 hrs Weight 107.184 kg Weight 112.491 kg Physical Exam Narrative: Accompanied by his son. Const: COMMON NORMALS: alert GENERAL APPEARANCE: cooperative ORIENTATION/CONSCIOUSNESS: Yes awake OTHER: Some responses with some delay. At 1 point reaches out as if to touch something in the air. HENMT: COMMON NORMALS: oropharynx normal Neck/C-Spine: COMMON NORMALS: no JVD Resp: COMMON NORMALS: normal respiratory effort and clear to auscultation bilaterally AUSCULTATION: clear to auscultation bilaterally Cardio: COMMON NORMALS: no JVD, regular rhythm, S1 normal heart sound present, S2 normal heart sound present and No murmurs present (Cardio) RHYTHM: regular rhythm HEART SOUNDS: S1 normal heart sound present and S2 normal heart sound present GI: COMMON NORMALS: Normal to inspection, nondistended, normoactive bowel sounds present, Soft to palpation and non-tender PALPATION: Yes Soft to palpation Extremity: COMMON NORMALS: no joint enlargement GENERAL: Yes edema (1+ BLK LE below knees) Neuro: COMMON NORMALS: moves all extremities SENSORIUM/ORIENTATION: Yes alert Skin: COMMON NORMALS: no rashes or lesions noted GENERAL SKIN EXAM: no rashes or lesions noted Data 03/07/23 03:19 03/07/23 03:19 A&P Assessment and plan (1) CHF (congestive heart failure): (2) Chest pain: (3) Hypertension: Continue lisinopril Continue metoprolol (4) Myelodysplastic syndrome: Monitor blood counts (5) Type 2 diabetes mellitus: ldSSI Qualifiers: Diabetes mellitus rd project manager insulin use: without long-term use Diabetes mellitus complication detail: with chronic kidney disease Chronic kidney disease stage: unspecified stage (6) Hypothyroidism: Continue Synthroid (7) Gout: Continue allopurinol (8) NSTEMI (non-ST elevated myocardial infarction): (9) Abnormal cardiovascular stress test: (10) Aortic valve stenosis: (11) Pulmonary edema: (12) Acute respiratory failure with hypoxia: (13) Cardiomyopathy: (14) Goals of care, counseling/discussion: (15) Acute anemia: Plan Acute encephalopathy: Confusion this morning, briefly severe, subsequently with improvement, but mild persistent encephalopathy/AMS per discussion with his son. Unclear etiology. Possibly acute metabolic encephalopathy related to infection, UTI versus pneumonia. Possible toxic encephalopathy. With delirium. Reported hallucinations early's morning, seeing people were not there. Reports he has been coughing. Repeated chest x-ray, obtained respiratory viral panel. Both unremarkable. Bladder scan this morning, less than 30 mL. Requested UA. Concern for possible UTI, empirically started Rocephin due to history of recurrent UTI. UA overall appears unremarkable. Low-grade temp this evening 100.5. No leukocytosis, although WBC is on the low side 3.7. Neutrophil 1730. Reassess CBC. Possible toxic encephalopathy secondary to medication, hold gabapentin. Glucose 171. Acute hypoxic respiratory failure Overall with improvement. Down to 2 L nasal cannula. Incontinent, so I current ROBIN cannot be tracked. Some possible decrease in urine output later in the day. BUN 28, creatinine 2. Improving. He feels he is breathing better. He is on 3 L nasal cannula oxygen which is close to his baseline at 203 L. He has not been ambulatory. -Secondary to acute diastolic CHF exacerbation -Secondary to pulm edema Still persistent severe lower extremity edema. Limited mobility. Plan Continue Lasix IV twice daily. Monitor ROBIN. Reassess renal function. Potassium noted 3.5. BUN 30, creatinine 2. At risk of electrolyte abnormality, monitor on telemetry for risk of any arrhythmia. He is noted diuresing well, -2.7 L. Declines urinary catheter. NSTEMI Chest pain responsive to nitroglycerin. Monitor on telemetry. -, Serial EKGs, surgical scar telemetry monitoring -Currently on Plavix, statin, Ranexa, beta-gabrielle -Stress test in 2021 -?1.? Myocardial perfusion imaging revealing moderate large areas of persistent ?decreases uptake in the inferior wall, inferoseptal, inferolateral and apical ?regions with a subtle areas of reversibility, suggesting myocardial scarring ?with very small area of sandra-infarction ischemia.? Scarring is mostly in the ?distribution of the right coronary artery with some involvement of all the ?other arteries as well.? Small area of reversibility in the? mid anterior ?region, suggestive of ischemia in the distribution of the left anterior ?descending artery. ?2.? Diminished LV ejection fraction of 34%. ?3.? Multiple wall motion normalities as mentioned above. ?4.? Moderately dilated LV cavity with an end-systolic volume of 101 mL. ?No similar previous studies are available for comparison -We will repeat cardiac echo -Therapeutic Lovenox currently discontinued due to anemia -Monitor CBC closely Acute on chronic anemia: Responded well to blood transfusion. Hemoglobin noted up to 8. Platelets about the same at 47. Continue Protonix. Reassess CBC. He is on Plavix, at risk of further worsening in her. chest pain: Resolved -plavix, beta gabrielle, lovenox Aortic valve stenosis, severe, repeat cardiac echocardiogram with noted normal EF, normal diastolic filling pattern. No pericardial effusion. 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 Attestations Medical Necessity Statement*: Continue admission for assessment management of acute neurologic change with acute encephalopathy. Diagnoses CHF (congestive heart failure) I50.9 Chest pain R07.9 Hypertension I10 Myelodysplastic syndrome D46.9 Type 2 diabetes mellitus E11.9 Diabetes mellitus long-term insulin use: without rd project manager use Diabetes mellitus complication detail: with chronic kidney disease Chronic kidney disease stage: unspecified stage Hypothyroidism E03.9 Gout M10.9 NSTEMI (non-ST elevated myocardial infarction) I21.4 Abnormal cardiovascular stress test R94.39 Aortic valve stenosis I35.0 Pulmonary edema J81.1 Acute respiratory failure with hypoxia J96.01 Cardiomyopathy I42.9 Goals of care, counseling/discussion Z71.89 Acute anemia D64.9
[2023-03-07] MEDS: sennosides 8.6 mg Tablet 17.2 MG PO (21:29)
[2023-03-07 22:00] LABS: Glucose Point of Care 142 mg/dL (70-110)
--- NOTE | 2023-03-07 22:46 | PC.NURSE ---
Patient is becoming increasingly confused and agitated this evening. Son at bedside. Attempts to redirect have been unsuccessful, increase agitation. Patient unable to follow basic directions to use bedside commode, attempting to crawl out of bed. Patient repositioned safely in bed, with rails up x3, call light within reach, and bed alarm set. Dr notified, given order for Restoril, asked that patient remain in bed for the remainder of night. Patient and son educated on fall risks, use of call light, and need for urinary catheter for accurate record of output. Patient still refusing salomon catheter, urinal at bedside.
[2023-03-07] MEDS: temazepam 15 mg Capsule PO (23:13)
[2023-03-08] VITALS (10 sets, daily range): BP systolic 86–120; BP diastolic 53–76; PULSE 81–104; RESP 16–25; TEMP 36.7–38.8; O2SAT 91–98; BMI 36.8
[2023-03-08 03:35] LABS: Basophils % 0.3 %; Hematocrit 22.6 % (42.0-52.0); Hemoglobin 7.4 g/dL (11.7-16.6); Lymphocytes # 1.5 10^3/uL (0.8-4.8); Lymphocytes % 22.5 %; Mean Corpuscular HGB Conc 32.7 g/dL (30.0-36.0); Mean Corpuscular Hemoglobin 27.2 pg (28.0-34.0); Mean Corpuscular Volume 83.1 fl (80-94); Monocytes % 14.3 %; Neutrophils # 3.76 10^3/uL (1.8-7.7); Neutrophils % 56.2 %; Nucleated Red Blood Cells % 0.6 %; Platelet Count 55 10^3/cmm (130-400); Red Blood Count 2.72 10^6/uL (4.1-5.3); Red Cell Distribution Width 19.9 % (12.1-15.1); White Blood Count 6.7 10^3/uL (4.0-10.0)
[2023-03-08 03:58] LABS: Anion Gap 14.6 (5-19); Blood Urea Nitrogen 41 mg/dL (8-23); Calcium 8.6 mg/dL (8.5-10.5); Carbon Dioxide 32 mmol/L (22-29); Chloride 93 mmol/L (98-107); Glucose 157 mg/dL (65-115); Osmolality Calculated 295 mOsm/kg (285-295); Potassium 3.6 mmol/L (3.5-5.1); Sodium 136 mmol/L (136-145)
[2023-03-08 04:06] LABS: Slide Review Slide Review Perform
[2023-03-08] MEDS: FUROsemide 10 mg/mL SDV 4mL 40 MG IVP ×2 (05:15→18:15)
[2023-03-08] MEDS: levothyroxine 50 mcg Tablet PO (05:15)
[2023-03-08 07:00] LABS: Glucose Point of Care 154 mg/dL (70-110)
[2023-03-08] MEDS: insulin lispro 100 unit/1 mL SUBCUT (08:01)
[2023-03-08] MEDS: sucralfate 1 gm Tablet PO ×2 (08:01→20:21)
[2023-03-08] MEDS: pantoprazole DR 40 mg Tablet PO ×2 (08:01→20:21)
[2023-03-08] MEDS: cefTRIAXone 1,000 MG in sodium chloride 0.9% (plus) 50 ML 100 MG IV (08:47)
[2023-03-08] MEDS: clopidogrel 75 mg Tablet PO (08:57)
[2023-03-08] MEDS: metoprolol tartrate 25 mg Tablet 12.5 MG PO ×2 (08:57→18:16)
[2023-03-08] MEDS: potassium chloride ER 20 mEq Tablet 10 MEQ PO (08:58)
[2023-03-08] MEDS: ranolazine (12HR) 500 mg Tablet PO ×2 (08:58→18:16)
[2023-03-08] MEDS: isosorbide mononitrate ER 30 mg Tablet PO ×2 (08:58→18:16)
[2023-03-08] MEDS: lisinopril 5 mg Tablet PO (08:59)
[2023-03-08] MEDS: guaiFENesin 600 mg Tablet PO ×2 (09:00→18:15)
[2023-03-08] MEDS: allopurinol 100 mg Tablet PO (09:00)
[2023-03-08] MEDS: CLONazepam 0.5 mg Tablet PO (09:00)
[2023-03-08] MEDS: doxycycline 100 MG in sodium chloride 0.9% (plus) 100 ML IV ×2 (09:52→20:22)
[2023-03-08] MEDS: nystatin powder 15 gm Btl 1 APPLIC TOPICAL (11:55)
[2023-03-08] MEDS: lanolin oint 7 gm 1 APPLIC TOPICAL (11:56)
[2023-03-08] MEDS: tamsulosin 0.4 mg Capsule PO (11:56)
[2023-03-08] MEDS: atorvastatin 40 mg Tablet PO (11:56)
[2023-03-08] MEDS: finasteride 5 mg Tablet PO (11:56)
--- NOTE | 2023-03-08 15:20 | P.PN_ITS ---
Subjective Subjective: He states he is doing all right. When asked if bothered by anything jokingly replies everything . Denies any specific complaint, no pain or discomfort. No worsening his breathing, he is still coughing. His son gives history that he brought up copious sputum earlier in the morning. He otherwise denies any headache, vision changes, no nausea or vomiting, no abdominal pain, diarrhea, denies dysuria, denies any rashes, but has been having some tenderness in his groin/testes especially with repositioning. Vitals/I&O/Wt Last Vital Signs Temp 98.0 F 03/08/23 09:23 Pulse 91 03/08/23 13:04 Resp 17 03/08/23 09:23 BP 99/66 03/08/23 09:23 Pulse Ox 91 03/08/23 09:23 O2 Del Method Nasal Cannula 03/08/23 09:23 O2 Flow Rate 3 03/08/23 09:23 FiO2 35 03/07/23 15:54 03/08/23 03/08/23 03/08/23 06:59 14:59 22:59 Intake Total 150 / 150 Output Total 275 / 650 430 / 430 Balance -275 / -20 -280 / -280 Weight last 48 hrs Weight 106.651 kg Weight 107.184 kg Physical Exam Narrative: Accompanied by his son. Const: COMMON NORMALS: patient oriented x3 and alert GENERAL APPEARANCE: cooperative ORIENTATION/CONSCIOUSNESS: Yes awake OTHER: He is more alert today. Son states that he had quite a good morning, but he is getting slightly confused now. At 1 point reaches out as if to touch something in the air. HENMT: COMMON NORMALS: oropharynx normal Neck/C-Spine: COMMON NORMALS: no JVD Resp: COMMON NORMALS: normal respiratory effort and clear to auscultation bilaterally AUSCULTATION: clear to auscultation bilaterally Cardio: COMMON NORMALS: no JVD, regular rhythm, S1 normal heart sound present, S2 normal heart sound present and No murmurs present (Cardio) RHYTHM: regular rhythm HEART SOUNDS: S1 normal heart sound present and S2 normal heart sound present GI: COMMON NORMALS: Normal to inspection, nondistended, normoactive bowel sounds present, Soft to palpation and non-tender PALPATION: Yes Soft to palpation Extremity: COMMON NORMALS: no joint enlargement GENERAL: Yes edema (1+ BLK LE below knees) Neuro: COMMON NORMALS: patient oriented x3 and moves all extremities SENSORIUM/ORIENTATION: Yes alert Skin: COMMON NORMALS: no rashes or lesions noted GENERAL SKIN EXAM: no rashes or lesions noted Data 03/08/23 03:22 03/08/23 03:22 Micro: Microbiology 03/08/23 09:34 Blood Culture - Preliminary Blood SPECIMEN COLLECTED 03/08/23 09:19 Blood Culture - Preliminary Blood SPECIMEN COLLECTED A&P Assessment and plan (1) CHF (congestive heart failure): (2) Chest pain: (3) Hypertension: Continue lisinopril Continue metoprolol (4) Myelodysplastic syndrome: Monitor blood counts (5) Type 2 diabetes mellitus: ldSSI Qualifiers: Chronic kidney disease stage: unspecified stage Diabetes mellitus complication detail: with chronic kidney disease Diabetes mellitus termite treater helper insulin use: without [place] [facility] use (6) Hypothyroidism: Continue Synthroid (7) Gout: Continue allopurinol (8) NSTEMI (non-ST elevated myocardial infarction): (9) Abnormal cardiovascular stress test: (10) Aortic valve stenosis: (11) Pulmonary edema: (12) Acute respiratory failure with hypoxia: (13) Cardiomyopathy: (14) Goals of care, counseling/discussion: (15) Acute anemia: Plan Acute encephalopathy: Per history obtained from his son he was doing better this morning, more alert, lucid, however, getting slightly confused again by the afternoon. Discussed with him last night he was having fever up to 102.9. History noted leukopenia, 3.7, today noted better, WBC 6.7, neutrophils 3760. Today afebrile. Discussed with them not entirely clear source of suspected infection. Urine is clear, he does not have urinary symptoms. He is still coughing, however, chest x-ray with interstitial opacities, although these have been improving. Do suspect he may have a component of pneumonia contributing to his symptoms. Possibly cellulitis, possible superimposed candidiasis of the scrotum. Continue ceftriaxone, start doxycycline, nystatin powder. Incontinent, and moisture has been contributing. Refused urinary catheter. Continue treatment of suspected underlying infection. Continue to reorient, reassess mental status. Otherwise sodium noted normal, glucose at goal. Possible toxic encephalopathy secondary to medication, hold gabapentin. Glucose 154. Acute hypoxic respiratory failure Overall with improvement. Down to 2 L nasal cannula. Incontinent, so I current ROBIN cannot be tracked. Some possible decrease in urine output later in the day. BUN 41, creatinine 2.3. Improving. He feels he is breathing better. He is on 3 L nasal cannula oxygen which is close to his baseline at 2-3 L. He has not been ambulatory. -Secondary to acute diastolic CHF exacerbation -Secondary to pulm edema Still persistent severe lower extremity edema. Limited mobility. Plan Continue Lasix IV twice daily. Monitor ROBIN. Reassess renal function. Potassium noted 3.5. BUN 30, creatinine 2. At risk of electrolyte abnormality, monitor on telemetry for risk of any arrhythmia. He is noted diuresing well, -2.7 L. Declines urinary catheter. NSTEMI No further chest pain. Chest pain responsive to nitroglycerin. Monitor on telemetry. -, Serial EKGs, surgical scar telemetry monitoring -Currently on Plavix, statin, Ranexa, beta-gabrielle -Stress test in 2021 -?1.? Myocardial perfusion imaging revealing moderate large areas of persistent ?decreases uptake in the inferior wall, inferoseptal, inferolateral and apical ?regions with a subtle areas of reversibility, suggesting myocardial scarring ?with very small area of sandra-infarction ischemia.? Scarring is mostly in the ?distribution of the right coronary artery with some involvement of all the ?other arteries as well.? Small area of reversibility in the? mid anterior ?region, suggestive of ischemia in the distribution of the left anterior ?descending artery. ?2.? Diminished LV ejection fraction of 34%. ?3.? Multiple wall motion normalities as mentioned above. ?4.? Moderately dilated LV cavity with an end-systolic volume of 101 mL. ?No similar previous studies are available for comparison -We will repeat cardiac echo -Therapeutic Lovenox currently discontinued due to anemia -Monitor CBC closely Acute on chronic anemia: Hemoglobin down to 7.4. Platelets 55,000. Reassess CBC. Responded well to blood transfusion. Hemoglobin noted up to 8. Platelets about the same at 47. Continue Protonix. He is on Plavix, at risk of further worsening in her. chest pain: Resolved -plavix, beta gabrielle, lovenox Aortic valve stenosis, severe, repeat cardiac echocardiogram with noted normal EF, normal diastolic filling pattern. No pericardial effusion. 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 Discussed with case management, so far plans to return home. Attestations Medical Necessity Statement*: Continue admission for assessment management of acute encephalopathy, treatment of pneumonia, possible cellulitis, and a gentleman with suspected underlying CAD. and Moderate Time for a total of 45 minutes, includes reviewing past or interval history, examining/interviewing patient, placing orders, updating patient/family/other support, discussing plan of care with staff, communicating with other healthcare providers, documenting encounter and coordinating care Diagnoses CHF (congestive heart failure) I50.9 Chest pain R07.9 Hypertension I10 Myelodysplastic syndrome D46.9 Type 2 diabetes mellitus E11.9 Chronic kidney disease stage: unspecified stage Diabetes mellitus complication detail: with chronic kidney disease Diabetes mellitus termite treater helper insulin use: without [place] [facility] use Hypothyroidism E03.9 Gout M10.9 NSTEMI (non-ST elevated myocardial infarction) I21.4 Abnormal cardiovascular stress test R94.39 Aortic valve stenosis I35.0 Pulmonary edema J81.1 Acute respiratory failure with hypoxia J96.01 Cardiomyopathy I42.9 Goals of care, counseling/discussion Z71.89 Acute anemia D64.9
[2023-03-08 16:41] LABS: Glucose Point of Care 146 mg/dL (70-110)
[2023-03-08 16:41] LABS: Glucose Point of Care 149 mg/dL (70-110)
[2023-03-08] MEDS: acetaminophen 325 mg Tablet 650 MG PO (19:42)
[2023-03-08] MEDS: sennosides 8.6 mg Tablet 17.2 MG PO (20:21)
[2023-03-08 22:14] LABS: Glucose Point of Care 134 mg/dL (70-110)
[2023-03-09] VITALS (9 sets, daily range): BP systolic 104–112; BP diastolic 32–66; PULSE 70–96; RESP 16–22; TEMP 36.3–36.6; O2SAT 88–97; BMI 36.5
[2023-03-09 03:16] LABS: Basophils % 0.4 %; Hematocrit 21.4 % (42.0-52.0); Hemoglobin 7.1 g/dL (11.7-16.6); Lymphocytes # 1.3 10^3/uL (0.8-4.8); Lymphocytes % 23.5 %; Mean Corpuscular HGB Conc 33.2 g/dL (30.0-36.0); Mean Corpuscular Hemoglobin 27.6 pg (28.0-34.0); Mean Corpuscular Volume 83.3 fl (80-94); Monocytes % 17.7 %; Neutrophils # 2.76 10^3/uL (1.8-7.7); Neutrophils % 50.2 %; Nucleated Red Blood Cells % 0 %; Platelet Count 48 10^3/cmm (130-400); Red Blood Count 2.57 10^6/uL (4.1-5.3); Red Cell Distribution Width 20.1 % (12.1-15.1); White Blood Count 5.5 10^3/uL (4.0-10.0)
[2023-03-09 03:32] LABS: Slide Review Slide Review Perform
[2023-03-09 03:33] LABS: Anion Gap 14.5 (5-19); Blood Urea Nitrogen 49 mg/dL (8-23); Calcium 8.2 mg/dL (8.5-10.5); Carbon Dioxide 32 mmol/L (22-29); Chloride 92 mmol/L (98-107); Glucose 122 mg/dL (65-115); Osmolality Calculated 294 mOsm/kg (285-295); Potassium 3.5 mmol/L (3.5-5.1); Sodium 135 mmol/L (136-145)
[2023-03-09] MEDS: FUROsemide 10 mg/mL SDV 4mL 40 MG IVP (05:15)
[2023-03-09] MEDS: levothyroxine 50 mcg Tablet PO (05:15)
[2023-03-09 06:08] LABS: Glucose Point of Care 141 mg/dL (70-110)
[2023-03-09] MEDS: guaiFENesin 600 mg Tablet PO ×2 (08:41→17:28)
[2023-03-09] MEDS: isosorbide mononitrate ER 30 mg Tablet PO ×2 (08:41→17:28)
[2023-03-09] MEDS: ranolazine (12HR) 500 mg Tablet PO ×2 (08:41→17:28)
[2023-03-09] MEDS: clopidogrel 75 mg Tablet PO (08:42)
[2023-03-09] MEDS: allopurinol 100 mg Tablet PO (08:42)
[2023-03-09] MEDS: lisinopril 5 mg Tablet PO (08:42)
[2023-03-09] MEDS: sucralfate 1 gm Tablet PO ×2 (08:42→20:26)
[2023-03-09] MEDS: metoprolol tartrate 25 mg Tablet 12.5 MG PO ×2 (08:42→17:28)
[2023-03-09] MEDS: pantoprazole DR 40 mg Tablet PO ×2 (08:42→20:26)
[2023-03-09] MEDS: potassium chloride ER 20 mEq Tablet 10 MEQ PO (08:42)
[2023-03-09] MEDS: insulin lispro 100 unit/1 mL SUBCUT ×3 (08:43→21:39)
[2023-03-09] MEDS: doxycycline 100 MG in sodium chloride 0.9% (plus) 100 ML IV ×2 (08:43→20:26)
[2023-03-09] MEDS: nystatin powder 15 gm Btl 1 APPLIC TOPICAL (08:43)
--- NOTE | 2023-03-09 08:52 | US_ITS ---
WS: [id number] RENAL ULTRASOUND HISTORY: carlo on ckd COMPARISON: CT 01/04/2022 and 08/23/2021 TECHNIQUE: 2-D and color Doppler imaging of the kidney submitted. Right kidney: 11.4 cm x 4.4 cm x 6.7 cm. Cortex: 1.4 cm Normal size kidney. Exophytic renal cyst measures 1.3 x 1.5 x 1.8 cm from the lower pole was also not ed on a prior CT. No significant increase in size. Left kidney: 10.5 cm x 5.2 cm x 6.5 cm. Cortex: 1.3 cm Normal echogenicity with no hydronephrosis or mass. Aorta: Normal. Urinary Bladder: Normal distention. US/US renal BI* [id number] IMPRESSION: 1. No hydronephrosis or solid renal mass. 2. RIGHT renal cyst, stable. No change since 08/23/2021.
[2023-03-09 09:31] LABS: Creatine Phosphokinase 75 U/L (39-308)
[2023-03-09] MEDS: cefTRIAXone 1,000 MG in sodium chloride 0.9% (plus) 50 ML 100 MG IV (10:29)
[2023-03-09] MEDS: acetaminophen 325 mg Tablet 650 MG PO (10:31)
--- NOTE | 2023-03-09 11:06 | US_ITS ---
WS: [id number] ULTRASOUND SOFT TISSUES RIGHT antecubital fossa HISTORY: R antecubital/distal upper arm swelling COMPARISON: None available. TECHNIQUE: 2-D and color Doppler imaging is submitted. Ultrasound directed to the antecubital fossa demonstrates acute appearing thrombus in the superficial vein, probably basilic vein. This is probably the site of a recent IV insertion. There is complete o cclusion with thrombus. US/US soft tissue/extremity [id number] IMPRESSION: Acute basilic vein thrombosis. Corresponds to the palpable erythematous abnorma lity in the RIGHT antecubital region. Notified Reynaldo Vásquez MD at 03/09/2023 12:21 PM, by cytology laboratory manager.
[2023-03-09 11:30] LABS: Glucose Point of Care 212 mg/dL (70-110)
--- NOTE | 2023-03-09 11:31 | PC.SOCIAL ---
[facility] IMM updated: pg 2 of IMM dated and reviewed with pt. Copy provided. Copy dated, initialed and placed in chart [id number]
[2023-03-09] MEDS: tamsulosin 0.4 mg Capsule PO (11:50)
[2023-03-09] MEDS: finasteride 5 mg Tablet PO (11:50)
[2023-03-09] MEDS: atorvastatin 40 mg Tablet PO (11:50)
[2023-03-09 16:48] LABS: Glucose Point of Care 135 mg/dL (70-110)
--- NOTE | 2023-03-09 17:02 | PM.PN ---
Subjective Subjective: He states he is doing okay but is having a painful swelling in the right antecubital fossa. He is still coughing. Still bringing up phlegm. Otherwise has gotten up to the commode without too much difficulty. Son states mental status otherwise has been good. Vitals/I&O/Wt Last Vital Signs Temp 97.8 F 03/09/23 16:00 Pulse 75 03/09/23 16:00 Resp 18 03/09/23 16:00 BP 112/48 03/09/23 16:00 Pulse Ox 95 03/09/23 16:00 O2 Del Method Room Air 03/09/23 16:00 O2 Flow Rate 2 03/09/23 04:00 FiO2 35 03/07/23 15:54 03/09/23 03/09/23 03/09/23 06:59 14:59 22:59 Intake Total 870 / 870 Output Total 350 / 780 Balance -350 / -530 870 / 870 Weight last 48 hrs Weight 105.857 kg Weight 106.651 kg Physical Exam Narrative: Accompanied by his son. Const: COMMON NORMALS: patient oriented x3 and alert GENERAL APPEARANCE: cooperative ORIENTATION/CONSCIOUSNESS: Yes awake OTHER: This morning alert and lucid. HENMT: COMMON NORMALS: oropharynx normal Neck/C-Spine: COMMON NORMALS: no JVD Resp: COMMON NORMALS: normal respiratory effort and clear to auscultation bilaterally AUSCULTATION: clear to auscultation bilaterally Cardio: COMMON NORMALS: no JVD, regular rhythm, S1 normal heart sound present, S2 normal heart sound present and No murmurs present (Cardio) RHYTHM: regular rhythm HEART SOUNDS: S1 normal heart sound present and S2 normal heart sound present GI: COMMON NORMALS: Normal to inspection, nondistended, normoactive bowel sounds present, Soft to palpation and non-tender PALPATION: Yes Soft to palpation Extremity: COMMON NORMALS: no joint enlargement and no pedal edema NARRATIVE EXTREMITY EXAM: Swelling, mild erythema right antecubital fossa. Neuro: COMMON NORMALS: patient oriented x3 and moves all extremities SENSORIUM/ORIENTATION: Yes alert Skin: COMMON NORMALS: no rashes or lesions noted GENERAL SKIN EXAM: no rashes or lesions noted Data 03/09/23 02:59 03/09/23 02:59 Micro: Microbiology 03/08/23 09:34 Blood Culture - Preliminary Blood NEGATIVE TO DATE 03/08/23 09:19 Blood Culture - Preliminary Blood NEGATIVE TO DATE 03/08/23 14:51 Legionella Urinary Antigen - Final Urine,Voided Bacterial Antigens - Final A&P Assessment and plan (1) CHF (congestive heart failure): (2) Chest pain: (3) Hypertension: Continue lisinopril Continue metoprolol (4) Myelodysplastic syndrome: Monitor blood counts (5) Type 2 diabetes mellitus: ldSSI Qualifiers: Diabetes mellitus buttermaker continuous churn insulin use: without buttermaker continuous churn use Diabetes mellitus complication detail: with chronic kidney disease Chronic kidney disease stage: unspecified stage (6) Hypothyroidism: Continue Synthroid (7) Gout: Continue allopurinol (8) NSTEMI (non-ST elevated myocardial infarction): (9) Abnormal cardiovascular stress test: (10) Aortic valve stenosis: (11) Pulmonary edema: (12) Acute respiratory failure with hypoxia: (13) Cardiomyopathy: (14) Goals of care, counseling/discussion: (15) Acute anemia: Plan Acute encephalopathy: Today he is doing better. Son states has remained lucid. So far has not had any recurrence of fever. Still coughing, productive cough. Continue Rocephin, doxycycline. Denies any additional discomfort in his scrotum. Does have some tender swelling in the right antecubital fossa. Discussed with him and his son will assess with ultrasound soft tissue. Continue treatment of pneumonia. Collect sputum culture. Sodium 135. Renal function with some worsening today 49, creatinine up to 2.7. Glucose 135. Kidney ultrasound noted, without hydronephrosis or obstruction. In case doing well tomorrow consideration of possibly return home. Possible cellulitis scrotum improving. Possible toxic encephalopathy secondary to medication, hold gabapentin. RADHA on CKD: Creatinine up to 2.7, BUN 49. Kidney ultrasound ordered, appreciated no obstruction. Hold additional diuretic. We will give a dose of albumin. Reassess renal function. Acute hypoxic respiratory failure: Improving, weaning down to room air. Continue treatment of pneumonia. Improved/resolving lower extremity edema. Hold additional Lasix. -Secondary to acute diastolic CHF exacerbation -Secondary to pulm edema NSTEMI No further chest pain. Chest pain responsive to nitroglycerin. Monitor on telemetry. -, Serial EKGs, surgical scar telemetry monitoring -Currently on Plavix, statin, Ranexa, beta-gabrielle -Stress test in 2021 -?1.? Myocardial perfusion imaging revealing moderate large areas of persistent ?decreases uptake in the inferior wall, inferoseptal, inferolateral and apical ?regions with a subtle areas of reversibility, suggesting myocardial scarring ?with very small area of sandra-infarction ischemia.? Scarring is mostly in the ?distribution of the right coronary artery with some involvement of all the ?other arteries as well.? Small area of reversibility in the? mid anterior ?region, suggestive of ischemia in the distribution of the left anterior ?descending artery. ?2.? Diminished LV ejection fraction of 34%. ?3.? Multiple wall motion normalities as mentioned above. ?4.? Moderately dilated LV cavity with an end-systolic volume of 101 mL. ?No similar previous studies are available for comparison -We will repeat cardiac echo -Therapeutic Lovenox currently discontinued due to anemia -Monitor CBC closely Acute on chronic anemia: Hemoglobin down to 7.4. Platelets 55,000. Reassess CBC. Responded well to blood transfusion. Hemoglobin noted up to 8. Platelets about the same at 47. Continue Protonix. He is on Plavix, at risk of further worsening in her. chest pain: Resolved -plavix, beta gabrielle, lovenox Aortic valve stenosis, severe, repeat cardiac echocardiogram with noted normal EF, normal diastolic filling pattern. No pericardial effusion. 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 Discussed with case management. If doing well, possible discharge tomorrow. Discussed with him and his son. Attestations Medical Necessity Statement*: Continue admission for assessment management of acute encephalopathy, treatment of pneumonia, possible cellulitis, and a gentleman with suspected underlying CAD. and High Time for a total of 55 minutes, includes reviewing past or interval history, examining/interviewing patient, placing orders, updating patient/family/other support, discussing plan of care with staff, communicating with other healthcare providers, documenting encounter and coordinating care Diagnoses CHF (congestive heart failure) I50.9 Chest pain R07.9 Hypertension I10 Myelodysplastic syndrome D46.9 Type 2 diabetes mellitus E11.9 Diabetes mellitus prison insulin use: without prison use Diabetes mellitus complication detail: with chronic kidney disease Chronic kidney disease stage: unspecified stage Hypothyroidism E03.9 Gout M10.9 NSTEMI (non-ST elevated myocardial infarction) I21.4 Abnormal cardiovascular stress test R94.39 Aortic valve stenosis I35.0 Pulmonary edema J81.1 Acute respiratory failure with hypoxia J96.01 Cardiomyopathy I42.9 Goals of care, counseling/discussion Z71.89 Acute anemia D64.9
[2023-03-09] MEDS: albumin 25 G/100 ML BAG 60 G IV (17:28)
[2023-03-09] MEDS: sennosides 8.6 mg Tablet 17.2 MG PO (20:26)
[2023-03-09 21:20] LABS: Glucose Point of Care 184 mg/dL (70-110)
[2023-03-10] VITALS (14 sets, daily range): BP systolic 100–134; BP diastolic 51–82; PULSE 76–97; RESP 17–25; TEMP 36.6–36.9; O2SAT 90–99
[2023-03-10 03:25] LABS: Basophils % 0.3 %; Hematocrit 21.2 % (42.0-52.0); Hemoglobin 6.9 g/dL (11.7-16.6); Mean Corpuscular HGB Conc 32.5 g/dL (30.0-36.0); Mean Corpuscular Hemoglobin 27.3 pg (28.0-34.0); Mean Corpuscular Volume 83.8 fl (80-94); Monocytes # 0.7 10^3/uL (0.2-0.9); Monocytes % 21.3 %; Neutrophils # 1.44 10^3/uL (1.8-7.7); Nucleated Red Blood Cells % 0 %; Platelet Count 46 10^3/cmm (130-400); Red Blood Count 2.53 10^6/uL (4.1-5.3); Red Cell Distribution Width 20.2 % (12.1-15.1); White Blood Count 3.5 10^3/uL (4.0-10.0)
[2023-03-10 03:43] LABS: Anion Gap 15.8 (5-19); Blood Urea Nitrogen 59 mg/dL (8-23); Calcium 8.4 mg/dL (8.5-10.5); Carbon Dioxide 30 mmol/L (22-29); Chloride 92 mmol/L (98-107); Glucose 111 mg/dL (65-115); Osmolality Calculated 295 mOsm/kg (285-295); Potassium 3.8 mmol/L (3.5-5.1); Sodium 134 mmol/L (136-145)
[2023-03-10 03:56] LABS: Neutrophils % 50.4 %; Slide Review Slide Review Perform
[2023-03-10] MEDS: levothyroxine 50 mcg Tablet PO (05:44)
[2023-03-10 06:28] LABS: Glucose Point of Care 125 mg/dL (70-110)
[2023-03-10] MEDS: potassium chloride ER 20 mEq Tablet 10 MEQ PO (08:23)
[2023-03-10] MEDS: isosorbide mononitrate ER 30 mg Tablet PO ×2 (08:23→17:54)
[2023-03-10] MEDS: clopidogrel 75 mg Tablet PO (08:23)
[2023-03-10] MEDS: ranolazine (12HR) 500 mg Tablet PO ×2 (08:23→17:54)
[2023-03-10] MEDS: pantoprazole DR 40 mg Tablet PO ×2 (08:23→19:42)
[2023-03-10] MEDS: guaiFENesin 600 mg Tablet PO ×2 (08:23→17:54)
[2023-03-10] MEDS: allopurinol 100 mg Tablet PO (08:23)
[2023-03-10] MEDS: cefTRIAXone 1,000 MG in sodium chloride 0.9% (plus) 50 ML 100 MG IV (08:24)
[2023-03-10] MEDS: ondansetron 2 mg/ML SDV 2 mL 4 MG IVP (08:24)
[2023-03-10] MEDS: metoprolol tartrate 25 mg Tablet 12.5 MG PO ×2 (08:24→17:54)
[2023-03-10] MEDS: sucralfate 1 gm Tablet PO ×2 (08:24→19:42)
[2023-03-10] MEDS: lisinopril 5 mg Tablet PO (08:24)
[2023-03-10] MEDS: doxycycline 100 MG in sodium chloride 0.9% (plus) 100 ML IV ×2 (08:25→20:18)
[2023-03-10 12:10] LABS: Glucose Point of Care 152 mg/dL (70-110)
[2023-03-10] MEDS: finasteride 5 mg Tablet PO (12:39)
[2023-03-10] MEDS: tamsulosin 0.4 mg Capsule PO (12:39)
[2023-03-10] MEDS: atorvastatin 40 mg Tablet PO (12:39)
[2023-03-10] MEDS: sodium chloride 0.9% (100 ml) 100 ML 999 ML (14:23)
--- NOTE | 2023-03-10 14:53 | PM.CONSULT ---
Providers/Reason For Consult Consulting Physician/Specialty*: kommana/Nephrology Reason for Consult*: RADHA Attending Physician: Reynaldo Vásquez Primary Care Provider: Amando Sanchez History of Present Illness History of Present Illness Guido Crump is a 82 year old male Patient is a 82-year-old male with past medical history of cardiomyopathy aortic stenosis, chronic kidney disease, myelodysplastic syndrome, diabetes dyslipidemia, presented to the emergency department complaining of chest tightness and shortness of breath. Patient also reported orthopnea and worsening lower extremity edema. In the emergency department he was found to have pulmonary vascular congestion requiring BiPAP. Vital signs are stable on presentation and creatinine was 1.5. Creatinine has worsened to 3.0 currently. Patient also has altered mental status on presentation which has improved now. He is getting antibiotics for possible pneumonia. Patient was diuresed aggressively due to volume overload. Currently diuretics are on hold. . Review of Systems Narrative: other ROS negative Medications/Allergies Home Medications Medication Instructions Recorded Confirmed Last Taken Type Diabetic shoes #1 ea 12/12/19 03/04/23 Unknown Rx atorvastatin 40 mg tablet 40 mg PO DAILY@1200 01/16/21 03/04/23 01/15/21 History finasteride 5 mg tablet 5 mg PO DAILY@1200 #90 tabs 04/10/22 03/04/23 Unknown Rx metoprolol tartrate 25 mg tablet 12.5 mg PO BID #90 tabs 05/31/22 03/04/23 Unknown Rx nitroglycerin 0.4 mg sublingual 0.4 mg sublingual Q5M PRN chest 05/31/22 03/04/23 Unknown Rx tablet (Nitrostat) pain #50 tabs pantoprazole 40 mg tablet,delayed 40 mg PO DAILY 90 days #90 tabs 06/06/22 03/04/23 Unknown Rx release isosorbide mononitrate 30 mg 30 mg PO BID #180 tabs 07/07/22 03/04/23 Unknown Rx tablet,extended release 24 hr gabapentin 300 mg capsule 300 mg PO BID #180 caps 08/10/22 03/04/23 Unknown Rx blood sugar diagnostic (True #100 ea 11/16/22 03/04/23 Unknown Rx Metrix Glucose Test Strip) lancets 30 gauge (BD Ultra-Fine II #200 ea 11/16/22 03/04/23 Unknown Rx Lancets) clonazepam 1 mg tablet 0.5 mg PO TID Anxiety #45 tabs 12/05/22 03/04/23 Unknown Rx lisinopril 5 mg tablet 5 mg PO DAILY #90 tabs 01/10/23 03/04/23 Unknown Rx tamsulosin 0.4 mg capsule (Flomax) 0.4 mg PO DAILY@12 #90 caps 01/10/23 03/04/23 Unknown Rx ranolazine 500 mg tablet,extended 500 mg PO BID 60 days #120 tabs 01/24/23 03/04/23 Unknown Rx release,12 hr levothyroxine 50 mcg tablet 50 mcg PO DAILY@05 #90 tabs 01/31/23 03/04/23 Unknown Rx albuterol sulfate 90 mcg/actuation 2 puff inhalation QID PRN 02/01/23 03/04/23 Unknown Rx aerosol inhaler (ProAir HFA) Shortness Of Breath #8.5 grams allopurinol 100 mg tablet 100 mg PO DAILY #30 tabs 02/07/23 03/04/23 Unknown Rx clopidogrel 75 mg tablet 75 mg PO DAILY #30 tabs 02/07/23 03/04/23 Unknown Rx furosemide 40 mg tablet 40 mg PO BID #60 tabs 02/07/23 03/04/23 Unknown Rx potassium chloride 10 mEq 10 meq PO DAILY 03/04/23 03/04/23 03/03/23 History tablet,extended release Allergies Allergy/AdvReac Type Severity Reaction Status Date / Time No Known Allergies Allergy Verified 02/14/23 11:17 Current Medications Generic Name Dose Route Start Last Admin Trade Name Giuliano PRN Reason Stop Dose Admin Acetaminophen 650 mg 03/04/23 02:17 03/09/23 10:31 Acetaminophen 325 Mg Tablet PO 650 mg Q6H PRN Administration Mild/Mod Pain Or Temp >/= 101 Allopurinol 100 mg 03/04/23 09:00 03/10/23 08:23 Allopurinol 100 Mg Tablet PO 100 mg DAILY VANDANA Administration Atorvastatin Calcium 40 mg 03/04/23 12:00 03/10/23 12:39 Atorvastatin 40 Mg Tablet PO 40 mg DAILY@1200 VANDANA Administration Clopidogrel Bisulfate 75 mg 03/04/23 09:00 03/10/23 08:23 Clopidogrel 75 Mg Tablet PO 75 mg DAILY VANDANA Administration Finasteride 5 mg 03/04/23 12:00 03/10/23 12:39 Finasteride 5 Mg Tablet PO 5 mg DAILY@1200 [facility] Administration Gabapentin 300 mg 03/04/23 09:00 03/07/23 18:14 Gabapentin 300 Mg Capsule PO 300 mg BID [facility] Administration Guaifenesin 600 mg 03/05/23 09:16 03/10/23 08:23 Guaifenesin 600 Mg Tablet PO 600 mg BID [facility] Administration Ceftriaxone Sodium 1,000 mg/ 50 mls @ 100 mls/hr 03/07/23 09:30 03/10/23 09:03 Sodium Chloride IV Infused Q24H [facility] Infusion Protocol Doxycycline Hyclate 100 mg/ 100 mls @ 100 mls/hr 03/08/23 09:00 03/10/23 09:44 Sodium Chloride IV Infused Q12H [facility] Infusion Protocol Insulin Human Lispro 0 unit 03/04/23 08:00 03/10/23 12:26 Insulin Lispro 100 Unit/1 Ml SUBCUT Not Given WM&BEDTIME [facility] Protocol Isosorbide Mononitrate 30 mg 03/04/23 09:00 03/10/23 08:23 Isosorbide Mononitrate Er 30 Mg Tablet PO 30 mg BID [facility] Administration Lanolin 1 applic 03/08/23 11:32 03/08/23 11:56 Lanolin Oint 7 Gm TOPICAL 1 applic PRN PRN Administration DRYNESS Levothyroxine Sodium 50 mcg 03/04/23 05:00 03/10/23 05:44 Levothyroxine 50 Mcg Tablet PO 50 mcg DAILY@05 [facility] Administration Lisinopril 5 mg 03/04/23 09:00 03/10/23 08:24 Lisinopril 5 Mg Tablet PO 5 mg DAILY [facility] Administration Metoprolol Tartrate 12.5 mg 03/04/23 09:00 03/10/23 08:24 Metoprolol Tartrate 25 Mg Tablet PO 12.5 mg BID [facility] Administration Nitroglycerin 0.4 mg 03/04/23 02:17 03/07/23 08:08 Nitroglycerin 0.4 Mg Sublingual Tablet SUBLINGUAL 0.4 mg Q5M PRN Administration chest pain Nystatin 1 applic 03/05/23 18:00 03/10/23 09:03 Nystatin Powder 15 Gm Btl TOPICAL Not Given BID [facility] Ondansetron HCl 4 mg 03/04/23 02:17 03/10/23 08:24 Ondansetron 2 Mg/Ml Sdv 2 Ml IVP 4 mg Q8H PRN Administration vomiting, or N/V if npo Pantoprazole Sodium 40 mg 03/04/23 08:15 03/10/23 08:[address] 40 Mg Tablet PO 40 mg Q12H VANDANA Administration Potassium Chloride 10 meq 03/04/23 09:00 03/10/23 08:23 Potassium Chloride Er 20 Meq Tablet PO 10 meq DAILY VANDANA Administration Ranolazine 500 mg 03/04/23 09:00 03/10/23 08:23 Ranolazine (12hr) 500 Mg Tablet PO 500 mg BID AVNDANA Administration Senna 17.2 mg 03/04/23 21:00 03/09/23 20:26 Sennosides 8.6 Mg Tablet PO 17.2 mg BEDTIME VANDANA Administration Sucralfate 1 gm 03/04/23 08:15 03/10/23 08:24 Sucralfate 1 Gm Tablet PO 1 gm Q12H VANDANA Administration Tamsulosin HCl 0.4 mg 03/04/23 12:00 03/10/23 12:39 Tamsulosin 0.4 Mg Capsule PO 0.4 mg DAILY@12 VANDANA Administration PFSH Acute PFSH: Medical History (Updated 03/05/23 @ 15:38 by Mingo Flanagan MD) Abnormal cardiovascular stress test Acute bronchitis Anxiety BPH (benign prostatic hyperplasia) CHF (congestive heart failure) Chronic diarrhea CKD (chronic kidney disease) Confusion Gout History of hypertension Hyperlipidemia Hypotension Hypothyroidism Myelodysplastic syndrome Recurrent urinary tract infection 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 Type 2 diabetes mellitus UTI (urinary tract infection) Surgical History History of cataract surgery History of nasal surgery History of parotidectomy (09/22/21) right parotidectomy with facial nerve preservation, with cervicofacial advancement flap, and with the right modified radical neck dissection Status post surgical removal of malignant neoplasm of skin (09/22/21) resection of right ear squamous cell carcinoma in situ Family History Father CAD (coronary artery disease) Mother CAD (coronary artery disease) Son Diabetes Grandfather Cancer Prostate Hypertension Grandmother Hypertension Denies family history of Clotting disorder Dementia Hyperlipidemia Psychiatric illness Chronic kidney disease (CKD) Suicide Anesthesia complication Bleeding disorder Lung disease Stroke Social History Smoking and tobacco status: former smoker Alcohol intake: never Substance/Drug Use: never Vitals/I&O/Wt Last Vital Signs Temp 97.8 F 03/10/23 14:40 Pulse 87 03/10/23 14:40 Resp 20 H 03/10/23 14:40 BP 104/82 03/10/23 14:40 Pulse Ox 96 03/10/23 14:40 O2 Del Method Nasal Cannula 03/10/23 12:00 O2 Flow Rate 2 03/10/23 08:00 FiO2 35 03/09/23 16:00 03/09/23 03/10/23 03/10/23 22:59 06:59 14:59 Intake Total 880 / 1750 300 / 2050 250 / 250 Output Total 100 / 100 200 / 300 Balance 780 / 1650 100 / 1750 250 / 250 Weight last 48 hrs Weight 105.596 kg Weight 105.857 kg Physical Exam Narrative: awake, alert HEENT S1 S2 RRR per report Lungs clear per report + edema Data 03/10/23 03:01 03/10/23 03:01 A&P Assessment and plan (1) Acute kidney injury superimposed on CKD: Plan 1. Acute on chronic kidney disease: Patient has CKD with a baseline creatinine of 1.5-2 range now has RADHA with a creatinine of 3.0 secondary to-multifactorial from cardiorenal and possible ATN. Agree with holding diuretics today, continue to monitor renal function, no indication for dialysis currently. Avoid nephrotoxins and IV contrast studies 2. Hyponatremia: Mild, monitor sodium 134 today 3. Metabolic alkalosis secondary to recent diuresis likely monitor 4. Acute on chronic respiratory failure: Multifactorial secondary to CHF and pneumonia Patient evaluated using audiovisual cart. Time spent 45 minutes Consult Attestations Medical Necessity Statement: PER medicine Coding Level of Care Code Acute Code for Chg Fwd Diagnoses Acute kidney injury superimposed on CKD N17.9; N18.9
[2023-03-10 16:11] LABS: Glucose Point of Care 179 mg/dL (70-110)
--- NOTE | 2023-03-10 17:39 | P.PN_ITS ---
Subjective Subjective: States he is feeling all right. Denies chest pain. Discussing with his [id number], she states he has been lucid/oriented. No AMS today. Vitals/I&O/Wt Last Vital Signs Temp 98.1 F 03/10/23 15:58 Pulse 84 03/10/23 15:58 Resp 17 03/10/23 15:58 BP 122/63 03/10/23 15:58 Pulse Ox 99 03/10/23 15:58 O2 Del Method Room Air 03/10/23 15:58 O2 Flow Rate 2 03/10/23 08:00 FiO2 35 03/09/23 16:00 03/10/23 03/10/23 03/10/23 06:59 14:59 22:59 Intake Total 300 / 2050 250 / 250 Output Total 200 / 300 200 / 200 Balance 100 / 1750 250 / 250 -200 / 50 Weight last 48 hrs Weight 105.596 kg Weight 105.857 kg Physical Exam Narrative: Accompanied by [id number] Const: COMMON NORMALS: patient oriented x3 and alert GENERAL APPEARANCE: cooperative ORIENTATION/CONSCIOUSNESS: Yes awake OTHER: Alert and lucid. HENMT: COMMON NORMALS: oropharynx normal Neck/C-Spine: COMMON NORMALS: no JVD Resp: COMMON NORMALS: normal respiratory effort and clear to auscultation bilaterally AUSCULTATION: clear to auscultation bilaterally Cardio: COMMON NORMALS: no JVD, regular rhythm, S1 normal heart sound present, S2 normal heart sound present and No murmurs present (Cardio) RHYTHM: regular rhythm HEART SOUNDS: S1 normal heart sound present and S2 normal heart sound present GI: COMMON NORMALS: Normal to inspection, nondistended, normoactive bowel sounds present, Soft to palpation and non-tender PALPATION: Yes Soft to palpation Extremity: COMMON NORMALS: no joint enlargement and no pedal edema NARRATIVE EXTREMITY EXAM: Swelling, mild erythema right antecubital fossa. GENERAL: Yes edema (1+ BLK LE below knees) Neuro: COMMON NORMALS: patient oriented x3 and moves all extremities SENSORIUM/ORIENTATION: Yes alert Skin: COMMON NORMALS: no rashes or lesions noted GENERAL SKIN EXAM: no rashes or lesions noted Data 03/10/23 03:01 03/10/23 03:01 A&P Assessment and plan (1) CHF (congestive heart failure): (2) Chest pain: (3) Hypertension: Continue lisinopril Continue metoprolol (4) Myelodysplastic syndrome: Monitor blood counts (5) Type 2 diabetes mellitus: ldSSI Qualifiers: Diabetes mellitus predatory animal exterminator insulin use: without predatory animal exterminator use Diabetes mellitus complication detail: with chronic kidney disease Chronic kidney disease stage: unspecified stage (6) Hypothyroidism: Continue Synthroid (7) Gout: Continue allopurinol (8) NSTEMI (non-ST elevated myocardial infarction): (9) Abnormal cardiovascular stress test: (10) Aortic valve stenosis: (11) Pulmonary edema: (12) Acute respiratory failure with hypoxia: (13) Cardiomyopathy: (14) Goals of care, counseling/discussion: (15) Acute anemia: Plan Acute encephalopathy: [id number] who has been here with him this morning, states he has been lucid. So far encephalopathy has resolved. Cough improving. Continue Rocephin, doxycycline. Denies any additional discomfort in his scrotum. Does have some tender swelling in the right antecubital fossa. Ultrasound results noted with basilic vein thrombosis. Elevate upper extremity for comfort. Continue treatment of pneumonia. Collect sputum culture. Mild hyponatremia 134. Noted worsening renal function, BUN 59, creatinine 3. Requesting nephrology consultation. Kidney ultrasound noted, without hydronephrosis or obstruction. Discharge delayed due to worsening renal function, worsened anemia. Possible cellulitis scrotum improving. Possible toxic encephalopathy secondary to medication, hold gabapentin. RADHA on CKD: Noted worsening renal function, BUN 59, creatinine 3. Anion gap 15.8. Bicarb 30. Hold diuretic for now. 25 g 25% albumin given. Nephrology consultation. Appreciate nephro documentation. Kidney ultrasound ordered, a ppreciated no obstruction. Discharge delayed, discussed with case management. Acute hypoxic respiratory failure: Improving, weaning down to room air. Continue treatment of pneumonia. Improved/resolving lower extremity edema. Hold additional Lasix. -Secondary to acute diastolic CHF exacerbation -Secondary to pulm edema Right antecubital fossa basilic vein thrombosis: Elevate extremity for comfort Worsening anemia: Hemoglobin down to 6.9, MCV 83.8, platelets 46. Discussed with him risks of transfusion, risk of fluid overload, CHF decompensation, respiratory failure, other complications. They are agreeable for transfusion. Requested. Gets intermittent outpatient transfusions due to MDS. Continue Protonix. On Plavix. NSTEMI No further chest pain. Chest pain responsive to nitroglycerin. Monitor on telemetry. -, Serial EKGs, surgical scar telemetry monitoring -Currently on Plavix, statin, Ranexa, beta-gabrielle -Stress test in 2021 -?1.? Myocardial perfusion imaging revealing moderate large areas of persistent ?decreases uptake in the inferior wall, inferoseptal, inferolateral and apical ?regions with a subtle areas of reversibility, suggesting myocardial scarring ?with very small area of sandra-infarction ischemia.? Scarring is mostly in the ?distribution of the right coronary artery with some involvement of all the ?other arteries as well.? Small area of reversibility in the? mid anterior ?region, suggestive of ischemia in the distribution of the left anterior ?descending artery. ?2.? Diminished LV ejection fraction of 34%. ?3.? Multiple wall motion normalities as mentioned above. ?4.? Moderately dilated LV cavity with an end-systolic volume of 101 mL. ?No similar previous studies are available for comparison -We will repeat cardiac echo -Therapeutic Lovenox currently discontinued due to anemia -Monitor CBC closely chest pain: Resolved -plavix, beta gabrielle, lovenox Aortic valve stenosis, severe, repeat cardiac echocardiogram with noted normal EF, normal diastolic filling pattern. No pericardial effusion. 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 Discussed with case management. If doing well, possible discharge tomorrow. Discussed with him and his son. Attestations Medical Necessity Statement*: Continue admission for assessment management of acute kidney injury on CKD, worsened anemia. Diagnoses CHF (congestive heart failure) I50.9 Chest pain R07.9 Hypertension I10 Myelodysplastic syndrome D46.9 Type 2 diabetes mellitus E11.9 Diabetes mellitus predatory animal exterminator insulin use: without predatory animal exterminator use Diabetes mellitus complication detail: with chronic kidney disease Chronic kidney disease stage: unspecified stage Hypothyroidism E03.9 Gout M10.9 NSTEMI (non-ST elevated myocardial infarction) I21.4 Abnormal cardiovascular stress test R94.39 Aortic valve stenosis I35.0 Pulmonary edema J81.1 Acute respiratory failure with hypoxia J96.01 Cardiomyopathy I42.9 Goals of care, counseling/discussion Z71.89 Acute anemia D64.9
[2023-03-10] MEDS: insulin lispro 100 unit/1 mL SUBCUT ×2 (17:54→21:21)
[2023-03-10 21:17] LABS: Glucose Point of Care 167 mg/dL (70-110)
[2023-03-11] VITALS: BP 111/62; PULSE 80; RESP 23; TEMP 36.6; O2SAT 96
[2023-03-11 03:33] LABS: Basophils % 0.3 %; Hemoglobin 8.4 g/dL (11.7-16.6); Lymphocytes # 1.1 10^3/uL (0.8-4.8); Lymphocytes % 35.7 %; Mean Corpuscular HGB Conc 32.3 g/dL (30.0-36.0); Mean Corpuscular Hemoglobin 26.8 pg (28.0-34.0); Mean Corpuscular Volume 82.8 fl (80-94); Monocytes # 0.7 10^3/uL (0.2-0.9); Monocytes % 22.3 %; Neutrophils % 31.2 %; Nucleated Red Blood Cells % 0 %; Platelet Count 47 10^3/cmm (130-400); Red Blood Count 3.14 10^6/uL (4.1-5.3); Red Cell Distribution Width 19.4 % (12.1-15.1); White Blood Count 3.1 10^3/uL (4.0-10.0)
[2023-03-11 03:47] LABS: Anion Gap 15.9 (5-19); Blood Urea Nitrogen 53 mg/dL (8-23); Calcium 8.7 mg/dL (8.5-10.5); Carbon Dioxide 29 mmol/L (22-29); Chloride 98 mmol/L (98-107); Glucose 124 mg/dL (65-115); Osmolality Calculated 304 mOsm/kg (285-295); Potassium 3.9 mmol/L (3.5-5.1); Sodium 139 mmol/L (136-145)
[2023-03-11 04:00] VITALS: BP 126/59; PULSE 82; RESP 21; TEMP 36.7; O2SAT 94
[2023-03-11 04:04] LABS: Slide Review Slide Review Perform
[2023-03-11] MEDS: levothyroxine 50 mcg Tablet PO (04:05)
[2023-03-11 04:10] LABS: Neutrophils # 0.98 10^3/uL (1.8-7.7)
[2023-03-11 05:39] VITALS: PULSE 88
[2023-03-11 06:45] LABS: Glucose Point of Care 141 mg/dL (70-110)
[2023-03-11 07:59] VITALS: PULSE 94; RESP 17; O2SAT 96
[2023-03-11 08:00] VITALS: BP 123/78; PULSE 92; RESP 18; TEMP 36.7; O2SAT 98
[2023-03-11] MEDS: sucralfate 1 gm Tablet PO (08:15)
[2023-03-11] MEDS: guaiFENesin 600 mg Tablet PO (08:15)
[2023-03-11] MEDS: isosorbide mononitrate ER 30 mg Tablet PO (08:15)
[2023-03-11] MEDS: allopurinol 100 mg Tablet PO (08:15)
[2023-03-11] MEDS: potassium chloride ER 20 mEq Tablet 10 MEQ PO (08:15)
[2023-03-11] MEDS: metoprolol tartrate 25 mg Tablet 12.5 MG PO (08:15)
[2023-03-11] MEDS: ranolazine (12HR) 500 mg Tablet PO (08:15)
[2023-03-11] MEDS: pantoprazole DR 40 mg Tablet PO (08:15)
[2023-03-11] MEDS: clopidogrel 75 mg Tablet PO (08:16)
[2023-03-11] MEDS: cefTRIAXone 1,000 MG in sodium chloride 0.9% (plus) 50 ML 100 MG IV (08:16)
[2023-03-11] MEDS: doxycycline 100 MG in sodium chloride 0.9% (plus) 100 ML IV (08:16)
--- NOTE | 2023-03-11 09:49 | PC.SOCIAL ---
IMM Updated Updated pt on IMM. No questions voiced. Provided pt a copy. Initialed, dated, & timed copy in chart.
[2023-03-11 10:44] LABS: Glucose Point of Care 219 mg/dL (70-110)
[2023-03-11 12:00] VITALS: BP 112/60; PULSE 81; RESP 17; O2SAT 98
[2023-03-11] MEDS: insulin lispro 100 unit/1 mL SUBCUT (12:14)
[2023-03-11] MEDS: atorvastatin 40 mg Tablet PO (12:15)
[2023-03-11] MEDS: tamsulosin 0.4 mg Capsule PO (12:15)
[2023-03-11] MEDS: finasteride 5 mg Tablet PO (12:15)
--- NOTE | 2023-03-11 12:20 | PM.DCS ---
Discharge Providers Date of Admission: 03/04/23 01:51 Date of Discharge: March 11, 2023 Attending Provider at Admission: Wesley Temple MD Attending Provider at Discharge: Reynaldo Vásquez Primary Care Provider: Amando Sanchez Diagnoses at Discharge Discharge Diagnosis (1) CHF (congestive heart failure): Status: Acute (2) Chest pain: Status: Acute (3) Hypertension: Status: Acute (4) Myelodysplastic syndrome: Status: Acute (5) Type 2 diabetes mellitus: Status: Acute Qualifiers: Chronic kidney disease stage: unspecified stage Diabetes mellitus complication detail: with chronic kidney disease Diabetes mellitus ad terminal makeup operator insulin use: without ad terminal makeup operator use (6) Hypothyroidism: Status: Acute (7) Gout: Status: Acute (8) NSTEMI (non-ST elevated myocardial infarction): Status: Resolved (9) Abnormal cardiovascular stress test: Status: Inactive (10) Aortic valve stenosis: Status: Acute (11) Pulmonary edema: Status: Acute (12) Acute respiratory failure with hypoxia: Status: Acute (13) Cardiomyopathy: Status: Acute (14) Goals of care, counseling/discussion: Status: Acute (15) Acute anemia: Status: Acute Reason for Visit Reason for Visit: Chest Pain Hospital Course Hospital Course Very pleasant 82-year-old gentleman with past history of mild dysplastic syndrome, required recurrent transfusions, chronic kidney disease, CHF, abnormal stress test, HTN, HLD, DM 2, BPH, other comorbidities, chronically on 2-3 L oxygen at home, was admitted after presenting with chest tightness and shortness of breath, respiratory distress, also has been having productive cough in addition to worsening edema, symptoms of CHF. Was found in acute decompensated diastolic CHF, started on IV diuretics, further assessed with regards to chest pain, completed cardiac series, echocardiogram and stress test. Suspected NSTEMI, stress test abnormal, elected not to undergo coronary angiography given CKD could not be anticoagulated due to anemia, continued on Plavix, statin, beta-gabrielle. Some difficulty with diuresis, required metolazone, subsequent with improvement in volume status, but complicated also by transient worsening of renal function, creatinine increased as high as 3. Diuretics held, received albumin. Was assessed by nephrology with subsequent improvement in creatinine down to 2.3. Hospitalization complicated also by acute encephalopathy, suspect related secondary to pneumonia, productive cough, treated with ceftriaxone, doxycycline with gradual improvement. Currently oxygenation is back at baseline. During hospitalization also required RBC transfusion hemoglobin came down to 6.9, responded well to transfusion, hemoglobin up to 8.4. Noted some dilutional decrease in other cell lines with neutropenia, ANC 980, for now we will discharge with Levaquin, please reassess blood counts in office. Follow-up with hematology regarding MDS. States has been having swelling in the right antecubital fossa which has recently worsened, with some erythema, tenderness, found to have superficial vein thrombosis in basilic vein. Instructed to elevate upper extremity to help decrease swelling, for comfort. Please reassess. Physical Exam Narrative: Sitting up at edge of bed. Pleasant, conversant. Appears stronger, more energetic. In good spirits. Denies any complaints. States he is feeling well, ready to return home. Const: COMMON NORMALS: patient oriented x3 and alert GENERAL APPEARANCE: cooperative ORIENTATION/CONSCIOUSNESS: Yes awake OTHER: Alert and lucid. HENMT: COMMON NORMALS: oropharynx normal Neck/C-Spine: COMMON NORMALS: no JVD Resp: COMMON NORMALS: normal respiratory effort and clear to auscultation bilaterally AUSCULTATION: clear to auscultation bilaterally Cardio: COMMON NORMALS: no JVD, regular rhythm, S1 normal heart sound present, S2 normal heart sound present and No murmurs present (Cardio) RHYTHM: regular rhythm HEART SOUNDS: S1 normal heart sound present and S2 normal heart sound present GI: COMMON NORMALS: Normal to inspection, nondistended, normoactive bowel sounds present, Soft to palpation and non-tender PALPATION: Yes Soft to palpation Extremity: COMMON NORMALS: no joint enlargement NARRATIVE EXTREMITY EXAM: Swelling, mild erythema right antecubital fossa. GENERAL: Yes edema (1+ BLK LE below knees) Neuro: COMMON NORMALS: patient oriented x3 and moves all extremities SENSORIUM/ORIENTATION: Yes alert Skin: COMMON NORMALS: no rashes or lesions noted GENERAL SKIN EXAM: no rashes or lesions noted Discharge Data Studies Completed and Pending Completed Studies During Hospitalization Category Date Time Status XR chest 1V portable [id number] Routine Exams 03/07/23 11:04 Completed XR chest 1V portable [id number] Stat Exams 03/04/23 00:05 [place] [id number] Routine Ultrasound 03/07/23 09:05 Completed CV. echo lmt w/w contras [id number] Routine Ultrasound 03/04/23 08:03 Completed US renal BI* [id number] Routine Ultrasound 03/09/23 08:52 Completed US soft tissue and or extremity [US soft tissue/ Ultrasound 03/09/23 11:06 Completed extremity [id number]] Routine Pending at discharge Category Date Time Status Basic Metabolic Panel AM LABS Lab 03/12/23 04:00 Ordered Blood Culture Routine Lab 03/08/23 09:34 Results Complete Blood Count w/Auto AM LABS Lab 03/12/23 04:00 Ordered Sputum Culture and Gram Stain Routine Lab 03/09/23 17:14 Uncollected Radiology Impressions Chest X-Ray 03/07/23 11:04 IMPRESSION: Improvement in the appearance of the lungs. Renal Ultrasound 03/09/23 08:52 IMPRESSION: 1. No hydronephrosis or solid renal mass. 2. RIGHT renal cyst, stable. No change since 08/23/2021. Soft Tissue Ultrasound 03/09/23 11:06 IMPRESSION: Acute basilic vein thrombosis. Corresponds to the palpable erythematous abnormality in the RIGHT antecubital region. Notified Reynaldo Vásquez MD at 03/09/2023 12:21 PM, by licensed appraiser. Laboratory Results WBC 3.1 10^3/uL (4.0-10.0) L 03/11/23 02:42 RBC 3.14 10^6/uL (4.1-5.3) L 03/11/23 02:42 Hgb 8.4 g/dL (11.7-16.6) L 03/11/23 02:42 Hct 26.0 % (42.0-52.0) L 03/11/23 02:42 MCV 82.8 fl (80-94) 03/11/23 02:42 MCH 26.8 pg (28.0-34.0) L 03/11/23 02:42 MCHC 32.3 g/dL (30.0-36.0) 03/11/23 02:42 RDW 19.4 % (12.1-15.1) H 03/11/23 02:42 Plt Count 47 10^3/cmm (130-400) L 03/11/23 02:42 MPV TNP 03/11/23 02:42 Neut % (Auto) 31.2 % 03/11/23 02:42 Lymph % (Auto) 35.7 % 03/11/23 02:42 [place] % (Auto) 22.3 % 03/11/23 02:42 Eos % (Auto) 0.0 % 03/11/23 02:42 Baso % (Auto) 0.3 % 03/11/23 02:42 Neut # (Auto) 0.98 10^3/uL (1.8-7.7) L* 03/11/23 02:42 Lymph # (Auto) 1.1 10^3/uL (0.8-4.8) 03/11/23 02:42 [place] # (Auto) 0.7 10^3/uL (0.2-0.9) 03/11/23 02:42 Eos # (Auto) 0.0 10^3/uL (0.0-0.8) 03/11/23 02:42 Baso # (Auto) 0.0 10^3/uL (0.0-0.1) 03/11/23 02:42 Nucleated RBC % (auto) 0 % 03/11/23 02:42 Nucleated RBCs # 0.0 /100WBC 03/11/23 02:42 D-Dimer 0.62 ug/mIFEU (0-0.59) H 03/04/23 00:10 Sodium 139 mmol/L (136-145) 03/11/23 02:42 Potassium 3.9 mmol/L (3.5-5.1) 03/11/23 02:42 Chloride 98 mmol/L (98-107) 03/11/23 02:42 Carbon Dioxide 29 mmol/L (22-29) 03/11/23 02:42 Anion Gap 15.9 (5-19) 03/11/23 02:42 BUN 53 mg/dL (8-23) H 03/11/23 02:42 Creatinine 2.3 mg/dL (0.7-1.2) H 03/11/23 02:42 GFR Calculation Not Reportable 03/11/23 02:42 Glucose 124 mg/dL (65-115) H 03/11/23 02:42 POC Glucose 219 mg/dL (70-110) H 03/11/23 10:35 Calculated Osmolality 304 mOsm/kg (285-295) H 03/11/23 02:42 Calcium 8.7 mg/dL (8.5-10.5) 03/11/23 02:42 Phosphorus 3.6 mg/dL (2.5-4.5) 03/04/23 04:15 Magnesium 1.8 mg/dL (1.7-2.3) 03/05/23 03:14 Iron 54 ug/dL (59-158) L 03/04/23 06:05 TIBC 190 mcg/dl 03/04/23 06:05 % Saturation 28.4 % (20-50) 03/04/23 06:05 Unsat Iron Binding 136 ug/dL (112-347) 03/04/23 06:05 Ferritin 2077 ng/mL (30-400) H 03/04/23 06:05 Total Bilirubin 0.9 mg/dL (0.15-1.2) 03/04/23 00:10 AST 18 U/L (0-40) 03/04/23 00:10 ALT 9 U/L (0-41) 03/04/23 00:10 Alkaline Phosphatase 109 U/L (40-130) 03/04/23 00:10 Creatine Kinase 75 U/L (39-308) 03/09/23 02:59 Troponin T Baseline 41 ng/L (0-15) H 03/04/23 00:10 Troponin T 120 Minute 52.11 ng/L (0-15) H 03/04/23 01:45 Delta Troponin T 11.11 ABS# (0-10) H* 03/04/23 01:45 Troponin T Hi Sens 6Hr 181.0 ng/L (0-15) H 03/04/23 06:05 Troponin T Hi Sens 6Hr Delta 140.0 ng/L (0-12) H* 03/04/23 06:05 C-Reactive Protein 12.6 mg/L (0.0-4.9) H 03/04/23 04:15 NT-Pro-B Natriuret Pep 4753 pg/mL (0-450) H 03/04/23 00:10 Total Protein 7.9 g/dL (6.6-8.7) 03/04/23 00:10 Albumin 4.4 g/dL (3.5-5.2) 03/04/23 00:10 Globulin 3.5 g/dL (1.3-4.6) 03/04/23 00:10 Procalcitonin 0.15 ng/mL (0-0.5) 03/04/23 04:15 Urine Color Dark yellow (Yellow) 03/07/23 10:30 Urine Appearance Clear (CLEAR) 03/07/23 10:30 Urine pH 5 (5-7) 03/07/23 10:30 Ur Specific [place] 1.010 (1.005-1.030) 03/07/23 10:30 Urine Protein Trace (Negative) 03/07/23 10:30 Urine Glucose (UA) Norm (Normal) 03/07/23 10:30 Urine Ketones 1+ (Negative) H 03/07/23 10:30 Urine Blood Neg (Negative) 03/07/23 10:30 Urine Nitrate Negative (Negative) 03/07/23 10:30 Urine Bilirubin Neg (Negative) 03/07/23 10:30 Urine Urobilinogen 1 mg/dL (Negative) H 03/07/23 10:30 Ur Leukocyte Esterase Negative (Negative) 03/07/23 10:30 Urine RBC Rare /hpf (0-2) 03/07/23 10:30 Urine WBC Rare /hpf (0-5) 03/07/23 10:30 Ur Squamous Epith Cells 0-4 /hpf (0-5) H 03/07/23 10:30 Amorphous Sediment Not Reportable 03/07/23 10:30 Urine Bacteria Trace /hpf (NONE) 03/07/23 10:30 Hyaline Casts 0-4 /lpf H 03/07/23 10:30 Nasal Influ A H1 2008 PCR Not detected (NOT DETECT) 03/07/23 11:15 Adenovirus (PCR) Not detected (NOT DETECT) 03/07/23 11:15 C. pneumoniae DNA (PCR) Not detected (NOT DETECT) 03/07/23 11:15 Coronavirus 229E (PCR) Not detected (NOT DETECT) 03/07/23 11:15 Human Metapneumovir PCR Not detected (NOT DETECT) 03/07/23 11:15 Influenza A (H1) PCR Not detected (NOT DETECT) 03/07/23 11:15 Influenza A (H3) PCR Not detected (NOT DETECT) 03/07/23 11:15 Influenza Type A (PCR) Not detected (NOT DETECT) 03/07/23 11:15 Influenza Type B (PCR) Not detected (NOT DETECT) 03/07/23 11:15 M. pneumoniae (PCR) Not detected (NOT DETECT) 03/07/23 11:15 Parainfluenza 1 (PCR) Not detected (NOT DETECT) 03/07/23 11:15 Parainfluenza 2 (PCR) Not detected (NOT DETECT) 03/07/23 11:15 Parainfluenza 3 (PCR) Not detected (NOT DETECT) 03/07/23 11:15 Parainfluenza 4 (PCR) Not detected (NOT DETECT) 03/07/23 11:15 RSV Type A (PCR) Not detected (NOT DETECT) 03/07/23 11:15 RSV Type B (PCR) Not detected (NOT DETECT) 03/07/23 11:15 Entero/Rhino (PCR) Not detected (NOT DETECT) 03/07/23 11:15 SARS-CoV-2 (PCR) Not detected (NOT DETECT) 03/07/23 11:15 Blood Type O Positive 03/10/23 12:33 Rho(D) Type Positive 03/10/23 12:33 Antibody Screen Negative 03/10/23 12:33 Crossmatch See Detail 03/10/23 12:33 Vitals Last Vital Signs Temp 98.0 F 03/11/23 08:00 Pulse 92 03/11/23 08:00 Resp 18 03/11/23 08:00 BP 123/78 03/11/23 08:00 Pulse Ox 98 03/11/23 08:00 O2 Del Method Nasal Cannula 03/11/23 07:59 O2 Flow Rate 2 03/11/23 07:59 FiO2 35 03/09/23 16:00 Discharge Plan Discharge Patient Disposition: Home Condition: Stable Prescriptions: New levofloxacin 500 mg tablet 500 mg PO DAILY 10 Days Qty: 6 0RF Rx Instructions: Take 500mg initially, then 250mg daily Mucinex 600 mg Tablet Extended Release 12hr 600 mg PO BID Qty: 14 0RF Continued (DME) Diabetic shoes Qty: 1 0RF Rx Instructions: As directed ProAir HFA 90 mcg/actuation HFA aerosol inhaler 2 puff INHALATION QID PRN (Reason: Shortness Of Breath) Qty: 8.5 6RF nitroglycerin [Nitrostat] 0.4 mg tablet, sublingual 0.4 mg sublingual Q5M PRN (Reason: chest pain) Qty: 50 3RF Rx Instructions: do not exceed 3 doses per episode metoprolol tartrate 25 mg tablet 12.5 mg PO BID Qty: 90 3RF isosorbide mononitrate 30 mg tablet extended release 24 hr 30 mg PO BID Qty: 180 3RF ranolazine 500 mg tablet extended release 12 hr 500 mg PO BID 60 Days Qty: 120 5RF (DME) lancets [BD Ultra-Fine II Lancets] 30 gauge misc See Rx Instructions .Route Qty: 200 0RF Rx Instructions: As directed (DME) True Metrix Glucose Test Strip Strip See Rx Instructions .ROUTE .MEDSUPPLY Qty: 100 3RF Rx Instructions: TEST TWICE A DAY AND PRN finasteride 5 mg tablet 5 mg PO DAILY@1200 Qty: 90 3RF pantoprazole 40 mg tablet,delayed release (DR/EC) 40 mg PO DAILY 90 Days Qty: 90 3RF Flomax 0.4 mg capsule 0.4 mg PO DAILY@12 Qty: 90 3RF lisinopril 5 mg tablet 5 mg PO DAILY Qty: 90 0RF levothyroxine 50 mcg tablet 50 mcg PO DAILY@05 Qty: 90 0RF allopurinol 100 mg tablet 100 mg PO DAILY Qty: 30 11RF clopidogrel 75 mg tablet 75 mg PO DAILY Qty: 30 11RF atorvastatin 40 mg tablet 40 mg PO DAILY@1200 potassium chloride 10 mEq tablet extended release 10 meq PO DAILY Changed furosemide 40 mg tablet 40 mg PO BID PRN (Reason: Edema) Qty: 60 11RF Discontinued gabapentin 300 mg capsule 300 mg PO BID Qty: 180 3RF clonazepam 1 mg tablet 0.5 mg PO TID Qty: 45 2RF Discharge Orders: Discharge Order (Routine); Ordered 03/11/23 Ordered By: Reynaldo Vásquez Referrals: Jl Hassan MD [Physician] - 1 week (NSTEMI, CHF, aortic stenosis Please call Dr. Hassan's Office on Monday at [phone] to schedule a follow up appointment. The Office has your information and may call you first to schedule. Thank you.) Whitney Gonzalez FNP [Nurse Practitioner] - (Please call Whitney Gonzalez's Office on Monday at [phone] to schedule a follow up appointment. The Office has your information, so they may call you to schedule an appointment. Thank you.) Amando Sanchez NP [Primary Care Provider] - 4-7 days (Please call Amando Sanchez's Office on Monday at [phone] to schedule a follow up appointment. Thank you.) Discharge Diet: Cardiac and Diabetic Discharge Activity: As per PT/OT instructions and Oxygen as instructed Patient Instructions: Furosemide (By mouth) (Lasix), Heart Failure (DC), Coronary Artery Disease (GEN), Chronic Kidney Disease (GEN), Superficial Thrombophlebitis (GEN), Using Oxygen at Home (GEN), Community Acquired Pneumonia (GEN), Anemia (DC), Fall Prevention (GEN), CHF Stoplight, Chest Pain Stoplight, Opioid Safety Activity Restrictions/Additional Instructions: Please follow-up with your primary doctor and envelope stuffer with regards to your heart, suspected heart attack, abnormal stress test, congestive heart failure. Follow-up with your primary doctor with regards to chronic kidney disease with transient worsening in renal function noted in the hospital. Confirm continued improvement with follow-up blood chemistry. Follow-up with primary doctor for reassessment of resolution of pneumonia. Follow-up with your primary doctor for reassessment of right arm localized swelling with superficial blood clot. Continue oxygen at home, target oxygen saturation 92%. Continue follow-up with hematology for reassessment of bone marrow disease/myelodysplasia, please have your primary doctor follow-up blood counts for anemia, continue follow-up with as needed blood transfusions. In case of worsening or new concerning symptoms, seek medical attention. Discharge Attestations Time Spent in Discharge Care*: greater than 30 min Status at Discharge: Cognitive status at discharge: cognitively intact, Behavioral status at discharge: cooperative, Quality Metrics Clinical Quality Measures [ Acute Myocardial Infaction { Clinical Trial Participant: No; Contraindication to aspirin: Drug intolerance; Contraindication to statin: None; Statin prescribed;}] Coding Level of Care Code 93412 Total time (in minutes) for Discharge: 55 Diagnoses CHF (congestive heart failure) I50.9 Chest pain R07.9 Hypertension I10 Myelodysplastic syndrome D46.9 Type 2 diabetes mellitus E11.9 Chronic kidney disease stage: unspecified stage Diabetes mellitus complication detail: with chronic kidney disease Diabetes mellitus ad terminal makeup operator insulin use: without longterm use Hypothyroidism E03.9 Gout M10.9 NSTEMI (non-ST elevated myocardial infarction) I21.4 Abnormal cardiovascular stress test R94.39 Aortic valve stenosis I35.0 Pulmonary edema J81.1 Acute respiratory failure with hypoxia J96.01 Cardiomyopathy I42.9 Goals of care, counseling/discussion Z71.89 Acute anemia D64.9
--- NOTE | 2023-03-11 14:42 | PM.PN ---
Subjective Subjective: no nw Vitals/I&O/Wt Last Vital Signs Temp 98.0 F 03/11/23 08:00 Pulse 81 03/11/23 12:00 Resp 17 03/11/23 12:00 BP 112/60 03/11/23 12:00 Pulse Ox 98 03/11/23 12:00 O2 Del Method Nasal Cannula 03/11/23 07:59 O2 Flow Rate 2 03/11/23 07:59 FiO2 35 03/09/23 16:00 03/10/23 03/11/23 03/11/23 22:59 06:59 14:59 Intake Total 800 / 1050 200 / 1250 386 / 386 Output Total 200 / 200 150 / 350 Balance 600 / 850 50 / 900 386 / 386 Weight last 48 hrs Weight 103.691 kg Weight 105.596 kg Data 03/11/23 02:42 03/11/23 02:42 Coding Level of Care Code Acute Code for Chg Fwd Diagnoses
--- NOTE | 2023-03-11 14:44 | PC.NURSE ---
Discharge Note Patient discharged to home via POV accompanied by Son. Discharge instructions reviewed with patient and/or credit resolution representative. Mobile pharmacy medications and/or prescriptions provided. Belongings/home medications returned.
== END 2023-03-11 14:45 | disposition home or self-care (01) | DRG 280 ==
LOC: ER 03-04 01:45 → CSU 03-04 01:52
PROVIDERS: Family Medicine; Admitting Provider Internal Medicine; Emergency Provider Emergency Medicine; PCP Clinical Nurse Specialist Adult Health; Visit Provider Internal Medicine
DX: I13.0 Hypertensive heart and chronic kidney disease with heart failure and stage 1 through stage 4 chronic kidney disease, or unspecified chronic kidney disease (principal); I21.4 Non-ST elevation (NSTEMI) myocardial infarction; G92.8 Other toxic encephalopathy; I50.33 Acute on chronic diastolic (congestive) heart failure; J96.01 Acute respiratory failure with hypoxia; J18.9 Pneumonia, unspecified organism; G93.41 Metabolic encephalopathy; E87.1 Hypo-osmolality and hyponatremia; N17.9 Acute kidney failure, unspecified; C77.0 Secondary and unspecified malignant neoplasm of lymph nodes of head, face and neck; N18.9 Chronic kidney disease, unspecified; E11.22 Type 2 diabetes mellitus with diabetic chronic kidney disease; D46.9 Myelodysplastic syndrome, unspecified; M10.9 Gout, unspecified; R94.39 Abnormal result of other cardiovascular function study; I35.0 Nonrheumatic aortic (valve) stenosis; I25.5 Ischemic cardiomyopathy; D63.1 Anemia in chronic kidney disease; N40.0 Benign prostatic hyperplasia without lower urinary tract symptoms; N49.2 Inflammatory disorders of scrotum; T42.6X5A Adverse effect of other antiepileptic and sedative-hypnotic drugs, initial encounter; E89.2 Postprocedural hypoparathyroidism; Z85.828 Personal history of other malignant neoplasm of skin; C80.1 Malignant (primary) neoplasm, unspecified; Z87.440 Personal history of urinary (tract) infections; Z87.891 Personal history of nicotine dependence; K52.9 Noninfective gastroenteritis and colitis, unspecified; F41.9 Anxiety disorder, unspecified; E78.5 Hyperlipidemia, unspecified; Z79.51 Long term (current) use of inhaled steroids; Z99.81 Dependence on supplemental oxygen
CPT/HCPCS: 36415; 36416; 36430; 71045; 76770; 76882; 80048; 80053; 81001; 82274; 82550; 82728; 82962; 83540; 83550; 83735; 83880; 84100; 84145; 84484; 85025; 85378; 86140; 86403; 86850; 86900; 86920; 87040; 87449; 87486; 87581; 87633; 93005; 93308; 93970; 94640; 94660; 96372; 96374; 96375; 96376; 97116; 97161; 97166; 97530; 99291; A9270; C8924; J0696; J1650; J1815; J1940; J2270; J2405; J3490; P9040; P9046; Q3014

== ENCOUNTER → 2023-03-21 10:02 | Outpatient (BNVA) | payer MEDICARE, SELFPAY | PROVIDERS: PCP Clinical Nurse Specialist Adult Health; Visit Provider Nurse Practitioner Family | DX: I13.0 Hypertensive heart and chronic kidney disease with heart failure and stage 1 through stage 4 chronic kidney disease, or unspecified chronic kidney disease (principal); E11.22 Type 2 diabetes mellitus with diabetic chronic kidney disease; N18.9 Chronic kidney disease, unspecified; I50.9 Heart failure, unspecified; Z87.891 Personal history of nicotine dependence; E78.5 Hyperlipidemia, unspecified | CPT/HCPCS: 80048; 83880; 99213 ==

== ENCOUNTER 2023-03-23 07:42 | Outpatient (CLI) | payer MEDICARE, SELFPAY ==
--- NOTE | 2023-03-23 09:30 | US_ITS ---
WS: [id number] URINARY BLADDER ULTRASOUND HISTORY: need post void residual U/S COMPARISON: None available. Urinary bladder is well distended. No intraluminal filling defect. No free fluid adjacent to the urin srinath bladder. Mild soft tissue thickening anterior to the bladder is probably omental fat. Bladder Wall Thickness: cm. Bladder Prevoid: 11.4 cm x 4.2 cm x 7.0 cm. Prevoid volume: 176 ml. Bladder Postvoid: 2.6 cm x 2.3 cm x 2.4 cm. Postvoid volume: 7 ml. IMPRESSION: Normal ultrasound urinary bladder with no significant post void residual.
== END 2023-03-23 07:43 | disposition home or self-care (01) ==
PROVIDERS: PCP Clinical Nurse Specialist Adult Health; Visit Provider Clinical Nurse Specialist Adult Health
DX: R39.198 Other difficulties with micturition (principal)
CPT/HCPCS: 76857

== ENCOUNTER 2023-03-28 08:30 | Oncology outpatient (recurring) (ONCR) | payer MEDICARE, SELFPAY ==
[2023-03-16] VITALS (8 sets, daily range): BP systolic 130–180; BP diastolic 65–77; PULSE 89–102; RESP 18; TEMP 36.1–36.6; O2SAT 98–99
[2023-03-16 09:34] LABS: Hematocrit 24.7 % (42.0-52.0); Lymphocytes # 0.8 10^3/uL (0.8-4.8); Lymphocytes % 43.9 %; Mean Corpuscular HGB Conc 32.4 g/dL (30.0-36.0); Mean Corpuscular Hemoglobin 27.5 pg (28.0-34.0); Mean Corpuscular Volume 84.9 fl (80-94); Monocytes # 0.5 10^3/uL (0.2-0.9); Monocytes % 28.1 %; Neutrophils % 17.5 %; Nucleated Red Blood Cells % 0 %; Platelet Count 41 10^3/cmm (130-400); Red Blood Count 2.91 10^6/uL (4.1-5.3); Red Cell Distribution Width 19.3 % (12.1-15.1); White Blood Count 1.7 10^3/uL (4.0-10.0)
[2023-03-16 10:03] LABS: Alanine Aminotransferase 11 U/L (0-41); Albumin Level 4.3 g/dL (3.5-5.2); Alkaline Phosphatase 80 U/L (40-130); Aspartate Amino Transferase 14 U/L (0-40); Blood Urea Nitrogen 33 mg/dL (8-23); Calcium 8.8 mg/dL (8.5-10.5); Carbon Dioxide 25 mmol/L (22-29); Chloride 103 mmol/L (98-107); Globulin 3.2 g/dL (1.3-4.6); Glucose 133 mg/dL (65-115); Osmolality Calculated 299 mOsm/kg (285-295); Sodium 140 mmol/L (136-145); Total Bilirubin 0.9 mg/dL (0.15-1.2); Total Protein 7.5 g/dL (6.6-8.7)
[2023-03-16 10:06] LABS: Anion Gap 16.1 (5-19); Potassium 4.1 mmol/L (3.5-5.1)
[2023-03-16 10:07] LABS: Slide Review Slide Review Perform
[2023-03-16] MEDS: sodium chloride 0.9% 250 mL Bag IV (11:43)
[2023-03-16] MEDS: acetaminophen 325 mg Tablet 650 MG PO (11:44)
[2023-03-16] MEDS: diphenhydrAMINE 25 mg Capsule PO (11:44)
[2023-03-28] VITALS (11 sets, daily range): BP systolic 104–161; BP diastolic 51–78; PULSE 64–78; RESP 16–18; TEMP 35.9–36.8; O2SAT 98–100
[2023-03-28 08:34] LABS: Hematocrit 20.9 % (42.0-52.0); Hemoglobin 6.6 g/dL (11.7-16.6); Lymphocytes # 1.1 10^3/uL (0.8-4.8); Lymphocytes % 42.4 %; Mean Corpuscular HGB Conc 31.6 g/dL (30.0-36.0); Mean Corpuscular Hemoglobin 26.6 pg (28.0-34.0); Mean Corpuscular Volume 84.3 fl (80-94); Monocytes # 0.4 10^3/uL (0.2-0.9); Monocytes % 15.7 %; Neutrophils % 31.7 %; Nucleated Red Blood Cells % 0 %; Platelet Count 30 10^3/cmm (130-400); Positive C 1; Positive M 1; Red Blood Count 2.48 10^6/uL (4.1-5.3); Red Cell Distribution Width 18.5 % (12.1-15.1); White Blood Count 2.6 10^3/uL (4.0-10.0)
[2023-03-28 09:34] LABS: Neutrophils # 0.81 10^3/uL (1.8-7.7)
[2023-03-28] MEDS: acetaminophen 325 mg Tablet 650 MG PO (10:23)
[2023-03-28] MEDS: diphenhydrAMINE 25 mg Capsule PO (10:23)
[2023-03-28] MEDS: sodium chloride 0.9% 250 ML 75 ML IV (10:56)
[2023-03-28] MEDS: FUROsemide 10 mg/mL SDV 2mL 20 MG IVP (13:26)
== END 2023-04-06 23:59 | disposition home or self-care (01) ==
PROVIDERS: PCP Clinical Nurse Specialist Adult Health; Visit Provider Internal Medicine Medical Oncology
DX: D64.9 Anemia, unspecified (principal); I50.9 Heart failure, unspecified
CPT/HCPCS: 36415; 36430; 80053; 85025; 86850; 86900; 86920; J1940; J7050; P9040

== ENCOUNTER 2023-04-07 07:48 | Outpatient (CLI) | payer MEDICARE, SELFPAY ==
--- NOTE | 2023-04-07 08:30 | FL_ITS ---
WS: [id number] Exam: FL barium swallow [id number] Date/Time of Exam: 04/07/2023 8:48 AM Reason For Exam: Fluoroscopy time: 2min [id number] minutes # of spot films: Swallowing function at the level of the oropharynx was normal. There was no sign of aspiration. Mild esophageal spasm was noted. No sign of esophageal stricture or mass. The esophagus demonstrates carlin l motility. No sign of hiatal hernia or gastroesophageal reflux. There is mild tortuosity of the esop hagus. Barium spills freely into the stomach. IMPRESSION: 1. Mild esophageal spasm. 2. No indication of esophageal mass, stricture or reflux.
== END 2023-04-07 07:49 | disposition home or self-care (01) ==
LOC: RAD 07:54
PROVIDERS: PCP Clinical Nurse Specialist Adult Health; Visit Provider Clinical Nurse Specialist Adult Health
DX: R13.12 Dysphagia, oropharyngeal phase (principal); K22.4 Dyskinesia of esophagus
CPT/HCPCS: 74220

== ENCOUNTER 2023-04-25 10:30 | Oncology outpatient (recurring) (ONCR) | payer MEDICARE, SELFPAY ==
[2023-04-11] VITALS (13 sets, daily range): BP systolic 142–180; BP diastolic 65–80; PULSE 17–78; RESP 17–66; TEMP 35.5–36.7; O2SAT 93–98
[2023-04-11 11:35] LABS: Hematocrit 23.6 % (37-53); Lymphocytes # 0.8 10^3/uL (0.8-4.8); Lymphocytes % 51.4 %; Mean Corpuscular HGB Conc 32.2 g/dL (30-55); Mean Corpuscular Volume 83.7 fl (82-101); Monocytes # 0.4 10^3/uL (0.2-0.9); Neutrophils % 18.9 %; Nucleated Red Blood Cells % 1.4 %; Platelet Count 30 10^3/cmm (157-399); Red Blood Count 2.82 10^6/uL (3.85-5.65); Red Cell Distribution Width 20.1 % (12.1-15.1); White Blood Count 1.48 10^3/uL (3.29-11.43)
[2023-04-11 12:18] LABS: Neutrophils # 0.28 10^3/uL (1.8-7.7); Slide Review Slide Review Perform
[2023-04-11] MEDS: sodium chloride 0.9% 250 mL Bag IV (13:16)
[2023-04-11] MEDS: acetaminophen 325 mg Tablet 650 MG PO (13:17)
[2023-04-11] MEDS: diphenhydrAMINE 25 mg Capsule PO (13:17)
[2023-04-25 10:14] LABS: Hematocrit 27.2 % (37-53); Lymphocytes # 0.8 10^3/uL (0.8-4.8); Mean Corpuscular HGB Conc 32.7 g/dL (30-55); Mean Corpuscular Hemoglobin 27.6 pg (27-33); Mean Corpuscular Volume 84.5 fl (82-101); Monocytes # 0.6 10^3/uL (0.2-0.9); Monocytes % 20.6 %; Neutrophils % 43.3 %; Nucleated Red Blood Cells % 0.7 %; Platelet Count 30 10^3/cmm (157-399); Red Blood Count 3.22 10^6/uL (3.85-5.65); Red Cell Distribution Width 20.5 % (12.1-15.1); White Blood Count 2.77 10^3/uL (3.29-11.43)
[2023-04-25 10:48] LABS: Slide Review Slide Review Perform
== END 2023-05-06 23:59 | disposition home or self-care (01) ==
PROVIDERS: PCP Clinical Nurse Specialist Adult Health; Visit Provider Internal Medicine Medical Oncology
DX: D64.9 Anemia, unspecified (principal)
CPT/HCPCS: 36415; 36430; 85025; 86850; 86900; 86920; J7050; P9040

== ENCOUNTER 2023-04-28 11:39 | Outpatient (RCR) | payer MEDICARE, SELFPAY | END 2023-05-06 23:59 | disposition home or self-care (01) | LOC: SST 11:39 | PROVIDERS: PCP Clinical Nurse Specialist Adult Health; Visit Provider Clinical Nurse Specialist Adult Health | DX: K22.4 Dyskinesia of esophagus (principal); R13.12 Dysphagia, oropharyngeal phase | CPT/HCPCS: 92610 ==

== ENCOUNTER → 2023-05-10 11:06 | Outpatient (BNVA) | payer MEDICARE, SELFPAY | PROVIDERS: PCP Clinical Nurse Specialist Adult Health; Visit Provider Internal Medicine Cardiovascular Disease | DX: I13.0 Hypertensive heart and chronic kidney disease with heart failure and stage 1 through stage 4 chronic kidney disease, or unspecified chronic kidney disease (principal); E11.22 Type 2 diabetes mellitus with diabetic chronic kidney disease; I50.9 Heart failure, unspecified; N18.9 Chronic kidney disease, unspecified; Z87.891 Personal history of nicotine dependence; Z79.84 Long term (current) use of oral hypoglycemic drugs; I35.0 Nonrheumatic aortic (valve) stenosis; I25.5 Ischemic cardiomyopathy; D46.9 Myelodysplastic syndrome, unspecified; E03.9 Hypothyroidism, unspecified; E78.5 Hyperlipidemia, unspecified | CPT/HCPCS: 99214 ==

== ENCOUNTER 2023-05-24 10:15 | Oncology outpatient (recurring) (ONCR) | payer MEDICARE, SELFPAY ==
[2023-05-09] VITALS (12 sets, daily range): BP systolic 107–184; BP diastolic 52–81; PULSE 62–85; RESP 16–18; TEMP 36.1–36.6; O2SAT 91–98
[2023-05-09 10:22] LABS: Hematocrit 22.5 % (37-53); Mean Corpuscular HGB Conc 32.4 g/dL (30-55); Mean Corpuscular Hemoglobin 26.9 pg (27-33); Platelet Count 35 10^3/cmm (157-399); Red Blood Count 2.71 10^6/uL (3.85-5.65); White Blood Count 3.32 10^3/uL (3.29-11.43)
[2023-05-09 10:43] LABS: Alanine Aminotransferase 7 U/L (0-41); Albumin Level 3.7 g/dL (3.5-5.2); Alkaline Phosphatase 87 U/L (40-130); Anion Gap 13.2 (5-19); Aspartate Amino Transferase 11 U/L (0-40); Blood Urea Nitrogen 16 mg/dL (8-23); Calcium 8.2 mg/dL (8.5-10.5); Carbon Dioxide 26 mmol/L (22-29); Chloride 100 mmol/L (98-107); Globulin 2.8 g/dL (1.3-4.6); Glucose 163 mg/dL (65-115); Lactate Dehydrogenase 304 U/L (135-225); Osmolality Calculated 287 mOsm/kg (285-295); Potassium 3.2 mmol/L (3.5-5.1); Sodium 136 mmol/L (136-145); Total Bilirubin 0.7 mg/dL (0.15-1.2); Total Protein 6.5 g/dL (6.6-8.7)
[2023-05-09 11:33] LABS: Slide Review Slide Review Perform
[2023-05-09 11:34] LABS: Absolute Neutrophil 2.1 10^3/cmm (1.4-6.5); Band Neutrophils Absolute 0.1 10^3/cmm (0.0-1.2); Eosinophils 0 %; Lymphocytes 24 %; Lymphocytes Absolute 0.8 10^3/cmm (1.2-3.4); Monocytes Absolute 0.2 10^3/cmm (0.1-0.6); Platelet Estimate Decreased (Normal); Segmented Neutrophils 60 %; Total Cells Counted 100 (0-100)
[2023-05-09 11:35] LABS: Giant Platelets 1+; Microcytosis 1+; Ovalocytes 2+; Poikilocytosis 1+; Polychromasia 1+
[2023-05-09] MEDS: sodium chloride 0.9% 250 mL Bag IV (12:04)
[2023-05-09] MEDS: diphenhydrAMINE 25 mg Capsule PO (12:05)
[2023-05-09] MEDS: acetaminophen 325 mg Tablet 650 MG PO (12:05)
[2023-05-24] VITALS (10 sets, daily range): BP systolic 129–177; BP diastolic 61–85; PULSE 62–82; RESP 17–18; TEMP 20–36.8; O2SAT 93–98; BMI 34.9
[2023-05-24 11:38] LABS: Basophils % 0.3 %; Hematocrit 24.7 % (37-53); Lymphocytes # 1.2 10^3/uL (0.8-4.8); Lymphocytes % 34.7 %; Mean Corpuscular HGB Conc 32.4 g/dL (30-55); Mean Corpuscular Hemoglobin 27.7 pg (27-33); Mean Corpuscular Volume 85.5 fl (82-101); Monocytes # 0.5 10^3/uL (0.2-0.9); Monocytes % 14.8 %; Neutrophils # 1.36 10^3/uL (1.8-7.7); Neutrophils % 38.2 %; Nucleated Red Blood Cells % 0 %; Platelet Count 42 10^3/cmm (157-399); Red Blood Count 2.89 10^6/uL (3.85-5.65); Red Cell Distribution Width 20.9 % (12.1-15.1); White Blood Count 3.57 10^3/uL (3.29-11.43)
[2023-05-24 11:54] LABS: Alanine Aminotransferase 8 U/L (0-41); Albumin Level 3.9 g/dL (3.5-5.2); Alkaline Phosphatase 90 U/L (40-130); Anion Gap 13.3 (5-19); Aspartate Amino Transferase 12 U/L (0-40); Blood Urea Nitrogen 17 mg/dL (8-23); Calcium 8.5 mg/dL (8.5-10.5); Carbon Dioxide 28 mmol/L (22-29); Chloride 100 mmol/L (98-107); Globulin 2.9 g/dL (1.3-4.6); Glucose 110 mg/dL (65-115); Osmolality Calculated 288 mOsm/kg (285-295); Potassium 3.3 mmol/L (3.5-5.1); Sodium 138 mmol/L (136-145); Total Bilirubin 0.6 mg/dL (0.15-1.2); Total Protein 6.8 g/dL (6.6-8.7)
[2023-05-24 12:34] LABS: Add RBC Morph Yes; Slide Review Slide Review Perform
[2023-05-24 12:35] LABS: RBC Morph Comp No
[2023-05-24 12:49] LABS: Anisocytosis 3+; Poikilocytosis 2+
[2023-05-24 12:50] LABS: Acanthocytes 1+; Ovalocytes 2+; Tear Drop Cells 2+
[2023-05-24 12:54] LABS: Hypochromasia 1+; Macrocytosis 1+
[2023-05-24] MEDS: acetaminophen 325 mg Tablet 650 MG PO (13:37)
[2023-05-24] MEDS: sodium chloride 0.9% 250 mL Bag IV (13:37)
[2023-05-24] MEDS: diphenhydrAMINE 25 mg Capsule PO (13:38)
[2023-05-24 14:44] LABS: Iron 100 ug/dL (59-158); Percent Saturation 55.2 % (20-50); Total Iron Binding Capacity 181 mcg/dl; Unsaturated Iron Binding 81 ug/dL (112-347)
[2023-05-24 14:57] LABS: Ferritin 2083 ng/mL (30-400)
== END 2023-06-06 23:59 | disposition home or self-care (01) ==
PROVIDERS: Nurse Practitioner Family; PCP Clinical Nurse Specialist Adult Health; Visit Provider Internal Medicine Medical Oncology
DX: D46.9 Myelodysplastic syndrome, unspecified (principal); D64.9 Anemia, unspecified; C07 Malignant neoplasm of parotid gland; D61.818 Other pancytopenia; Z79.899 Other long term (current) drug therapy
CPT/HCPCS: 36415; 36430; 80053; 82728; 83540; 83550; 83615; 85007; 85025; 86850; 86900; 86920; 99214; J7050; P9016; P9040

== ENCOUNTER → 2023-06-06 08:16 | Outpatient (BNVA) | payer MEDICARE, SELFPAY | PROVIDERS: PCP Clinical Nurse Specialist Adult Health; Visit Provider Internal Medicine Medical Oncology | DX: D64.9 Anemia, unspecified (principal) | CPT/HCPCS: 85007; 85025 ==

== ENCOUNTER 2023-06-11 18:51 | Inpatient (IN) | payer MEDICARE, SELFPAY ==
[2023-06-11] VITALS (7 sets, daily range): BP systolic 123–162; BP diastolic 59–88; PULSE 103–115; RESP 22–30; TEMP 37.4; O2SAT 92–100; BMI 36.0
--- NOTE | 2023-06-11 19:09 | ECG_ITS ---
[facility] Test Date: 2023-06-11 Pat Name: Guido Crump Department: Room: Gender: Male Chair Car Attendant: : 1940 Requested By: Louis Grewal Order Number: [id number] Tari MD: Jaida Lujan M.D. Measurements Intervals [place] Rate: 105 P: 101 AK: 154 QRS: 15 QRSD: 110 T: 70 QT: 346 QTc: 457 Interpretive Statements SINUS TACHYCARDIA MODERATE INTRAVENTRICULAR CONDUCTION DELAY [105+ ms QRS DURATION, 80+ ms Q/S IN V1/V2, NO Q AND 60+ ms R IN I/aVL/V5/V6] NONSPECIFIC ST & T-WAVE ABNORMALITY Compared to ECG 06/11/2023 19:01:24 Intraventricular conduction delay now present Possible ischemia no longer present T-wave abnormality still present Electronically Signed On 06-11-2023 22:31:22 DRIVER GUARD by Jaida Lujan M.D. [email or web address]
--- NOTE | 2023-06-11 19:09 | XRR_ITS ---
PROCEDURE INFORMATION: Exam: XR Chest Exam date and time: 06/11/2023 7:45 PM Age: 83 years old Clinical indication: Chest pressure; Patient HX: Fluid retention; Chest pain TECHNIQUE: Imaging protocol: Radiologic exam of the chest. Views: 1 view. COMPARISON: CR XR chest 1V portable [id number] 03/07/2023 11:10 AM FINDINGS: Lungs: Patchy bilateral mid to lower lung field ground-glass airspace opacities reflecting alveolar edema and/or pneumonic infiltrates. Pleural spaces: Unremarkable. No pleural effusion. No pneumothorax. Heart/Mediastinum: Cardiomegaly and interstitial edema. Bones/joints: Unremarkable. XR/XR chest 1V portable [id number] IMPRESSION: 1. Patchy bilateral mid to lower lung field ground-glass airspace opacities reflecting alveolar edema and/or pneumonic infiltrates. 2. Cardiomegaly and interstitial edema.
--- NOTE | 2023-06-11 19:30 | W.ED.CHESTPA ---
HPI - Chest Pain General: Chief Complaint: Chest Pain Stated Complaint: Fluid Billed up\Chest Pain Time Seen by Provider: 06/11/23 19:11 History of Present Illness: Patient presents to the ER with complaints of intermittent chest pain and fluid buildup. Patient stated he chest pain started yesterday when he took 1 nitro and had some relief and he had an episode of pain today that he took 1 nitro and had some relief. Patient states he thinks he has fluid on his chest as he is mildly short of breath and his legs have been more swollen than normal. Patient is currently on Lasix for CHF. Patient also states he was admitted recently over the summer for the same thing. 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 Type 2 diabetes mellitus UTI (urinary tract infection) Surgical History History of cataract surgery History of nasal surgery History of parotidectomy (09/22/21) right parotidectomy with facial nerve preservation, with cervicofacial advancement flap, and with the right modified radical neck dissection Status post surgical removal of malignant neoplasm of skin (09/22/21) resection of right ear squamous cell carcinoma in situ Family History Father CAD (coronary artery disease) Mother CAD (coronary artery disease) Son Diabetes Grandfather Cancer Prostate Hypertension Grandmother Hypertension Denies family history of Clotting disorder Dementia Hyperlipidemia Psychiatric illness Chronic kidney disease (CKD) Suicide Anesthesia complication Bleeding disorder Lung disease Stroke Social History Smoking and tobacco/nicotine status: former use of tobacco/nicotine Quit status (tobacco/nicotine): has quit using Year quit tobacco: late Former quit date comment: used tobacco approx.40 years Alcohol intake: never Substance/Drug Use: never Physical Exam Const: COMMON NORMALS: no acute distress, average body habitus, patient oriented x3, no limitations, healthy appearing, alert and well nourished HENMT: COMMON NORMALS: normocephalic, atraumatic, hearing grossly normal bilaterally, external ears normal, Normal external nose present, moist oral mucous membranes and oropharynx normal HEAD & SCALP: normocephalic and atraumatic NOSE: Normal external nose present EXTERNAL EAR: Yes external ears normal Eye: COMMON NORMALS: Equal, round and reactive pupils present, EOMs intact bilaterally, conjunctivae normal and no scleral icterus CONJUNCTIVA: Yes conjunctivae normal PUPIL: Yes Equal, round and reactive pupils present Neck/C-Spine: COMMON NORMALS: full ROM, no lymphadenopathy, supple, no meningeal signs, no JVD and Thyroid normal THYROID: Thyroid normal Chest: COMMONS NORMALS: normal inspection of the chest and normal palpation of entire chest wall Resp: COMMON NORMALS: normal respiratory effort, No retractions, No use of accessory muscles and clear to auscultation bilaterally AUSCULTATION: clear to auscultation bilaterally Cardio: COMMON NORMALS: no JVD, regular rate, regular rhythm, S1 normal heart sound present, S2 normal heart sound present, No gallops present (Cardio), No clicks present (Cardio), No murmurs present (Cardio) and No rub (Cardio) RATE: regular rate RHYTHM: regular rhythm HEART SOUNDS: S1 normal heart sound present and S2 normal heart sound present GI: COMMON NORMALS: Normal to inspection, nondistended, normoactive bowel sounds present, Soft to palpation, non-tender, No hepatosplenomegaly present and no masses PALPATION: Yes Soft to palpation and Yes No hepatosplenomegaly present Extremity: NARRATIVE EXTREMITY EXAM: 2+ pitting edema Bilateral lower extremities up to the knees Neuro: COMMON NORMALS: patient oriented x3 SENSORIUM/ORIENTATION: Yes alert MENINGEAL SIGNS: Yes no meningeal signs Course Vital Signs: Vital signs: Vital Signs Temperature 98.2 F 06/12/23 16:00 Pulse Rate 98 06/12/23 17:03 Respiratory Rate 27 H 06/12/23 16:00 Blood Pressure 157/81 06/12/23 16:00 Pulse Oximetry 95 06/12/23 16:00 Oxygen Delivery Me thod Nasal Cannula 06/12/23 16:00 Oxygen Flow Rate 3 06/12/23 08:06 MDM - Chest Pain Medical Decision Making Patient was worked up in a standard cardiac fashion. Patient is anemic at 8.3 but this is chronic due to his myelodysplastic syndrome. Patient's BUN/creatinine was slightly elevated at 18 and 1.9 but this is chronic as well. X-ray showed bilateral patchy mid to lower lung opacities reflecting edema versus pneumonic infiltrate. D-dimer was slightly high at 1.8 patient is tachycardic and having intermittent chest pain so a CTA was obtained which was negative for pulmonary embolism. Due to patient's ongoing exertional angina patient will be admitted to [facility]. Dr. Killian was consulted who agreed for admission and further evaluation and treatment. In ER patient was given 40 mg of IV Lasix as well as 1 inch Nitropaste. Patient is chest pain-free during rest. Differential Diagnosis Unlikely acute massive pulmonary embolism, acute respiratory failure, acute myocardial infarction, cardiac arrest or sudden cardiac Medical Records I reviewed the patient's medical records. Lab Data I reviewed the patient's lab results. 06/12/23 08:32 06/12/23 08:32 Radiology Impressions Chest X-Ray 06/11/23 19:09 IMPRESSION: 1. Patchy bilateral mid to lower lung field ground-glass airspace opacities reflecting alveolar edema and/or pneumonic infiltrates. 2. Cardiomegaly and interstitial edema. Chest CTA 06/11/23 21:53 IMPRESSION: 1. Negative for pulmonary embolus. 2. Aberrant right subclavian artery, normal variant. 3. Scattered enlarged mediastinal lymph nodes measuring up to 12.5 mm, nonspecific. 4. Main pulmonary artery is somewhat prominent, which can be a finding of chronic pulmonary hypertension. 5. Cardiomegaly. 6. Trace pericardial effusion measuring 6.5 mm in thickness. 7. Patchy bilateral ground-glass airspace opacities suggestive of alveolar edema. 8. Hepatomegaly suspected. 9. Spleen enlarged at 13.7 cm. 10. Multilevel bridging degenerative calcifications throughout the spine. 11. Coronary artery atherosclerotic calcifications. Laboratory Results WBC 8.38 10^3/uL (3.29-11.43) 06/11/23 19:20 RBC 3.15 10^6/uL (3.85-5.65) L 06/11/23 19:20 Hgb 8.30 g/dL (11.27-16.99) L 06/11/23 19:20 Hct 26.7 % (37-53) L 06/11/23 19:20 MCV 84.8 fl (82-101) 06/11/23 19:20 MCH 26.3 pg (27-33) L 06/11/23 19:20 MCHC 31.1 g/dL (30-55) 06/11/23 19:20 RDW 21.2 % (12.1-15.1) H 06/11/23 19:20 Plt Count 72 10^3/cmm (157-399) L 06/11/23 19:20 MPV Medical Service Technician 06/11/23 19:20 Lymph % (Auto) Not Reportable 06/11/23 19:20 [place] % (Auto) Not Reportable 06/11/23 19:20 Lymph # (Auto) Not Reportable 06/11/23 19:20 [place] # (Auto) Not Reportable 06/11/23 19:20 Total Counted 100 (0-100) 06/11/23 19:20 Atypical Lymphs % 0.0 % (0-5) 06/11/23 19:20 Absolute Neutrophils 6.6 10^3/cmm (1.4-6.5) H 06/11/23 19:20 Segmented Neutrophils 74 % 06/11/23 19:20 Abs Segm Neuts (Man) 6.2 10/cmm (1.6-7.1) 06/11/23 19:20 Band Neutrophils 5.0 % 06/11/23 19:20 Abs Band Neuts (Man) 0.4 10^3/cmm (0.0-1.2) 06/11/23 19:20 Absolute Lymphocytes 1.3 10^3/cmm (1.2-3.4) 06/11/23 19:20 Lymphocytes (Manual) 16 % 06/11/23 19: Monocytes (Manual) 1.0 % 06/11/23 19: Absolute Monocytes 0.1 10^3/cmm (0.1-0.6) 06/11/23 19:20 Eosinophils (Manual) 0 % 06/11/23 19: Absolute Eosinophils 0.0 10^3/cmm (0.0-0.7) 06/11/23 19:20 Basophils (Manual) 0.0 % 06/11/23 19:20 Absolute Basophils 0.0 10^3/cmm (0.0-0.2) 06/11/23 19:20 Metamyelocytes 4.0 % 06/11/23 19:20 Platelet Estimate Decreased (Normal) 06/11/23 19:20 D-Dimer 1.84 ug/mLFEU (0-0.59) H 06/11/23 19:20 Sodium 139 mmol/L (136-145) 06/11/23 19:20 Potassium 3.3 mmol/L (3.5-5.1) L 06/11/23 19:20 Chloride 99 mmol/L (98-107) 06/11/23 19:20 Carbon Dioxide 27 mmol/L (22-29) 06/11/23 19:20 Anion Gap 16.3 (5-19) 06/11/23 19:20 BUN 18 mg/dL (8-23) 06/11/23 19:20 Creatinine 1.9 mg/dL (0.7-1.2) H 06/11/23 19:20 GFR Calculation Not Reportable 06/11/23 19:20 Glucose 171 mg/dL (65-115) H 06/11/23 19:20 Calculated Osmolality 294 mOsm/kg (285-295) 06/11/23 19:20 Calcium 8.3 mg/dL (8.5-10.5) L 06/11/23 19:20 Total Bilirubin 1.0 mg/dL (0.15-1.2) 06/11/23 19:20 AST 8 U/L (0-40) 06/11/23 19:20 ALT 6 U/L (0-41) 06/11/23 19:20 Alkaline Phosphatase 94 U/L (40-130) 06/11/23 19:20 Troponin T Baseline 39 ng/L (0-15) H 06/11/23 19:20 Troponin T 120 Minute 41.48 ng/L (0-15) H 06/11/23 21:14 Delta Troponin T 2.48 ABS# (0-10) 06/11/23 21:14 NT-Pro-B Natriuret Pep 43017 pg/mL (0-450) H 06/11/23 19:20 Total Protein 7.1 g/dL (6.6-8.7) 06/11/23 19:20 Albumin 4.1 g/dL (3.5-5.2) 06/11/23 19:20 Globulin 3.0 g/dL (1.3-4.6) 06/11/23 19:20 Urine Color Sade (Yellow) 06/11/23 19:25 Urine Appearance Clear (CLEAR) 06/11/23 19:25 Urine pH 5 (5-7) 06/11/23 19:25 Ur Specific [place] 1.010 (1.005-1.030) 06/11/23 19:25 Urine Protein Trace (Negative) 06/11/23 19:25 Urine Glucose (UA) Norm (Normal) 06/11/23 19:25 Urine Ketones Negative (Negative) 06/11/23 19:25 Urine Blood Neg (Negative) 06/11/23 19:25 Urine Nitrate Negative (Negative) 06/11/23 19:25 Urine Bilirubin Neg (Negative) 06/11/23 19:25 Urine Urobilinogen 1 mg/dL (Negative) H 06/11/23 19:25 Ur Leukocyte Esterase Negative (Negative) 06/11/23 19:25 Urine RBC None /hpf (0-2) 06/11/23 19:25 Urine WBC None /hpf (0-5) 06/11/23 19:25 Ur Squamous Epith Cells Rare /hpf (0-5) 06/11/23 19:25 Calcium Oxalate Crystal 0-4 /hpf H 06/11/23 19:25 Amorphous Sediment 1+ /hpf 06/11/23 19:25 Urine Bacteria None /hpf (NONE) 06/11/23 19:25 Hyaline Casts 0-4 /lpf H 06/11/23 19:25 All radiology interpretation(s) finalized by discharge EKG Data EKG 1: I personally reviewed and interpreted this EKG as follows: EKG interpretation date: 06/11/23 EKG interpretation time: 19:01 Prior EKG tracings: not available for review Interpretation: EKG showed ventricular rate 110 bpm, HI interval 191, QRS duration 103, QTc of 402, sinus tachycardia, ST deviation moderate T wave abnormality EKG 2: I personally reviewed and interpreted this EKG as follows: EKG interpretation date: 06/11/23 EKG interpretation time: 21:22 Prior EKG tracings: available for review Interpretation: EKG showed ventricular rate 105 bpm, HI interval 154, QRS duration 110, QTc of 407, sinus tachycardia, moderate intraventricular conduction delay, nonspecific ST and T wave abnormalities Discharge Plan Discharge Patient Disposition: Admitted As Inpatient Admit Provider: Maribel Killian Clinical Impression: Unstable angina pectoris, Myelodysplastic syndrome, Ischemic cardiomyopathy Cardiomyopathy Qualifiers: Cardiomyopathy type: ischemic Qualified Code(s): I25.5 - Ischemic cardiomyopathy Chronic kidney disease Qualifiers: Chronic kidney disease stage: unspecified stage Qualified Code(s): N18.9 - Chronic kidney disease, unspecified CHF (congestive heart failure) Qualifiers: Heart failure type: unspecified Heart failure chronicity: acute on chronic Qualified Code(s): I50.9 - Heart failure, unspecified Condition: Stable Coding Level of Care Code ED [employer] Shop Supervisor for Danielle Nye
[2023-06-11 19:31] LABS: Hematocrit 26.7 % (37-53); Mean Corpuscular HGB Conc 31.1 g/dL (30-55); Mean Corpuscular Hemoglobin 26.3 pg (27-33); Mean Corpuscular Volume 84.8 fl (82-101); Platelet Count 72 10^3/cmm (157-399); Red Blood Count 3.15 10^6/uL (3.85-5.65); Red Cell Distribution Width 21.2 % (12.1-15.1); White Blood Count 8.38 10^3/uL (3.29-11.43)
[2023-06-11] MEDS: aspirin 81 mg Chew Tablet 324 MG PO (19:42)
[2023-06-11] MEDS: nitroglycerin 0.4 mg sublingual Tablet SUBLINGUAL (19:42)
[2023-06-11] MEDS: FUROsemide 10 mg/mL SDV 4mL 40 MG IVP (19:44)
[2023-06-11 19:51] LABS: Alanine Aminotransferase 6 U/L (0-41); Albumin Level 4.1 g/dL (3.5-5.2); Alkaline Phosphatase 94 U/L (40-130); Anion Gap 16.3 (5-19); Aspartate Amino Transferase 8 U/L (0-40); Blood Urea Nitrogen 18 mg/dL (8-23); Calcium 8.3 mg/dL (8.5-10.5); Carbon Dioxide 27 mmol/L (22-29); Chloride 99 mmol/L (98-107); Glucose 171 mg/dL (65-115); Osmolality Calculated 294 mOsm/kg (285-295); Potassium 3.3 mmol/L (3.5-5.1); Sodium 139 mmol/L (136-145); Total Protein 7.1 g/dL (6.6-8.7)
[2023-06-11 20:08] LABS: Troponin(5th) Baseline 39 ng/L (0-15)
[2023-06-11 20:27] LABS: Slide Review Slide Review Perform
[2023-06-11 20:28] LABS: Absolute Neutrophil 6.6 10^3/cmm (1.4-6.5); Absolute Segmented Neutrophil 6.2 10/cmm (1.6-7.1); Band Neutrophils Absolute 0.4 10^3/cmm (0.0-1.2); Eosinophils 0 %; Lymphocytes 16 %; Lymphocytes Absolute 1.3 10^3/cmm (1.2-3.4); Monocytes Absolute 0.1 10^3/cmm (0.1-0.6); Platelet Estimate Decreased (Normal); Segmented Neutrophils 74 %; Total Cells Counted 100 (0-100)
[2023-06-11 20:57] LABS: NT Pro B Type Natriuretic Pept 11050 pg/mL (0-450)
[2023-06-11] MEDS: nitroglycerin 1 gm/inch oint Pkt 1 INCH TOPICAL (21:07)
--- NOTE | 2023-06-11 21:09 | ECG_ITS ---
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 Measurements Intervals [place] Rate: 110 P: 94 MN: 191 QRS: 21 QRSD: 103 T: 143 QT: 337 QTc: 457 Interpretive Statements SINUS TACH[address] DEVIATION AND MODERATE T-WAVE ABNORMALITY, CONSIDER LATERAL ISCHEMIA [-0.1+ mV T-WAVE IN I/aVL/V5/V6] Compared to ECG 03/07/2023 05:02:40 Possible ischemia now present Intraventricular conduction delay no longer present T-wave abnormality still present Electronically Signed On 06-11-2023 22:32:34 HEALTH INFORMATION SPECIALIST by Jaida Lujan M.D. [id number]
[2023-06-11 21:44] LABS: Add Urine Culture? No; Add Urine Microscopic? YES; Amorphous Sediment Urine 1+ /hpf; Bilirubin Urine Neg (Negative); Blood Urine Neg (Negative); Calcium Oxalate Crystals Urine 0-4 /hpf; Glucose Urine UA Norm (Normal); Hyaline Casts Urine 0-4 /lpf; Ketones Urine Negative (Negative); Leukocyte Esterase Urine Negative (Negative); Nitrate Urine Negative (Negative); Protein Urine Trace (Negative); Squamous Epithelial Cell Urine RARE /hpf (0-5); Urine Appearance Clear (CLEAR); Urine Color Amber (Yellow); Urobilinogen Urine 1 mg/dL (Negative); pH Urine 5 (5-7)
[2023-06-11 21:48] LABS: D Dimer 1.84 ug/mLFEU (0-0.59)
--- NOTE | 2023-06-11 21:53 | CTR_ITS ---
PROCEDURE INFORMATION: Exam: CTA Chest With Contrast Exam date and time: 06/11/2023 11:12 PM Age: 83 years old Clinical indication: Pain and abnormal findings; Abnormal diagnostic tests; Elevated d-dimer; Shortness of breath; Chest pressure; Patient HX: Chest pain with SOB and tachycardia. Dimer of 1.84. ; Additional info: Elevated d dimer, chest pain, tachycardia TECHNIQUE: Imaging protocol: Computed tomographic angiography of the chest with contrast. Exam focused on the arteries. 3D rendering (Not supervised by radiologist): MIP and/or 3D reconstructed images were created by the technologist. Radiation optimization: All CT scans at this facility use at least one of these dose optimization techniques: automated exposure control; mA and/or kV adjustment per patient size (includes targeted exams where dose is matched to clinical indication); or iterative reconstruction. Contrast material: OMNI 350; Contrast volume: 59 ml; Contrast route: INTRAVENOUS (IV); REPORTING DATA: Count of CT and Cardiac NM exams in prior 12 months: This patient has received 0 known CTs and 0 known cardiac nuclear medicine studies in the 12 months prior to the current study. COMPARISON: CT angio chest PE protcl [id number] 09/26/2021 4:11 PM RADIATION DOSE METRICS: Total DLP (mGy-cm): 497.92 FINDINGS: Pulmonary arteries: Main pulmonary artery is somewhat prominent, which can be a finding of chronic pulmonary hypertension. Great vessels off aortic arch: Aberrant right subclavian artery, normal variant. Aorta: Unremarkable. No aortic aneurysm. No aortic dissection. Lungs: Patchy bilateral ground-glass airspace opacities suggestive of alveolar edema. Pleural spaces: Unremarkable. No pneumothorax. No pleural effusion. Heart: Cardiomegaly. Trace pericardial effusion measuring 6.5 mm in thickness. Coronary artery atherosclerotic calcifications. Lymph nodes: Scattered enlarged mediastinal lymph nodes measuring up to 12.5 mm, nonspecific. Liver: Hepatomegaly suspected. Spleen: Spleen enlarged at 13.7 cm. Bones/joints: Multilevel bridging degenerative calcifications throughout the spine. Soft tissues: Unremarkable. CT/CT angio chest PE protcl [id number] IMPRESSION: 1. Negative for pulmonary embolus. 2. Aberrant right subclavian artery, normal variant. 3. Scattered enlarged mediastinal lymph nodes measuring up to 12.5 mm, nonspecific. 4. Main pulmonary artery is somewhat prominent, which can be a finding of chronic pulmonary hypertension. 5. Cardiomegaly. 6. Trace pericardial effusion measuring 6.5 mm in thickness. 7. Patchy bilateral ground-glass airspace opacities suggestive of alveolar edema. 8. Hepatomegaly suspected. 9. Spleen enlarged at 13.7 cm. 10. Multilevel bridging degenerative calcifications throughout the spine. 11. Coronary artery atherosclerotic calcifications.
[2023-06-11 22:21] LABS: Troponin 5 2HR 41.48 ng/L (0-15); Troponin 5 2HR Delta 2.48 ABS# (0-10)
[2023-06-11] MEDS: iohexol 350 mg/mL 500 mL Btl (per mL) IV (22:24)
[2023-06-12] VITALS (14 sets, daily range): BP systolic 106–157; BP diastolic 61–81; PULSE 84–102; RESP 18–27; TEMP 36.4–36.8; O2SAT 92–99
[2023-06-12 01:42] LABS: Troponin 5 6HR 79.68 ng/L (0-15)
[2023-06-12 01:44] LABS: Troponin 5 6HR Delta 40.68 ng/L (0-12)
[2023-06-12] MEDS: flu vacc pf 2023-24 (6 mos+) 60 MCG IM (02:00)
[2023-06-12] MEDS: pneumococcal (23 valent) SDV 0.5 mL IM (02:03)
--- NOTE | 2023-06-12 02:41 | P.HP_ITS ---
Providers/Chief Complaint Admitting Physician: Maribel Killian MD Primary Care Provider: Amando Sanchez Chief Complaint: Fluid Billed up\Chest Pain History of Present Illness Guido Crump is a 83 year old male with MDS and resulting pancytopenia, transfusion dependent , h/o metastatic parotid ca 2020 , chronic kidney disease, CHF, abnormal stress test, HTN, HLD, DM 2, BPH, other comorbidities, chronically on 2-3 L oxygen at home, prsented to the ER with chest tightness and shortness of breath. Pe patient he has been having chest pain over the course f last 24 hrs which has not improved in spite of taking nitro at home. He has also been experiencing increasing lower extremity edema and has developed tachypnea with increased oxygen requirement than his baseline at about 4 L/min came into the ER with these complaints. Chest x-ray today showed bilateral lower lung opacities most likely consistent with pulmonary edema. CTA was negative for PE. Minimal effort today in the ER such as transferring from bed to stretcher resulted in chest pain. He has received Nitropaste and IV Lasix in the emergency room. Denies any recent cough palpitations or syncope. Review of Systems General: Reports: 10 or more systems reviewed and unremarkable except in HPI and below Const: Denies: fever(s), chills or body aches Eyes: Denies: change in vision, blurry vision or photophobia ENMT: Reports: hoarseness; Denies: throat pain, enlarged tonsils, odynophagia or nasal congestion Card: Denies: chest pain, palpitations, irregular heart rhythm, edema, swelling of feet/ankles, lightheadedness, pre-syncope, dyspnea on exertion or orthopnea Resp: Denies: dyspnea, productive cough, non-productive cough, wheezing, stridor, pain on inspiration, change in phlegm color, hemoptysis or chest congestion GI: Denies: abdominal pain, nausea, vomiting, hematemesis, coffee ground emesis, dysphagia, heartburn, diarrhea, constipation, GI cramping, change in stool character, hematochezia or melena : Denies: flank pain, dysuria, urinary frequency, urinary urgency, urinary hesitancy or hematuria Musc: Denies: neck pain, back pain, extremity pain, joint swelling, joint warmth or deformity Neuro: Denies: headache(s), numbness in extremities, weakness in extremities, sensory changes, difficulty walking, frequent falls, dizziness, vertigo, behavioral changes, Slurred speech present or seizure-like activity Psych: Denies: anxiety, depression, suicidal ideation or homicidal ideation Endo: Denies: polyuria, polydipsia, tired all the time, cold intolerance or hot flashes Royce/Lymph: Denies: easy bruising or easy bleeding Medications/Allergies Home Medications Medication Instructions Recorded Confirmed Last Taken Type Diabetic shoes #1 ea 12/12/19 05/24/23 Unknown Rx atorvastatin 40 mg tablet 40 mg PO DAILY@1200 01/16/21 05/24/23 01/15/21 History metoprolol tartrate 25 mg tablet 12.5 mg PO BID #90 tabs 05/31/22 05/24/23 Unknown Rx nitroglycerin 0.4 mg sublingual 0.4 mg sublingual Q5M PRN chest 05/31/22 05/24/23 Unknown Rx tablet (Nitrostat) pain #50 tabs pantoprazole 40 mg tablet,delayed 40 mg PO DAILY 90 days #90 tabs 06/06/22 05/24/23 Unknown Rx release isosorbide mononitrate 30 mg 30 mg PO BID #180 tabs 07/07/22 05/24/23 Unknown Rx tablet,extended release 24 hr blood sugar diagnostic (True #100 ea 11/16/22 05/24/23 Unknown Rx Metrix Glucose Test Strip) lancets 30 gauge (BD Ultra-Fine II #200 ea 11/16/22 05/24/23 Unknown Rx Lancets) tamsulosin 0.4 mg capsule (Flomax) 0.4 mg PO DAILY@12 #90 caps 01/10/23 05/24/23 Unknown Rx ranolazine 500 mg tablet,extended 500 mg PO BID 60 days #120 tabs 01/24/23 05/24/23 Unknown Rx release,12 hr albuterol sulfate 90 mcg/actuation 2 puff inhalation QID PRN 02/01/23 05/24/23 Unknown Rx aerosol inhaler (ProAir HFA) Shortness Of Breath #8.5 grams allopurinol 100 mg tablet 100 mg PO DAILY #30 tabs 02/07/23 05/24/23 Unknown Rx clopidogrel 75 mg tablet 75 mg PO DAILY #30 tabs 02/07/23 05/24/23 Unknown Rx potassium chloride 10 mEq 10 meq PO DAILY 03/04/23 05/24/23 03/03/23 History tablet,extended release furosemide 40 mg tablet 40 mg PO BID PRN Edema #60 tabs 03/11/23 05/24/23 Unknown Rx guaifenesin 600 mg tablet, 600 mg PO BID #14 tabs 03/11/23 05/24/23 Unknown Rx extended release 12 hr (Mucinex) finasteride 5 mg tablet 5 mg PO DAILY@1200 #90 tabs 04/17/23 05/24/23 Unknown Rx lisinopril 5 mg tablet 5 mg PO DAILY #90 tabs 04/17/23 05/24/23 Unknown Rx levothyroxine 50 mcg tablet 50 mcg PO DAILY@05 #90 tabs 05/15/23 05/24/23 Unknown Rx clonazepam 1 mg tablet 0.5 mg PO TID Anxiety #45 tabs 05/23/23 05/24/23 Unknown Rx Allergies Allergy/AdvReac Type Severity Reaction Status Date / Time No Known Allergies Allergy Verified 05/24/23 12:23 PFSH Acute PFSH: Medical History Abnormal cardiovascular stress test Acute bronchitis Anxiety BPH (benign prostatic hyperplasia) CHF (congestive heart failure) Chronic diarrhea CKD (chronic kidney disease) Confusion Gout History of hypertension Hyperlipidemia Hypotension Hypothyroidism Myelodysplastic syndrome Recurrent urinary tract infection 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 Type 2 diabetes mellitus UTI (urinary tract infection) Surgical History History of cataract surgery History of nasal surgery History of parotidectomy (09/22/21) right parotidectomy with facial nerve preservation, with cervicofacial advancement flap, and with the right modified radical neck dissection Status post surgical removal of malignant neoplasm of skin (09/22/21) resection of right ear squamous cell carcinoma in situ Family History Father CAD (coronary artery disease) Mother CAD (coronary artery disease) Son Diabetes Grandfather Cancer Prostate Hypertension Grandmother Hypertension Denies family history of Clotting disorder Dementia Hyperlipidemia Psychiatric illness Chronic kidney disease (CKD) Suicide Anesthesia complication Bleeding disorder Lung disease Stroke Social History Smoking and tobacco/nicotine status: former use of tobacco/nicotine Quit status (tobacco/nicotine): has quit using Year quit tobacco: late 1980s Former quit date comment: used tobacco approx.40 years Alcohol intake: never Substance/Drug Use: never Vitals/I&O/Wt Last Vital Signs Temp 97.6 F 06/12/23 01:35 Pulse 99 06/12/23 01:35 Resp 22 H 06/12/23 01:35 BP 106/61 06/12/23 01:35 Pulse Ox 99 06/12/23 01:35 O2 Del Method Nasal Cannula 06/12/23 01:35 O2 Flow Rate 3 06/12/23 01:35 Weight last 48 hrs Weight 104.326 kg Physical Exam Narrative: General: No acute distress, AO x3 HEENT: PERRLA, pupils bilaterally equal and reactive, pallors not present Chest: Normal vesicular breath sounds, no added sounds, equal good air entry bilaterally CVS: S1-S2 regular, no murmurs, no tachycardia, no gallops, no rubs Abdomen: Soft, nontender, no organomegaly, bowel sounds present Neuro: No focal deficits, no facial deformity, AO x3, power 5/5 in all limbs Extremities: 3+ pitting bilateral lower extremity edema Data 06/11/23 19:20 06/11/23 19:20 Other Labs: Radiology Impressions Chest X-Ray 06/11/23 19:09 IMPRESSION: 1. Patchy bilateral mid to lower lung field ground-glass airspace opacities reflecting alveolar edema and/or pneumonic infiltrates. 2. Cardiomegaly and interstitial edema. Chest CTA 06/11/23 21:53 IMPRESSION: 1. Negative for pulmonary embolus. 2. Aberrant right subclavian artery, normal variant. 3. Scattered enlarged mediastinal lymph nodes measuring up to 12.5 mm, nonspecific. 4. Main pulmonary artery is somewhat prominent, which can be a finding of chronic pulmonary hypertension. 5. Cardiomegaly. 6. Trace pericardial effusion measuring 6.5 mm in thickness. 7. Patchy bilateral ground-glass airspace opacities suggestive of alveolar edema. 8. Hepatomegaly suspected. 9. Spleen enlarged at 13.7 cm. 10. Multilevel bridging degenerative calcifications throughout the spine. 11. Coronary artery atherosclerotic calcifications. Laboratory Results WBC 8.38 10^3/uL (3.29-11.43) 06/11/23 19:20 RBC 3.15 10^6/uL (3.85-5.65) L 06/11/23 19:20 Hgb 8.30 g/dL (11.27-16.99) L 06/11/23 19:20 Hct 26.7 % (37-53) L 06/11/23 19:20 MCV 84.8 fl (82-101) 06/11/23 19:20 MCH 26.3 pg (27-33) L 06/11/23 19:20 MCHC 31.1 g/dL (30-55) 06/11/23 19:20 RDW 21.2 % (12.1-15.1) H 06/11/23 19:20 Plt Count 72 10^3/cmm (157-399) L 06/11/23 19:20 MPV Well Treatment Offsider 06/11/23 19:20 Lymph % (Auto) Not Reportable 06/11/23 19:20 Maverick % (Auto) Not Reportable 06/11/23 19:20 Lymph # (Auto) Not Reportable 06/11/23 19:20 [place]ick # (Auto) Not Reportable 06/11/23 19:20 Total Counted 100 (0-100) 06/11/23 19:20 Atypical Lymphs % 0.0 % (0-5) 06/11/23 19:20 Absolute Neutrophils 6.6 10^3/cmm (1.4-6.5) H 06/11/23 19:20 Segmented Neutrophils 74 % 06/11/23 19:20 Abs Segm Neuts (Man) 6.2 10/cmm (1.6-7.1) 06/11/23 19:20 Band Neutrophils 5.0 % 06/11/23 19: Abs Band Neuts (Man) 0.4 10^3/cmm (0.0-1.2) 06/11/23 19:20 Absolute Lymphocytes 1.3 10^3/cmm (1.2-3.4) 06/11/23 19:20 Lymphocytes (Manual) 16 % 06/11/23 19:20 Monocytes (Manual) 1.0 % 11/05/23 19:20 Absolute Monocytes 0.1 10^3/cmm (0.1-0.6) 06/11/23 19:20 Eosinophils (Manual) 0 % 06/11/23 19:20 Absolute Eosinophils 0.0 10^3/cmm (0.0-0.7) 06/11/23 19:20 Basophils (Manual) 0.0 % 06/11/23 19:20 Absolute Basophils 0.0 10^3/cmm (0.0-0.2) 06/11/23 19:20 Metamyelocytes 4.0 % 06/11/23 19:20 Platelet Estimate Decreased (Normal) 06/11/23 19:20 D-Dimer 1.84 ug/mLFEU (0-0.59) H 06/11/23 19:20 Sodium 139 mmol/L (136-145) 06/11/23 19:20 Potassium 3.3 mmol/L (3.5-5.1) L 06/11/23 19:20 Chloride 99 mmol/L (98-107) 06/11/23 19:20 Carbon Dioxide 27 mmol/L (22-29) 06/11/23 19:20 Anion Gap 16.3 (5-19) 06/11/23 19:20 BUN 18 mg/dL (8-23) 06/11/23 19:20 Creatinine 1.9 mg/dL (0.7-1.2) H 06/11/23 19:20 GFR Calculation Not Reportable 06/11/23 19:20 Glucose 171 mg/dL (65-115) H 06/11/23 19:20 Calculated Osmolality 294 mOsm/kg (285-295) 06/11/23 19:20 Calcium 8.3 mg/dL (8.5-10.5) L 06/11/23 19:20 Total Bilirubin 1.0 mg/dL (0.15-1.2) 06/11/23 19:20 AST 8 U/L (0-40) 06/11/23 19:20 ALT 6 U/L (0-41) 06/11/23 19:20 Alkaline Phosphatase 94 U/L (40-130) 06/11/23 19:20 Troponin T Baseline 39 ng/L (0-15) H 06/11/23 19:20 Troponin T 120 Minute 41.48 ng/L (0-15) H 06/11/23 21:14 Delta Troponin T 2.48 ABS# (0-10) 06/11/23 21:14 Troponin T Hi Sens 6Hr 79.68 ng/L (0-15) H 06/12/23 01:21 Troponin T Hi Sens 6Hr Delta 40.68 ng/L (0-12) H* 06/12/23 01:21 NT-Pro-B Natriuret Pep 79605 pg/mL (0-450) H 06/11/23 19:20 Total Protein 7.1 g/dL (6.6-8.7) 06/11/23 19:20 Albumin 4.1 g/dL (3.5-5.2) 06/11/23 19:20 Globulin 3.0 g/dL (1.3-4.6) 06/11/23 19:20 Urine Color Sade (Yellow) 06/11/23 19:25 Urine Appearance Clear (CLEAR) 06/11/23 19:25 Urine pH 5 (5-7) 06/11/23 19:25 Ur Specific [place] 1.010 (1.005-1.030) 06/11/23 19:25 Urine Protein Trace (Negative) 06/11/23 19:25 Urine Glucose (UA) Norm (Normal) 06/11/23 19:25 Urine Ketones Negative (Negative) 06/11/23 19:25 Urine Blood Neg (Negative) 06/11/23 19:25 Urine Nitrate Negative (Negative) 06/11/23 19:25 Urine Bilirubin Neg (Negative) 06/11/23 19:25 Urine Urobilinogen 1 mg/dL (Negative) H 06/11/23 19:25 Ur Leukocyte Esterase Negative (Negative) 06/11/23 19:25 Urine RBC None /hpf (0-2) 06/11/23 19:25 Urine WBC None /hpf (0-5) 06/11/23 19:25 Ur Squamous Epith Cells Rare /hpf (0-5) 06/11/23 19:25 Calcium Oxalate Crystal 0-4 /hpf H 06/11/23 19:25 Amorphous Sediment 1+ /hpf 06/11/23 19:25 Urine Bacteria None /hpf (NONE) 06/11/23 19:25 Hyaline Casts 0-4 /lpf H 06/11/23 19:25 A&P Assessment and plan (1) NSTEMI (non-ST elevated myocardial infarction): Patient complaining of intermittent chest pain EKG shows mostly old T wave changes Troponin trend 39--> 40---> 79 with positive delta at 6 hours Started on heparin gtt. Closely monitor platelet and HB Continue Plavix 75 mg p.o. daily Patient has an abnormal stress test from January 2022. Per review of past notes it appears patient has declined coronary intervention in the past due to risk for CKD. We will consult cardiology, will likely opt for medical management, however given his pancytopenia he is high risk for anticoagulation and antiplatelets. Continue Lipitor 40 mg daily, lisinopril on hold due to elevated creatinine, continue Imdur 30 mg p.o. twice daily as he takes at home along with Ranexa Continue metoprolol 12.5 mg p.o. twice daily (2) CHF (congestive heart failure): Received Lasix in the emergency room, continue with Lasix 40 mg IV every 12 hours with close monitoring of renal function and urine output. Qualifiers: Heart failure chronicity: acute on chronic Heart failure type: unspecified Qualified Code(s): I50.9 - Heart failure, unspecified (3) Myelodysplastic syndrome: with resulting pancytopenia closely monitor platelet count and HB while on heparin gtt h/o transfusion dependent anemia Attestations Medical Necessity Statement*: Greater than 2 midnight admission is anticipated Coding Level of Care Code Acute Code for Chg Fwd High MDM includes number and complexity of problems actively addressed during encounter, amount and/or complexity of data reviewed/ordered and described risk of complication, morbidity or mortality of management as documented Diagnoses NSTEMI (non-ST elevated myocardial infarction) I21.4 CHF (congestive heart failure) I50.9 Heart failure chronicity: acute on chronic Heart failure type: unspecified Myelodysplastic syndrome D46.9
[2023-06-12] MEDS: ALPRAZolam 0.5 mg Tablet 0.25 MG PO (02:55)
[2023-06-12] MEDS: heparin drip 25,000 UNIT/500 ML PREMIX 30 UNIT IV ×2 (02:59→19:07)
[2023-06-12] MEDS: morphine 4 mg/mL SDV 1 mL 2 MG IVP (03:28)
--- NOTE | 2023-06-12 03:46 | ECG_ITS ---
[facility] Test Date: 2023-06-12 Pat Name: Guido Crump Department: Room: 102 Gender: Male Adoption Agent: : [id number] Requested By: Maribel Killian Order Number: [id number] Tari MD: Kvng Guerin M.D. Measurements Intervals [place] Rate: 102 P: 0 MO: 0 QRS: 20 QRSD: 93 T: 31 QT: 349 QTc: 456 Interpretive Statements ATRIAL FIBRILLATION WITH RAPID VENTRICULAR RESPONSE ST DEVIATION AND MODERATE T-WAVE ABNORMALITY, CONSIDER ANTERIOR ISCHEMIA [-0.1+ mV T-WAVE IN V3/V4] Compared to ECG 06/11/2023 21:22:31 Possible ischemia now present Sinus tachycardia no longer present Intraventricular conduction delay no longer present T-wave abnormality still present Electronically Signed On 06-12-2023 9:54:26 [employer]AMP [employer] by Kvng Guerin M.D. [id number]
[2023-06-12] MEDS: levothyroxine 50 mcg Tablet PO (05:15)
--- NOTE | 2023-06-12 07:58 | P.CONIM_ITS ---
Providers/Reason For Consult Consulting Physician/Specialty*: Kvng Guerin MD/ Cardiology Reason for Consult*: Chest pain/ congestive heart failure Requesting Physician: Dr Killian Attending Physician: Mingo Flanagan MD Primary Care Provider: Amando Sanchez History of Present Illness History of Present Illness Guido Crump is a 83 year old male with past medical history of congestive heart failure, abnormal stress test, CKD, MDS, anemia who presented to hospital with chest discomfort. Also has dyspnea on exertion and lower extremity edema. Had mild increase in troponin from baseline of 39-79 at 6 hours. NT proBNP is over 10,000. According to patient he has been having significant chest pain symptoms for several months however got worse yesterday. He also has a possible esophageal spasm history as well. Echocardiogram done a few months ago showed normal LV systolic function. Stress test was done last year that was abnormal ,medical therapy was decided given CKD, anemia. EKG shows sinus tachcyardia. In the ER CTA was performed that did not show PE. Review of Systems General: Reports: 10 or more systems reviewed and unremarkable except in HPI and below Const: Denies: fever(s), chills or body aches Eyes: Denies: change in vision, blurry vision or photophobia ENMT: Reports: hoarseness; Denies: throat pain, enlarged tonsils, odynophagia or nasal congestion Card: Reports: chest pain, swelling of feet/ankles, dyspnea on exertion and orthopnea; Denies: palpitations, irregular heart rhythm, edema, lightheadedness or pre- syncope Resp: Reports: dyspnea; Denies: productive cough, non-productive cough, wheezing, stridor, pain on inspiration, change in phlegm color, hemoptysis or chest congestion GI: Denies: abdominal pain, nausea, vomiting, hematemesis, coffee ground emesis, dysphagia, heartburn, diarrhea, constipation, GI cramping, change in stool character, hematochezia or melena : Denies: flank pain, dysuria, urinary frequency, urinary urgency, urinary hesitancy or hematuria Musc: Denies: neck pain, back pain, extremity pain, joint swelling, joint warmth or deformity Neuro: Denies: headache(s), numbness in extremities, weakness in extremities, sensory changes, difficulty walking, frequent falls, dizziness, vertigo, behavioral changes, Slurred speech present or seizure-like activity Psych: Denies: anxiety, depression, suicidal ideation or homicidal ideation Endo: Denies: polyuria, polydipsia, tired all the time, cold intolerance or hot flashes Royce/Lymph: Denies: easy bruising or easy bleeding Medications/Allergies Home Medications Medication Instructions Recorded Confirmed Last Taken Type Diabetic shoes #1 ea 12/12/19 06/12/23 Unknown Rx atorvastatin 40 mg tablet 40 mg PO DAILY@1200 01/16/21 06/12/23 06/11/23 History metoprolol tartrate 25 mg tablet 12.5 mg PO BID #90 tabs 05/31/22 06/12/23 06/11/23 Rx nitroglycerin 0.4 mg sublingual 0.4 mg sublingual Q5M PRN chest 05/31/22 06/12/23 Unknown Rx tablet (Nitrostat) pain #50 tabs pantoprazole 40 mg tablet,delayed 40 mg PO DAILY 90 days #90 tabs 06/06/22 06/12/23 06/11/23 Rx release isosorbide mononitrate 30 mg 30 mg PO BID #180 tabs 07/07/22 06/12/23 06/11/23 Rx tablet,extended release 24 hr blood sugar diagnostic (True #100 ea 11/16/22 06/12/23 Unknown Rx Metrix Glucose Test Strip) lancets 30 gauge (BD Ultra-Fine II #200 ea 11/16/22 06/12/23 Unknown Rx Lancets) tamsulosin 0.4 mg capsule (Flomax) 0.4 mg PO DAILY@12 #90 caps 01/10/23 06/12/23 06/11/23 Rx ranolazine 500 mg tablet,extended 500 mg PO BID 60 days #120 tabs 01/24/23 06/12/23 06/11/23 Rx release,12 hr albuterol sulfate 90 mcg/actuation 2 puff inhalation QID PRN 02/01/23 06/12/23 Unknown Rx aerosol inhaler (ProAir HFA) Shortness Of Breath #8.5 grams clopidogrel 75 mg tablet 75 mg PO DAILY #30 tabs 02/07/23 06/12/23 06/11/23 Rx potassium chloride 10 mEq 10 meq PO DAILY 03/04/23 06/12/23 03/03/23 History tablet,extended release furosemide 40 mg tablet 40 mg PO BID PRN Edema #60 tabs 03/11/23 06/12/23 Unknown Rx finasteride 5 mg tablet 5 mg PO DAILY@1200 #90 tabs 04/17/23 06/12/23 06/11/23 Rx lisinopril 5 mg tablet 5 mg PO DAILY #90 tabs 04/17/23 06/12/23 06/11/23 Rx levothyroxine 50 mcg tablet 50 mcg PO DAILY@05 #90 tabs 05/15/23 06/12/23 06/11/23 Rx clonazepam 1 mg tablet 0.5 mg PO TID Anxiety #45 tabs 05/23/23 06/12/23 06/11/23 Rx allopurinol 300 mg tablet 300 mg PO QAM 06/12/23 06/12/23 06/11/23 History gabapentin 300 mg capsule 300 mg PO BID 06/12/23 06/12/23 06/11/23 History Allergies Allergy/AdvReac Type Severity Reaction Status Date / Time No Known Allergies Allergy Verified 05/24/23 12:23 Current Medications Generic Name Dose Route Start Last Admin Trade Name Freq PRN Reason Stop Dose Admin Heparin Sodium/Sodium Chloride 25,000 unit in 500 mls @ 0 mls/hr 06/12/23 02:45 06/12/23 02:59 Heparin Drip IV 14.38 unit/kg/hr .Q0M VANDANA 30 mls/hr Administration Protocol Per Protocol Levothyroxine Sodium 50 mcg 06/12/23 05:00 06/12/23 05:15 Levothyroxine 50 Mcg Tablet PO 50 mcg DAILY@05 [facility] Administration Morphine Sulfate 2 mg 06/12/23 02:36 06/12/23 03:28 Morphine 4 Mg/Ml Sdv 1 Ml IVP 2 mg Q4H PRN Administration SEVERE PAIN PFSH Acute PFSH: Medical History Abnormal cardiovascular stress test Acute bronchitis Anxiety BPH (benign prostatic hyperplasia) CHF (congestive heart failure) Chronic diarrhea CKD (chronic kidney disease) Confusion Gout History of hypertension Hyperlipidemia Hypotension Hypothyroidism Myelodysplastic syndrome Recurrent urinary tract infection 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 Type 2 diabetes mellitus UTI (urinary tract infection) Surgical History History of cataract surgery History of nasal surgery History of parotidectomy (09/22/21) right parotidectomy with facial nerve preservation, with cervicofacial advancement flap, and with the right modified radical neck dissection Status post surgical removal of malignant neoplasm of skin (09/22/21) resection of right ear squamous cell carcinoma in situ Family History Father CAD (coronary artery disease) Mother CAD (coronary artery disease) Son Diabetes Grandfather Cancer Prostate Hypertension Grandmother Hypertension Denies family history of Clotting disorder Dementia Hyperlipidemia Psychiatric illness Chronic kidney disease (CKD) Suicide Anesthesia complication Bleeding disorder Lung disease Stroke Social History Smoking and tobacco/nicotine status: former use of tobacco/nicotine Quit status (tobacco/nicotine): has quit using Year quit tobacco: late Former quit date comment: used tobacco approx.40 years Alcohol intake: never Substance/Drug Use: never Vitals/I&O/Wt Last Vital Signs Temp 97.7 F 06/12/23 07:41 Pulse 90 06/12/23 07:41 Resp 18 06/12/23 07:41 BP 127/71 06/12/23 07:41 Pulse Ox 97 06/12/23 07:41 O2 Del Method Nasal Cannula 06/12/23 07:41 O2 Flow Rate 3 06/12/23 05:05 06/11/23 06/12/23 06/12/23 22:59 06:59 14:59 Intake Total 480 / 480 Output Total 150 / 150 300 / 300 Balance 330 / 330 -300 / -300 Weight last 48 hrs Weight 230 lb Physical Exam Narrative: GENERAL: Patient is alert, awake and oriented x3. [] NECK: No jugular vein distension. [] HEENT: No cyanosis. No icterus. No pallor. [] HEART: Tachycardia LUNGS: Diminished air entry bilaterally CENTRAL NERVOUS SYSTEM: Grossly nonfocal. [] EXTREMITIES: Lower extremities with 1-2+ edema bilaterally Data 06/12/23 08:32 06/12/23 08:32 A&P Assessment and plan (1) Chest pain: Qualifiers: Chest pain type: unspecified Qualified Code(s): R07.9 - Chest pain, unspecified (2) NSTEMI (non-ST elevated myocardial infarction): (3) Elevated troponin: Plan Patient has significant anemia, thrombocytopenia secondary to MDS and CKD. Troponin elevation is mild. I had a discussion with the patient and for now decision made to continue with medical therapy. If chest pain does not improve, depending on renal function, can consider coronary angiogram later. Continue heparin gtt Monitor renal function and CBC. Low sodium diet and fluid restriction IV lasix. Close I and Os Repeat echocardiogram Thank you for involving us with care of this patient. We will continue to follow. please call with questions. Consult Attestations Medical Necessity Statement: Care expected to cross 2 midnights. Coding Level of Care Code Acute Code for [facility] Diagnoses Chest pain R07.9 Chest pain type: unspecified NSTEMI (non-ST elevated myocardial infarction) I21.4 Elevated troponin R77.8
[2023-06-12] MEDS: metoprolol tartrate 25 mg Tablet 12.5 MG PO ×2 (08:34→18:04)
[2023-06-12] MEDS: allopurinol 100 mg Tablet PO (08:34)
[2023-06-12] MEDS: isosorbide mononitrate ER 30 mg Tablet PO ×2 (08:34→18:05)
[2023-06-12] MEDS: ranolazine (12HR) 500 mg Tablet PO ×2 (08:34→18:04)
[2023-06-12] MEDS: clopidogrel 75 mg Tablet PO (08:35)
[2023-06-12] MEDS: pantoprazole DR 40 mg Tablet PO ×2 (08:37)
[2023-06-12] MEDS: FUROsemide 10 mg/mL SDV 4mL 40 MG IVP ×2 (08:39→18:05)
[2023-06-12 08:41] LABS: Hematocrit 24.5 % (37-53); Mean Corpuscular HGB Conc 31.4 g/dL (30-55); Mean Corpuscular Hemoglobin 26.8 pg (27-33); Mean Corpuscular Volume 85.4 fl (82-101); Platelet Count 65 10^3/cmm (157-399); Red Blood Count 2.87 10^6/uL (3.85-5.65); Red Cell Distribution Width 21.1 % (12.1-15.1); White Blood Count 8.94 10^3/uL (3.29-11.43)
[2023-06-12 08:52] LABS: Partial Thromboplastin Time 67.5 SECONDS (23.9-36.7)
[2023-06-12 09:15] LABS: Add RBC Morph Yes
[2023-06-12 09:16] LABS: Slide Review Slide Review Perform
[2023-06-12 09:17] LABS: Anisocytosis 1+; Ovalocytes 1+; Poikilocytosis 1+; Tear Drop Cells Trace
[2023-06-12 09:18] LABS: RBC Morph Comp Yes
--- NOTE | 2023-06-12 09:20 | PC.NURSE ---
ptt back at 67.5- no change in heparin dose.
[2023-06-12 09:36] LABS: Anion Gap 16.2 (5-19); Blood Urea Nitrogen 18 mg/dL (8-23); Calcium 8.2 mg/dL (8.5-10.5); Carbon Dioxide 26 mmol/L (22-29); Chloride 98 mmol/L (98-107); Glucose 139 mg/dL (65-115); Osmolality Calculated 288 mOsm/kg (285-295); Potassium 3.2 mmol/L (3.5-5.1); Sodium 137 mmol/L (136-145)
[2023-06-12] MEDS: finasteride 5 mg Tablet PO (12:27)
[2023-06-12] MEDS: atorvastatin 40 mg Tablet PO (12:28)
[2023-06-12] MEDS: tamsulosin 0.4 mg Capsule PO (12:28)
--- NOTE | 2023-06-12 14:28 | P.PN_ITS ---
Subjective Subjective: Patient was seen this morning, he sitting up in a chair, he complains of shortness of breath, he is on 3 L, he complains of bilateral extremity edema, no chest pain, Vitals/I&O/Wt Last Vital Signs Temp 98.3 F 06/12/23 11:21 Pulse 84 06/12/23 11:21 Resp 27 H 06/12/23 11:21 BP 111/67 06/12/23 11:21 Pulse Ox 97 06/12/23 11:21 O2 Del Method Nasal Cannula 06/12/23 11:21 O2 Flow Rate 3 06/12/23 08:06 06/11/23 06/12/23 06/12/23 22:59 06:59 14:59 Intake Total 480 / 480 430 / 430 Output Total 150 / 150 580 / 580 Balance 330 / 330 -150 / -150 Weight last 48 hrs Weight 104.326 kg Physical Exam Const: COMMON NORMALS: no acute distress and patient oriented x3 Resp: COMMON NORMALS: normal respiratory effort, No retractions, No use of accessory muscles and clear to auscultation bilaterally AUSCULTATION: clear to auscultation bilaterally Cardio: COMMON NORMALS: regular rate, regular rhythm, S1 normal heart sound present and S2 normal heart sound present RATE: regular rate RHYTHM: regular rhythm HEART SOUNDS: S1 normal heart sound present and S2 normal heart sound present GI: COMMON NORMALS: Normal to inspection, nondistended, normoactive bowel sounds present and non-tender Extremity: COMMON NORMALS: no pedal edema Neuro: COMMON NORMALS: patient oriented x3 Psych: COMMON NORMALS: mental status grossly normal Data 06/12/23 08:32 06/12/23 08:32 A&P Assessment and plan (1) NSTEMI (non-ST elevated myocardial infarction): Patient complaining of intermittent chest pain EKG shows mostly old T wave changes Troponin trend 39--> 40---> 79 with positive delta at 6 hours Started on heparin gtt. Closely monitor platelet and HB Continue Plavix 75 mg p.o. daily Patient has an abnormal stress test from January 2022. Per review of past notes it appears patient has declined coronary intervention in the past due to risk for CKD. We will consult cardiology, will likely opt for medical management, however given his pancytopenia he is high risk for anticoagulation and antiplatelets. Continue Lipitor 40 mg daily, lisinopril on hold due to elevated creatinine, continue Imdur 30 mg p.o. twice daily as he takes at home along with Ranexa Continue metoprolol 12.5 mg p.o. twice daily (2) CHF (congestive heart failure): Systolic CHF exacerbation, ? Place Greene catheter ? Fluid restrictions at 1000 cc ? Lasix 40 IV twice daily, ? 1 dose metolazone, ? Recheck BMP this afternoon Qualifiers: Heart failure chronicity: acute on chronic Heart failure type: unspecified Qualified Code(s): I50.9 - Heart failure, unspecified (3) Myelodysplastic syndrome: with resulting pancytopenia closely monitor platelet count and HB while on heparin gtt h/o transfusion dependent anemia (4) Systolic CHF, acute: (5) Hyperlipidemia: (6) Type 2 diabetes mellitus: Qualifiers: Diabetes mellitus shelter insulin use: without shelter use Diabetes mellitus complication detail: with chronic kidney disease Chronic kidney disease stage: unspecified stage (7) Ischemic cardiomyopathy: (8) Chronic kidney disease: Qualifiers: Chronic kidney disease stage: unspecified stage Qualified Code(s): N18.9 - Chronic kidney disease, unspecified Attestations Medical Necessity Statement*: Patient requires hospitalization for systolic CHF exacerbation, acute, with NSTEMI, cardiology consulted getting diuresis, on a heparin drip, Diagnoses NSTEMI (non-ST elevated myocardial infarction) I21.4 CHF (congestive heart failure) I50.9 Heart failure chronicity: acute on chronic Heart failure type: unspecified Myelodysplastic syndrome D46.9 Systolic CHF, acute I50.21 Hyperlipidemia E78.5 Type 2 diabetes mellitus E11.9 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
[2023-06-12] MEDS: metOLazone 5 MG Tablet PO (15:02)
[2023-06-12 15:20] LABS: Partial Thromboplastin Time 59.7 SECONDS (23.9-36.7)
--- NOTE | 2023-06-12 15:26 | PC.NURSE ---
PTT back at 59.7, no change to heparin dose currently running.
[2023-06-12 18:27] LABS: Blood Urea Nitrogen 19 mg/dL (8-23); Calcium 8.3 mg/dL (8.5-10.5); Carbon Dioxide 26 mmol/L (22-29); Chloride 98 mmol/L (98-107); Glucose 143 mg/dL (65-115); Osmolality Calculated 287 mOsm/kg (285-295); Sodium 136 mmol/L (136-145)
[2023-06-12 18:40] LABS: Anion Gap 15.5 (5-19); Potassium 3.5 mmol/L (3.5-5.1)
[2023-06-12] MEDS: CLONazepam 1 mg Tablet 0.5 MG PO (19:52)
--- NOTE | 2023-06-12 21:16 | PC.NURSE ---
This Rn agrees with all documentation made by SN this evening. Will continue to monitor.
--- NOTE | 2023-06-12 22:20 | PC.NURSE ---
No change to Heparin drip at this time based on current PTT. Will continue to monitor.
[2023-06-13] VITALS (13 sets, daily range): BP systolic 104–140; BP diastolic 53–80; PULSE 75–97; RESP 16–24; TEMP 36.4–37; O2SAT 93–98
[2023-06-13] MEDS: levothyroxine 50 mcg Tablet PO (04:20)
[2023-06-13] MEDS: morphine 4 mg/mL SDV 1 mL 2 MG IVP ×3 (05:02→20:01)
--- NOTE | 2023-06-13 05:02 | PC.NURSE ---
Patient refused to change pants when asked to do so.
[2023-06-13 05:18] LABS: Basophils % 0.3 %; Hematocrit 23.6 % (37-53); Lymphocytes # 1.8 10^3/uL (0.8-4.8); Lymphocytes % 16.6 %; Mean Corpuscular HGB Conc 31.8 g/dL (30-55); Mean Corpuscular Hemoglobin 27.1 pg (27-33); Mean Corpuscular Volume 85.2 fl (82-101); Monocytes # 1.4 10^3/uL (0.2-0.9); Monocytes % 13.2 %; Neutrophils # 6.55 10^3/uL (1.8-7.7); Neutrophils % 60.5 %; Nucleated Red Blood Cells % 0.2 %; Platelet Count 67 10^3/cmm (157-399); Red Blood Count 2.77 10^6/uL (3.85-5.65); Red Cell Distribution Width 21.2 % (12.1-15.1); White Blood Count 10.83 10^3/uL (3.29-11.43)
[2023-06-13 05:36] LABS: Alanine Aminotransferase 6 U/L (0-41); Albumin Level 3.9 g/dL (3.5-5.2); Alkaline Phosphatase 79 U/L (40-130); Anion Gap 17.4 (5-19); Aspartate Amino Transferase 12 U/L (0-40); Blood Urea Nitrogen 19 mg/dL (8-23); Calcium 8.5 mg/dL (8.5-10.5); Carbon Dioxide 26 mmol/L (22-29); Chloride 97 mmol/L (98-107); Glucose 124 mg/dL (65-115); Osmolality Calculated 288 mOsm/kg (285-295); Partial Thromboplastin Time 72.9 SECONDS (23.9-36.7); Potassium 3.4 mmol/L (3.5-5.1); Sodium 137 mmol/L (136-145); Total Bilirubin 1.3 mg/dL (0.15-1.2); Total Protein 6.9 g/dL (6.6-8.7)
[2023-06-13 05:38] LABS: Creatinine Clr Calc Pharmacy 37.2374
[2023-06-13 05:43] LABS: Slide Review Slide Review Perform
--- NOTE | 2023-06-13 05:47 | PC.NURSE ---
No change to heparin drip at this time for PTT of 72.9
[2023-06-13] MEDS: metoprolol tartrate 25 mg Tablet 12.5 MG PO ×2 (08:31→17:43)
[2023-06-13] MEDS: ranolazine (12HR) 500 mg Tablet PO ×2 (08:31→17:43)
[2023-06-13] MEDS: isosorbide mononitrate ER 30 mg Tablet PO ×2 (08:31→17:43)
[2023-06-13] MEDS: metOLazone 5 MG Tablet PO (08:31)
[2023-06-13] MEDS: allopurinol 100 mg Tablet PO (08:31)
[2023-06-13] MEDS: potassium chloride ER 20 mEq Tablet 40 MEQ PO (08:31)
[2023-06-13] MEDS: pantoprazole DR 40 mg Tablet PO ×2 (08:31→08:40)
[2023-06-13] MEDS: clopidogrel 75 mg Tablet PO (08:31)
[2023-06-13] MEDS: FUROsemide 10 mg/mL SDV 4mL 40 MG IVP (08:32)
[2023-06-13] MEDS: CLONazepam 1 mg Tablet 0.5 MG PO (09:08)
--- NOTE | 2023-06-13 09:26 | PM.PN ---
Subjective Subjective: Patient is feeling better. He still has significant shortness of breath with activities. Continues to have the leg swelling. Urine output was around 200 ml over 8 hours?. No chest pain or palpitations. No significant arrhythmias on the monitor. No evidence of any active bleed Medications: Medication Review Details: Current Medications Acetaminophen (Acetaminophen 325 Mg Tablet) 650 mg PO Q6H PRN PRN Reason: Mild/Mod Pain Or Temp >/= 101 Allopurinol (Allopurinol 100 Mg Tablet) 100 mg PO DAILY [facility] Last Admin: 06/13/23 08:31 Dose: 100 mg Atorvastatin Calcium (Atorvastatin 40 Mg Tablet) 40 mg PO DAILY@1200 [facility] Last Admin: 06/12/23 12:28 Dose: 40 mg Clonazepam (Clonazepam 1 Mg Tablet) 0.5 mg PO TID PRN PRN Reason: anxiety Last Admin: 06/13/23 09:08 Dose: 0.5 mg Clopidogrel Bisulfate (Clopidogrel 75 Mg Tablet) 75 mg PO DAILY [facility] Last Admin: 06/13/23 08:31 Dose: 75 mg Finasteride (Finasteride 5 Mg Tablet) 5 mg PO DAILY@1200 [facility] Last Admin: 06/12/23 12:27 Dose: 5 mg Furosemide (Furosemide 10 Mg/Ml Sdv 4ml) 40 mg IVP BID [facility] Last Admin: 06/13/23 08:32 Dose: 40 mg Heparin Sodium (Porcine) (Heparin 5,000 Unit/Ml Inj 1 Ml) 0 unit IV PRN PRN; Protocol PRN Reason: Heparin weight-base protocol Heparin Sodium/Sodium Chloride (Heparin Drip) 25,000 unit in 500 mls @ 0 mls/hr IV .Q0M [facility]; Protocol Last Admin: 06/12/23 19:07 Dose: 14.38 unit/kg/hr, 30 mls/hr Isosorbide Mononitrate (Isosorbide Mononitrate Er 30 Mg Tablet) 30 mg PO BID [facility] Last Admin: 06/13/23 08:31 Dose: 30 mg Levothyroxine Sodium (Levothyroxine 50 Mcg Tablet) 50 mcg PO DAILY@05 [facility] Last Admin: 06/13/23 04:20 Dose: 50 mcg Metoprolol Tartrate (Metoprolol Tartrate 25 Mg Tablet) 12.5 mg PO BID [facility] Last Admin: 06/13/23 08:31 Dose: 12.5 mg Morphine Sulfate (Morphine 4 Mg/Ml Sdv 1 Ml) 2 mg IVP Q4H PRN PRN Reason: SEVERE PAIN Last Admin: 06/13/23 09:08 Dose: 2 mg Naloxone HCl (Naloxone 0.4 Mg/Ml Sdv) 0.1 mg IVP Q2M PRN PRN Reason: OPIATERV Ondansetron HCl (Ondansetron 2 Mg/Ml Sdv 2 Ml) 4 mg IVP Q8H PRN PRN Reason: vomiting, or N/V if npo Pantoprazole Sodium (Pantoprazole Dr 40 Mg Tablet) 40 mg PO DAILY [facility] Last Admin: 06/13/23 08:31 Dose: 40 mg Pantoprazole Sodium (Pantoprazole Dr 40 Mg Tablet) 40 mg PO DAILY [facility] Last Admin: 06/13/23 08:40 Dose: 40 mg Ranolazine (Ranolazine (12hr) 500 Mg Tablet) 500 mg PO BID [facility] Last Admin: 06/13/23 08:31 Dose: 500 mg Tamsulosin HCl (Tamsulosin 0.4 Mg Capsule) 0.4 mg PO DAILY@12 [facility] Last Admin: 06/12/23 12:28 Dose: 0.4 mg Vitals/I&O/Wt Last Vital Signs Temp 97.6 F 06/13/23 07:35 Pulse 89 06/13/23 07:35 Resp 16 06/13/23 07:35 BP 140/80 06/13/23 07:35 Pulse Ox 93 06/13/23 07:35 O2 Del Method Nasal Cannula 06/13/23 07:35 O2 Flow Rate 3 06/12/23 08:06 06/12/23 06/13/23 06/13/23 22:59 06:59 14:59 Intake Total 650.0 / 1080.0 100 / 1180.0 240 / 240 Output Total 990 / 1570 50 / 1620 225 / 225 Balance -340.0 / -490.0 50 / -440.0 Weight last 48 hrs Weight 230 lb Physical Exam Narrative: GENERAL: The patient is alert and oriented times three. Not in any acute distress. HEENT: No significant pallor, icterus or lymphadenopathy.Oral cavity: There are no mucous membrane lesions. NECK: Trachea appears to be central. No masses noted. No JVD or thyromegaly appreciated. RESPIRATORY: Chest is symmetrical. No intercostals muscle retraction or any accessory muscle activation. There is no chest wall tenderness. Breath sounds are heard bilaterally. No rales or rhonchi heard. No evidence of any consolidation. BREASTS: Deferred. HEART: The heart sounds are normal. No S3 or S4. Short systolic murmur in the mitral area. No pericardial rub ABDOMEN: No vessel pulsations or distention. No tenderness. No organomegaly appreciated. Bowel sounds are normally heard. : Deferred. RECTAL: Deferred. LYMPHATIC: No lymphadenopathy noted in the neck. EXTREMITIES: 2+ edema both lower extremities. No cyanosis. MUSCULOSKELETAL: No acute joint deformities or swelling SKIN: There are no significant rashes or ecchymosis NEUROPSYCHIATRIC: The patient is alert and oriented x3. Appears to be in a good mood. No tremors or rigidity noted. Data 06/13/23 18:11 06/13/23 18:11 Other Labs: Laboratory Last Values WBC 10.83 10^3/uL (3.29-11.43) 06/13/23 04:28 RBC 2.77 10^6/uL (3.85-5.65) L 06/13/23 04:28 Hgb 7.50 g/dL (11.27-16.99) L 06/13/23 04:28 Hct 23.6 % (37-53) L 06/13/23 04:28 MCV 85.2 fl (82-101) 06/13/23 04:28 MCH 27.1 pg (27-33) 06/13/23 04:28 MCHC 31.8 g/dL (30-55) 06/13/23 04:28 RDW 21.2 % (12.1-15.1) H 06/13/23 04:28 Plt Count 67 10^3/cmm (157-399) L 06/13/23 04:28 MPV Not Reportable 06/13/23 04:28 Neut % (Auto) 60.5 % 06/13/23 04:28 Lymph % (Auto) 16.6 % 06/13/23 04:28 [place] % (Auto) 13.2 % 06/13/23 04:28 Eos % (Auto) 0.0 % 06/13/23 04:28 Baso % (Auto) 0.3 % 06/13/23 04:28 Neut # (Auto) 6.55 10^3/uL (1.8-7.7) 06/13/23 04:28 Lymph # (Auto) 1.8 10^3/uL (0.8-4.8) 06/13/23 04:28 [place] # (Auto) 1.4 10^3/uL (0.2-0.9) H 06/13/23 04:28 Eos # (Auto) 0.0 10^3/uL (0.0-0.8) 06/13/23 04:28 Baso # (Auto) 0.0 10^3/uL (0.0-0.1) 06/13/23 04:28 Nucleated RBC % (auto) 0.2 % 06/13/23 04:28 Total Counted 100 (0-100) 06/11/23 19:20 Atypical Lymphs % 0.0 % (0-5) 06/11/23 19:20 Absolute Neutrophils 6.6 10^3/cmm (1.4-6.5) H 06/11/23 19:20 Segmented Neutrophils 74 % 06/11/23 19:20 Abs Segm Neuts (Man) 6.2 10/cmm (1.6-7.1) 06/11/23 19:20 Band Neutrophils 5.0 % 06/11/23 19:20 Abs Band Neuts (Man) 0.4 10^3/cmm (0.0-1.2) 06/11/23 19:20 Absolute Lymphocytes 1.3 10^3/cmm (1.2-3.4) 06/11/23 19:20 Lymphocytes (Manual) 16 % 06/11/23 19:20 Monocytes (Manual) 1.0 % 06/11/23 19:20 Absolute Monocytes 0.1 10^3/cmm (0.1-0.6) 06/11/23 19:20 Eosinophils (Manual) 0 % 06/11/23 19:20 Absolute Eosinophils 0.0 10^3/cmm (0.0-0.7) 06/11/23 19:20 Basophils (Manual) 0.0 % 06/11/23 19:20 Absolute Basophils 0.0 10^3/cmm (0.0-0.2) 06/11/23 19:20 Metamyelocytes 4.0 % 06/11/23 19:20 Nucleated RBCs # 0.0 /100WBC 06/13/23 04:28 Platelet Estimate Decreased (Normal) 06/11/23 19:20 Poikilocytosis 1+ H 06/12/23 08:32 Anisocytosis 1+ H 06/12/23 08:32 Tear Drop Cells Trace 06/12/23 08:32 Ovalocytes 1+ H 06/12/23 08:32 APTT 72.9 SECONDS (23.9-36.7) H 06/13/23 04:28 D-Dimer 1.84 ug/mLFEU (0-0.59) H 06/11/23 19:20 Sodium 137 mmol/L (136-145) 06/13/23 04:28 Potassium 3.4 mmol/L (3.5-5.1) L 06/13/23 04:28 Chloride 97 mmol/L (98-107) L 06/13/23 04:28 Carbon Dioxide 26 mmol/L (22-29) 06/13/23 04:28 Anion Gap 17.4 (5-19) 06/13/23 04:28 BUN 19 mg/dL (8-23) 06/13/23 04:28 Creatinine 1.7 mg/dL (0.7-1.2) H 06/13/23 04:28 GFR Calculation Not Reportable 06/13/23 04:28 Glucose 124 mg/dL (65-115) H 06/13/23 04:28 Calculated Osmolality 288 mOsm/kg (285-295) 06/13/23 04:28 Calcium 8.5 mg/dL (8.5-10.5) 06/13/23 04:28 Total Bilirubin 1.3 mg/dL (0.15-1.2) H 06/13/23 04:28 AST 12 U/L (0-40) 06/13/23 04:28 ALT 6 U/L (0-41) 06/13/23 04:28 Alkaline Phosphatase 79 U/L (40-130) 06/13/23 04:28 Troponin T Baseline 39 ng/L (0-15) H 06/11/23 19:20 Troponin T 120 Minute 41.48 ng/L (0-15) H 06/11/23 21:14 Delta Troponin T 2.48 ABS# (0-10) 06/11/23 21:14 Troponin T Hi Sens 6Hr 79.68 ng/L (0-15) H 06/12/23 01:21 Troponin T Hi Sens 6Hr Delta 40.68 ng/L (0-12) H* 06/12/23 01:21 NT-Pro-B Natriuret Pep 36781 pg/mL (0-450) H 06/13/23 04:28 Total Protein 6.9 g/dL (6.6-8.7) 06/13/23 04:28 Albumin 3.9 g/dL (3.5-5.2) 06/13/23 04:28 Globulin 3.0 g/dL (1.3-4.6) 06/13/23 04:28 Urine Color Sade (Yellow) 06/11/23 19:25 Urine Appearance Clear (CLEAR) 06/11/23 19:25 Urine pH 5 (5-7) 06/11/23 19:25 Ur Specific [place] 1.010 (1.005-1.030) 06/11/23 19:25 Urine Protein Trace (Negative) 06/11/23 19:25 Urine Glucose (UA) Norm (Normal) 06/11/23 19:25 Urine Ketones Negative (Negative) 06/11/23 19:25 Urine Blood Neg (Negative) 06/11/23 19:25 Urine Nitrate Negative (Negative) 06/11/23 19:25 Urine Bilirubin Neg (Negative) 06/11/23 19:25 Urine Urobilinogen 1 mg/dL (Negative) H 06/11/23 19:25 Ur Leukocyte Esterase Negative (Negative) 06/11/23 19:25 Urine RBC None /hpf (0-2) 06/11/23 19:25 Urine WBC None /hpf (0-5) 06/11/23 19:25 Ur Squamous Epith Cells Rare /hpf (0-5) 06/11/23 19:25 Calcium Oxalate Crystal 0-4 /hpf H 06/11/23 19:25 Amorphous Sediment 1+ /hpf 06/11/23 19:25 Urine Bacteria None /hpf (NONE) 06/11/23 19:25 Hyaline Casts 0-4 /lpf H 06/11/23 19:25 Other data: EKG revealed sinus rhythm/sinus tachycardia with a diffuse nonspecific ST-T changes A&P Assessment and plan (1) Acute non-ST elevation myocardial infarction (NSTEMI): Patient is currently asymptomatic. May continue on the current medications . Discussed with the patient and the family about cardiac catheterization to further evaluate the coronary status and decide on further management. Patient is not interested in any invasive/interventional procedures. Patient's son agrees with this decision. So we will try to optimize medical treatment. (2) Acute diastolic heart failure: May need to increase the dose IV Lasix for better diuresis (3) Myelodysplastic syndrome: Patient may require blood transfusion to keep the hemoglobin around 9, in view of the acute coronary syndrome. Repeat CBC in the morning and then decide (4) Type 2 diabetes mellitus: May continue on the current management. 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 We will do an EKG in the morning. May continue on the other current medications as it is Attestations Medical Necessity Statement*: Patient requires continued hospital stay for close monitoring and further management Coding Level of Care Code Acute Code for [facility] Diagnoses Acute non-ST elevation myocardial infarction (NSTEMI) I21.4 Acute diastolic heart failure I50.31 Myelodysplastic syndrome D46.9 Type 2 diabetes mellitus E11.9 Diabetes mellitus group home insulin use: without group home use Diabetes mellitus complication detail: with chronic kidney disease Chronic kidney disease stage: unspecified stage Acute kidney injury superimposed on CKD N17.9; N18.9 Hyperlipidemia E78.5
--- NOTE | 2023-06-13 09:28 | PC.NURSE ---
Patient has been educated regarding the benefits of a salomon cather by nurse and physician and continues to refuse. Patient also refuses to elevate lower extremities despite pitting edema. Patient has been educated and remains non-compliant.
--- NOTE | 2023-06-13 09:35 | PC.NURSE ---
Physician orders to stop heparin drip. Physician will change to indigo
--- NOTE | 2023-06-13 10:24 | PC.CHAP ---
Pastoral Care Encounter/Spiritual Assessment Type of Contact [] Declined research clerk visit [] Patient/Family/Request visit [] Outpatient visit [] Follow-up visit [] Physician referral [] Code/Alert [x] Routine visit [] Staff referral [] Actively dying [] Patient sleeping [] Family support [] [] Out of room [] Palliative care [] [] Receiving care in room [] Pre-surgical visit [] Trauma [] Long length of stay [] ICU visit [] Other: Relational/Emotional Strength [x] Patient feels connected with others/family/visitors/staff [] Distress [] Loneliness/isolation [] Abandonment Spirituality of Patient [x] Person of Aliyah [] Attends Yarsanism of their Aliyah [x] Believes in Prayer [] Reads Bible or Holiness materials [] There are Spiritual issues to be addressed Pattern Assembler Interventions [x] Prayer [] Active listening [] Non-anxious presence [x] Spiritual/emotional support [] Crisis/trauma care [] Spiritual counseling [] Bereavement support [] Provided bereavement packet [] Provided Bible/devotional materials [] Provided toy/stuffed animal, coloring book to patient or family member [] Provided Communion [] Anointing/[place] [] Salvation [x] Completed spiritual assessment [] Other: Impact on Illness or Injury [] Angry [] Fearful [] Anxious [] Often cries [] Exhaustion [] Unable to work [] Unable to attend zoroastrian [] Unable to walk/stand [] Unable to read [] Unable to drive [] Unable to eat/drink [] Unable to sleep [] Unable to be with family [] Patient intubated [] Other: Summary Time spent with patient 5 min
[2023-06-13] MEDS: atorvastatin 40 mg Tablet PO (12:12)
[2023-06-13] MEDS: tamsulosin 0.4 mg Capsule PO (12:12)
[2023-06-13] MEDS: finasteride 5 mg Tablet PO (12:12)
--- NOTE | 2023-06-13 14:58 | P.PN_ITS ---
Subjective Subjective: Patient was seen this morning, he tells me that he continues to have lower extremity edema, swelling, shortness of breath, BNP is over 29,000, no fevers, no chills, he tells me that he peed all night, but he continues to have edema, he tells me he does not want to have a Greene catheter placed, Vitals/I&O/Wt Last Vital Signs Temp 97.9 F 06/13/23 12:00 Pulse 83 06/13/23 12:00 Resp 21 H 06/13/23 12:00 BP 104/53 06/13/23 12:00 Pulse Ox 98 06/13/23 12:00 O2 Del Method Nasal Cannula 06/13/23 12:00 O2 Flow Rate 3 06/13/23 08:00 06/12/23 06/13/23 06/13/23 22:59 06:59 14:59 Intake Total 650.0 / 1080.0 100 / 1180.0 1058.5 / 1058.5 Output Total 990 / 1570 50 / 1620 1000 / 1000 Balance -340.0 / -490.0 50 / -440.0 58.5 / 58.5 Weight last 48 hrs Weight 104.326 kg Physical Exam Const: COMMON NORMALS: no acute distress and patient oriented x3 Resp: COMMON NORMALS: normal respiratory effort, No retractions, No use of accessory muscles and clear to auscultation bilaterally AUSCULTATION: clear to auscultation bilaterally Cardio: COMMON NORMALS: regular rate, regular rhythm, S1 normal heart sound present and S2 normal heart sound present RATE: regular rate RHYTHM: regul ar rhythm HEART SOUNDS: S1 normal heart sound present and S2 normal heart sound present GI: COMMON NORMALS: Normal to inspection, nondistended, normoactive bowel sounds present and non-tender Extremity: NARRATIVE EXTREMITY EXAM: 3+ pitting edema bilateral extremity, anasarca Neuro: COMMON NORMALS: patient oriented x3 Psych: COMMON NORMALS: mental status grossly normal Data 06/13/23 04:28 06/13/23 04:28 A&P Assessment and plan (1) NSTEMI (non-ST elevated myocardial infarction): Patient complaining of intermittent chest pain EKG shows mostly old T wave changes Troponin trend 39--> 40---> 79 with positive delta at 6 hours Started on heparin gtt. Closely monitor platelet and HB Continue Plavix 75 mg p.o. daily Patient has an abnormal stress test from January 2022. Per review of past notes it appears patient has declined coronary intervention in the past due to risk for CKD. We will consult cardiology, will likely opt for medical management, however given his pancytopenia he is high risk for anticoagulation and antiplatelets. Continue Lipitor 40 mg daily, lisinopril on hold due to elevated creatinine, continue Imdur 30 mg p.o. twice daily as he takes at home along with Ranexa Continue metoprolol 12.5 mg p.o. twice daily (2) CHF (congestive heart failure): Systolic CHF exacerbation, ? Patient declines Greene catheter ? Fluid restrictions at 1000 cc ? Switch to Bumex 1 mg IV push every 12 hours ? 1 dose metolazone, ? 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 use: without halfway use Diabetes mellitus complication detail: with chronic kidney disease Chronic kidney disease stage: unspecified stage (7) Ischemic cardiomyopathy: (8) Chronic kidney disease: Qualifiers: Chronic kidney disease stage: unspecified stage Qualified Code(s): N18.9 - Chronic kidney disease, unspecified Plan Plan for today metolazone, Bumex, will consider increasing dose based on clinical progress Attestations Medical Necessity Statement*: Patient requires hospitalization for systolic CHF exacerbation requiring diuresis Diagnoses NSTEMI (non-ST elevated myocardial infarction) I21.4 CHF (congestive heart failure) I50.9 Heart failure chronicity: acute on chronic Heart failure type: unspecified Myelodysplastic syndrome D46.9 Systolic CHF, acute I50.21 Hyperlipidemia E78.5 Type 2 diabetes mellitus E11.9 Diabetes mellitus cleaner touch up worker insulin use: without cleaner touch up worker use Diabetes mellitus complication detail: with chronic kidney disease Chronic kidney disease stage: unspecified stage Ischemic cardiomyopathy I25.5 Chronic kidney disease N18.9 Chronic kidney disease stage: unspecified stage
[2023-06-13] MEDS: bumetanide 0.25 mg/mL SDV 4 mL 1 MG IVP (15:23)
--- NOTE | 2023-06-13 17:59 | PC.NURSE ---
dr notified that family at bedside would like to speak to the hospitalist in regards with his code status, if he needs to be a dnr, family notified that i will let the dr know regarding this concern. patient's family left at bedside at this time to inform them about the doc's reply. to nurse.
[2023-06-13 18:25] LABS: Hematocrit 25.1 % (37-53)
[2023-06-13 18:44] LABS: Anion Gap 15.7 (5-19); Blood Urea Nitrogen 21 mg/dL (8-23); Calcium 8.9 mg/dL (8.5-10.5); Carbon Dioxide 28 mmol/L (22-29); Chloride 92 mmol/L (98-107); Glucose 140 mg/dL (65-115); Osmolality Calculated 279 mOsm/kg (285-295); Potassium 3.7 mmol/L (3.5-5.1); Sodium 132 mmol/L (136-145)
[2023-06-13] MEDS: temazepam 15 mg Capsule PO (19:59)
--- NOTE | 2023-06-13 21:30 | PC.NURSE ---
Student RN performing care and medication administrations. This RN agrees with all documentation presently. Will continue to monitor.
[2023-06-14] VITALS (18 sets, daily range): BP systolic 99–125; BP diastolic 52–65; PULSE 68–83; RESP 15–24; TEMP 36.2–36.7; O2SAT 94–99
[2023-06-14] MEDS: bumetanide 0.25 mg/mL SDV 4 mL 1 MG IVP ×4 (04:31→23:42)
[2023-06-14] MEDS: levothyroxine 50 mcg Tablet PO (04:31)
[2023-06-14 05:55] LABS: Basophils % 0.3 %; Hematocrit 22.6 % (37-53); Lymphocytes # 1.5 10^3/uL (0.8-4.8); Lymphocytes % 18.8 %; Mean Corpuscular HGB Conc 31.4 g/dL (30-55); Mean Corpuscular Hemoglobin 26.7 pg (27-33); Monocytes # 1.1 10^3/uL (0.2-0.9); Monocytes % 14.1 %; Neutrophils # 4.54 10^3/uL (1.8-7.7); Neutrophils % 58.2 %; Nucleated Red Blood Cells % 0 %; Platelet Count 67 10^3/cmm (157-399); Red Blood Count 2.66 10^6/uL (3.85-5.65); Red Cell Distribution Width 21.2 % (12.1-15.1)
[2023-06-14 06:10] LABS: Slide Review Slide Review Perform
[2023-06-14 06:16] LABS: Alanine Aminotransferase 6 U/L (0-41); Albumin Level 3.8 g/dL (3.5-5.2); Alkaline Phosphatase 76 U/L (40-130); Anion Gap 13.8 (5-19); Aspartate Amino Transferase 10 U/L (0-40); Blood Urea Nitrogen 23 mg/dL (8-23); Calcium 8.8 mg/dL (8.5-10.5); Carbon Dioxide 30 mmol/L (22-29); Chloride 95 mmol/L (98-107); Globulin 3.3 g/dL (1.3-4.6); Glucose 116 mg/dL (65-115); Magnesium 1.9 mg/dL (1.7-2.3); Osmolality Calculated 285 mOsm/kg (285-295); Phosphorus 3.5 mg/dL (2.5-4.5); Potassium 3.8 mmol/L (3.5-5.1); Sodium 135 mmol/L (136-145); Total Bilirubin 1.2 mg/dL (0.15-1.2); Total Protein 7.1 g/dL (6.6-8.7)
[2023-06-14 06:23] LABS: NT Pro B Type Natriuretic Pept 22739 pg/mL (0-450)
[2023-06-14] MEDS: clopidogrel 75 mg Tablet PO (08:13)
[2023-06-14] MEDS: metoprolol tartrate 25 mg Tablet 12.5 MG PO ×2 (08:13→18:16)
[2023-06-14] MEDS: isosorbide mononitrate ER 30 mg Tablet PO ×2 (08:13→18:16)
[2023-06-14] MEDS: ranolazine (12HR) 500 mg Tablet PO ×2 (08:13→18:16)
[2023-06-14] MEDS: pantoprazole DR 40 mg Tablet PO ×2 (08:15→08:16)
[2023-06-14] MEDS: allopurinol 100 mg Tablet PO (08:15)
[2023-06-14] MEDS: metOLazone 5 MG Tablet PO (09:17)
[2023-06-14] MEDS: potassium chloride ER 20 mEq Tablet 40 MEQ PO (09:18)
--- NOTE | 2023-06-14 10:30 | PC.CHAP ---
Pastoral Care Encounter/Spiritual Assessment Type of Contact [] Declined consumer loan manager visit [] Patient/Family/Request visit [] Outpatient visit [] Follow-up visit [] Physician referral [] Code/Alert [x] Routine visit [] Staff referral [] Actively dying [] Patient sleeping [] Family support [] [] Out of room [] Palliative care [] [] Receiving care in room [] Pre-surgical visit [] Trauma [] Long length of stay [] ICU visit [] Other: Relational/Emotional Strength [] Patient feels connected with others/family/visitors/staff [] Distress [] Loneliness/isolation [] Abandonment Spirituality of Patient [] Person of Aliyah [] Attends Christianity of their Aliyah [] Believes in Prayer [] Reads Bible or Lutheran materials [] There are Spiritual issues to be addressed Testing Coordinator Interventions [x] Prayer [x] Active listening [] Non-anxious presence [] Spiritual/emotional support [] Crisis/trauma care [] Spiritual counseling [] Bereavement support [] Provided bereavement packet [] Provided Bible/devotional materials [] Provided toy/stuffed animal, coloring book to patient or family member [] Provided Communion [] Anointing/[place] [] Salvation [] Completed spiritual assessment [] Other: Impact on Illness or Injury [] Angry [] Fearful [] Anxious [] Often cries [] Exhaustion [] Unable to work [] Unable to attend advent [] Unable to walk/stand [] Unable to read [] Unable to drive [] Unable to eat/drink [] Unable to sleep [] Unable to be with family [] Patient intubated [] Other: Summary Time spent with patient 10 min
[2023-06-14] MEDS: tamsulosin 0.4 mg Capsule PO (11:32)
[2023-06-14] MEDS: atorvastatin 40 mg Tablet PO (11:32)
[2023-06-14] MEDS: finasteride 5 mg Tablet PO (11:32)
--- NOTE | 2023-06-14 13:59 | P.PN_ITS ---
Subjective Subjective: Patient is feeling okay. The urine output has not significantly changed with the change of diuretic. Patient was reviewed 1 unit of blood today. Hemoglobin was 7.5 prior to the transfusion. Patient denies any chest pain. Shortness of breath is better but still has significant dyspnea on exertion. Ambulation is limited. Medications: Medication Review Details: Current Medications Acetaminophen (Acetaminophen 325 Mg Tablet) 650 mg PO Q6H PRN PRN Reason: Mild/Mod Pain Or Temp >/= 101 Allopurinol (Allopurinol 100 Mg Tablet) 100 mg PO DAILY [facility] Last Admin: 06/14/23 08:15 Dose: 100 mg Atorvastatin Calcium (Atorvastatin 40 Mg Tablet) 40 mg PO DAILY@1200 [facility] Last Admin: 06/14/23 11:32 Dose: 40 mg Bumetanide (Bumetanide 0.25 Mg/Ml Sdv 4 Ml) 1 mg IVP Q8H [facility] Last Admin: 06/14/23 09:17 Dose: 1 mg Clonazepam (Clonazepam 1 Mg Tablet) 0.5 mg PO TID PRN PRN Reason: anxiety Last Admin: 06/13/23 09:08 Dose: 0.5 mg Clopidogrel Bisulfate (Clopidogrel 75 Mg Tablet) 75 mg PO DAILY [facility] Last Admin: 06/14/23 08:13 Dose: 75 mg Enoxaparin Sodium (Enoxaparin 100 Mg/Ml Syringe) 100 mg 1 mg/kg (100 mg) SUBCUT Q12H [facility] Finasteride (Finasteride 5 Mg Tablet) 5 mg PO DAILY@1200 [facility] Last Admin: 06/14/23 11:32 Dose: 5 mg Isosorbide Mononitrate (Isosorbide Mononitrate Er 30 Mg Tablet) 30 mg PO BID [facility] Last Admin: 06/14/23 08:13 Dose: 30 mg Levothyroxine Sodium (Levothyroxine 50 Mcg Tablet) 50 mcg PO DAILY@05 [facility] Last Admin: 06/14/23 04:31 Dose: 50 mcg Metoprolol Tartrate (Metoprolol Tartrate 25 Mg Tablet) 12.5 mg PO BID [facility] Last Admin: 06/14/23 08:13 Dose: 12.5 mg Morphine Sulfate (Morphine 4 Mg/Ml Sdv 1 Ml) 2 mg IVP Q4H PRN PRN Reason: SEVERE PAIN Last Admin: 06/13/23 20:01 Dose: 2 mg Naloxone HCl (Naloxone 0.4 Mg/Ml Sdv) 0.1 mg IVP Q2M PRN PRN Reason: OPIATERV Ondansetron HCl (Ondansetron 2 Mg/Ml Sdv 2 Ml) 4 mg IVP Q8H PRN PRN Reason: vomiting, or N/V if npo Pantoprazole Sodium (Pantoprazole Dr 40 Mg Tablet) 40 mg PO DAILY [facility] Last Admin: 06/14/23 08:16 Dose: 40 mg Ranolazine (Ranolazine (12hr) 500 Mg Tablet) 500 mg PO BID [facility] Last Admin: 06/14/23 08:13 Dose: 500 mg Sodium Chloride (Sodium Chloride 0.9% 100 Ml Bag) 50 ml IV PRN PRN PRN Reason: Blood transfusion prime and flush Stop: 06/15/23 08:41 Tamsulosin HCl (Tamsulosin 0.4 Mg Capsule) 0.4 mg PO DAILY@12 [facility] Last Admin: 06/14/23 11:32 Dose: 0.4 mg Temazepam (Temazepam 15 Mg Capsule) 15 mg PO ONCE PRN PRN Reason: INSOMNIA Last Admin: 06/13/23 19:59 Dose: 15 mg Vitals/I&O/Wt Last Vital Signs Temp 97.3 F L 06/14/23 11:34 Pulse 77 06/14/23 11:34 Resp 17 06/14/23 11:34 BP 117/57 06/14/23 11:34 Pulse Ox 98 06/14/23 11:34 O2 Del Method Nasal Cannula 06/14/23 11:24 O2 Flow Rate 2 06/14/23 08:00 06/13/23 06/14/23 06/14/23 22:59 06:59 14:59 Intake Total 240 / 1298.5 590 / 590 Output Total 500 / 1500 250 / 1750 460 / 460 Balance -260 / -201.5 -250 / -451.5 130 / 130 Physical Exam Narrative: GENERAL: The patient is alert and oriented times three. Not in any acute distress. HEENT: No significant pallor, icterus or lymphadenopathy.Oral cavity: There are no mucous membrane lesions. NECK: Trachea appears to be central. No masses noted. No JVD or thyromegaly appreciated. RESPIRATORY: Chest is symmetrical. No intercostals muscle retraction or any accessory muscle activation. There is no chest wall tenderness. Breath sounds are heard bilaterally. No rales or rhonchi heard. No evidence of any consolidation. BREASTS: Deferred. HEART: The heart sounds are normal. No S3 or S4. Short systolic murmur in the mitral area. No pericardial rub ABDOMEN: No vessel pulsations or distention. No tenderness. No organomegaly appreciated. Bowel sounds are normally heard. : Deferred. RECTAL: Deferred. LYMPHATIC: No lymphadenopathy noted in the neck. EXTREMITIES: 2+ edema both lower extremities. No cyanosis. MUSCULOSKELETAL: No acute joint deformities or swelling SKIN: There are no significant rashes or ecchymosis NEUROPSYCHIATRIC: The patient is alert and oriented x3. Appears to be in a good mood. No tremors or rigidity noted. Data 06/14/23 05:06/14/23 05: Other Labs: Laboratory Last Values WBC 7.80 10^3/uL (3.29-11.43) 06/14/23 05: RBC 2.66 10^6/uL (3.85-5.65) L 06/14/23 05: Hgb 7.10 g/dL (11.27-16.99) L 06/14/23 05: Hct 22.6 % (37-53) L 06/14/23 05: MCV 85.0 fl (82-101) 06/14/23 05: MCH 26.7 pg (27-33) L 06/14/23 05: MCHC 31.4 g/dL (30-55) 06/14/23 05: RDW 21.2 % (12.1-15.1) H 06/14/23 05: Plt Count 67 10^3/cmm (157-399) L 06/14/23 05:23 MPV Not Reportable 06/14/23 05: Neut % (Auto) 58.2 % 06/14/23 05: Lymph % (Auto) 18.8 % 06/14/23 05: Sharkey % (Auto) 14.1 % 06/14/23 05:23 Eos % (Auto) 0.0 % 06/14/23 05: Baso % (Auto) 0.3 % 06/14/23 05: Neut # (Auto) 4.54 10^3/uL (1.8-7.7) 06/14/23 05:23 Lymph # (Auto) 1.5 10^3/uL (0.8-4.8) 06/14/23 05:23 Sharkey # (Auto) 1.1 10^3/uL (0.2-0.9) H 06/14/23 05:23 Eos # (Auto) 0.0 10^3/uL (0.0-0.8) 06/14/23 05:23 Baso # (Auto) 0.0 10^3/uL (0.0-0.1) 06/14/23 05:23 Nucleated RBC % (auto) 0 % 06/14/23 05: Total Counted 100 (0-100) 06/11/23 19:20 Atypical Lymphs % 0.0 % (0-5) 06/11/23 19:20 Absolute Neutrophils 6.6 10^3/cmm (1.4-6.5) H 06/11/23 19:20 Segmented Neutrophils 74 % 06/11/23 19:20 Abs Segm Neuts (Man) 6.2 10/cmm (1.6-7.1) 06/11/23 19:20 Band Neutrophils 5.0 % 06/11/23 19:20 Abs Band Neuts (Man) 0.4 10^3/cmm (0.0-1.2) 06/11/23 19:20 Absolute Lymphocytes 1.3 10^3/cmm (1.2-3.4) 06/11/23 19:20 Lymphocytes (Manual) 16 % 06/11/23 19:20 Monocytes (Manual) 1.0 % 06/11/23 19:20 Absolute Monocytes 0.1 10^3/cmm (0.1-0.6) 06/11/23 19:20 Eosinophils (Manual) 0 % 06/11/23 19:20 Absolute Eosinophils 0.0 10^3/cmm (0.0-0.7) 06/11/23 19:20 Basophils (Manual) 0.0 % 06/11/23 19:20 Absolute Basophils 0.0 10^3/cmm (0.0-0.2) 06/11/23 19:20 Metamyelocytes 4.0 % 06/11/23 19:20 Nucleated RBCs # 0.0 /100WBC 06/14/23 05:23 Platelet Estimate Decreased (Normal) 06/11/23 19:20 Poikilocytosis 1+ H 06/12/23 08:32 Anisocytosis 1+ H 06/12/23 08:32 Tear Drop Cells Trace 06/12/23 08:32 Ovalocytes 1+ H 06/12/23 08:32 APTT 72.9 SECONDS (23.9-36.7) H 06/13/23 04:28 D-Dimer 1.84 ug/mLFEU (0-0.59) H 06/11/23 19:20 Sodium 135 mmol/L (136-145) L 06/14/23 05:23 Potassium 3.8 mmol/L (3.5-5.1) 06/14/23 05:23 Chloride 95 mmol/L (98-107) L 06/14/23 05:23 Carbon Dioxide 30 mmol/L (22-29) H 06/14/23 05:23 Anion Gap 13.8 (5-19) 06/14/23 05:23 BUN 23 mg/dL (8-23) 06/14/23 05:23 Creatinine 1.8 mg/dL (0.7-1.2) H 06/14/23 05:23 GFR Calculation Not Reportable 06/14/23 05:23 Glucose 116 mg/dL (65-115) H 06/14/23 05:23 Calculated Osmolality 285 mOsm/kg (285-295) 06/14/23 05:23 Calcium 8.8 mg/dL (8.5-10.5) 06/14/23 05:23 Phosphorus 3.5 mg/dL (2.5-4.5) 06/14/23 05:23 Magnesium 1.9 mg/dL (1.7-2.3) 06/14/23 05:23 Total Bilirubin 1.2 mg/dL (0.15-1.2) 06/14/23 05:23 AST 10 U/L (0-40) 06/14/23 05:23 ALT 6 U/L (0-41) 06/14/23 05:23 Alkaline Phosphatase 76 U/L (40-130) 06/14/23 05:23 Troponin T Baseline 39 ng/L (0-15) H 06/11/23 19:20 Troponin T 120 Minute 41.48 ng/L (0-15) H 06/11/23 21:14 Delta Troponin T 2.48 ABS# (0-10) 06/11/23 21:14 Troponin T Hi Sens 6Hr 79.68 ng/L (0-15) H 06/12/23 01:21 Troponin T Hi Sens 6Hr Delta 40.68 ng/L (0-12) H* 06/12/23 01:21 NT-Pro-B Natriuret Pep 61891 pg/mL (0-450) H 06/14/23 05: Total Protein 7.1 g/dL (6.6-8.7) 06/14/23: Albumin 3.8 g/dL (3.5-5.2) 06/14/23: Globulin 3.3 g/dL (1.3-4.6) 06/14/23 05: Urine Color Sade (Yellow) 06/11/23 19:25 Urine Appearance Clear (CLEAR) 06/11/23 19:25 Urine pH 5 (5-7) 06/11/23 19:25 Ur Specific Chandler 1.010 (1.005-1.030) 06/11/23 19:25 Urine Protein Trace (Negative) 06/11/23 19:25 Urine Glucose (UA) Norm (Normal) 06/11/23 19:25 Urine Ketones Negative (Negative) 06/11/23 19:25 Urine Blood Neg (Negative) 06/11/23 19:25 Urine Nitrate Negative (Negative) 06/11/23 19:25 Urine Bilirubin Neg (Negative) 06/11/23 19:25 Urine Urobilinogen 1 mg/dL (Negative) H 06/11/23 19:25 Ur Leukocyte Esterase Negative (Negative) 06/11/23 19:25 Urine RBC None /hpf (0-2) 06/11/23 19:25 Urine WBC None /hpf (0-5) 06/11/23 19:25 Ur Squamous Epith Cells Rare /hpf (0-5) 06/11/23 19:25 Calcium Oxalate Crystal 0-4 /hpf H 06/11/23 19:25 Amorphous Sediment 1+ /hpf 06/11/23 19:25 Urine Bacteria None /hpf (NONE) 06/11/23 19:25 Hyaline Casts 0-4 /lpf H 06/11/23 19:25 Blood Type O Positive 06/14/23 09:15 Rho(D) Type Rh positive 06/14/23 09:15 Antibody Screen Negative 06/14/23 09:15 Crossmatch See Detail 06/14/23 09:15 A&P Assessment and plan (1) Acute non-ST elevation myocardial infarction (NSTEMI): The patient does not want to undergo any interventional procedures at this point. He seems understand implications. We will continue to optimize medical treatment. (2) Acute diastolic heart failure: Discussed with the Dr. Flanagan. May consider IV continuous infusion of Lasix tomorrow, for better diuresis. I may do a limited 2D echocardiogram and repeat EKG in the morning (3) Myelodysplastic syndrome: Patient may require blood transfusion to keep the hemoglobin around 9, in view of the acute coronary syndrome. Status post 1 unit of blood transfusion. Repeat CBC in the morning. (4) Type 2 diabetes mellitus: May continue on the current management. Qualifiers: Chronic kidney disease stage: unspecified stage Diabetes mellitus complication detail: with chronic kidney disease Diabetes mellitus medical terminologist insulin use: without medical terminologist use (5) Acute kidney injury superimposed on CKD: The kidney function seems to be stable (6) Hyperlipidemia: We will continue on the current management Plan Based on the above test results, further management decisions will be made Attestations Medical Necessity Statement*: Patient requires continued hospital stay for close monitoring and further man agement Coding Level of Care Code 55596 Diagnoses Acute non-ST elevation myocardial infarction (NSTEMI) I21.4 Acute diastolic heart failure I50.31 Myelodysplastic syndrome D46.9 Type 2 diabetes mellitus E11.9 Chronic kidney disease stage: unspecified stage Diabetes mellitus complication detail: with chronic kidney disease Diabetes mellitus care home insulin use: without medical terminologist use Acute kidney injury superimposed on CKD N17.9; N18.9 Hyperlipidemia E78.5
--- NOTE | 2023-06-14 14:35 | PC.NURSE ---
Dr Flanagan called floor to instruct nurse to give Bumex 2 hours early due to poor urine output. Bumex given at approx 1425 to patient. Strict I&Os are being followed.
--- NOTE | 2023-06-14 16:03 | P.PN_ITS ---
Vitals/I&O/Wt Last Vital Signs Temp 98.0 F 06/14/23 15:56 Pulse 82 06/14/23 15:56 Resp 17 06/14/23 11:34 BP 125/65 06/14/23 15:56 Pulse Ox 99 06/14/23 15:56 O2 Del Method Nasal Cannula 06/14/23 15:56 O2 Flow Rate 2 06/14/23 08:00 06/14/23 06/14/23 06/14/23 06:59 14:59 22:59 Intake Total 590 / 590 Output Total 250 / 1750 460 / 460 210 / 670 Balance -250 / -451.5 130 / 130 -210 / -80 Physical Exam Const: COMMON NORMALS: no acute distress and patient oriented x3 Resp: COMMON NORMALS: normal respiratory effort, No retractions, No use of accessory muscles and clear to auscultation bilaterally AUSCULTATION: clear to auscultation bilaterally Cardio: COMMON NORMALS: regular rate, regular rhythm, S1 normal heart sound present and S2 normal heart sound present RATE: regular rate RHYTHM: regular rhythm HEART SOUNDS: S1 normal heart sound present and S2 normal heart sound present GI: COMMON NORMALS: Normal to inspection, nondistended, normoactive bowel sounds present and non-tender Extremity: NARRATIVE EXTREMITY EXAM: 4+ pitting edema, anasarca Neuro: COMMON NORMALS: patient oriented x3 Psych: COMMON NORMALS: mental status grossly normal Data 06/14/23 05:23 06/14/23 05:23 A&P Assessment and plan (1) NSTEMI (non-ST elevated myocardial infarction): Patient complaining of intermittent chest pain EKG shows mostly old T wave changes Troponin trend 39--> 40---> 79 with positive delta at 6 hours switch to therapeutic lovenox to minimize fluid intake Continue Plavix 75 mg p.o. daily Patient has an abnormal stress test from January 2022. Per review of past notes it appears patient has declined coronary intervention in the past due to risk for CKD. We will consult cardiology, will likely opt for medical management, however given his pancytopenia he is high risk for anticoagulation and antiplatelets. Continue Lipitor 40 mg daily, lisinopril on hold due to elevated creatinine, continue Imdur 30 mg p.o. twice daily as he takes at home along with Ranexa Continue metoprolol 12.5 mg p.o. twice daily (2) CHF (congestive heart failure): Systolic CHF exacerbation, continues to have anasarca, 4+ pitting edema, BNP ove r 22,000, urine output has been lackluster ? Patient declines Greene catheter ? Fluid restrictions at 1000 cc ? Switch to Bumex 1 mg IV push every 8 hours, with metolazone, ? If urine output does not improve in the next 24 hours will consider Lasix drip and moving to ICU, ? 1 dose metolazone, ? 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: Diabetes mellitus senior care insulin use: without terminal operations supervisor use Diabetes mellitus complication detail: with chronic kidney disease Chronic kidney disease stage: unspecified stage (7) Ischemic cardiomyopathy: (8) Chronic kidney disease: Qualifiers: Chronic kidney disease stage: unspecified stage Qualified Code(s): N18.9 - Chronic kidney disease, unspecified (9) Acute diastolic heart failure: (10) Acute non-ST elevation myocardial infarction (NSTEMI): (11) Acute anemia: Now with acute anemia, hemoglobin 7.1, with NSTEMI concerns, concerns for ischemic cardiomyopathy, will transfuse 1 unit PRBC Plan Plan for today metolazone, Bumex, will consider increasing dose based on clinical progress Attestations Medical Necessity Statement*: Patient requires hospitalization, for systolic CHF requiring diuresis, increased dose of Bumex, metolazone, transfusing 1 unit PRBC Diagnoses NSTEMI (non-ST elevated myocardial infarction) I21.4 CHF (congestive heart failure) I50.9 Heart failure chronicity: acute on chronic Heart failure type: unspecified Myelodysplastic syndrome D46.9 Systolic CHF, acute I50.21 Hyperlipidemia E78.5 Type 2 diabetes mellitus E11.9 Diabetes mellitus terminal operations supervisor insulin use: without terminal operations supervisor use Diabetes mellitus complication detail: with chronic kidney disease Chronic kidney disease stage: unspecified stage Ischemic cardiomyopathy I25.5 Chronic kidney disease N18.9 Chronic kidney disease stage: unspecified stage Acute diastolic heart failure I50.31 Acute non-ST elevation myocardial infarction (NSTEMI) I21.4 Acute anemia D64.9
--- NOTE | 2023-06-14 17:57 | USCV_ITS ---
Guido Crump Age: 83 Gender: M : 1940 Exam Date: 06/14/2023 19:35 Ordering Phys: Jl Hassan MD ([email or web address]) Technologist: MARVIN Exam Location: [facility] [place] Indication: chf NSTEMI BP: 125 / 65 HR: 89 Rhythm: Sinus Technical Quality: Adequate MEASUREMENTS (Male / Female) Normal Values 2D ECHO LV Diastolic Diameter PLAX 5.6 cm 4.2 - 5.9 / 3.9 - 5.3 cm LV Systolic Diameter PLAX 4.7 cm IVS Diastolic Thickness 2.0 cm 0.6 - 1.0 / 0.6 - 0.9 cm IVS Systolic Thickness 2.1 cm LVPW Diastolic Thickness 1.5 cm 0.6 - 1.0 / 0.6 - 0.9 cm LVPW Systolic Thickness 2.0 cm LVOT Diameter 1.9 cm LV Ejection Fraction 2D Teich 34.1 % LV Ejection Fraction MOD 2C 18.0 % LV Ejection Fraction 2C AL 16.3 % LA Diameter 4.4 cm LA Width 5.5 cm LA Height 5.8 cm RA Width 4.0 cm RA Height 3.5 cm Aorta at Sinotubular Diameter 2.8 cm IVC Diameter 2.4 cm M-MODE Aortic Annulus Diameter 3.0 cm LA Ao Ratio MM 1.5 MV E Point Septal Separation 2.2 cm DOPPLER AV Peak Velocity 306.0 cm/s LVOT Peak Velocity 63.0 cm/s AV Area Cont Eq vti 0.4 cm squared AV Area Cont Eq pk 0.6 cm squared MV Area PHT 3.5 cm squared Mitral E to A Ratio 1.0 MV E' Velocity 66.5 cm/s Mitral E to MV E' Ratio 35.8 Mitral E to LV E' Lateral Ratio 29.9 Mitral E to LV E' Septal Ratio 46.0 TR Peak Velocity 231.0 cm/s TR Peak Gradient 21.3 mmHg TV Peak E Velocity 44.0 cm/s Right Atrial Pressure 10.0 mmHg Pulmonary Artery Systolic Pressu 31.3 mmHg PV Peak Velocity 100.0 cm/s RV Acceleration Time 0.1 s RV Ejection Time 0.4 s RV AcT/ET 0.3 FINDINGS Left Ventricle Mildly increased left ventricular cavity size. Moderate hypokinesia of the mid and apical septum, anteroseptum and LV apex. Diffuse hypokinesia of the inferior wall segments. The LV ejection fraction appears to be around 35%((visual)).Grade II/IV diastolic dysfunction, moderately elevated filling pressures. Right Ventricle The right ventricle is normal in size and function. Right Atrium The right atrium is normal in size. Left Atrium Mildly increased left atrial size. Mitral Valve Thickened mitral valve. Moderate mitral annular calcification. Moderate mitral valve regurgitation. Aortic Valve Severe low gradient aortic valve stenosis with a valve area of 0.45 cm squire 0.45 cm squared. Peak velocity of 3.06. Per second with a peak gradient of 37 and a mean gradient of 19 mmHg Tricuspid Valve No gross abnormalities noted.trace tricuspid valve regurgitation. Estimated pulmonary artery peak systolic pressure Pulmonic Valve Mild pulmonary valve regurgitation. Pericardium No pericardial effusion. Aorta Normal ascending aorta dimension. IVC Dilated IVC with decreased respiratory variation. CONCLUSIONS Multiple wall motion normalities with diminished LV ejection fraction of around 30 to 35%((visual) Mildly dilated LV cavity. Grade II/IV diastolic dysfunction, moderately elevated filling pressures. Moderately dilated left atrium Thickened mitral valve. Moderate mitral annular calcification. Moderate mitral valve regurgitation. Severe low gradient aortic valve stenosis with a valve area of 0.45 cm squire 0.45 cm squared. Peak velocity of 3.06. Per second with a peak gradient of 37 and a mean gradient of 19 mmHg. Estimated pulmonary artery peak systolic pressure 31 mmHg, could be an underestimation because of the poor Doppler signals. There is no pericardial effusion. Compared to the study from 10/21/2022, there is significant drop in the LV ejection fraction. Study is a suboptimal quality. Recommend contrast echocardiogram to better evaluate the LV ejection fraction Dr Jl Hassan MD [facility] (Electronically Signed) Final Date: 14 June 2023 20:51 S
[2023-06-14] MEDS: enoxaparin 100 mg/mL Syringe SUBCUT (18:15)
[2023-06-14] MEDS: CLONazepam 1 mg Tablet 0.5 MG PO (20:37)
[2023-06-14] MEDS: morphine 4 mg/mL SDV 1 mL 2 MG IVP (20:37)
[2023-06-14] MEDS: ondansetron 2 mg/ML SDV 2 mL 4 MG IVP (20:38)
[2023-06-15] VITALS (11 sets, daily range): BP systolic 92–109; BP diastolic 56–59; PULSE 80–103; RESP 14–23; TEMP 36.6–36.9; O2SAT 94–99
[2023-06-15] MEDS: temazepam 15 mg Capsule PO (01:26)
[2023-06-15 04:05] LABS: Basophils % 0.4 %; Hematocrit 26.4 % (37-53); Lymphocytes # 1.6 10^3/uL (0.8-4.8); Lymphocytes % 19.1 %; Mean Corpuscular HGB Conc 30.7 g/dL (30-55); Mean Corpuscular Hemoglobin 26.9 pg (27-33); Mean Corpuscular Volume 87.7 fl (82-101); Monocytes # 1.3 10^3/uL (0.2-0.9); Monocytes % 16.2 %; Neutrophils # 4.67 10^3/uL (1.8-7.7); Neutrophils % 57.6 %; Nucleated Red Blood Cells % 0 %; Platelet Count 64 10^3/cmm (157-399); Red Blood Count 3.01 10^6/uL (3.85-5.65); Red Cell Distribution Width 20.4 % (12.1-15.1)
[2023-06-15] MEDS: enoxaparin 100 mg/mL Syringe SUBCUT ×2 (04:09→15:29)
[2023-06-15] MEDS: levothyroxine 50 mcg Tablet PO (04:09)
[2023-06-15 04:29] LABS: Slide Review Slide Review Perform
[2023-06-15 04:40] LABS: Alanine Aminotransferase 6 U/L (0-41); Albumin Level 3.9 g/dL (3.5-5.2); Alkaline Phosphatase 76 U/L (40-130); Aspartate Amino Transferase 11 U/L (0-40); Blood Urea Nitrogen 28 mg/dL (8-23); Calcium 9.1 mg/dL (8.5-10.5); Carbon Dioxide 27 mmol/L (22-29); Chloride 94 mmol/L (98-107); Globulin 3.5 g/dL (1.3-4.6); Glucose 122 mg/dL (65-115); Magnesium 1.8 mg/dL (1.7-2.3); Osmolality Calculated 285 mOsm/kg (285-295); Phosphorus 3.6 mg/dL (2.5-4.5); Sodium 134 mmol/L (136-145); Total Bilirubin 1.3 mg/dL (0.15-1.2); Total Protein 7.4 g/dL (6.6-8.7)
[2023-06-15 04:41] LABS: Anion Gap 17.3 (5-19); Potassium 4.3 mmol/L (3.5-5.1)
[2023-06-15] MEDS: metoprolol tartrate 25 mg Tablet 12.5 MG PO ×2 (09:05→17:52)
[2023-06-15] MEDS: ranolazine (12HR) 500 mg Tablet PO ×2 (09:06→17:52)
[2023-06-15] MEDS: isosorbide mononitrate ER 30 mg Tablet PO ×2 (09:06→17:52)
[2023-06-15] MEDS: clopidogrel 75 mg Tablet PO (09:06)
[2023-06-15] MEDS: allopurinol 100 mg Tablet PO (09:06)
[2023-06-15] MEDS: pantoprazole DR 40 mg Tablet PO (09:06)
[2023-06-15] MEDS: potassium chloride ER 20 mEq Tablet 40 MEQ PO (09:07)
[2023-06-15] MEDS: metOLazone 5 MG Tablet 10 MG PO (09:07)
[2023-06-15] MEDS: bumetanide 0.25 mg/mL SDV 4 mL 1 MG IVP ×2 (09:07→15:29)
--- NOTE | 2023-06-15 09:21 | ECG_ITS ---
[facility] Test Date: 2023-06-15 Pat Name: Guido Crump Department: Room: 102 Gender: Male Medical Review Specialist: : 1940 Requested By: Jl Hassan Order Number: [id number] Tari MD: Kvng Guerin M.D. Measurements Intervals [place] Rate: 80 P: 13 MN: 160 QRS: 13 QRSD: 105 T: 130 QT: 378 QTc: 439 Interpretive Statements SINUS RHYTHM SEPTAL MYOCARDIAL INFARCTION , OF INDETERMINATE AGE [40+ ms Q WAVE IN V1/V2] MODERATE T-WAVE ABNORMALITY, CONSIDER LATERAL ISCHEMIA [-0.1+ mV T-WAVE IN I/aVL/V5/V6] Compared to ECG 06/12/2023 03:46:34 Myocardial infarct finding now present Atrial fibrillation no longer present T-wave abnormality still present Possible ischemia still present Electronically Signed On 06-15-2023 11:12:49 COMMUNITY ENGAGEMENT MANAGER by Kvng Guerin M.D. [email or web address]
[2023-06-15] MEDS: acetaminophen 325 mg Tablet 650 MG PO (12:15)
[2023-06-15] MEDS: atorvastatin 40 mg Tablet PO (12:15)
[2023-06-15] MEDS: tamsulosin 0.4 mg Capsule PO (12:15)
[2023-06-15] MEDS: finasteride 5 mg Tablet PO (12:15)
[2023-06-15 13:31] LABS: Anion Gap 16.6 (5-19); Blood Urea Nitrogen 27 mg/dL (8-23); Calcium 9.4 mg/dL (8.5-10.5); Carbon Dioxide 30 mmol/L (22-29); Chloride 92 mmol/L (98-107); Glucose 125 mg/dL (65-115); Osmolality Calculated 285 mOsm/kg (285-295); Potassium 4.6 mmol/L (3.5-5.1); Sodium 134 mmol/L (136-145)
[2023-06-15 13:32] LABS: Creatinine Clr Calc Pharmacy 30.1446
--- NOTE | 2023-06-15 16:15 | P.PN_ITS ---
Subjective Subjective: Patient was seen this morning, he continues to have lower extremity edema, 3+ pitting edema with complaints of shortness of breath, he tells me that he did not feel that he is significantly improved in terms of his fluid status, we discussed his urine output remains lackluster, he is -1.5 L so far continues to have edema, continues to have complaints of shortness of breath, BNP over 20,000, we discussed if he continues to have lackluster urine output throughout the afternoon, we will start him on a Lasix drip Vitals/I&O/Wt Last Vital Signs Temp 98.2 F 06/15/23 13:20 Pulse 82 06/15/23 14:00 Resp 14 06/15/23 13:20 BP 109/56 06/15/23 13:20 Pulse Ox 97 06/15/23 13:20 O2 Del Method Room Air 06/15/23 13:20 O2 Flow Rate 3 06/15/23 09:36 06/15/23 06/15/23 06/15/23 06:59 14:59 22:59 Intake Total 240 / 1070 240 / 240 Output Total 400 / 1870 450 / 450 Balance -160 / -800 -210 / -210 Physical Exam Const: COMMON NORMALS: no acute distress and patient oriented x3 Resp: COMMON NORMALS: normal respiratory effort, No retractions, No use of accessory muscles and clear to auscultation bilaterally AUSCULTATION: clear to auscultation bilaterally Cardio: COMMON NORMALS: regular rate, regular rhythm, S1 normal heart sound present and S2 normal heart sound present RATE: regular rate RHYTHM: regular rhythm HEART SOUNDS: S1 normal heart sound present and S2 normal heart sound present GI: COMMON NORMALS: Normal to inspection, nondistended, normoactive bowel sounds present and non-tender Extremity: NARRATIVE EXTREMITY EXAM: 3+ pitting edema Neuro: COMMON NORMALS: patient oriented x3 Psych: COMMON NORMALS: mental status grossly normal Data 06/15/23 03:56 06/15/23 12:32 A&P Assessment and plan (1) NSTEMI (non-ST elevated myocardial infarction): Patient complaining of intermittent chest pain, currently chest pain-free EKG shows mostly old T wave changes Troponin trend 39--> 40---> 79 with positive delta at 6 hours Switch to DVT prophylaxis Lovenox Continue Plavix 75 mg p.o. daily Patient has an abnormal stress test from January 2022. Per review of past notes it appears patient has declined coronary intervention in the past due to risk for CKD. We will consult cardiology, will likely opt for medical management, however gi bobby his pancytopenia he is high risk for anticoagulation and antiplatelets. Continue Lipitor 40 mg daily, lisinopril on hold due to elevated creatinine, continue Imdur 30 mg p.o. twice daily as he takes at home along with Ranexa Continue metoprolol 12.5 mg p.o. twice daily (2) CHF (congestive heart failure): Systolic CHF exacerbation, continues to have anasarca, 3+ pitting edema, BNP over 22,000, urine output has been lackluster ? Will place Greene catheter today ? Fluid restrictions at 1000 cc ? Has had a lackluster response to Bumex metolazone, will consider starting Lasix drip in the afternoon based on urine output ? 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: Diabetes mellitus shelter insulin use: without extermination supervisor use Diabetes mellitus complication detail: with chronic kidney disease Chronic kidney disease stage: unspecified stage (7) Ischemic cardiomyopathy: (8) Chronic kidney disease: Qualifiers: Chronic kidney disease stage: unspecified stage Qualified Code(s): N18.9 - Chronic kidney disease, unspecified (9) Acute diastolic heart failure: (10) Acute non-ST elevation myocardial infarction (NSTEMI): (11) Acute anemia: Now with acute anemia, hemoglobin 7.1, with NSTEMI concerns, concerns for ischemic cardiomyopathy, will transfuse 1 unit PRBC Plan Plan for today metolazone, Bumex, will consider Lasix drip based on clinical progress Attestations Medical Necessity Statement*: Patient requires hospitalization for fluid overload, systolic and diastolic CHF, persistent edema, urine output with Bumex therapy lackluster Diagnoses NSTEMI (non-ST elevated myocardial infarction) I21.4 CHF (congestive heart failure) I50.9 Heart failure chronicity: acute on chronic Heart failure type: unspecified Myelodysplastic syndrome D46.9 Systolic CHF, acute I50.21 Hyperlipidemia E78.5 Type 2 diabetes mellitus E11.9 Diabetes mellitus extermination supervisor insulin use: without extermination supervisor use Diabetes mellitus complication detail: with chronic kidney disease Chronic kidney disease stage: unspecified stage Ischemic cardiomyopathy I25.5 Chronic kidney disease N18.9 Chronic kidney disease stage: unspecified stage Acute diastolic heart failure I50.31 Acute non-ST elevation myocardial infarction (NSTEMI) I21.4 Acute anemia D64.9
--- NOTE | 2023-06-15 16:46 | PC.NURSE ---
Provider wants to see the results of the 1800 BMP before starting the lasix drip.
--- NOTE | 2023-06-15 17:13 | PC.NURSE ---
Provider would like a urinary catheter place on patient. Patient refuses urinary catheter at this time. Patients son is also in the room and said that the patient does not tolerate them. He said that he gets all worked up about the catheter and pulls them out . I discussed the reason for the catheter and the patient and son are still refusing.
[2023-06-15 18:20] LABS: Anion Gap 16.5 (5-19); Blood Urea Nitrogen 27 mg/dL (8-23); Calcium 9.1 mg/dL (8.5-10.5); Carbon Dioxide 28 mmol/L (22-29); Chloride 92 mmol/L (98-107); Glucose 129 mg/dL (65-115); Osmolality Calculated 281 mOsm/kg (285-295); Potassium 4.5 mmol/L (3.5-5.1); Sodium 132 mmol/L (136-145)
[2023-06-15] MEDS: CLONazepam 1 mg Tablet 0.5 MG PO (19:22)
--- NOTE | 2023-06-15 19:23 | PC.NURSE ---
Klonopin given to patient because he was getting restless and kept on insisting on getting out of bed when nurse advised him to use his call light if he wanted to get up and told him it was best to stay in bed to eleveate his lower extremities
[2023-06-15] MEDS: FUROsemide 100 MG in sodium chloride 0.9% 40 ML IV (19:35)
--- NOTE | 2023-06-15 20:07 | PM.PN ---
Subjective Subjective: Patient is feeling better. Urine output is improving. He still has significant edema of the lower extremities. Reviewed echocardiogram from yesterday. Medications: Medication Review Details: Current Medications Acetaminophen (Acetaminophen 325 Mg Tablet) 650 mg PO Q6H PRN PRN Reason: Mild/Mod Pain Or Temp >/= 101 Last Admin: 06/15/23 12:15 Dose: 650 mg Allopurinol (Allopurinol 100 Mg Tablet) 100 mg PO DAILY [facility] Last Admin: 06/15/23 09:06 Dose: 100 mg Atorvastatin Calcium (Atorvastatin 40 Mg Tablet) 40 mg PO DAILY@1200 [facility] Last Admin: 06/15/23 12:15 Dose: 40 mg Clonazepam (Clonazepam 1 Mg Tablet) 0.5 mg PO TID PRN PRN Reason: anxiety Last Admin: 06/15/23 19:22 Dose: 0.5 mg Clopidogrel Bisulfate (Clopidogrel 75 Mg Tablet) 75 mg PO DAILY [facility] Last Admin: 06/15/23 09:06 Dose: 75 mg Enoxaparin Sodium (Enoxaparin 40 Mg/0.4 Ml Syringe) 40 mg SUBCUT Q24H [facility] Finasteride (Finasteride 5 Mg Tablet) 5 mg PO DAILY@1200 [facility] Last Admin: 06/15/23 12:15 Dose: 5 mg Furosemide 100 mg/ Sodium (Chloride) 50 mls @ 0 mls/hr IV .Q0M [facility]; Protocol Last Admin: 06/15/23 19:35 Dose: 10 mg/hr, 5 mls/hr Isosorbide Mononitrate (Isosorbide Mononitrate Er 30 Mg Tablet) 30 mg PO BID [facility] Last Admin: 06/15/23 17:52 Dose: 30 mg Levothyroxine Sodium (Levothyroxine 50 Mcg Tablet) 50 mcg PO DAILY@05 [facility] Last Admin: 06/15/23 04:09 Dose: 50 mcg Metoprolol Tartrate (Metoprolol Tartrate 25 Mg Tablet) 12.5 mg PO BID [facility] Last Admin: 06/15/23 17:52 Dose: 12.5 mg Morphine Sulfate (Morphine 4 Mg/Ml Sdv 1 Ml) 2 mg IVP Q4H PRN PRN Reason: SEVERE PAIN Last Admin: 06/14/23 20:37 Dose: 2 mg Naloxone HCl (Naloxone 0.4 Mg/Ml Sdv) 0.1 mg IVP Q2M PRN PRN Reason: OPIATERV Ondansetron HCl (Ondansetron 2 Mg/Ml Sdv 2 Ml) 4 mg IVP Q8H PRN PRN Reason: vomiting, or N/V if npo Last Admin: 06/14/23 20:38 Dose: 4 mg Pantoprazole Sodium (Pantoprazole Dr 40 Mg Tablet) 40 mg PO DAILY [facility] Last Admin: 06/15/23 09:06 Dose: 40 mg Ranolazine (Ranolazine (12hr) 500 Mg Tablet) 500 mg PO BID [facility] Last Admin: 06/15/23 17:52 Dose: 500 mg Tamsulosin HCl (Tamsulosin 0.4 Mg Capsule) 0.4 mg PO DAILY@12 [facility] Last Admin: 06/15/23 12:15 Dose: 0.4 mg Temazepam (Temazepam 15 Mg Capsule) 15 mg PO ONCE PRN PRN Reason: INSOMNIA Last Admin: 06/13/23 19:59 Dose: 15 mg Vitals/I&O/Wt Last Vital Signs Temp 97.9 F 06/15/23 16:00 Pulse 85 06/15/23 16:00 Resp 17 06/15/23 16:00 BP 108/57 06/15/23 16:00 Pulse Ox 99 06/15/23 16:00 O2 Del Method Nasal Cannula 06/15/23 16:00 O2 Flow Rate 3 06/15/23 16:00 06/15/23 06/15/23 06/15/23 06:59 14:59 22:59 Intake Total 240 / 1070 240 / 240 Output Total 400 / 1870 450 / 450 400 / 850 Balance -160 / -800 -210 / -210 -400 / -610 Physical Exam Narrative: GENERAL: The patient is alert and oriented times three. Not in any acute distress. HEENT: No significant pallor, icterus or lymphadenopathy.Oral cavity: There are no mucous membrane lesions. NECK: Trachea appears to be central. No masses noted. No JVD or thyromegaly appreciated. RESPIRATORY: Chest is symmetrical. No intercostals muscle retraction or any accessory muscle activation. There is no chest wall tenderness. Breath sounds are heard bilaterally. No rales or rhonchi heard. No evidence of any consolidation. BREASTS: Deferred. HEART: The heart sounds are normal. No S3 or S4. Ejection systolic murmur grade 4/6 in the aortic area. Short systolic murmur in the mitral area. No pericardial rub ABDOMEN: No vessel pulsations or distention. No tenderness. No organomegaly appreciated. Bowel sounds are normally heard. : Deferred. RECTAL: Deferred. LYMPHATIC: No lymphadenopathy noted in the neck. EXTREMITIES: 2+ edema both lower extremities. No cyanosis. MUSCULOSKELETAL: No acute joint deformities or swelling SKIN: There are no significant rashes or ecchymosis NEUROPSYCHIATRIC: The patient is alert and oriented x3. Appears to be in a good mood. No tremors or rigidity noted. Data 06/15/23 03:56 06/15/23 17:49 Other Labs: Laboratory Last Values WBC 8.10 10^3/uL (3.29-11.43) 06/15/23 03:56 RBC 3.01 10^6/uL (3.85-5.65) L 06/15/23 03:56 Hgb 8.10 g/dL (11.27-16.99) L 06/15/23 03:56 Hct 26.4 % (37-53) L 06/15/23 03:56 MCV 87.7 fl (82-101) 06/15/23 03:56 MCH 26.9 pg (27-33) L 06/15/23 03:56 MCHC 30.7 g/dL (30-55) 06/15/23 03:56 RDW 20.4 % (12.1-15.1) H 06/15/23 03:56 Plt Count 64 10^3/cmm (157-399) L 06/15/23 03:56 MPV Not Reportable 06/15/23 03:56 Neut % (Auto) 57.6 % 06/15/23 03:56 Lymph % (Auto) 19.1 % 06/15/23 03:56 [place] % (Auto) 16.2 % 06/15/23 03:56 Eos % (Auto) 0.0 % 06/15/23 03:56 Baso % (Auto) 0.4 % 06/15/23 03:56 Neut # (Auto) 4.67 10^3/uL (1.8-7.7) 06/15/23 03:56 Lymph # (Auto) 1.6 10^3/uL (0.8-4.8) 06/15/23 03:56 [place] # (Auto) 1.3 10^3/uL (0.2-0.9) H 06/15/23 03:56 Eos # (Auto) 0.0 10^3/uL (0.0-0.8) 06/15/23 03:56 Baso # (Auto) 0.0 10^3/uL (0.0-0.1) 06/15/23 03:56 Nucleated RBC % (auto) 0 % 06/15/23 03:56 Total Counted 100 (0-100) 06/11/23 19:20 Atypical Lymphs % 0.0 % (0-5) 06/11/23 19:20 Absolute Neutrophils 6.6 10^3/cmm (1.4-6.5) H 06/11/23 19:20 Segmented Neutrophils 74 % 06/11/23 19:20 Abs Segm Neuts (Man) 6.2 10/cmm (1.6-7.1) 06/11/23 19:20 Band Neutrophils 5.0 % 06/11/23 19:20 Abs Band Neuts (Man) 0.4 10^3/cmm (0.0-1.2) 06/11/23 19:20 Absolute Lymphocytes 1.3 10^3/cmm (1.2-3.4) 06/11/23 19:20 Lymphocytes (Manual) 16 % 06/11/23 19:20 Monocytes (Manual) 1.0 % 06/11/23 19:20 Absolute Monocytes 0.1 10^3/cmm (0.1-0.6) 06/11/23 19:20 Eosinophils (Manual) 0 % 06/11/23 19:20 Absolute Eosinophils 0.0 10^3/cmm (0.0-0.7) 06/11/23 19:20 Basophils (Manual) 0.0 % 06/11/23 19:20 Absolute Basophils 0.0 10^3/cmm (0.0-0.2) 06/11/23 19:20 Metamyelocytes 4.0 % 06/11/23 19:20 Nucleated RBCs # 0.0 /100WBC 06/15/23 03:56 Platelet Estimate Decreased (Normal) 06/11/23 19:20 Poikilocytosis 1+ H 06/12/23 08:32 Anisocytosis 1+ H 06/12/23 08:32 Tear Drop Cells Trace 06/12/23 08:32 Ovalocytes 1+ H 06/12/23 08:32 APTT 72.9 SECONDS (23.9-36.7) H 06/13/23 04:28 D-Dimer 1.84 ug/mLFEU (0-0.59) H 06/11/23 19:20 Sodium 132 mmol/L (136-145) L 06/15/23 17:49 Potassium 4.5 mmol/L (3.5-5.1) 06/15/23 17:49 Chloride 92 mmol/L (98-107) L 06/15/23 17:49 Carbon Dioxide 28 mmol/L (22-29) 06/15/23 17:49 Anion Gap 16.5 (5-19) 06/15/23 17:49 BUN 27 mg/dL (8-23) H 06/15/23 17:49 Creatinine 2.0 mg/dL (0.7-1.2) H 06/15/23 17:49 GFR Calculation Not Reportable 06/15/23 17:49 Glucose 129 mg/dL (65-115) H 06/15/23 17:49 Calculated Osmolality 281 mOsm/kg (285-295) L 06/15/23 17:49 Calcium 9.1 mg/dL (8.5-10.5) 06/15/23 17:49 Phosphorus 3.6 mg/dL (2.5-4.5) 06/15/23 03:56 Magnesium 1.8 mg/dL (1.7-2.3) 06/15/23 03:56 Total Bilirubin 1.3 mg/dL (0.15-1.2) H 06/15/23 03:56 AST 11 U/L (0-40) 06/15/23 03:56 ALT 6 U/L (0-41) 06/15/23 03:56 Alkaline Phosphatase 76 U/L (40-130) 06/15/23 03:56 Troponin T Baseline 39 ng/L (0-15) H 06/11/23 19:20 Troponin T 120 Minute 41.48 ng/L (0-15) H 06/11/23 21:14 Delta Troponin T 2.48 ABS# (0-10) 06/11/23 21:14 Troponin T Hi Sens 6Hr 79.68 ng/L (0-15) H 06/12/23 01:21 Troponin T Hi Sens 6Hr Delta 40.68 ng/L (0-12) H* 06/12/23 01:21 NT-Pro-B Natriuret Pep 08730 pg/mL (0-450) H 06/15/23 03:56 Total Protein 7.4 g/dL (6.6-8.7) 06/15/23 03:56 Albumin 3.9 g/dL (3.5-5.2) 06/15/23 03:56 Globulin 3.5 g/dL (1.3-4.6) 06/15/23 03:56 Urine Color Sade (Yellow) 06/11/23 19:25 Urine Appearance Clear (CLEAR) 06/11/23 19:25 Urine pH 5 (5-7) 06/11/23 19:25 Ur Specific [place] 1.010 (1.005-1.030) 06/11/23 19:25 Urine Protein Trace (Negative) 06/11/23 19:25 Urine Glucose (UA) Norm (Normal) 06/11/23 19:25 Urine Ketones Negative (Negative) 06/11/23 19:25 Urine Blood Neg (Negative) 06/11/23 19:25 Urine Nitrate Negative (Negative) 06/11/23 19:25 Urine Bilirubin Neg (Negative) 06/11/23 19:25 Urine Urobilinogen 1 mg/dL (Negative) H 06/11/23 19:25 Ur Leukocyte Esterase Negative (Negative) 06/11/23 19:25 Urine RBC None /hpf (0-2) 06/11/23 19:25 Urine WBC None /hpf (0-5) 06/11/23 19:25 Ur Squamous Epith Cells Rare /hpf (0-5) 06/11/23 19:25 Calcium Oxalate Crystal 0-4 /hpf H 06/11/23 19:25 Amorphous Sediment 1+ /hpf 06/11/23 19:25 Urine Bacteria None /hpf (NONE) 06/11/23 19:25 Hyaline Casts 0-4 /lpf H 06/11/23 19:25 Blood Type O Positive 06/14/23 09:15 Rho(D) Type Rh positive 06/14/23 09:15 Antibody Screen Negative 06/14/23 09:15 Crossmatch See Detail 06/14/23 09:15 Other data: EKG from today revealed Normal sinus rhythm with a diffuse nonspecific ST-T changes. Poor R wave progression. Echocardiogram from yesterday Multiple wall motion normalities with diminished LV ejection ?fraction of around 30 to 35%((visual) ?Mildly dilated LV cavity. ?Grade II/IV diastolic dysfunction, moderately elevated filling ?pressures. ?Moderately dilated left atrium ?Thickened mitral valve. Moderate mitral annular calcification. ?Moderate mitral valve regurgitation. ?Severe low gradient aortic valve stenosis with a valve area of ?0.45 cm squire 0.45 cm squared.? Peak velocity of 3.06.? Per second ?with a peak gradient of 37 and a mean gradient of 19 mmHg. ?Estimated pulmonary artery peak systolic pressure 31 mmHg, could ?be an underestimation because of the poor Doppler signals. ?There is no pericardial effusion. ?Compared to the study from 10/21/2022, there is significant drop ?in the LV ejection fraction. ?Study is a suboptimal quality.? Recommend contrast ?echocardiogram to better evaluate the LV ejection fraction A&P Assessment and plan (1) Acute non-ST elevation myocardial infarction (NSTEMI): The patient does not want to undergo any interventional procedures at this point. He seems understand implications. We will continue to optimize medical treatment. (2) Aortic valve stenosis: Patient has severe low gradient aortic valve stenosis. He did not want to undergo valve intervention. We will continue the current management. (3) Acute diastolic heart failure: Continue with IV diuresis. May try p.o. diuretics tomorrow (4) Ischemic cardiomyopathy: Continue to optimize afterload reducing agents. (5) Myelodysplastic syndrome: The hemoglobin has improved. We will continue monitoring this. (6) Type 2 diabetes mellitus: May continue on the current management. Qualifiers: Diabetes mellitus substance abuse nurse insulin use: without substance abuse nurse use Diabetes mellitus complication detail: with chronic kidney disease Chronic kidney disease stage: unspecified stage (7) Acute kidney injury superimposed on CKD: The creatinine seems to be slowly going up with the diuresis (8) Hyperlipidemia: We will continue on the current management Plan We will continue to optimize medical treatment. Because of his chronic kidney disease with intermittent kidney injury, medication options are somewhat limited. We will try to optimize with the limitations. Attestations Medical Necessity Statement*: Patient requires continued hospital stay for close monitoring and further management Coding Level of Care Code Acute Code for Chg Fwd Diagnoses Acute non-ST elevation myocardial infarction (NSTEMI) I21.4 Aortic valve stenosis I35.0 Acute diastolic heart failure I50.31 Ischemic cardiomyopathy I25.5 Myelodysplastic syndrome D46.9 Type 2 diabetes mellitus E11.9 Diabetes mellitus substance abuse nurse insulin use: without substance abuse nurse use Diabetes mellitus complication detail: with chronic kidney disease Chronic kidney disease stage: unspecified stage Acute kidney injury superimposed on CKD N17.9; N18.9 Hyperlipidemia E78.5
--- NOTE | 2023-06-15 21:17 | PC.NURSE ---
Patient pressed call light and nurse came into room. Patient asked nurse to take his pajamas off. Nurse explained that the aid had just removed his pajama pants less than 10 minutes ago. Patient said I wish my sons were here because I don't know why you all are so down on me. Nurse tried to explain to patient that we weren't down on him nor were we mad at him but just trying to help. He then told nurse to take his pajamas off and nurse again explained that pajamas were already off. Patient was asked again if he would like a salomon since he is now on a Lasix drip. Patient stuck finger in nurse's face and yelled you will not put a catheter in me. Nurse told patient that was fine, he had the right to refuse. Patient was moved from 102 to 108 because of frequent calls out to the nurse, better to hear bed alarm, and frequent call light usage.
--- NOTE | 2023-06-15 21:22 | PC.NURSE ---
Physician called nurse and asked about most recent labs including creatine. Nurse reported results and physician gave verbal order to start lasix drip at 10mg/5 hr. Drip started. Physician would like the lasix drip continued until the next BMP is drawn.
--- NOTE | 2023-06-15 21:55 | PC.NURSE ---
Patient once gibsonamrik called nurse into room to help get his pajamas off. Nurse again explained that pajamas were off. Patient continued to insist he wanted them off. Nurse asked if he meant he wanted them on and he said yes. Pajama pants and new brief were placed on patient.
[2023-06-15] MEDS: morphine 4 mg/mL SDV 1 mL 2 MG IVP (22:18)
[2023-06-15 22:44] LABS: Anion Gap 19.8 (5-19); Blood Urea Nitrogen 34 mg/dL (8-23); Calcium 9.2 mg/dL (8.5-10.5); Carbon Dioxide 26 mmol/L (22-29); Chloride 95 mmol/L (98-107); Glucose 151 mg/dL (65-115); Osmolality Calculated 293 mOsm/kg (285-295); Potassium 4.8 mmol/L (3.5-5.1); Sodium 136 mmol/L (136-145)
--- NOTE | 2023-06-15 23:48 | PC.NURSE ---
One on one sitter requested for patient as he was frequently trying to get up out of his chair and pulling on his lines. He tries to walk out of the room with all lines still attached. When nurse asked him where he was going he stated to bed but was walking out toward the [place]. Sitter currently in room. Patient is not easily redirected and is non-compliant with keeping feet elevated to reduce swelling.
[2023-06-16] VITALS (15 sets, daily range): BP systolic 90–126; BP diastolic 51–64; PULSE 78–97; RESP 12–26; TEMP 36.6–37.2; O2SAT 86–99
--- NOTE | 2023-06-16 02:16 | PC.NURSE ---
IV Lasix paused because patient pulled IV out of arm. Nurse attempting to obtain another IV.
[2023-06-16 02:26] LABS: Anion Gap 18.7 (5-19); Blood Urea Nitrogen 36 mg/dL (8-23); Calcium 9.3 mg/dL (8.5-10.5); Carbon Dioxide 27 mmol/L (22-29); Chloride 92 mmol/L (98-107); Glucose 154 mg/dL (65-115); Osmolality Calculated 287 mOsm/kg (285-295); Potassium 4.7 mmol/L (3.5-5.1); Sodium 133 mmol/L (136-145)
--- NOTE | 2023-06-16 04:06 | PC.NURSE ---
Patient bladder scanned. Scan showed 141ml in bladder. Patient continues to refuse salomon.
[2023-06-16 05:04] LABS: Basophils % 0.3 %; Hematocrit 23.1 % (37-53); Lymphocytes # 1.5 10^3/uL (0.8-4.8); Lymphocytes % 13.8 %; Mean Corpuscular Hemoglobin 26.7 pg (27-33); Mean Corpuscular Volume 83.4 fl (82-101); Monocytes % 18.6 %; Neutrophils # 6.34 10^3/uL (1.8-7.7); Nucleated Red Blood Cells % 0 %; Platelet Count 62 10^3/cmm (157-399); Red Blood Count 2.77 10^6/uL (3.85-5.65); White Blood Count 10.56 10^3/uL (3.29-11.43)
[2023-06-16 05:20] LABS: Slide Review Slide Review Perform
[2023-06-16 05:29] LABS: Alanine Aminotransferase 6 U/L (0-41); Albumin Level 3.9 g/dL (3.5-5.2); Alkaline Phosphatase 73 U/L (40-130); Potassium 4.4 mmol/L (3.5-5.1)
--- NOTE | 2023-06-16 05:30 | PC.NURSE ---
50ml bag of normal saline ordered along with 100mg of furosemide to mix for furosemide drip. Called pharmacy ([facility]) to verify.
[2023-06-16] MEDS: enoxaparin 40 mg/0.4 mL Syringe SUBCUT (05:36)
[2023-06-16] MEDS: levothyroxine 50 mcg Tablet PO (05:36)
[2023-06-16 05:44] LABS: NT Pro B Type Natriuretic Pept 34202 pg/mL (0-450)
[2023-06-16 05:57] LABS: Aspartate Amino Transferase 9 U/L (0-40); Blood Urea Nitrogen 36 mg/dL (8-23); Carbon Dioxide 26 mmol/L (22-29); Globulin 2.9 g/dL (1.3-4.6); Glucose 127 mg/dL (65-115); Magnesium 1.8 mg/dL (1.7-2.3); Phosphorus 3.6 mg/dL (2.5-4.5); Total Bilirubin 1.4 mg/dL (0.15-1.2); Total Protein 6.8 g/dL (6.6-8.7)
[2023-06-16 05:59] LABS: Anion Gap 19.4 (5-19); Chloride 93 mmol/L (98-107); Osmolality Calculated 288 mOsm/kg (285-295); Sodium 134 mmol/L (136-145)
[2023-06-16] MEDS: FUROsemide 100 MG in sodium chloride 0.9% 40 ML IV (06:44)
[2023-06-16] MEDS: clopidogrel 75 mg Tablet PO (08:52)
[2023-06-16] MEDS: metoprolol tartrate 25 mg Tablet 12.5 MG PO (08:52)
[2023-06-16] MEDS: allopurinol 100 mg Tablet PO (08:52)
[2023-06-16] MEDS: isosorbide mononitrate ER 30 mg Tablet PO (08:52)
[2023-06-16] MEDS: ranolazine (12HR) 500 mg Tablet PO (08:53)
[2023-06-16] MEDS: pantoprazole DR 40 mg Tablet PO (08:53)
[2023-06-16] MEDS: morphine 4 mg/mL SDV 1 mL 2 MG IVP ×2 (09:06→16:54)
[2023-06-16] MEDS: CLONazepam 1 mg Tablet 0.5 MG PO (09:06)
[2023-06-16] MEDS: LORazepam 2 mg/mL INJ 1 mL 1 MG IVP (10:38)
[2023-06-16 11:07] LABS: Anion Gap 22.7 (5-19); Blood Urea Nitrogen 40 mg/dL (8-23); Calcium 9.2 mg/dL (8.5-10.5); Carbon Dioxide 24 mmol/L (22-29); Chloride 91 mmol/L (98-107); Glucose 139 mg/dL (65-115); Osmolality Calculated 288 mOsm/kg (285-295); Potassium 4.7 mmol/L (3.5-5.1); Sodium 133 mmol/L (136-145)
[2023-06-16] MEDS: sodium chloride 0.9% (100 ml) 100 ML (11:30)
[2023-06-16] MEDS: haloperidol inj 5 mg/mL INJ 1 mL 1 MG IM ×2 (12:46→17:14)
--- NOTE | 2023-06-16 13:00 | PC.NURSE ---
Physician orders to hold IV lasix and continue to monitor BMP and urine output. Will decide about lasix gtt pending next BMP at 1800.
--- NOTE | 2023-06-16 13:45 | P.PN_ITS ---
Vitals/I&O/Wt Last Vital Signs Temp 98.7 F 06/16/23 12:06 Pulse 81 06/16/23 12:06 Resp 14 06/16/23 12:06 BP 94/52 06/16/23 12:06 Pulse Ox 96 06/16/23 12:06 O2 Del Method Nasal Cannula 06/16/23 12:00 O2 Flow Rate 3 06/16/23 10:00 06/15/23 06/16/23 06/16/23 22:59 06:59 14:59 Intake Total 148.177 / 388.177 100 / 100 Output Total 1100 / 1550 300 / 1850 300 / 300 Balance -1100 / -1310 -151.823 / -1461.823 -200 / -200 Physical Exam Const: COMMON NORMALS: no acute distress and patient oriented x3 Resp: COMMON NORMALS: normal respiratory effort, No retractions, No use of accessory muscles and clear to auscultation bilaterally AUSCULTATION: clear to auscultation bilaterally Cardio: COMMON NORMALS: regular rate, regular rhythm, S1 normal heart sound present and S2 normal heart sound present RATE: regular rate RHYTHM: regular rhythm HEART SOUNDS: S1 normal heart sound present and S2 normal heart sound present GI: COMMON NORMALS: Normal to inspection, nondistended, normoactive bowel sounds present and non-tender Extremity: NARRATIVE EXTREMITY EXAM: 2+edema Neuro: COMMON NORMALS: patient oriented x3 Psych: COMMON NORMALS: mental status grossly normal Data 06/16/23 04:52 06/16/23 10:35 A&P Assessment and plan (1) NSTEMI (non-ST elevated myocardial infarction): Patient complaining of intermittent chest pain, currently chest pain-free EKG shows mostly old T wave changes Troponin trend 39--> 40---> 79 with positive delta at 6 hours Switch to DVT prophylaxis Lovenox Continue Plavix 75 mg p.o. daily Patient has an abnormal stress test from January 2022. Per review of past notes it appears patient has declined coronary intervention in the past due to risk for CKD. We will consult cardiology, will likely opt for medical management, however given his pancytopenia he is high risk for anticoagulation and antiplatelets. Continue Lipitor 40 mg daily, lisinopril on hold due to elevated creatinine, continue Imdur 30 mg p.o. twice daily as he takes at home along with Ranexa Continue metoprolol 12.5 mg p.o. twice daily (2) CHF (congestive heart failure): Systolic CHF exacerbation, continues to have anasarca, 3+ pitting edema, BNP over 22,000, urine output has been lackluster ? Will place Greene catheter today ? Fluid restrictions at 1000 cc ? Has had a lackluster response to Bumex metolazone, currently on Lasix drip, creatinine up to 2.6, will monitor creatinine very closely ? 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: without long-term use Diabetes mellitus complication detail: with chronic kidney disease Chronic kidney disease stage: unspecified stage (7) Ischemic cardiomyopathy: (8) Chronic kidney disease: Qualifiers: Chronic kidney disease stage: unspecified stage Qualified Code(s): N18.9 - Chronic kidney disease, unspecified (9) Acute diastolic heart failure: (10) Acute non-ST elevation myocardial infarction (NSTEMI): (11) Acute anemia: Now with acute anemia, hemoglobin 7.1, with NSTEMI concerns, concerns for ischemic cardiomyopathy, will transfuse 1 unit PRBC Plan Plan for today metolazone, currently on Lasix drip at 10 mg/h, monitor urine output monitor creatinine monitor potassium, hemoglobin down to 7.4, with NSTEMI, CAD will transfuse 1 unit PRBC, continue to clinically monitor closely continues to have pitting edema requires further diuresis BNP over 34,000 Attestations Medical Necessity Statement*: Patient requires hospitalization for systolic CHF exacerbation, requiring diuresis, on Lasix drip, anemia chronic, requiring transfusion of PRBC, given CAD Diagnoses NSTEMI (non-ST elevated myocardial infarction) I21.4 CHF (congestive heart failure) I50.9 Heart failure chronicity: acute on chronic Heart failure type: unspecified Myelodysplastic syndrome D46.9 Systolic CHF, acute I50.21 Hyperlipidemia E78.5 Type 2 diabetes mellitus E11.9 Diabetes mellitus long-term insulin use: without long-term use Diabetes mellitus complication detail: with chronic kidney disease Chronic kidney disease stage: unspecified stage Ischemic cardiomyopathy I25.5 Chronic kidney disease N18.9 Chronic kidney disease stage: unspecified stage Acute diastolic heart failure I50.31 Acute non-ST elevation myocardial infarction (NSTEMI) I21.4 Acute anemia D64.9
--- NOTE | 2023-06-16 13:55 | P.PN_ITS ---
Subjective Subjective: The patient is feeling okay. Denies any chest pain. Has shortness of breath with ambulation. Urine output is improving. The hemoglobin seems to be dropping again. Medications: Medication Review Details: Current Medications Acetaminophen (Acetaminophen 325 Mg Tablet) 650 mg PO Q6H PRN PRN Reason: Mild/Mod Pain Or Temp >/= 101 Last Admin: 06/15/23 12:15 Dose: 650 mg Allopurinol (Allopurinol 100 Mg Tablet) 100 mg PO DAILY [facility] Last Admin: 06/16/23 08:52 Dose: 100 mg Atorvastatin Calcium (Atorvastatin 40 Mg Tablet) 40 mg PO DAILY@1200 [facility] [place] Last Admin: 06/15/23 12:15 Dose: 40 mg Clonazepam (Clonazepam 1 Mg Tablet) 0.5 mg PO TID PRN PRN Reason: anxiety Last Admin: 06/16/23 09:06 Dose: 0.5 mg Clopidogrel Bisulfate (Clopidogrel 75 Mg Tablet) 75 mg PO DAILY [facility] [place] Last Admin: 06/16/23 08:52 Dose: 75 mg Enoxaparin Sodium (Enoxaparin 40 Mg/0.4 Ml Syringe) 40 mg SUBCUT Q24H [facility] [place] Last Admin: 06/16/23 05:36 Dose: 40 mg Finasteride (Finasteride 5 Mg Tablet) 5 mg PO DAILY@1200 [facility] [place] Last Admin: 06/15/23 12:15 Dose: 5 mg Furosemide 100 mg/ Sodium (Chloride) 50 mls @ 0 mls/hr IV .Q0M [facility]; Protocol Last Admin: 06/16/23 06:44 Dose: 10 mg/hr, 5 mls/hr Isosorbide Mononitrate (Isosorbide Mononitrate Er 30 Mg Tablet) 30 mg PO BID [facility] [place] Last Admin: 06/16/23 08:52 Dose: 30 mg Levothyroxine Sodium (Levothyroxine 50 Mcg Tablet) 50 mcg PO DAILY@05 [facility] [place] Last Admin: 06/16/23 05:36 Dose: 50 mcg Metoprolol Tartrate (Metoprolol Tartrate 25 Mg Tablet) 12.5 mg PO BID [facility] [place] Last Admin: 06/16/23 08:52 Dose: 12.5 mg Morphine Sulfate (Morphine 4 Mg/Ml Sdv 1 Ml) 2 mg IVP Q4H PRN PRN Reason: SEVERE PAIN Last Admin: 06/16/23 09:06 Dose: 2 mg Naloxone HCl (Naloxone 0.4 Mg/Ml Sdv) 0.1 mg IVP Q2M PRN PRN Reason: OPIATERV Ondansetron HCl (Ondansetron 2 Mg/Ml Sdv 2 Ml) 4 mg IVP Q8H PRN PRN Reason: vomiting, or N/V if npo Last Admin: 06/14/23 20:38 Dose: 4 mg Pantoprazole Sodium (Pantoprazole Dr 40 Mg Tablet) 40 mg PO DAILY [facility] [place] Last Admin: 06/16/23 08:53 Dose: 40 mg Ranolazine (Ranolazine (12hr) 500 Mg Tablet) 500 mg PO BID [facility] [place] Last Admin: 06/16/23 08:53 Dose: 500 mg Sodium Chloride (Sodium Chloride 0.9% 100 Ml Bag) 50 ml IV PRN PRN PRN Reason: Blood transfusion prime and flush Stop: 06/17/23 08:12 Tamsulosin HCl (Tamsulosin 0.4 Mg Capsule) 0.4 mg PO DAILY@12 [facility] [place] Last Admin: 06/15/23 12:15 Dose: 0.4 mg Vitals/I&O/Wt Last Vital Signs Temp 98.7 F 06/16/23 12:06 Pulse 81 06/16/23 12:06 Resp 14 06/16/23 12:06 BP 94/52 06/16/23 12:06 Pulse Ox 96 06/16/23 12:06 O2 Del Method Nasal Cannula 06/16/23 12:00 O2 Flow Rate 3 06/16/23 10:00 06/15/23 06/16/23 06/16/23 22:59 06:59 14:59 Intake Total 148.177 / 388.177 100 / 100 Output Total 1100 / 1550 300 / 1850 300 / 300 Balance -1100 / -1310 -151.823 / -1461.823 -200 / -200 Physical Exam Narrative: GENERAL: The patient is alert and oriented times three. Not in any acute distress. HEENT: No significant pallor, icterus or lymphadenopathy.Oral cavity: There are no mucous membrane lesions. NECK: Trachea appears to be central. No masses noted. No JVD or thyromegaly appreciated. RESPIRATORY: Chest is symmetrical. No intercostals muscle retraction or any accessory muscle activation. There is no chest wall tenderness. Breath sounds are heard bilaterally. No rales or rhonchi heard. No evidence of any consolidation. BREASTS: Deferred. HEART: The heart sounds are normal. No S3 or S4. Ejection systolic murmur grade 4/6 in the aortic area. Short systolic murmur in the mitral area. No pericardial rub ABDOMEN: No vessel pulsations or distention. No tenderness. No organomegaly appreciated. Bowel sounds are normally heard. : Deferred. RECTAL: Deferred. LYMPHATIC: No lymphadenopathy noted in the neck. EXTREMITIES: 1-2+ edema both lower extremities. No cyanosis. MUSCULOSKELETAL: No acute joint deformities or swelling SKIN: There are no significant rashes or ecchymosis NEUROPSYCHIATRIC: The patient is alert and oriented x3. Appears to be in a good mood. No tremors or rigidity noted. Data 06/16/23 04:52 06/16/23 10:35 A&P Assessment and plan (1) Acute non-ST elevation myocardial infarction (NSTEMI): The patient does not want to undergo any interventional procedures at this point. He seems understand implications. We will continue to optimize medical treatment. (2) Aortic valve stenosis: Patient has severe low gradient aortic valve stenosis. He did not want to undergo valve intervention. We will continue the current management. (3) Acute diastolic heart failure: Continue with IV diuresis. May try p.o. diuretics tomorrow (4) Ischemic cardiomyopathy: Continue to optimize afterload reducing agents. In view of his severe anemia and renal failure, medication options are limited. Patient has decided not to have the external defibrillator, in view of his multiple comorbidities (5) Myelodysplastic syndrome: The hemoglobin seems to be dropping again. Consider blood transfusion to keep the hemoglobin above 8 (6) Type 2 diabetes mellitus: May continue on the current management. 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 Consider repeat blood transfusion Patient's overall prognosis is poor Attestations Medical Necessity Statement*: Patient requires continued hospital stay for close monitoring and further management Coding Level of Care Code 35982 Diagnoses Acute non-ST elevation myocardial infarction (NSTEMI) I21.4 Aortic valve stenosis I35.0 Acute diastolic heart failure I50.31 Ischemic cardiomyopathy I25.5 Myelodysplastic syndrome D46.9 Type 2 diabetes mellitus E11.9 Diabetes mellitus longwall foreman insulin use: without longwall foreman use Diabetes mellitus complication detail: with chronic kidney disease Chronic kidney disease stage: unspecified stage Acute kidney injury superimposed on CKD N17.9; N18.9 Hyperlipidemia E78.5
--- NOTE | 2023-06-16 16:17 | PC.NURSE ---
Patient has been very confused and uncooperative today. Patient became irritable around 10:32am this morning and physician ordered ativan to be given 2mg one time order IVP. At 12:30 patient sat himself on the floor and refused to get up off the ground, after several minutes patient agreed to get up but needed the assistance of 4 staff members to get up. Once patient was back in the bed he became very agitated attempting to hit, kick, bite and pull hair of the nurses. Physician notified and patient received 1mg IM haldol. Patient has been resting in bed with even and unlabored breathing sense this event.
--- NOTE | 2023-06-16 17:56 | PC.NURSE ---
Patient has awoken and is very agitated and confused again. Reported to physician and received an order for Haldol 1mg IM ONCE
[2023-06-16 18:49] LABS: Add Urine Culture? No; Add Urine Microscopic? YES; Amorphous Sediment Urine 1+ /hpf; Bacteria Urine 1+ /hpf; Bilirubin Urine 1+ (Negative); Blood Urine 2+ (Negative); Glucose Urine UA Norm (Normal); Ketones Urine 1+ (Negative); Leukocyte Esterase Urine Trace (Negative); Mucus Urine 1+ /hpf; Nitrate Urine Negative (Negative); Protein Urine 1+ (Negative); RBC Urine 0-4 /hpf (0-2); Squamous Epithelial Cell Urine 0-4 /hpf (0-5); Urine Appearance Clear (CLEAR); Urine Color Dark Yellow (Yellow); Urobilinogen Urine 1 mg/dL (Negative); WBC Urine 0-4 /hpf (0-5); pH Urine 5 (5-7)
[2023-06-16] MEDS: LORazepam 2 mg/mL INJ 1 mL 1 MG IM (18:59)
--- NOTE | 2023-06-16 19:22 | PC.NURSE ---
Patient has increased confusion this evening. Patient refusing to leave telemetry in place. Lasix on hold pending creatinine results. Medication given as ordered and documented for confusion. 1:1 sitter at bedside. Will continue to monitor.
[2023-06-16 19:23] LABS: Anion Gap 21.5 (5-19); Blood Urea Nitrogen 43 mg/dL (8-23); Calcium 9.1 mg/dL (8.5-10.5); Carbon Dioxide 25 mmol/L (22-29); Chloride 91 mmol/L (98-107); Glucose 108 mg/dL (65-115); Osmolality Calculated 287 mOsm/kg (285-295); Potassium 4.5 mmol/L (3.5-5.1); Sodium 133 mmol/L (136-145)
--- NOTE | 2023-06-16 19:34 | PC.NURSE ---
Informed Dr Flanagan of elevated creatinine level a this time. Received order to hold lasix drip.
[2023-06-16 22:18] LABS: Anion Gap 16.5 (5-19); Blood Urea Nitrogen 47 mg/dL (8-23); Calcium 8.7 mg/dL (8.5-10.5); Carbon Dioxide 29 mmol/L (22-29); Chloride 93 mmol/L (98-107); Glucose 107 mg/dL (65-115); Osmolality Calculated 291 mOsm/kg (285-295); Potassium 4.5 mmol/L (3.5-5.1); Sodium 134 mmol/L (136-145)
[2023-06-17] VITALS (10 sets, daily range): BP systolic 101–142; BP diastolic 56–84; PULSE 76–93; RESP 15–23; TEMP 36.6–36.9; O2SAT 91–98
[2023-06-17 02:32] LABS: Blood Urea Nitrogen 47 mg/dL (8-23); Calcium 8.9 mg/dL (8.5-10.5); Carbon Dioxide 27 mmol/L (22-29); Chloride 92 mmol/L (98-107); Glucose 100 mg/dL (65-115); Osmolality Calculated 288 mOsm/kg (285-295); Sodium 133 mmol/L (136-145)
[2023-06-17 02:34] LABS: Anion Gap 18.9 (5-19); Potassium 4.9 mmol/L (3.5-5.1)
[2023-06-17] MEDS: levothyroxine 50 mcg Tablet PO (03:03)
[2023-06-17] MEDS: morphine 4 mg/mL SDV 1 mL 2 MG IVP ×2 (03:03→20:56)
[2023-06-17] MEDS: enoxaparin 40 mg/0.4 mL Syringe SUBCUT (03:03)
[2023-06-17 06:51] LABS: Alanine Aminotransferase 47 U/L (0-41); Albumin Level 3.5 g/dL (3.5-5.2); Alkaline Phosphatase 64 U/L (40-130); Anion Gap 19.4 (5-19); Aspartate Amino Transferase 63 U/L (0-40); Blood Urea Nitrogen 46 mg/dL (8-23); Calcium 8.7 mg/dL (8.5-10.5); Carbon Dioxide 25 mmol/L (22-29); Chloride 94 mmol/L (98-107); Globulin 3.2 g/dL (1.3-4.6); Glucose 98 mg/dL (65-115); Osmolality Calculated 290 mOsm/kg (285-295); Phosphorus 4.4 mg/dL (2.5-4.5); Potassium 4.4 mmol/L (3.5-5.1); Sodium 134 mmol/L (136-145); Total Bilirubin 1.3 mg/dL (0.15-1.2); Total Protein 6.7 g/dL (6.6-8.7)
[2023-06-17 06:53] LABS: Basophils % 0.3 %; Lymphocytes # 1.6 10^3/uL (0.8-4.8); Lymphocytes % 15.3 %; Mean Corpuscular Hemoglobin 27.1 pg (27-33); Mean Corpuscular Volume 84.7 fl (82-101); Monocytes # 1.8 10^3/uL (0.2-0.9); Monocytes % 17.4 %; Neutrophils # 6.05 10^3/uL (1.8-7.7); Neutrophils % 59.8 %; Nucleated Red Blood Cells % 0.2 %; Platelet Count 60 10^3/cmm (157-399); Red Blood Count 2.95 10^6/uL (3.85-5.65); Red Cell Distribution Width 19.2 % (12.1-15.1); White Blood Count 10.12 10^3/uL (3.29-11.43)
[2023-06-17 07:20] LABS: Slide Review Slide Review Perform
[2023-06-17] MEDS: isosorbide mononitrate ER 30 mg Tablet PO ×2 (09:02→17:17)
[2023-06-17] MEDS: cefTRIAXone 1,000 MG in sodium chloride 0.9% (plus) 50 ML 100 MG IV (09:02)
[2023-06-17] MEDS: pantoprazole DR 40 mg Tablet PO (09:02)
[2023-06-17] MEDS: allopurinol 100 mg Tablet PO (09:03)
[2023-06-17] MEDS: clopidogrel 75 mg Tablet PO (09:03)
[2023-06-17] MEDS: metoprolol tartrate 25 mg Tablet 12.5 MG PO ×2 (09:03→17:17)
[2023-06-17] MEDS: ranolazine (12HR) 500 mg Tablet PO ×2 (09:03→17:17)
--- NOTE | 2023-06-17 10:56 | PM.PN ---
Subjective Subjective: Patient alert awake without any acute distress up in the chair. Denies any chest pain or shortness of breath. Vitals/I&O/Wt Last Vital Signs Temp 98.5 F 06/17/23 08:00 Pulse 93 06/17/23 08:00 Resp 18 06/17/23 08:00 BP 116/84 06/17/23 08:00 Pulse Ox 94 06/17/23 08:00 O2 Del Method Nasal Cannula 06/17/23 08:00 O2 Flow Rate 3 06/17/23 08:00 06/16/23 06/17/23 06/17/23 22:59 06:59 14:59 Intake Total 0 / 478.833 286 / 286 Output Total 200 / 500 600 / 1100 Balance -200 / -21.167 -600 / -621.167 286 / 286 Physical Exam Const: COMMON NORMALS: no acute distress HENMT: COMMON NORMALS: normocephalic HEAD & SCALP: normocephalic Neck/C-Spine: COMMON NORMALS: supple and no JVD Chest: COMMONS NORMALS: normal inspection of the chest Resp: COMMON NORMALS: normal respiratory effort, No retractions, No use of accessory muscles and clear to auscultation bilaterally AUSCULTATION: clear to auscultation bilaterally Cardio: COMMON NORMALS: no JVD, regular rate and regular rhythm (2/6 systolic murmur in the right sternal border) RATE: regular rate RHYTHM: regular rhythm (2/6 systolic murmur in the right sternal border) Extremity: GENERAL: Yes normal exam except as noted OTHER: No edema. Pulses were palpable Urinary Catheter Management: Greene: Cath Placed During This Visit: yes Reason for Continuing Indwelling Catheter: Acute Urinary Retention or Obstruction Urinary Catheter Date of Insertion: 06/16/23 Urinary Catheter Time of Insertion: 10:00 Data 06/17/23 06:15 06/17/23 06:15 A&P Assessment and plan (1) Aortic valve stenosis: Patient with low flow severe aortic stenosis. Manage medically per patient request. Currently stable without any chest pain or shortness of breath. Patient was given 1 unit of packed RBCs with slight improvement in his hemoglobin. No active CHF symptoms. (2) Acute kidney injury superimposed on CKD: Continue to monitor renal function. Managed by hospitalist (3) Cardiomyopathy: Severe LV dysfunction treated medically. Apparently patient declined defibrillator Qualifiers: Cardiomyopathy type: ischemic Qualified Code(s): I25.5 - Ischemic cardiomyopathy Attestations Medical Necessity Statement*: If hemoglobin and renal function remains stable patient might be able to be discharged and 1 to 2 days. Coding Level of Care Code Acute Code for [facility] Fwd Diagnoses Aortic valve stenosis I35.0 Acute kidney injury superimposed on CKD N17.9; N18.9 Cardiomyopathy I25.5 Cardiomyopathy type: ischemic
[2023-06-17] MEDS: atorvastatin 40 mg Tablet PO (11:33)
[2023-06-17] MEDS: tamsulosin 0.4 mg Capsule PO (11:33)
[2023-06-17] MEDS: finasteride 5 mg Tablet PO (11:33)
--- NOTE | 2023-06-17 12:44 | P.PN_ITS ---
Subjective Subjective: Patient was seen this morning he is alert to person, to place, not to time he had episodes of agitation throughout the night, and confusion requiring Ativan, Haldol also yesterday afternoon, had episodes of confusion, UA reviewed, possible evidence of UTI started on Rocephin, he is urine output has been 3 L so far, his edema has significantly improved, he denies any shortness of breath, no lightheadedness, he wants his Greene catheter to be removed, discussed with nursing staff to be removed, creatinine is up to 2.7, will continue to monitor creatinine closely stop Lasix drip, place fluid restriction is down to 800 cc, will watch here Vitals/I&O/Wt Last Vital Signs Temp 98.5 F 06/17/23 08:00 Pulse 93 06/17/23 08:00 Resp 18 06/17/23 08:00 BP 116/84 06/17/23 08:00 Pulse Ox 95 06/17/23 08:00 O2 Del Method Nasal Cannula 06/17/23 08:00 O2 Flow Rate 3 06/17/23 08:00 06/16/23 06/17/23 06/17/23 22:59 06:59 14:59 Intake Total 0 / 478.833 286 / 286 Output Total 200 / 500 600 / 1100 Balance -200 / -21.167 -600 / -621.167 286 / 286 Physical Exam Const: COMMON NORMALS: no acute distress and patient oriented x3 Resp: COMMON NORMALS: normal respiratory effort, No retractions, No use of accessory muscles and clear to auscultation bilaterally AUSCULTATION: clear to auscultation bilaterally Cardio: COMMON NORMALS: regular rate, regular rhythm, S1 normal heart sound present and S2 normal heart sound present RATE: regular rate RHYTHM: regu lar rhythm HEART SOUNDS: S1 normal heart sound present and S2 normal heart sound present GI: COMMON NORMALS: Normal to inspection, nondistended, normoactive bowel sounds present and non-tender Extremity: COMMON NORMALS: no pedal edema Neuro: COMMON NORMALS: patient oriented x3 Psych: COMMON NORMALS: mental status grossly normal Urinary Catheter Management: Greene: Cath Placed During This Visit: yes Reason for Continuing Indwelling Catheter: Acute Urinary Retention or Obst ruction Urinary Catheter Date of Insertion: 06/16/23 Urinary Catheter Time of Insertion: 10:00 Data 06/17/23 06:15 06/17/23 06:15 A&P Assessment and plan (1) NSTEMI (non-ST elevated myocardial infarction): No active chest pain complaints Patient complaining of intermittent chest pain, currently chest pain-free EKG shows mostly old T wave changes Troponin trend 39--> 40---> 79 with positive delta at 6 hours DVT prophylaxis Lovenox Continue Plavix 75 mg p.o. daily Patient has an abnormal stress test from January 2022. Per review of past notes it appears patient has declined coronary intervention in the past due to risk for CKD. We will consult cardiology, will likely opt for medical management, however given his pancytopenia he is high risk for anticoagulation and antiplatelets. Continue Lipitor 40 mg daily, lisinopril on hold due to elevated creatinine, continue Imdur 30 mg p.o. twice daily as he takes at home along with Ranexa Continue metoprolol 12.5 mg p.o. twice daily (2) CHF (congestive heart failure): Systolic CHF exacerbation, resolving ? Consider removing Greene catheter ? Fluid restriction is 800 cc ? Creatinine 2.7, Lasix drip discontinued, monitor urine output, so far -3 L ? 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: Diabetes mellitus skilled nursing insulin use: without skilled nursing use Diabetes mellitus complication detail: with chronic kidney disease Chronic kidney disease stage: unspecified stage (7) Ischemic cardiomyopathy: (8) Chronic kidney disease: Qualifiers: Chronic kidney disease stage: unspecified stage Qualified Code(s): N18.9 - Chronic kidney disease, unspecified (9) Acute diastolic heart failure: (10) Acute non-ST elevation myocardial infarction (NSTEMI): (11) Acute anemia: Now with acute anemia, hemoglobin stabilized by 8.0, has received 2 units PRBCs so far (12) Aortic valve stenosis: Aortic valve stenosis likely playing a role in patient's shortness of breath, edema Plan Plan for today start Rocephin for UTI, monitor urine output monitor creatinine, Lasix drip discontinued we will consider removing Greene catheter, continue to monitor mentation Attestations Medical Necessity Statement*: Patient requires hospitalization for respiratory failure and CHF, UTI, aortic valve stenosis, acute anemia Diagnoses NSTEMI (non-ST elevated myocardial infarction) I21.4 CHF (congestive heart failure) I50.9 Heart failure chronicity: acute on chronic Heart failure type: unspecified Myelodysplastic syndrome D46.9 Systolic CHF, acute I50.21 Hyperlipidemia E78.5 Type 2 diabetes mellitus E11.9 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
--- NOTE | 2023-06-17 18:05 | NUR.SHIFT ---
Guido has a better day as compared to when I took care of him a night ago. He was more oriented and aware of his situation. He still did not eat much, eating only a few bites of breakfast and lunch, and none of his dinner. Patient got up to chair mid morning and nurse asked him if he would please keep his feet elevated on the chair periodically throughout the day and nurse witnessed him doing this throughout the day. Sitter still appreciated for times when patient likes to get out of bed and go to the bathroom. He does well ambulating around the room but nurse would always like a stand by assist there and patient does not always remember to hit his call light.
[2023-06-18] VITALS (10 sets, daily range): BP systolic 107–126; BP diastolic 58–77; PULSE 72–87; RESP 18–22; TEMP 36.5–37; O2SAT 93–97
[2023-06-18] MEDS: ondansetron 2 mg/ML SDV 2 mL 4 MG IVP (00:50)
[2023-06-18] MEDS: CLONazepam 1 mg Tablet 0.5 MG PO ×2 (00:52→11:33)
[2023-06-18] MEDS: morphine 4 mg/mL SDV 1 mL 2 MG IVP (02:30)
[2023-06-18 04:42] LABS: Hematocrit 25.3 % (37-53); Mean Corpuscular Hemoglobin 27.2 pg (27-33); Mean Corpuscular Volume 84.9 fl (82-101); Platelet Count 61 10^3/cmm (157-399); Red Blood Count 2.98 10^6/uL (3.85-5.65); Red Cell Distribution Width 19.6 % (12.1-15.1); White Blood Count 7.04 10^3/uL (3.29-11.43)
[2023-06-18 05:06] LABS: Alanine Aminotransferase 42 U/L (0-41); Albumin Level 3.6 g/dL (3.5-5.2); Alkaline Phosphatase 79 U/L (40-130); Anion Gap 15.1 (5-19); Aspartate Amino Transferase 38 U/L (0-40); Blood Urea Nitrogen 46 mg/dL (8-23); Calcium 8.7 mg/dL (8.5-10.5); Carbon Dioxide 29 mmol/L (22-29); Chloride 95 mmol/L (98-107); Globulin 3.5 g/dL (1.3-4.6); Glucose 166 mg/dL (65-115); Magnesium 2.1 mg/dL (1.7-2.3); Osmolality Calculated 296 mOsm/kg (285-295); Phosphorus 3.9 mg/dL (2.5-4.5); Potassium 4.1 mmol/L (3.5-5.1); Sodium 135 mmol/L (136-145); Total Bilirubin 1.1 mg/dL (0.15-1.2); Total Protein 7.1 g/dL (6.6-8.7)
[2023-06-18 05:56] LABS: Absolute Segmented Neutrophil 4.7 10/cmm (1.6-7.1); Eosinophils 0 %; Lymphocytes 20 %; Lymphocytes Absolute 1.4 10^3/cmm (1.2-3.4); Monocytes Absolute 0.9 10^3/cmm (0.1-0.6); Segmented Neutrophils 67 %; Slide Review Slide Review Perform; Total Cells Counted 100 (0-100)
[2023-06-18 05:57] LABS: Absolute Neutrophil 4.7 10^3/cmm (1.4-6.5); Platelet Estimate Decreased (Normal)
[2023-06-18] MEDS: enoxaparin 40 mg/0.4 mL Syringe SUBCUT (06:15)
[2023-06-18] MEDS: levothyroxine 50 mcg Tablet PO (06:15)
--- NOTE | 2023-06-18 06:25 | PC.NURSE ---
Patient is alert and oriented to person and place and is cooperative with care. Sitter was removed at 1:30am as patient was calm and resting in bed, bed alarm armed and reminded patient to use call light. Patient rang his call light throughout the rest of the night for assistance.
[2023-06-18] MEDS: pantoprazole DR 40 mg Tablet PO (09:18)
[2023-06-18] MEDS: clopidogrel 75 mg Tablet PO (09:18)
[2023-06-18] MEDS: cefTRIAXone 1,000 MG in sodium chloride 0.9% (plus) 50 ML 100 MG IV (09:18)
[2023-06-18] MEDS: ranolazine (12HR) 500 mg Tablet PO ×2 (09:18→17:30)
[2023-06-18] MEDS: allopurinol 100 mg Tablet PO (09:19)
[2023-06-18] MEDS: isosorbide mononitrate ER 30 mg Tablet PO ×2 (09:19→17:30)
[2023-06-18] MEDS: metoprolol tartrate 25 mg Tablet 12.5 MG PO ×2 (09:19→17:30)
[2023-06-18] MEDS: tamsulosin 0.4 mg Capsule PO (11:33)
[2023-06-18] MEDS: atorvastatin 40 mg Tablet PO (11:33)
[2023-06-18] MEDS: finasteride 5 mg Tablet PO (11:33)
--- NOTE | 2023-06-18 12:36 | P.PN_ITS ---
Subjective Subjective: Patient up in the chair denies any chest pain or shortness of breath no acute respiratory distress Vitals/I&O/Wt Last Vital Signs Temp 97.8 F 06/18/23 08:00 Pulse 79 06/18/23 08:00 Resp 19 H 06/18/23 08:00 BP 120/60 06/18/23 08:00 Pulse Ox 94 06/18/23 08:00 O2 Del Method Nasal Cannula 06/18/23 08:00 O2 Flow Rate 3 06/18/23 08:00 06/17/23 06/18/23 06/18/23 22:59 06:59 14:59 Intake Total 21.167 / 425.167 410 / 410 Output Total 180 / 180 770 / 950 Balance -158.833 / 245.167 -770 / -524.833 410 / 410 Physical Exam Const: COMMON NORMALS: no acute distress HENMT: COMMON NORMALS: normocephalic HEAD & SCALP: normocephalic Neck/C-Spine: COMMON NORMALS: supple and no JVD Chest: COMMONS NORMALS: normal inspection of the chest Resp: COMMON NORMALS: normal respiratory effort, No retractions, No use of accessory muscles and clear to auscultation bilaterally AUSCULTATION: clear to auscultation bilaterally Cardio: COMMON NORMALS: no JVD, regular rate and regular rhythm (2/6 systolic murmur in the right sternal border) RATE: regular rate RHYTHM: regular r hythm (2/6 systolic murmur in the right sternal border) Extremity: GENERAL: Yes normal exam except as noted OTHER: No edema. Pulses were palpable Urinary Catheter Management: Gerene: Cath Placed During This Visit: yes, but has since been removed by the nurse Reason for Continuing Indwelling Catheter: Decision to DC Catheter Urinary Catheter Date of Insertion: 06/16/23 Urinary Catheter Time of Insertion: 10:00 Date Urinary Catheter Removed: 06/17/23 Time Urinary Catheter Discontinued: 09:30 Data 06/18/23 03:55 06/18/23 03:55 A&P Assessment and plan (1) Ischemic cardiomyopathy: Stable no active CHF continue medical therapy patient up in the chair without air without any respiratory distress has mild to moderate bilateral pedal edema which is chronic. (2) Acute kidney injury superimposed on CKD: Continue to monitor renal function. Managed by hospitalist (3) Aortic valve stenosis: Patient with low flow severe aortic stenosis. Manage medically per patient request. Currently stable without any chest pain or shortness of breath. Patient was given 1 unit of packed RBCs with slight improvement in his hemoglobin. No active CHF symptoms. (4) Cardiomyopathy: Severe LV dysfunction treated medically. Apparently patient declined defibrillator Qualifiers: Cardiomyopathy type: ischemic Qualified Code(s): I25.5 - Ischemic cardiomyopathy Attestations Medical Necessity Statement*: Patient will be able to be discharged home from cardiac standpoint tomorrow. Coding Level of Care Code Acute Code for [facility] Diagnoses Ischemic cardiomyopathy I25.5 Acute kidney injury superimposed on CKD N17.9; N18.9 Aortic valve stenosis I35.0 Cardiomyopathy I25.5 Cardiomyopathy type: ischemic
--- NOTE | 2023-06-18 15:44 | PM.PN ---
Subjective Subjective: Patient was seen this morning, he is alert to person, to place, not to time he can follow commands, denies any dysuria, hematuria, no flank pain, he tells me he slept well last night, patient will was seen this afternoon with son at bedside, son is worried about his increased confusion, we discussed his diuresis, discussed his aortic stenosis his CAD his anemia, he tells me that his father lives at home with him, and he has appropriate monitoring at home, discussed continue to monitor him and the hospital, he has diuresed well and watching his RADHA, Vitals/I&O/Wt Last Vital Signs Temp 97.8 F 06/18/23 12:00 Pulse 87 06/18/23 14:00 Resp 21 H 06/18/23 12:00 BP 126/77 06/18/23 12:00 Pulse Ox 94 06/18/23 12:00 O2 Del Method Nasal Cannula 06/18/23 12:00 O2 Flow Rate 3 06/18/23 08:00 06/18/23 06/18/23 06/18/23 06:59 14:59 22:59 Intake Total 630 / 630 Output Total 770 / 950 200 / 200 Balance -770 / -524.833 430 / 430 Physical Exam Const: COMMON NORMALS: no acute distress ORIENTATION/CONSCIOUSNESS: Yes awake, Yes oriented to person and Yes oriented to place; not oriented to time Resp: COMMON NORMALS: normal respiratory effort, No retractions, No use of accessory muscles and clear to auscultation bilaterally AUSCULTATION: clear to auscultation bilaterally Cardio: COMMON NORMALS: regular rate, regular rhythm, S1 normal heart sound present and S2 normal heart sound present RATE: regular rate RHYTHM: regular rhythm HEART SOUNDS: S1 normal heart sound present and S2 normal heart sound present GI: COMMON NORMALS: Normal to inspection, nondistended, normoactive bowel sounds present and non-tender Extremity: COMMON NORMALS: no pedal edema Neuro: SENSORIUM/ORIENTATION: Yes oriented to person, Yes oriented to place and No oriented to time Psych: COMMON NORMALS: mental status grossly normal Urinary Catheter Management: Greene: Cath Placed During This Visit: yes, but has since been removed by the nurse Reason for Continuing Indwelling Catheter: Decision to DC Catheter Urinary Catheter Date of Insertion: 06/16/23 Urinary Catheter Time of Insertion: 10:00 Date Urinary Catheter Removed: 06/17/23 Time Urinary Catheter Discontinued: 09:30 Data 06/18/23 03:55 06/18/23 03:55 A&P Assessment and plan (1) NSTEMI (non-ST elevated myocardial infarction): No active chest pain complaints Patient complaining of intermittent chest pain, currently chest pain-free EKG shows mostly old T wave changes Troponin trend 39--> 40---> 79 with positive delta at 6 hours DVT prophylaxis Lovenox Continue Plavix 75 mg p.o. daily Patient has an abnormal stress test from January 2022. Per review of past notes it appears patient has declined coronary intervention in the past due to risk for CKD. We will consult cardiology, will likely opt for medical management, however given his pancytopenia he is high risk for anticoagulation and antiplatelets. Continue Lipitor 40 mg daily, lisinopril on hold due to elevated creatinine, continue Imdur 30 mg p.o. twice daily as he takes at home along with Ranexa Continue metoprolol 12.5 mg p.o. twice daily (2) CHF (congestive heart failure): Systolic CHF exacerbation, resolving ? Fluid restriction is 800 cc ? Creatinine 2.5, Lasix drip discontinued, monitor urine output, so far -3 L Qualifiers: Heart failure chronicity: acute on chronic Heart failure type: unspecified Qualified Code(s): I50.9 - Heart failure, unspecified (3) Myelodysplastic syndrome: with resulting pancytopenia closely monitor platelet count and HB while on heparin gtt h/o transfusion dependent anemia (4) Systolic CHF, acute: (5) Hyperlipidemia: (6) Type 2 diabetes mellitus: Qualifiers: Diabetes mellitus senior care insulin use: without senior care use Diabetes mellitus complication detail: with chronic kidney disease Chronic kidney disease stage: unspecified stage (7) Ischemic cardiomyopathy: (8) Chronic kidney disease: Qualifiers: Chronic kidney disease stage: unspecified stage Qualified Code(s): N18.9 - Chronic kidney disease, unspecified (9) Acute diastolic heart failure: (10) Acute non-ST elevation myocardial infarction (NSTEMI): (11) Acute anemia: Now with acute anemia, hemoglobin stabilized by 8.0, has received 2 units PRBCs so far (12) Aortic valve stenosis: Aortic valve stenosis likely playing a role in patient's shortness of breath, edema Plan Acute encephalopathy, likely multifactorial from UTI, prolonged hospitalization, sundowning, ? Mentation is significantly improved, no episodes of combativeness, no psychotropic medications required, ? Continue Rocephin, ? Monitor mentation closely, Plan for today start Rocephin for UTI, monitor urine output monitor creatinine, Lasix drip discontinued we will consider removing Greene catheter, continue to monitor mentation Attestations Medical Necessity Statement*: Patient requires hospitalization for UTI, acute encephalopathy, RADHA, CHF, requiring inpatient monitoring creatinine, fluid status, UTI for encephalopathy, Diagnoses NSTEMI (non-ST elevated myocardial infarction) I21.4 CHF (congestive heart failure) I50.9 Heart failure chronicity: acute on chronic Heart failure type: unspecified Myelodysplastic syndrome D46.9 Systolic CHF, acute I50.21 Hyperlipidemia E78.5 Type 2 diabetes mellitus E11.9 Diabetes mellitus senior care insulin use: without manager long term care use Diabetes mellitus complication detail: with chronic kidney disease Chronic kidney disease stage: unspecified stage Ischemic cardiomyopathy I25.5 Chronic kidney disease N18.9 Chronic kidney disease stage: unspecified stage Acute diastolic heart failure I50.31 Acute non-ST elevation myocardial infarction (NSTEMI) I21.4 Acute anemia D64.9 Aortic valve stenosis I35.0
[2023-06-19] VITALS (7 sets, daily range): BP systolic 110–130; BP diastolic 59–72; PULSE 76–95; RESP 22–25; TEMP 36.4–36.9; O2SAT 93–98
[2023-06-19 05:31] LABS: Basophils % 0.6 %; Hematocrit 27.5 % (37-53); Lymphocytes % 19.2 %; Mean Corpuscular HGB Conc 31.3 g/dL (30-55); Mean Corpuscular Volume 86.5 fl (82-101); Monocytes # 1.3 10^3/uL (0.2-0.9); Neutrophils # 2.41 10^3/uL (1.8-7.7); Neutrophils % 46.2 %; Nucleated Red Blood Cells % 0 %; Platelet Count 66 10^3/cmm (157-399); Red Blood Count 3.18 10^6/uL (3.85-5.65); Red Cell Distribution Width 19.6 % (12.1-15.1); White Blood Count 5.21 10^3/uL (3.29-11.43)
[2023-06-19] MEDS: levothyroxine 50 mcg Tablet PO (05:49)
[2023-06-19] MEDS: enoxaparin 40 mg/0.4 mL Syringe SUBCUT (05:49)
[2023-06-19 05:55] LABS: Alanine Aminotransferase 45 U/L (0-41); Albumin Level 3.9 g/dL (3.5-5.2); Alkaline Phosphatase 74 U/L (40-130); Anion Gap 17.3 (5-19); Aspartate Amino Transferase 37 U/L (0-40); Blood Urea Nitrogen 44 mg/dL (8-23); Calcium 8.9 mg/dL (8.5-10.5); Carbon Dioxide 28 mmol/L (22-29); Chloride 94 mmol/L (98-107); Globulin 3.4 g/dL (1.3-4.6); Glucose 127 mg/dL (65-115); Osmolality Calculated 293 mOsm/kg (285-295); Phosphorus 2.8 mg/dL (2.5-4.5); Potassium 4.3 mmol/L (3.5-5.1); Sodium 135 mmol/L (136-145); Total Bilirubin 1.2 mg/dL (0.15-1.2); Total Protein 7.3 g/dL (6.6-8.7)
[2023-06-19 06:02] LABS: Slide Review Slide Review Perform
[2023-06-19] MEDS: cefTRIAXone 1,000 MG in sodium chloride 0.9% (plus) 50 ML 100 MG IV (08:38)
[2023-06-19] MEDS: allopurinol 100 mg Tablet PO (08:39)
[2023-06-19] MEDS: pantoprazole DR 40 mg Tablet PO (08:39)
[2023-06-19] MEDS: clopidogrel 75 mg Tablet PO (08:39)
[2023-06-19] MEDS: isosorbide mononitrate ER 30 mg Tablet PO (08:39)
[2023-06-19] MEDS: ranolazine (12HR) 500 mg Tablet PO (08:39)
[2023-06-19] MEDS: metoprolol tartrate 25 mg Tablet 12.5 MG PO (08:39)
[2023-06-19] MEDS: acetaminophen 325 mg Tablet 650 MG PO (09:42)
--- NOTE | 2023-06-19 10:10 | PC.SOCIAL ---
IMM Updated Updated pt on IMM. No questions voiced. Provided pt a copy. Initialed, dated, & timed copy in chart.
--- NOTE | 2023-06-19 11:51 | P.DS_ITS ---
Discharge Providers Date of Admission: 06/12/23 00:00 Date of Discharge: June 19, 2023 Attending Provider at Admission: Maribel Killian MD Attending Provider at Discharge: Mingo Flanagan MD Primary Care Provider: Amando Sanchez Diagnoses at Discharge Discharge Diagnosis (1) NSTEMI (non-ST elevated myocardial infarction): Status: Resolved (2) CHF (congestive heart failure): Status: Acute Qualifiers: Heart failure chronicity: acute on chronic Heart failure type: unspecified Qualified Code(s): I50.9 - Heart failure, unspecified (3) Myelodysplastic syndrome: Status: Acute (4) Systolic CHF, acute: Status: Acute (5) Hyperlipidemia: Status: Acute (6) Type 2 diabetes mellitus: Status: Acute Qualifiers: Chronic kidney disease stage: unspecified stage Diabetes mellitus complication detail: with chronic kidney disease 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 use (7) Ischemic cardiomyopathy: Status: Acute (8) Chronic kidney disease: Status: Acute Qualifiers: Chronic kidney disease stage: unspecified stage Qualified Code(s): N18.9 - Chronic kidney disease, unspecified (9) Acute diastolic heart failure: Status: Acute (10) Acute non-ST elevation myocardial infarction (NSTEMI): Status: Acute (11) Acute anemia: Status: Acute (12) Aortic valve stenosis: Status: Acute Reason for Visit Reason for Visit: Fluid Billed up\Chest Pain Hospital Course Hospital Course Guido Crump is a 83 year old male with MDS and resulting pancytopenia, transfusion dependent , h/o metastatic parotid ca 2020 , chronic kidney disease, CHF, abnormal stress test, HTN, HLD, DM 2, BPH, other comorbidities, chronically on 2-3 L oxygen at home, prsented to the ER with chest tightness and shortness of breath. Pe patient he has been having chest pain over the course f last 24 hrs which has not improved in spite of taking nitro at home.? He has also been experiencing increasing lower extremity edema and has developed tachypnea with increased oxygen requirement than his baseline at about 4 L/min came into the ER with these complaints.? Chest x-ray today showed bilateral lower lung opacities most likely consistent with pulmonary edema.? CTA was negative for PE.? Minimal effort today in the ER such as transferring from bed to stretcher resulted in chest pain.? He has received Nitropaste and IV Lasix in the emergency room. Denies any recent cough palpitations or syncope. This is a 83-year-old male with a past medical history of CHF, myelodysplastic syndrome, NSTEMI, positive stress test, ischemic cardiomyopathy, CKD, aortic valve stenosis, who presents [facility] for shortness of breath For shortness of breath, likely secondary to systolic CHF exacerbation with underlying aortic stenosis, received IV diuresis, did develop RADHA creatinine as high as 2.9, was managed with on Lasix drip, overall clinically improved, edema and shortness of breath improved. On discharge his creatinine is 2.4, discharged on as needed Lasix, follow-up with cardiology as outpatient, For his NSTEMI, with complaints of intermittent chest pain, managed with therapeutic Lovenox for 48 hours, cardiology was consulted, due to patient's RADHA, myelodysplastic syndrome, anemia, decision was made to pursue medical management, he was monitored as inpatient, no recurrent chest pain, will be discharged with close follow-up cardiology as outpatient. Patient was advised if he had any recurrent chest pain to go to emergency room, For acute anemia, likely second to myelodysplastic syndrome, he was transfused 2 unit PRBC during this hospitalization, follow-up with oncology as outpatient, For his aortic valve stenosis, likely his aortic valve stenosis is playing a significant role in terms of shortness of breath ,edema, difficulty in diuresis. For now we will continue to monitor patient ,will need interventions for aortic valve stenosis at some point, as his shortness of breath, will likely worsen, diuresis will be difficult, due to persistent edema and development of RADHA. I have gone over this with patient's family and patient in detail, and with NSTEMI as above, he will likely need a coronary angiography and interventions aortic valve stenosis at some point in the near future, as there is significant morbidity and mortality associated with NSTEMI, aortic valve stenosis, and his underlying CHF. However after detailed discussion with patient and family, they want to l pursue and prefer conservative medical interventions, they would not want him to have any surgery for the aortic valve, they do not want him to have any coronary angiography. Patietn and family, understands the morbidity and mortality associated with these diagnoses, they voiced understanding, all questions answered, for now they would just want conservative intervention. What I am worried about in the near future is him developing recurrent hospitalizations for his CHF adn NSTEMI, during these hospitalizationit will be very difficult to do diuresis hime, like on this admit, has high risk of developing RADHA, and minimal urine output with diuresis like on this admit he requiring Lasix drip, id did diuerese him 4L negative but it took over 5 days and development of RADHA for which diureses was held for 72 hours. I think the likely role of aortic stenosis playing a role in this is significant, and likely will pose an issue in the future if and when he develops future edema and shortness of breath. Nonetheless he should follow-up with cardiology as outpatient, if any worsening shortness of breath or edema go to the emergency room. During his hospitalization he did develop episodes of encephalopathy, likely secondary to UTI, discharged on p.o. antibiotic therapy Physical Exam Const: COMMON NORMALS: no acute distress and patient oriented x3 Resp: COMMON NORMALS: normal respiratory effort, No retractions, No use of accessory muscles and clear to auscultation bilaterally AUSCULTATION: clear to auscultation bilaterally Cardio: COMMON NORMALS: regular rate, regular rhythm, S1 normal heart sound present and S2 normal heart sound present RATE: regular rate RHYTHM: regular rhythm HEART SOUNDS: S1 normal heart sound present and S2 normal heart sound present GI: COMMON NORMALS: Normal to inspection, nondistended, normoactive bowel sounds present and non-tender Extremity: COMMON NORMALS: no pedal edema Neuro: COMMON NORMALS: patient oriented x3 Psych: COMMON NORMALS: mental status grossly normal Urinary Catheter Management: [place]: Cath Placed During This Visit: yes, but has since been removed by the nurse Reason for Continuing Indwelling Catheter: Decision to DC Catheter Urinary Catheter Date of Insertion: 06/16/23 Urinary Catheter Time of Insertion: 10:00 Date Urinary Catheter Removed: 06/17/23 Time Urinary Catheter Discontinued: 09:30 Discharge Data Studies Completed and Pending Completed Studies During Hospitalization Category Date Time Status CTA chest [CT angio chest PE protcl [id number]] Stat Cat Scan 06/11/23 21:53 Completed XR chest 1V portable [id number] Stat Exams 06/11/23 19:09 Completed CV. echo limited [id number] Routine Ultrasound 06/14/23 17:57 Completed Radiology Impressions Chest X-Ray 06/11/23 19:09 IMPRESSION: 1. Patchy bilateral mid to lower lung field ground-glass airspace opacities reflecting alveolar edema and/or pneumonic infiltrates. 2. Cardiomegaly and interstitial edema. Chest CTA 06/11/23 21:53 IMPRESSION: 1. Negative for pulmonary embolus. 2. Aberrant right subclavian artery, normal variant. 3. Scattered enlarged mediastinal lymph nodes measuring up to 12.5 mm, nonspecific. 4. Main pulmonary artery is somewhat prominent, which can be a finding of chronic pulmonary hypertension. 5. Cardiomegaly. 6. Trace pericardial effusion measuring 6.5 mm in thickness. 7. Patchy bilateral ground-glass airspace opacities suggestive of alveolar edema. 8. Hepatomegaly suspected. 9. Spleen enlarged at 13.7 cm. 10. Multilevel bridging degenerative calcifications throughout the spine. 11. Coronary artery atherosclerotic calcifications. Laboratory Results WBC 5.21 10^3/uL (3.29-11.43) 06/19/23 04:44 RBC 3.18 10^6/uL (3.85-5.65) L 06/19/23 04:44 Hgb 8.60 g/dL (11.27-16.99) L 06/19/23 04:44 Hct 27.5 % (37-53) L 06/19/23 04:44 MCV 86.5 fl (82-101) 06/19/23 04:44 MCH 27.0 pg (27-33) 06/19/23 04:44 MCHC 31.3 g/dL (30-55) 06/19/23 04:44 RDW 19.6 % (12.1-15.1) H 06/19/23 04:44 Plt Count 66 10^3/cmm (157-399) L 06/19/23 04:44 MPV Not Reportable 06/19/23 04:44 Neut % (Auto) 46.2 % 06/19/23 04:44 Lymph % (Auto) 19.2 % 06/19/23 04:44 [place] % (Auto) 25.0 % 06/19/23 04:44 Eos % (Auto) 0.0 % 06/19/23 04:44 Baso % (Auto) 0.6 % 06/19/23 04:44 Neut # (Auto) 2.41 10^3/uL (1.8-7.7) 06/19/23 04:44 Lymph # (Auto) 1.0 10^3/uL (0.8-4.8) 06/19/23 04:44 [place] # (Auto) 1.3 10^3/uL (0.2-0.9) H 06/19/23 04:44 Eos # (Auto) 0.0 10^3/uL (0.0-0.8) 06/19/23 04:44 Baso # (Auto) 0.0 10^3/uL (0.0-0.1) 06/19/23 04:44 Nucleated RBC % (auto) 0 % 06/19/23 04:44 Total Counted 100 (0-100) 06/18/23 03:55 Atypical Lymphs % 0.0 % (0-5) 06/18/23 03:55 Absolute Neutrophils 4.7 10^3/cmm (1.4-6.5) 06/18/23 03:55 Segmented Neutrophils 67 % 06/18/23 03:55 Abs Segm Neuts (Man) 4.7 10/cmm (1.6-7.1) 06/18/23 03:55 Band Neutrophils 0.0 % 06/18/23 03:55 Abs Band Neuts (Man) 0.0 10^3/cmm (0.0-1.2) 06/18/23 03:55 Absolute Lymphocytes 1.4 10^3/cmm (1.2-3.4) 06/18/23 03:55 Lymphocytes (Manual) 20 % 06/18/23 03:55 Monocytes (Manual) 13.0 % 06/18/23 03:55 Absolute Monocytes 0.9 10^3/cmm (0.1-0.6) H 06/18/23 03:55 Eosinophils (Manual) 0 % 06/18/23 03:55 Absolute Eosinophils 0.0 10^3/cmm (0.0-0.7) 06/18/23 03:55 Basophils (Manual) 0.0 % 06/18/23 03:55 Absolute Basophils 0.0 10^3/cmm (0.0-0.2) 06/18/23 03:55 Metamyelocytes 4.0 % 06/11/23 19:20 Nucleated RBCs # 0.0 /100WBC 06/19/23 04:44 Platelet Estimate Decreased (Normal) 06/18/23 03:55 Poikilocytosis 1+ H 06/12/23 08:32 Anisocytosis 1+ H 06/12/23 08:32 Tear Drop Cells Trace 06/12/23 08:32 Ovalocytes 1+ H 06/12/23 08:32 APTT 72.9 SECONDS (23.9-36.7) H 06/13/23 04:28 D-Dimer 1.84 ug/mLFEU (0-0.59) H 06/11/23 19:20 Sodium 135 mmol/L (136-145) L 06/19/23 04:44 Potassium 4.3 mmol/L (3.5-5.1) 06/19/23 04:44 Chloride 94 mmol/L (98-107) L 06/19/23 04:44 Carbon Dioxide 28 mmol/L (22-29) 06/19/23 04:44 Anion Gap 17.3 (5-19) 06/19/23 04:44 BUN 44 mg/dL (8-23) H 06/19/23 04:44 Creatinine 2.3 mg/dL (0.7-1.2) H 06/19/23 04:44 GFR Calculation Not Reportable 06/19/23 04:44 Glucose 127 mg/dL (65-115) H 06/19/23 04:44 Calculated Osmolality 293 mOsm/kg (285-295) 06/19/23 04:44 Calcium 8.9 mg/dL (8.5-10.5) 06/19/23 04:44 Phosphorus 2.8 mg/dL (2.5-4.5) 06/19/23 04:44 Magnesium 2.0 mg/dL (1.7-2.3) 06/19/23 04:44 Total Bilirubin 1.2 mg/dL (0.15-1.2) 06/19/23 04:44 AST 37 U/L (0-40) 06/19/23 04:44 ALT 45 U/L (0-41) H 06/19/23 04:44 Alkaline Phosphatase 74 U/L (40-130) 06/19/23 04:44 Troponin T Baseline 39 ng/L (0-15) H 06/11/23 19:20 Troponin T 120 Minute 41.48 ng/L (0-15) H 06/11/23 21:14 Delta Troponin T 2.48 ABS# (0-10) 06/11/23 21:14 Troponin T Hi Sens 6Hr 79.68 ng/L (0-15) H 06/12/23 01:21 Troponin T Hi Sens 6Hr Delta 40.68 ng/L (0-12) H* 06/12/23 01:21 NT-Pro-B Natriuret Pep 93191 pg/mL (0-450) H 06/16/23 04:52 Total Protein 7.3 g/dL (6.6-8.7) 06/19/23 04:44 Albumin 3.9 g/dL (3.5-5.2) 06/19/23 04:44 Globulin 3.4 g/dL (1.3-4.6) 06/19/23 04:44 Urine Color Dark yellow (Yellow) 06/16/23 17:09 Urine Appearance Clear (CLEAR) 06/16/23 17:09 Urine pH 5 (5-7) 06/16/23 17:09 Ur Specific [place] 1.010 (1.005-1.030) 06/16/23 17:09 Urine Protein 1+ (Negative) H 06/16/23 17:09 Urine Glucose (UA) Norm (Normal) 06/16/23 17:09 Urine Ketones 1+ (Negative) H 06/16/23 17:09 Urine Blood 2+ (Negative) H 06/16/23 17:09 Urine Nitrate Negative (Negative) 06/16/23 17:09 Urine Bilirubin 1+ (Negative) H 06/16/23 17:09 Urine Urobilinogen 1 mg/dL (Negative) H 06/16/23 17:09 Ur Leukocyte Esterase Trace (Negative) H 06/16/23 17:09 Urine RBC 0-4 /hpf (0-2) H 06/16/23 17:09 Urine WBC 0-4 /hpf (0-5) H 06/16/23 17:09 Ur Squamous Epith Cells 0-4 /hpf (0-5) H 06/16/23 17:09 Calcium Oxalate Crystal 0-4 /hpf H 06/11/23 19:25 Amorphous Sediment 1+ /hpf 06/16/23 17:09 Urine Bacteria 1+ /hpf (NONE) H 06/16/23 17:09 Hyaline Casts 10-15 /lpf H 06/16/23 17:09 Urine Mucus 1+ /hpf 06/16/23 17:09 Blood Type O Positive 06/14/23 09:15 Rho(D) Type Rh positive 06/14/23 09:15 Antibody Screen Negative 06/14/23 09:15 Crossmatch See Detail 06/14/23 09:15 Vitals Last Vital Signs Temp 97.5 F L 06/19/23 11:25 Pulse 78 06/19/23 11:25 Resp 22 H 06/19/23 07:36 BP 110/63 06/19/23 11:25 Pulse Ox 98 06/19/23 11:25 O2 Del Method Nasal Cannula 06/19/23 11:25 O2 Flow Rate 3 06/18/23 08:00 Discharge Plan Discharge Patient Disposition: Home Condition: Stable Prescriptions: New cefdinir 300 mg capsule 300 mg PO BID 5 Days Qty: 10 0RF Continued (DME) Diabetic shoes Qty: 1 0RF Rx Instructions: As directed ProAir HFA 90 mcg/actuation HFA aerosol inhaler 2 puff INHALATION QID PRN (Reason: Shortness Of Breath) Qty: 8.5 6RF nitroglycerin [Nitrostat] 0.4 mg tablet, sublingual 0.4 mg sublingual Q5M PRN (Reason: chest pain) Qty: 50 3RF Rx Instructions: do not exceed 3 doses per episode metoprolol tartrate 25 mg tablet 12.5 mg PO BID Qty: 90 3RF isosorbide mononitrate 30 mg tablet extended release 24 hr 30 mg PO BID Qty: 180 3RF ranolazine 500 mg tablet extended release 12 hr 500 mg PO BID 60 Days Qty: 120 5RF (DME) lancets [BD Ultra-Fine II Lancets] 30 gauge misc See Rx Instructions .Route Qty: 200 0RF Rx Instructions: As directed (DME) True Metrix Glucose Test Strip Strip See Rx Instructions .ROUTE .MEDSUPPLY Qty: 100 3RF Rx Instructions: TEST TWICE A DAY AND PRN pantoprazole 40 mg tablet,delayed release (DR/EC) 40 mg PO DAILY 90 Days Qty: 90 3RF Flomax 0.4 mg capsule 0.4 mg PO DAILY@12 Qty: 90 3RF clopidogrel 75 mg tablet 75 mg PO DAILY Qty: 30 11RF finasteride 5 mg tablet 5 mg PO DAILY@1200 Qty: 90 3RF lisinopril 5 mg tablet 5 mg PO DAILY Qty: 90 3RF levothyroxine 50 mcg tablet 50 mcg PO DAILY@05 Qty: 90 3RF clonazepam 1 mg tablet 0.5 mg PO TID Qty: 45 2RF atorvastatin 40 mg tablet 40 mg PO DAILY@1200 potassium chloride 10 mEq tablet extended release 10 meq PO DAILY gabapentin 300 mg capsule 300 mg PO BID allopurinol 300 mg tablet 300 mg PO QAM Changed furosemide 40 mg tablet 40 mg PO DAILY PRN (Reason: Edema) Qty: 60 11RF Discharge Orders: Discharge Order (Routine); Ordered 06/19/23 Ordered By: Mingo Flanagan Referrals: Kvng Guerin M.D [Physician] - 06/26/23 9:30 am Amando Sanchez NP [Primary Care Provider] - 06/20/23 9:30 am Discharge Diet: Cardiac Discharge Activity: Resume usual activity Patient Instructions: Heart Failure (DC), Chronic Kidney Disease (DC), Anemia (DC), Hyperlipidemia (DC), CHF Stoplight, Opioid Safety Activity Restrictions/Additional Instructions: - Please follow-up with cardiology in 1 week, ? If any recurrent chest pain please go to emergency room -tale lasix 40mg qD prn for sob, swelling, edema, weight gain Discharge Attestations Time Spent in Discharge Care*: greater than 30 min Status at Discharge: Cognitive status at discharge: cognitively intact , Behavioral status at discharge: cooperative , Quality Metrics Clinical Quality Measures [ No reported AMI, CVA or VTE this stay] Coding Level of Care Code 75166 Total time (in minutes) for Discharge: 45 Diagnoses NSTEMI (non-ST elevated myocardial infarction) I21.4 CHF (congestive heart failure) I50.9 Heart failure chronicity: acute on chronic Heart failure type: unspecified Myelodysplastic syndrome D46.9 Systolic CHF, acute I50.21 Hyperlipidemia E78.5 Type 2 diabetes mellitus E11.9 Chronic kidney disease stage: unspecified stage Diabetes mellitus complication detail: with chronic kidney disease 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
--- NOTE | 2023-06-19 11:55 | PC.NURSE ---
Discharge Note Patient discharged to home via wheelchair accompanied by son. Discharge instructions reviewed with patient and son. All questions answered at this time. Prescriptions sent to patient preferred pharmacy. Belongings returned to patient upon discharge. Upon discharge patient is alert/oriented x4 on room air.
== END 2023-06-19 11:55 | disposition home or self-care (01) | DRG 280 ==
LOC: ER 23:09 → CSU 06-12 00:28
PROVIDERS: Admitting Provider Student in an Organized Health Care Education/Training Program; Emergency Provider Emergency Medicine; PCP Clinical Nurse Specialist Adult Health; Visit Provider Family Medicine
DX: I13.0 Hypertensive heart and chronic kidney disease with heart failure and stage 1 through stage 4 chronic kidney disease, or unspecified chronic kidney disease (principal); I50.43 Acute on chronic combined systolic (congestive) and diastolic (congestive) heart failure; I21.4 Non-ST elevation (NSTEMI) myocardial infarction; N17.9 Acute kidney failure, unspecified; G93.49 Other encephalopathy; N39.0 Urinary tract infection, site not specified; N18.9 Chronic kidney disease, unspecified; E11.22 Type 2 diabetes mellitus with diabetic chronic kidney disease; D46.9 Myelodysplastic syndrome, unspecified; E78.5 Hyperlipidemia, unspecified; I25.5 Ischemic cardiomyopathy; I35.0 Nonrheumatic aortic (valve) stenosis; N40.0 Benign prostatic hyperplasia without lower urinary tract symptoms; I25.10 Atherosclerotic heart disease of native coronary artery without angina pectoris; D63.1 Anemia in chronic kidney disease; E03.9 Hypothyroidism, unspecified; F41.9 Anxiety disorder, unspecified; Z87.891 Personal history of nicotine dependence; Z85.9 Personal history of malignant neoplasm, unspecified; Z85.828 Personal history of other malignant neoplasm of skin; Z87.440 Personal history of urinary (tract) infections; Z99.81 Dependence on supplemental oxygen; Z79.02 Long term (current) use of antithrombotics/antiplatelets
CPT/HCPCS: 36415; 36430; 71045; 71275; 80048; 80053; 81001; 81015; 83735; 83880; 84100; 84484; 85007; 85014; 85018; 85025; 85378; 85730; 86850; 86900; 86920; 90471; 90686; 90732; 93005; 93308; 94760; 96372; 96374; 96376; 99285; J0696; J1630; J1644; J1650; J1940; J2060; J2270; J2405; J3490; P9016; Q9967

== ENCOUNTER → 2023-06-20 10:52 | Outpatient (BNVA) | payer MEDICARE, SELFPAY | PROVIDERS: PCP Clinical Nurse Specialist Adult Health; Visit Provider Clinical Nurse Specialist Adult Health | DX: I50.9 Heart failure, unspecified (principal) | CPT/HCPCS: 80048 ==

== ENCOUNTER → 2023-06-26 08:25 | Outpatient (BNVA) | payer MEDICARE, SELFPAY | PROVIDERS: PCP Clinical Nurse Specialist Adult Health; Visit Provider Nurse Practitioner Family | DX: I50.9 Heart failure, unspecified (principal); I35.0 Nonrheumatic aortic (valve) stenosis; Z87.891 Personal history of nicotine dependence | CPT/HCPCS: 99213 ==

== ENCOUNTER 2023-06-30 18:41 | Inpatient (IN) | payer MEDICARE, SELFPAY ==
[2023-06-30 19:01] VITALS: BP 144/90; PULSE 106; RESP 30; O2SAT 91; BMI 34.4
--- NOTE | 2023-06-30 19:08 | XRR_ITS ---
PROCEDURE INFORMATION: Exam: XR Chest Exam date and time: 06/30/2023 7:14 PM Age: 83 years old Clinical indication: Shortness of breath; Patient HX: Low o2 sat; SOB; Copd; Chf; Ex smoker TECHNIQUE: Imaging protocol: Radiologic exam of the chest. Views: 1 view. COMPARISON: CT angio chest PE protcl [id number] 06/11/2023 11:12 PM FINDINGS: Lungs: Diffuse irregular opacities throughout both lungs with a lower lobe predominance. Pleural spaces: Small bilateral pleural effusions. Heart/Mediastinum: Unremarkable. No cardiomegaly. Bones/joints: Unremarkable. XR/XR chest 1V portable [id number] IMPRESSION: 1. Diffuse irregular opacities throughout both lungs with a lower lobe predominance. 2. Small bilateral pleural effusions.
--- NOTE | 2023-06-30 19:09 | ECG_ITS ---
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 Measurements Intervals [place] Rate: 102 P: -2 AK: 173 QRS: 15 QRSD: 114 T: 158 QT: 360 QTc: 469 Interpretive Statements SINUS TACHYCARDIA MODERATE INTRAVENTRICULAR CONDUCTION DELAY [110+ ms QRS DURATION] ST DEVIATION AND MODERATE T-WAVE ABNORMALITY, CONSIDER LATERAL ISCHEMIA [-0.1+ mV T-WAVE IN I/aVL/V5/V6] Compared to ECG 06/15/2023 09:21:43 No significant change Electronically Signed On 07-01-2023 13:52:52 TOOL SHARPENER by Casandra Wu M.D. [email or web address]
[2023-06-30 19:32] VITALS: PULSE 94; RESP 20; O2SAT 93
[2023-06-30] MEDS: ipratropium-albuterol 3 mL Neb INHALATION (19:32)
[2023-06-30 19:39] VITALS: PULSE 96
[2023-06-30 19:43] LABS: ABG PCO2 49.2 mmHg (35-45); ABG PH Result 7.33 (7.35-7.45); Arterial Blood Gas Hematocrit 21.3 % (42-52); Base Excess ABG -0.2 mmol/L (-2.0-2.0); Blood Gas Allen Test Pos; Blood Gas Sample Site Radial, right; Blood Gas Sample Type Arterial; Carboxyhemoglobin 1.6 %THgb (0.4-20.1); HCO3 ABG 25.9 mmol/L (22-26); HGB O2 Sat 95.8 % (95-100); Methemoglobin 0.5 % (0.4-1.5); Oxygen Device NC; PO2 ABG 88.8 mmHg (80.0-100.0); Total Hemoglobin 6.9 g/dL (14-18)
--- NOTE | 2023-06-30 20:20 | W.ED.SOB ---
HPI - SOB/Dyspnea General: Chief Complaint: Shortness of Breath/Dyspnea Stated Complaint: SOB Time Seen by Provider: 06/30/23 19:08 History of Present Illness: HPI Narrative: 83-year-old male presents emergency department complaints of increased shortness of breath and worsening dyspnea on exertion over the previous 1 day. He states he has a longstanding history of CHF and COPD. He states he is been unable to lay flat when he sleeps for the previous 1 day. He states he has been having to sit up in a chair in order to sleep and be able to breathe. He states he has continued to have increased shortness of breath he is on home oxygen at 3 L nasal cannula per minute and has had to increase his oxygen to 4 L to maintain his saturation. On presentation to the ER it does appear that he is having increased work of breathing and is making grunting sounds although his oxygen saturation is 95%. He states that he feels like he needs a nitroglycerin to help him breathe better. 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 Type 2 diabetes mellitus UTI (urinary tract infection) Surgical History History of cataract surgery History of nasal surgery History of parotidectomy (09/22/21) right parotidectomy with facial nerve preservation, with cervicofacial advancement flap, and with the right modified radical neck dissection Status post surgical removal of malignant neoplasm of skin (09/22/21) resection of right ear squamous cell carcinoma in situ Family History Father CAD (coronary artery disease) Mother CAD (coronary artery disease) Son Diabetes Grandfather Cancer Prostate Hypertension Grandmother Hypertension Denies family history of Clotting disorder Dementia Hyperlipidemia Psychiatric illness Chronic kidney disease (CKD) Suicide Anesthesia complication Bleeding disorder Lung disease Stroke Social History Smoking and tobacco/nicotine status: former use of tobacco/nicotine Quit status (tobacco/nicotine): has quit using Year quit tobacco: late Former quit date comment: used tobacco approx.40 years Alcohol intake: never Substance/Drug Use: never Physical Exam Narrative: EXAM NARRATIVE: Constitutional: the patient appears well nourished and with normal development. Vital signs reviewed as documented. Mild respiratory distress and increased appearance of anxiety upon presentation. HENMT: Normocephalic, atraumatic. Extermal ears with normal appearance without drainage. Nose without drainage, normal appearance. Mucus membranes moist. Neck is supple, No jugular venous distension, trachea is midline, no appreciable carotid bruits. No lymphadenopathy. No meningeal signs. Flexion, extension and lateral rotation is without pain. Eyes: Pupils are equal, round, reactive to light and accommodation. No scleral icterus. Extra-ocular movement are intact. Thorax is symmetrical and with equal rise and fall with respirations. Resp: Lungs are with scattered expiratory wheezes and coarse breath sounds bilaterally through the meds and decreased bilaterally in the bases. Mild respiratory distress. Cardio: Regular rate and rhythm. Positive S1, S2. No appreciable murmurs, rubs or gallops. GI: Abdominal exam reveals normal bowel sounds to all quadrants. No organomegaly. No obvious palpable masses noted. No hepatomegally appreciated. Soft, nontender to palpation. Extremity: Extremities are non-edematous and both femoral and pedal pulses are 2+ and equal bilaterally. Moves all extremities well, sensation in all extremities. Neuro: Alert and oriented x4, person, place, time and situation. Cranial nerves II through XII are grossly intact, there is no focal neurological deficits that I can appreciate at present. Motor strength in the upper and lower extremities are equal and bilateral 5/5. Psych: Cooperative, calm, normal thought process, appropriate judgment. Skin: No lesions, rashes. No gross abnormalities noted. Back: Symmetrical, no obvious deformity, No CVA tenderness Course Vital Signs: Vital signs: Vital Signs Pulse Rate 96 06/30/23 19:39 Respiratory Rate 20 H 06/30/23 19:32 Blood Pressure 144/90 06/30/23 19:01 Pulse Oximetry 93 06/30/23 19:32 Oxygen Delivery Me thod Nasal Cannula 06/30/23 19:32 Oxygen Flow Rate 4 06/30/23 19:32 MDM - SOB/Dyspnea Medical Decision Making Physical exam completed and documented, given the patient's history of CHF and COPD I will obtain chest x-ray, cardiac serial enzymes as well as serial EKGs and provide him with a DuoNeb breathing treatment, Solu-Medrol, CBC, CMP BNP to evaluate his fluid volume status and most likely will be admitting the patient for COPD CHF exacerbation. Medical Records I reviewed the patient's medical records. Lab Data I reviewed the patient's lab results. 06/30/23 20:15 06/30/23 20:15 Labs/Radiology: Radiology Impressions Chest X-Ray 06/30/23 19:08 IMPRESSION: 1. Diffuse irregular opacities throughout both lungs with a lower lobe predominance. 2. Small bilateral pleural effusions. Laboratory Results WBC 3.24 10^3/uL (3.29-11.43) L 06/30/23 20:15 RBC 2.76 10^6/uL (3.85-5.65) L 06/30/23 20:15 Hgb 7.30 g/dL (11.27-16.99) L 06/30/23 20:15 Hct 23.7 % (37-53) L 06/30/23 20:15 MCV 85.9 fl (82-101) 06/30/23 20:15 MCH 26.4 pg (27-33) L 06/30/23 20:15 MCHC 30.8 g/dL (30-55) 06/30/23 20:15 RDW 21.4 % (12.1-15.1) H 06/30/23 20:15 Plt Count 45 10^3/cmm (157-399) L 06/30/23 20:15 MPV Not Reportable 06/30/23 20:15 Lymph % (Auto) Not Reportable 06/30/23 20:15 [place] % (Auto) Not Reportable 06/30/23 20:15 Lymph # (Auto) Not Reportable 06/30/23 20:15 [place] # (Auto) Not Reportable 06/30/23 20:15 Total Counted 100 (0-100) 06/30/23 20:15 Atypical Lymphs % 0.0 % (0-5) 06/30/23 20:15 Absolute Neutrophils 1.1 10^3/cmm (1.4-6.5) L 06/30/23 20:15 Segmented Neutrophils 29 % 06/30/23 20:15 Abs Segm Neuts (Man) 0.9 10/cmm (1.6-7.1) L 06/30/23 20:15 Band Neutrophils 4.0 % 06/30/23 20:15 Abs Band Neuts (Man) 0.1 10^3/cmm (0.0-1.2) 06/30/23 20:15 Absolute Lymphocytes 1.2 10^3/cmm (1.2-3.4) 06/30/23 20:15 Lymphocytes (Manual) 38 % 06/30/23 20:15 Monocytes (Manual) 13.0 % 06/30/23 20:15 Absolute Monocytes 0.4 10^3/cmm (0.1-0.6) 06/30/23 20:15 Eosinophils (Manual) 0 % 06/30/23 20:15 Absolute Eosinophils 0.0 10^3/cmm (0.0-0.7) 06/30/23 20:15 Basophils (Manual) 0.0 % 06/30/23 20:15 Absolute Basophils 0.0 10^3/cmm (0.0-0.2) 06/30/23 20:15 Metamyelocytes 3.0 % 06/30/23 20:15 Myelocytes 10.0 % 06/30/23 20:15 Nucleated RBCs 2.0 /100WBC (0-1) H 06/30/23 20:15 Pathologist Review Yes 06/30/23 20:15 Blast Cells 1 % (0-0) H 06/30/23 20:15 Platelet Estimate Decreased (Normal) 06/30/23 20:15 Polychromasia 2+ H 06/30/23 20:15 Hypochromasia 2+ H 06/30/23 20:15 Poikilocytosis 2+ H 06/30/23 20:15 Anisocytosis 2+ H 06/30/23 20:15 Microcytosis 2+ H 06/30/23 20:15 Tear Drop Cells 1+ 06/30/23 20:15 Ovalocytes 2+ H 06/30/23 20:15 Acanthocytes (Spur) 1+ H 06/30/23 20:15 Schistocytes 1+ H 06/30/23 20:15 PT 15.50 SECONDS (12.1-14.9) H 06/30/23 20:15 INR 1.19 (0.8-1.2) 06/30/23 20:15 Specimen Type Arterial 06/30/23 19:32 Sample Site Radial, right 06/30/23 19:32 ABG pH 7.33 (7.35-7.45) L 06/30/23 19:32 ABG pCO2 49.2 mmHg (35-45) H 06/30/23 19:32 ABG pO2 88.8 mmHg (80.0-100.0) 06/30/23 19:32 ABG HCO3 25.9 mmol/L (22-26) 06/30/23 19:32 ABG Base Excess -0.2 mmol/L (-2.0-2.0) 06/30/23 19:32 Navid Test Pos 06/30/23 19:32 Hematocrit 21.3 % (42-52) L 06/30/23 19:32 Hgb O2 Saturation 95.8 % (95-100) 06/30/23 19:32 Carboxyhemoglobin 1.6 %THgb (0.4-20.1) 06/30/23 19:32 Methemoglobin 0.5 % (0.4-1.5) 06/30/23 19:32 Total Hemoglobin 6.9 g/dL (14-18) L 06/30/23 19:32 O2 Delivery Device Nc 06/30/23 19:32 O2 Liters/Min 4.0 % 06/30/23 19:32 Telephone Lineman ID [email or web address] 06/30/23 19:32 Sodium 138 mmol/L (136-145) 06/30/23 20:15 Potassium 4.8 mmol/L (3.5-5.1) 06/30/23 20:15 Chloride 101 mmol/L (98-107) 06/30/23 20:15 Carbon Dioxide 28 mmol/L (22-29) 06/30/23 20:15 Anion Gap 13.8 (5-19) 06/30/23 20:15 BUN 31 mg/dL (8-23) H 06/30/23 20:15 Creatinine 1.9 mg/dL (0.7-1.2) H 06/30/23 20:15 GFR Calculation Not Reportable 06/30/23 20:15 Glucose 144 mg/dL (65-115) H 06/30/23 20:15 Calculated Osmolality 295 mOsm/kg (285-295) 06/30/23 20:15 Lactic Acid 1.8 mmol/L (0.5-2.2) 06/30/23 20:15 Calcium 8.7 mg/dL (8.5-10.5) 06/30/23 20:15 Total Bilirubin 0.8 mg/dL (0.15-1.2) 06/30/23 20:15 AST 9 U/L (0-40) 06/30/23 20:15 ALT 10 U/L (0-41) 06/30/23 20:15 Alkaline Phosphatase 89 U/L (40-130) 06/30/23 20:15 Troponin T Baseline 34 ng/L (0-15) H 06/30/23 20:15 NT-Pro-B Natriuret Pep 69844 pg/mL (0-450) H 06/30/23 20:15 Total Protein 7.8 g/dL (6.6-8.7) 06/30/23 20:15 Albumin 4.3 g/dL (3.5-5.2) 06/30/23 20:15 Globulin 3.5 g/dL (1.3-4.6) 06/30/23 20:15 Procalcitonin 0.12 ng/mL (0-0.5) 06/30/23 20:15 All radiology interpretation(s) finalized by discharge Critical Care Time Critical Care Time: Critical Care Time: Yes Total Critical Care Time: 90 Attestation: This case had a high probability of a clinically significant, sudden, or life threatening deterioration of this patient's condition which required my full and direct attention, intervention and personal management. 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
[2023-06-30 20:42] LABS: Hematocrit 23.7 % (37-53); Mean Corpuscular HGB Conc 30.8 g/dL (30-55); Mean Corpuscular Hemoglobin 26.4 pg (27-33); Mean Corpuscular Volume 85.9 fl (82-101); Platelet Count 45 10^3/cmm (157-399); Red Blood Count 2.76 10^6/uL (3.85-5.65); Red Cell Distribution Width 21.4 % (12.1-15.1); White Blood Count 3.24 10^3/uL (3.29-11.43)
[2023-06-30 20:59] LABS: INR 1.19 (0.8-1.2)
[2023-06-30 21:06] LABS: Lactic Sepsis W/Reflex 1.8 mmol/L (0.5-2.2)
[2023-06-30 21:08] LABS: Troponin(5th) Baseline 34 ng/L (0-15)
[2023-06-30 21:12] LABS: NT Pro B Type Natriuretic Pept 19449 pg/mL (0-450)
[2023-06-30 21:23] LABS: Alanine Aminotransferase 10 U/L (0-41); Albumin Level 4.3 g/dL (3.5-5.2); Alkaline Phosphatase 89 U/L (40-130); Anion Gap 13.8 (5-19); Aspartate Amino Transferase 9 U/L (0-40); Blood Urea Nitrogen 31 mg/dL (8-23); Calcium 8.7 mg/dL (8.5-10.5); Carbon Dioxide 28 mmol/L (22-29); Chloride 101 mmol/L (98-107); Globulin 3.5 g/dL (1.3-4.6); Glucose 144 mg/dL (65-115); Osmolality Calculated 295 mOsm/kg (285-295); Potassium 4.8 mmol/L (3.5-5.1); Sodium 138 mmol/L (136-145); Total Bilirubin 0.8 mg/dL (0.15-1.2); Total Protein 7.8 g/dL (6.6-8.7)
[2023-06-30 21:26] LABS: Slide Review Slide Review Perform
[2023-06-30 21:27] LABS: Absolute Segmented Neutrophil 0.9 10/cmm (1.6-7.1); Band Neutrophils Absolute 0.1 10^3/cmm (0.0-1.2); Eosinophils 0 %; Lymphocytes 38 %; Lymphocytes Absolute 1.2 10^3/cmm (1.2-3.4); Monocytes Absolute 0.4 10^3/cmm (0.1-0.6); Segmented Neutrophils 29 %; Total Cells Counted 100 (0-100)
[2023-06-30 21:28] LABS: Absolute Neutrophil 1.1 10^3/cmm (1.4-6.5); Anisocytosis 2+; Blastocytes 1 % (0-0); Hypochromasia 2+; Microcytosis 2+; Ovalocytes 2+; Platelet Estimate Decreased (Normal); Poikilocytosis 2+; Polychromasia 2+; Tear Drop Cells 1+
[2023-06-30 21:29] LABS: Acanthocytes 1+; Pathology Refferal Yes; Schistocytes 1+
[2023-06-30] MEDS: methylPREDNISolone sod succ 125 mg/2 mL INJ 60 MG IVP (21:49)
[2023-06-30 21:54] LABS: Procalcitonin 0.12 ng/mL (0-0.5)
--- NOTE | 2023-06-30 22:03 | P.HP_ITS ---
Providers/Chief Complaint Primary Care Provider: Amando Sanchez Chief Complaint: SOB History of Present Illness Guido Crump is a 83 year old male with past medical history of congestive heart failure, abnormal stress test, CKD, MDS, anemia, recent hospitalization for CHF exacerbation metabolic encephalopathy, patient was diuresed, patient and family were decided to rule out against surgical intervention for severe aortic valve stenosis, he is being managed medically, he does require blood transfusions frequently. He is presenting today with chief complaint of worsening of shortness of breath however at baseline he uses 3 L of oxygen in the ER he is requiring 4 L with anasarca. He is experiencing orthopnea and PND. Had a long discussion with the patient and the family, patient is stating that he would go by Dr. Hassan recommendation. Dr. Hassan recommended medical management. Patient has failed medical management he still experiencing chest pain shortness of breath PND orthopnea. I spoke with his son who is stating that he agrees that he is high risk surgical candidate because of thrombocytopenia and anemia, they have change his CODE STATUS to DNR/DNI in case of further worsening they might opt for hospice care. Patient is stating that he would like to talk with Dr. Hassan again I did mention that he might not be on-call this weekend Review of Systems Const: Reports: change in weight Eyes: Denies: change in vision ENMT: Denies: throat pain Card: Reports: chest pain, swelling of feet/ankles, pre-syncope, dyspnea on exertion and orthopnea Resp: Reports: dyspnea GI: Denies: abdominal pain : Denies: flank pain Musc: Denies: neck pain Skin/Breast: Reports: rash Medications/Allergies Home Medications Medication Instructions Recorded Confirmed Last Taken Type Diabetic shoes #1 ea 12/12/19 06/26/23 Unknown Rx atorvastatin 40 mg tablet 40 mg PO DAILY@1200 01/16/21 06/26/23 06/11/23 History metoprolol tartrate 25 mg tablet 12.5 mg PO BID #90 tabs 05/31/22 06/26/23 06/11/23 Rx nitroglycerin 0.4 mg sublingual 0.4 mg sublingual Q5M PRN chest 05/31/22 06/26/23 Unknown Rx tablet (Nitrostat) pain #50 tabs pantoprazole 40 mg tablet,delayed 40 mg PO DAILY 90 days #90 tabs 06/06/22 06/26/23 06/11/23 Rx release isosorbide mononitrate 30 mg 30 mg PO BID #180 tabs 07/07/22 06/26/23 06/11/23 Rx tablet,extended release 24 hr blood sugar diagnostic (True #100 ea 11/16/22 06/26/23 Unknown Rx Metrix Glucose Test Strip) lancets 30 gauge (BD Ultra-Fine II #200 ea 11/16/22 06/26/23 Unknown Rx Lancets) tamsulosin 0.4 mg capsule (Flomax) 0.4 mg PO DAILY@12 #90 caps 01/10/23 06/26/23 06/11/23 Rx ranolazine 500 mg tablet,extended 500 mg PO BID 60 days #120 tabs 01/24/23 06/26/23 06/11/23 Rx release,12 hr albuterol sulfate 90 mcg/actuation 2 puff inhalation QID PRN 02/01/23 06/26/23 Unknown Rx aerosol inhaler (ProAir HFA) Shortness Of Breath #8.5 grams clopidogrel 75 mg tablet 75 mg PO DAILY #30 tabs 02/07/23 06/26/23 06/11/23 Rx potassium chloride 10 mEq 10 meq PO DAILY 03/04/23 06/26/23 03/03/23 History tablet,extended release finasteride 5 mg tablet 5 mg PO DAILY@1200 #90 tabs 04/17/23 06/26/23 06/11/23 Rx lisinopril 5 mg tablet 5 mg PO DAILY #90 tabs 04/17/23 06/26/23 06/11/23 Rx levothyroxine 50 mcg tablet 50 mcg PO DAILY@05 #90 tabs 05/15/23 06/26/23 06/11/23 Rx clonazepam 1 mg tablet 0.5 mg PO TID Anxiety #45 tabs 05/23/23 06/26/23 06/11/23 Rx allopurinol 300 mg tablet 300 mg PO QAM 06/12/23 06/26/23 06/11/23 History gabapentin 300 mg capsule 300 mg PO BID 06/12/23 06/26/23 06/11/23 History furosemide 40 mg tablet 40 mg PO DAILY PRN Edema #60 tabs 06/19/23 06/26/23 Unknown Rx Allergies Allergy/AdvReac Type Severity Reaction Status Date / Time No Known Allergies Allergy Verified 06/26/23 09:00 PFSH Acute PFSH: Medical History Abnormal cardiovascular stress test Acute bronchitis Anxiety BPH (benign prostatic hyperplasia) CHF (congestive heart failure) Chronic diarrhea CKD (chronic kidney disease) baseline creatinine 1.9 Confusion Gout History of hypertension Hyperlipidemia Hypotension Hypothyroidism Myelodysplastic syndrome Recurrent urinary tract infection 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 Type 2 diabetes mellitus UTI (urinary tract infection) Surgical History History of cataract surgery History of nasal surgery History of parotidectomy (09/22/21) right parotidectomy with facial nerve preservation, with cervicofacial advancement flap, and with the right modified radical neck dissection Status post surgical removal of malignant neoplasm of skin (09/22/21) resection of right ear squamous cell carcinoma in situ Family History Father CAD (coronary artery disease) Mother CAD (coronary artery disease) Son Diabetes Grandfather Cancer Prostate Hypertension Grandmother Hypertension Denies family history of Clotting disorder Dementia Hyperlipidemia Psychiatric illness Chronic kidney disease (CKD) Suicide Anesthesia complication Bleeding disorder Lung disease Stroke Social History Smoking and tobacco/nicotine status: former use of tobacco/nicotine Quit status (tobacco/nicotine): has quit using Year quit tobacco: late Former quit date comment: used tobacco approx.40 years Alcohol intake: never Substance/Drug Use: never Vitals/I&O/Wt Last Vital Signs Pulse 96 06/30/23 19:39 Resp 20 H 06/30/23 19:32 BP 144/90 06/30/23 19:01 Pulse Ox 93 06/30/23 19:32 O2 Del Method Nasal Cannula 06/30/23 19:32 O2 Flow Rate 4 06/30/23 19:32 Weight last 48 hrs Weight 99.79 kg Physical Exam Narrative: Anasarca Currently on 4 L GCS 15 Abdomen soft however distended Lower extremity edema 3+ S1, S2 regular Conversational dyspnea Bilateral breath sounds with rhonchi and crackles Family at the bedside Data 06/30/23 20:15 06/30/23 20:15 A&P Assessment and plan (1) MCDUFFIE (dyspnea on exertion): (2) Thrombocytopenia: (3) CKD (chronic kidney disease): (4) Esophageal spasm: (5) Goals of care, counseling/discussion: (6) BPH (benign prostatic hyperplasia): Qualifiers: Lower urinary tract symptom presence: symptoms present Lower urinary tract symptom detail: urinary hesitancy Qualified Code(s): N40.1 - Benign prostatic hyperplasia with lower urinary tract symptoms; R39.11 - Hesitancy of micturition (7) Cardiomyopathy: Qualifiers: Cardiomyopathy type: ischemic Qualified Code(s): I25.5 - Ischemic cardiomyopathy (8) Iron overload due to repeated red blood cell transfusions: (9) CHF (congestive heart failure): (10) Aortic valve stenosis: Qualifiers: Cardiac valve disease etiology: nonrheumatic Qualified Code(s): I35.0 - Nonrheumatic aortic (valve) stenosis (11) Type 2 diabetes mellitus: Qualifiers: 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 insulin use: without watermelon harvesting supervisor use Diabetes mellitus complication detail: with chronic kidney disease Chronic kidney disease stage: unspecified stage (12) Myelodysplastic syndrome: (13) Ischemic cardiomyopathy: Plan Recurrent admissions in setting of cardiomyopathy Severe aortic valve stenosis Continue Lasix drip which was started in the ER I will be cautious because of severe aortic valve stenosis regarding reducing preload Patient change his CODE STATUS to DNR/DNI, I had a long discussion with the p atient and his sons In case of further worsening they might opt for hospice care They do agree that surgical option is not feasible because of thrombocytopenia anemia due to MDS Acute on chronic hypoxia: Related to CHF exacerbation Currently requiring 4 L At baseline uses 2-3L Severe anemia and thrombocytopenia, ideally his hemoglobin should stay above 8 Will request 1 unit PRBC Severe thrombocytopenia not a candidate to be on any kind of anticoagulating agent Chronic kidney disease creatinine seems around baseline Goals of care discussed with the patient Cardiac diet More than 2 midnights anticipated Attestations Medical Necessity Statement*: More than 2 midnights anticipated Diagnoses MCDUFFIE (dyspnea on exertion) R06.09 Thrombocytopenia D69.6 CKD (chronic kidney disease) N18.9 Esophageal spasm K22.4 Goals of care, counseling/discussion Z71.89 BPH (benign prostatic hyperplasia) N40.1; R39.11 Lower urinary tract symptom presence: symptoms present Lower urinary tract symptom detail: urinary hesitancy Cardiomyopathy I25.5 Cardiomyopathy type: ischemic Iron overload due to repeated red blood cell transfusions E83.111 CHF (congestive heart failure) I50.9 Aortic valve stenosis I35.0 Cardiac valve disease etiology: nonrheumatic Type 2 diabetes mellitus E11.9 Diabetes mellitus retirement insulin use: without retirement use Diabetes mellitus complication detail: with chronic kidney disease Chronic kidney disease stage: unspecified stage Myelodysplastic syndrome D46.9 Ischemic cardiomyopathy I25.5
[2023-06-30 22:17] VITALS: BP 144/90; PULSE 97; RESP 22; O2SAT 94
[2023-06-30 22:47] VITALS: BMI 36.4
[2023-06-30 22:50] LABS: Influenza A by IFA negative (Negative); Influenza B by IFA negative (Negative)
[2023-06-30 22:52] LABS: Troponin 5 2HR 35.14 ng/L (0-15)
[2023-06-30 22:53] LABS: Troponin 5 2HR Delta 1.14 ABS# (0-10)
[2023-06-30] MEDS: FUROsemide 100 MG in sodium chloride 0.9% 40 ML IV (22:57)
[2023-06-30 23:01] VITALS: BP 129/73; PULSE 99; RESP 27; O2SAT 98
[2023-06-30 23:27] VITALS: PULSE 85; RESP 18
[2023-07-01] VITALS (23 sets, daily range): BP systolic 109–141; BP diastolic 61–87; PULSE 79–110; RESP 8–27; TEMP 36.4–36.8; O2SAT 90–100; BMI 35.8
[2023-07-01] MEDS: morphine IR 15 mg Tablet PO ×2 (00:40→06:53)
[2023-07-01] MEDS: nitroglycerin drip 50 MG/250 ML PREMIX IV (03:03)
--- NOTE | 2023-07-01 03:54 | PC.NURSE ---
upon admission to [facility], pt refused urinal with multiple attempts from the nurse to explain why one was needed. still pt refused and he apologized for be stubborn. for now pt is able to successfully use urinal without incident. nurse did explain to pt that if he begins to have issues with the urinal, a salomon catheter will to be used instead and again explained why it was important. pt stated understanding.
--- NOTE | 2023-07-01 03:57 | PC.NURSE ---
upon admission to [facility] pt began to express pain in his chest and back- between his scapulas. nurse gave prn morphine tablet with no ease of pain. nurse contacted dr with the pt desire for a nitro sublingual and was given orders for a nitro drip. pt a difficult stick administration was delayed for an iv access. nitro started as soon as possible.
[2023-07-01 06:01] LABS: Basophils % 0.7 %; Hematocrit 22.6 % (37-53); Lymphocytes # 0.9 10^3/uL (0.8-4.8); Lymphocytes % 20.8 %; Mean Corpuscular HGB Conc 31.4 g/dL (30-55); Mean Corpuscular Hemoglobin 26.9 pg (27-33); Mean Corpuscular Volume 85.6 fl (82-101); Monocytes # 0.3 10^3/uL (0.2-0.9); Monocytes % 6.5 %; Neutrophils # 2.43 10^3/uL (1.8-7.7); Neutrophils % 56.8 %; Nucleated Red Blood Cells % 0.5 %; Platelet Count 45 10^3/cmm (157-399); Red Blood Count 2.64 10^6/uL (3.85-5.65); Red Cell Distribution Width 21.1 % (12.1-15.1); White Blood Count 4.28 10^3/uL (3.29-11.43)
[2023-07-01] MEDS: levothyroxine 50 mcg Tablet PO (06:05)
[2023-07-01 06:14] LABS: Blood Urea Nitrogen 33 mg/dL (8-23); Calcium 8.8 mg/dL (8.5-10.5); Carbon Dioxide 23 mmol/L (22-29); Chloride 102 mmol/L (98-107); Glucose 193 mg/dL (65-115); Osmolality Calculated 297 mOsm/kg (285-295); Sodium 137 mmol/L (136-145)
[2023-07-01 07:02] LABS: Slide Review Slide Review Perform
[2023-07-01] MEDS: potassium chloride ER 20 mEq Tablet 40 MEQ PO (08:52)
[2023-07-01] MEDS: metoprolol tartrate 25 mg Tablet PO ×2 (08:52→20:39)
[2023-07-01] MEDS: sennosides-docusate Tablet 1 TAB PO (08:52)
[2023-07-01] MEDS: FUROsemide 100 MG in sodium chloride 0.9% 40 ML IV ×2 (08:53→18:54)
[2023-07-01] MEDS: ranolazine (12HR) 500 mg Tablet PO ×2 (08:53→17:33)
--- NOTE | 2023-07-01 13:25 | P.PN_ITS ---
Subjective Subjective: States he has not been feeling great. Vitals/I&O/Wt Last Vital Signs Temp 97.8 F 07/01/23 11:00 Pulse 84 07/01/23 11:00 Resp 25 H 07/01/23 11:00 BP 130/72 07/01/23 11:00 Pulse Ox 100 07/01/23 11:00 O2 Del Method Nasal Cannula 07/01/23 11:00 O2 Flow Rate 4 07/01/23 07:57 06/30/23 07/01/23 07/01/23 22:59 06:59 14:59 Intake Total 2.20 / 2.20 49.667 / 49.667 Output Total 1375 / 1375 710 / 710 Balance -1372.80 / -1372.80 -660.333 / -660.333 Weight last 48 hrs Weight 103.737 kg Weight 105.642 kg Weight 99.79 kg Physical Exam Narrative: Sitting up in chair. Hard of hearing. Hears when spoken to directly into his ear. Const: COMMON NORMALS: alert GENERAL APPEARANCE: cooperative ORIENTATION/CONSCIOUSNESS: Yes awake HENMT: COMMON NORMALS: oropharynx normal Neck/C-Spine: COMMON NORMALS: no JVD Resp: COMMON NORMALS: normal respiratory effort AUSCULTATION: diminished lung sounds Cardio: COMMON NORMALS: no JVD, regular rhythm, S1 normal heart sound present, S2 normal heart sound present and No murmurs present (Cardio) RHYTHM: regular rhythm HEART SOUNDS: S1 normal heart sound present and S2 normal heart sound present GI: COMMON NORMALS: Normal to inspection, nondistended, normoactive bowel sounds present, Soft to palpation and non-tender PALPATION: Yes Soft to palpation Extremity: COMMON NORMALS: no joint enlargement GENERAL: Yes edema (4+ BL LE edema) Neuro: COMMON NORMALS: moves all extremities SENSORIUM/ORIENTATION: Yes alert Data 07/01/23 05:25 07/01/23 05:25 Micro: Microbiology 06/30/23 05:30 Blood Culture - Preliminary Blood SPECIMEN COLLECTED 06/30/23 21:21 Blood Culture - Preliminary Blood SPECIMEN COLLECTED A&P Assessment and plan (1) MCDUFFIE (dyspnea on exertion): (2) Thrombocytopenia: (3) CKD (chronic kidney disease): (4) Esophageal spasm: (5) Goals of care, counseling/discussion: (6) BPH (benign prostatic hyperplasia): Qualifiers: Lower urinary tract symptom presence: symptoms present Lower urinary tract symptom detail: urinary hesitancy Qualified Code(s): N40.1 - Benign prostatic hyperplasia with lower urinary tract symptoms; R39.11 - Hesitancy of micturition (7) Cardiomyopathy: Qualifiers: Cardiomyopathy type: ischemic Qualified Code(s): I25.5 - Ischemic cardiomyopathy (8) Iron overload due to repeated red blood cell transfusions: (9) CHF (congestive heart failure): (10) Aortic valve stenosis: Qualifiers: Cardiac valve disease etiology: nonrheumatic Qualified Code(s): I35.0 - Nonrheumatic aortic (valve) stenosis (11) Type 2 diabetes mellitus: Qualifiers: Diabetes mellitus custodial insulin use: without polishing wheel repairer use Diabetes mellitus complication detail: with chronic kidney disease Chronic kidney disease stage: unspecified stage (12) Myelodysplastic syndrome: (13) Ischemic cardiomyopathy: Plan Recurrent admissions in setting of cardiomyopathy Dyspnea, acute CHF exacerbation, continue attempted gentle diuresis, watch for hypotension due to risk with IV diuretics, aortic stenosis. Continue to monitor vitals. At risk of electrolyte abnormality, reassess chemistry. Reviewed vitals, CBC, chemistry. Reviewed respiratory viral panel, noted negative. Severe aortic valve stenosis. Reviewed cardiology documentation In case of further worsening they might opt for hospice care Surgical option is not feasible because of thrombocytopenia anemia due to MDS Acute on chronic hypoxia: Related to CHF exacerbation Currently requiring 4 L At baseline uses 2-3L Severe anemia and thrombocytopenia, ideally his hemoglobin should stay above 8 Receiving 1 unit RBC. Follow-up blood counts requested. Severe thrombocytopenia not a candidate to be on any kind of anticoagulating agent Chronic kidney disease creatinine seems around baseline Goals of care discussed with the patient Cardiac diet More than 2 midnights anticipated Attestations Medical Necessity Statement*: Continue admission for assessment management of acute CHF decompensation. and High MDM includes described risk of complication, morbidity or mortality of management as documented Diagnoses MCDUFFIE (dyspnea on exertion) R06.09 Thrombocytopenia D69.6 CKD (chronic kidney disease) N18.9 Esophageal spasm K22.4 Goals of care, counseling/discussion Z71.89 BPH (benign prostatic hyperplasia) N40.1; R39.11 Lower urinary tract symptom presence: symptoms present Lower urinary tract symptom detail: urinary hesitancy Cardiomyopathy I25.5 Cardiomyopathy type: ischemic Iron overload due to repeated red blood cell transfusions E83.111 CHF (congestive heart failure) I50.9 Aortic valve stenosis I35.0 Cardiac valve disease etiology: nonrheumatic Type 2 diabetes mellitus E11.9 Diabetes mellitus custodial insulin use: without polishing wheel repairer use Diabetes mellitus complication detail: with chronic kidney disease Chronic kidney disease stage: unspecified stage Myelodysplastic syndrome D46.9 Ischemic cardiomyopathy I25.5
[2023-07-01 13:46] LABS: Adenovirus Not Detected (NOT DETECT); Chlamydia Pneumoniae Not Detected (NOT DETECT); Coronavirus 229E,HKU1,NL63,OC4 Not Detected (NOT DETECT); Human Metapneumovirus Not Detected (NOT DETECT); Human Rhinovirus/Enterovirus Not Detected (NOT DETECT); Influenza A Not Detected (NOT DETECT); Influenza A H1 Not Detected (NOT DETECT); Influenza A H1-2009 Not Detected (NOT DETECT); Influenza A H3 Not Detected (NOT DETECT); Influenza B Not Detected (NOT DETECT); Mycoplasma Pneumoniae Not Detected (NOT DETECT); Parainfluenza Virus Type 1 Not Detected (NOT DETECT); Parainfluenza Virus Type 2 Not Detected (NOT DETECT); Parainfluenza Virus Type 3 Not Detected (NOT DETECT); Parainfluenza Virus Type 4 Not Detected (NOT DETECT); Respiratory Syncytial Virus A Not Detected (NOT DETECT); Respiratory Syncytial Virus B Not Detected (NOT DETECT); SARS-COV-2 Not Detected (NOT DETECT)
[2023-07-02] VITALS (13 sets, daily range): BP systolic 92–133; BP diastolic 55–83; PULSE 77–96; RESP 15–29; TEMP 36.4–37.3; O2SAT 92–97
[2023-07-02] MEDS: morphine IR 15 mg Tablet PO ×2 (01:07→16:45)
--- NOTE | 2023-07-02 03:16 | PC.NURSE ---
Addendum entered by Mali Kiran RN 07/02/23 03:25: We now have a sitter in his room due to his high fall risk. Original Note: The pt has become increasing confused and agitated as the night has continued. He had understood to hit his call light for assistance in urinating. He had done that til about midnight. He stood on his own and spilled his urine. When asked why he didnt hit his call light he said he didnt know he needed to. He continued to stand without assistance and fear of him falling, it was agreed to move him closer to the nurses station. He has continued to be confused with who was in the room. Stated his cousin was sitting in the room. Pt continues to refuse a salomon catheter but is unable to urinate while laying in bed. Due to the fall risk we feel that getting him up would not be successful.
[2023-07-02] MEDS: OLANZapine 10 mg VIAL IM (04:24)
[2023-07-02 06:26] LABS: Basophils % 0.1 %; Hematocrit 24.8 % (37-53); Lymphocytes # 1.2 10^3/uL (0.8-4.8); Lymphocytes % 18.2 %; Mean Corpuscular Hemoglobin 26.6 pg (27-33); Mean Corpuscular Volume 85.8 fl (82-101); Monocytes # 1.4 10^3/uL (0.2-0.9); Monocytes % 21.2 %; Neutrophils # 3.59 10^3/uL (1.8-7.7); Nucleated Red Blood Cells # 0.1 /100WBC; Nucleated Red Blood Cells % 0.9 %; Platelet Count 43 10^3/cmm (157-399); Red Blood Count 2.89 10^6/uL (3.85-5.65); Red Cell Distribution Width 20.6 % (12.1-15.1); White Blood Count 6.76 10^3/uL (3.29-11.43)
[2023-07-02 06:37] LABS: Neutrophils % 60.5 %
[2023-07-02 06:47] LABS: Anion Gap 17.6 (5-19); Blood Urea Nitrogen 38 mg/dL (8-23); Calcium 9.1 mg/dL (8.5-10.5); Carbon Dioxide 25 mmol/L (22-29); Chloride 98 mmol/L (98-107); Glucose 132 mg/dL (65-115); Osmolality Calculated 293 mOsm/kg (285-295); Potassium 4.6 mmol/L (3.5-5.1); Sodium 136 mmol/L (136-145)
[2023-07-02] MEDS: FUROsemide 100 MG in sodium chloride 0.9% 40 ML IV (06:48)
[2023-07-02] MEDS: ipratropium-albuterol 3 mL Neb INHALATION (08:19)
[2023-07-02 10:56] LABS: Add Urine Microscopic? NO; Charge for UA Resulting for Rev
[2023-07-02 11:07] LABS: Specific Gravity, Urine 1.005 (1.005-1.030); Urine Appearance Clear (CLEAR); Urine Color Straw (Yellow); pH Urine 5 (5-7)
[2023-07-02 11:08] LABS: Bilirubin Urine Neg (Negative); Blood Urine Neg (Negative); Glucose Urine UA Norm (Normal); Ketones Urine Negative (Negative); Leukocyte Esterase Urine Negative (Negative); Nitrate Urine Negative (Negative); Protein Urine Neg (Negative); Urobilinogen Urine Norm (Negative)
[2023-07-02] MEDS: ranolazine (12HR) 500 mg Tablet PO ×2 (11:08→17:07)
[2023-07-02] MEDS: metoprolol tartrate 25 mg Tablet PO (11:08)
[2023-07-02] MEDS: potassium chloride ER 20 mEq Tablet 40 MEQ PO (11:08)
[2023-07-02] MEDS: sennosides-docusate Tablet 1 TAB PO (11:08)
[2023-07-02] MEDS: FUROsemide 100 MG in sodium chloride 0.9% 40 ML 10 MG IV ×2 (13:59→20:08)
[2023-07-02] MEDS: OLANZapine 10 mg VIAL 5 MG IM (17:07)
--- NOTE | 2023-07-02 17:25 | PC.NURSE ---
Obtained order for 5mg IM olanzapine from Dr. Vásquez. Medication was given in the R. Deltoid and leftover contents placed in sharps container. When completed and medication ws scanned, a new order popped up on the OCT showing 10mg olanzapine IM. Called pharmacy and spoke to Malaika Carlson and he said that he can see what happened and said that it appears that I overrode the medication and pulled; however, I informed him that I waited for him to authorize the pull. Aldo stated that it appears that the telepharmacy made it where we could override the medication and said something about impossible . Aldo then said that he would link the medications nd all would be good that nothing else would be required on my end; however, at this time, I still see the medication as not given on the OCT.
--- NOTE | 2023-07-02 18:20 | PC.NURSE ---
Got with Malaika Carlson about the and showed him my MAR. He said that it was linked and that he believes that what I am seeing is to document my assessment. When I went to document the assessment, it tried to show that I am an hour late on giving the medication. I don't know what else to do as I scanned the medication when it was given.
--- NOTE | 2023-07-02 20:56 | P.PN_ITS ---
Subjective Subjective: She had a difficult night, became agitated, required Zyprexa, one-to-one sitter had been requested. Sleepy this morning, wakes up to voice, shoulder squeeze, denies any discomfort. Vitals/I&O/Wt Last Vital Signs Temp 98.9 F 07/02/23 12:33 Pulse 77 07/02/23 20:48 Resp 15 07/02/23 20:48 BP 92/55 07/02/23 20:48 Pulse Ox 96 07/02/23 20:48 O2 Del Method Nasal Cannula 07/02/23 20:00 O2 Flow Rate 2 07/02/23 20:00 07/02/23 07/02/23 07/02/23 06:59 14:59 22:59 Intake Total 770 / 1109.667 146.367 / 146.367 50 / 196.367 Output Total 200 / 1730 Balance 570 / -620.333 146.367 / 146.367 50 / 196.367 Weight last 48 hrs Weight 103.464 kg Weight 103.737 kg Weight 105.642 kg Physical Exam Narrative: Hard of hearing. Hears when spoken to directly into his ear. Const: COMMON NORMALS: alert GENERAL APPEARANCE: cooperative ORIENTATION/CONSCIOUSNESS: Yes awake HENMT: COMMON NORMALS: oropharynx normal Neck/C-Spine: COMMON NORMALS: no JVD Resp: COMMON NORMALS: normal respiratory effort AUSCULTATION: diminished lung sounds Cardio: COMMON NORMALS: no JVD, regular rhythm, S1 normal heart sound present, S2 normal heart sound present and No murmurs present (Cardio) RHYTHM: regular rhythm HEART SOUNDS: S1 normal heart sound present and S2 normal heart sound present GI: COMMON NORMALS: Normal to inspection, nondistended, normoactive bowel berny nds present, Soft to palpation and non-tender PALPATION: Yes Soft to palp ation Extremity: COMMON NORMALS: no joint enlargement GENERAL: Yes edema (3+ BL LE edema) Neuro: COMMON NORMALS: moves all extremities SENSORIUM/ORIENTATION: Yes alert Urinary Catheter Management: Greene: Cath Placed During This Visit: yes Reason for Continuing Indwelling Catheter: Acute Urinary Retention or Obstruction Urinary Catheter Date of Insertion: 07/02/23 Urinary Catheter Time of Insertion: 10:35 Data 07/02/23 06:08 07/02/23 06:08 Micro: Microbiology 06/30/23 05:30 Blood Culture - Preliminary Blood NEGATIVE TO DATE 06/30/23 21:21 Blood Culture - Preliminary Blood NEGATIVE TO DATE A&P Assessment and plan (1) MCDUFFIE (dyspnea on exertion): (2) Thrombocytopenia: (3) CKD (chronic kidney disease): (4) Esophageal spasm: (5) Goals of care, counseling/discussion: (6) BPH (benign prostatic hyperplasia): Qualifiers: Lower urinary tract symptom presence: symptoms present Lower urinary tract symptom detail: urinary hesitancy Qualified Code(s): N40.1 - Benign prostatic hyperplasia with lower urinary tract symptoms; R39.11 - Hesitancy of micturition (7) Cardiomyopathy: Qualifiers: Cardiomyopathy type: ischemic Qualified Code(s): I25.5 - Ischemic cardiomyopathy (8) Iron overload due to repeated red blood cell transfusions: (9) CHF (congestive heart failure): (10) Aortic valve stenosis: Qualifiers: Cardiac valve disease etiology: nonrheumatic Qualified Code(s): I35.0 - Nonrheumatic aortic (valve) stenosis (11) Type 2 diabetes mellitus: Qualifiers: Diabetes mellitus jail insulin use: without long term care administrator use Diabetes mellitus complication detail: with chronic kidney disease Chronic kidney disease stage: unspecified stage (12) Myelodysplastic syndrome: (13) Ischemic cardiomyopathy: Plan Recurrent admissions in setting of cardiomyopathy Did respond well to diuresis, although did not have Greene after declined it for a while, had finally agreed to it. Requested. Continue to monitor ROBIN. Persistent edema though appears to be responding to diuresis. Requiring 2 L nasal cannula oxygen. Continue attempts at gentle diuresis. At risk of hypotension with aortic stenosis, monitor blood pressures. At risk of electrolyte abnormality, renal dysfunction, reassess chemistry. Reviewed CBC, chemistry. With agitation last night with recurrence of acute encephalopathy, had can region and agitation during last hospitalization. Reviewed, noted unremarkable. Suspect acute metabolic encephalopathy. Continue treatment of CHF exacerbation. Reorient. One-to-one sitter. Severe aortic valve stenosis. Reviewed cardiology documentation In case of further worsening they might opt for hospice care Surgical option is not feasible because of thrombocytopenia anemia due to MDS Acute on chronic hypoxia: Related to CHF exacerbation Currently requiring 4 L At baseline uses 2-3L Severe anemia and thrombocytopenia, ideally his hemoglobin should stay above 8 Receiving 1 unit RBC. Follow-up blood counts requested. Severe thrombocytopenia not a candidate to be on any kind of anticoagulating agent Chronic kidney disease creatinine seems around baseline Cardiac diet Attestations Medical Necessity Statement*: Continue admission for assessment management of CHF exacerbation, agitation with acute encephalopathy. and High MDM includes number and complexity of problems actively addressed during encounter and described risk of complication, morbidity or mortality of management as documented Diagnoses MCDUFFIE (dyspnea on exertion) R06.09 Thrombocytopenia D69.6 CKD (chronic kidney disease) N18.9 Esophageal spasm K22.4 Goals of care, counseling/discussion Z71.89 BPH (benign prostatic hyperplasia) N40.1; R39.11 Lower urinary tract symptom presence: symptoms present Lower urinary tract symptom detail: urinary hesitancy Cardiomyopathy I25.5 Cardiomyopathy type: ischemic Iron overload due to repeated red blood cell transfusions E83.111 CHF (congestive heart failure) I50.9 Aortic valve stenosis I35.0 Cardiac valve disease etiology: nonrheumatic Type 2 diabetes mellitus E11.9 Diabetes mellitus jail insulin use: without jail use Diabetes mellitus complication detail: with chronic kidney disease Chronic kidney disease stage: unspecified stage Myelodysplastic syndrome D46.9 Ischemic cardiomyopathy I25.5
[2023-07-03] VITALS (55 sets, daily range): BP systolic 92–123; BP diastolic 49–75; PULSE 60–106; RESP 14–28; TEMP 36.6–36.8; O2SAT 91–100
[2023-07-03] MEDS: FUROsemide 100 MG in sodium chloride 0.9% 40 ML 10 MG IV (01:07)
[2023-07-03 06:36] LABS: Basophils % 0.2 %; Eosinophils % 0.2 %; Lymphocytes # 1.1 10^3/uL (0.8-4.8); Lymphocytes % 19.6 %; Mean Corpuscular HGB Conc 31.1 g/dL (30-55); Mean Corpuscular Hemoglobin 26.9 pg (27-33); Mean Corpuscular Volume 86.6 fl (82-101); Monocytes % 17.6 %; Neutrophils # 3.11 10^3/uL (1.8-7.7); Neutrophils % 55.4 %; Nucleated Red Blood Cells % 0.7 %; Platelet Count 35 10^3/cmm (157-399); Red Blood Count 2.38 10^6/uL (3.85-5.65); Red Cell Distribution Width 21.1 % (12.1-15.1); White Blood Count 5.61 10^3/uL (3.29-11.43)
[2023-07-03 07:03] LABS: Anion Gap 12.7 (5-19); Blood Urea Nitrogen 51 mg/dL (8-23); Carbon Dioxide 30 mmol/L (22-29); Chloride 99 mmol/L (98-107); Glucose 122 mg/dL (65-115); Osmolality Calculated 299 mOsm/kg (285-295); Potassium 4.7 mmol/L (3.5-5.1); Sodium 137 mmol/L (136-145)
[2023-07-03 07:26] LABS: Hematocrit 20.6 % (37-53)
[2023-07-03 07:28] LABS: Slide Review Slide Review Perform
[2023-07-03] MEDS: ipratropium-albuterol 3 mL Neb INHALATION (08:28)
[2023-07-03] MEDS: sodium chloride 0.9% 100 mL Bag 50 ML IV (09:46)
[2023-07-03] MEDS: pantoprazole DR 40 mg Tablet PO (11:01)
[2023-07-03] MEDS: metOLazone 5 MG Tablet PO (11:01)
[2023-07-03] MEDS: metoprolol tartrate 25 mg Tablet PO ×2 (11:01→20:23)
[2023-07-03] MEDS: levothyroxine 50 mcg Tablet PO (11:01)
[2023-07-03] MEDS: finasteride 5 mg Tablet PO (11:02)
[2023-07-03] MEDS: CLONazepam 1 mg Tablet 0.5 MG PO ×3 (11:02→20:23)
[2023-07-03] MEDS: ranolazine (12HR) 500 mg Tablet PO ×2 (11:02→16:42)
[2023-07-03] MEDS: clopidogrel 75 mg Tablet PO (11:02)
[2023-07-03] MEDS: tamsulosin 0.4 mg Capsule PO (11:03)
[2023-07-03] MEDS: atorvastatin 40 mg Tablet PO (11:03)
[2023-07-03] MEDS: sennosides-docusate Tablet 1 TAB PO (11:03)
[2023-07-03] MEDS: FUROsemide 10 mg/mL SDV 4mL 40 MG IVP ×2 (11:03→20:21)
[2023-07-03] MEDS: acetaminophen 500 mg Tablet PO ×2 (13:16→20:23)
--- NOTE | 2023-07-03 14:45 | PM.PN ---
Subjective Subjective: Hospital course, labs appreciated. As per nursing staff patient had episode of agitation yesterday for which she required Zyprexa. Seen with sitter at bedside. On examination patient sleeping in bed, wakes up to verbal stimulus, on waking up able to tell his name, oriented to place but not time. Denies any nausea, vomiting, headache. During the day patient did have episode of agitation and confusion unfortunately was not directable so was given Haldol Blood work showed hemoglobin down to 6.4, platelet count of 35,000, stable, CMP showing creatinine worsening to 2.4 with BUN 51 Vitals/I&O/Wt Last Vital Signs Temp 97.9 F 07/03/23 13:00 Pulse 74 07/03/23 13:00 Resp 20 H 07/03/23 13:00 BP 100/63 07/03/23 13:00 Pulse Ox 97 07/03/23 13:00 O2 Del Method Nasal Cannula 07/03/23 13:00 O2 Flow Rate 2 07/03/23 08:30 07/02/23 07/03/23 07/03/23 22:59 06:59 14:59 Intake Total 50 / 196.367 63.666 / 260.033 300 / 300 Output Total 1200 / 1200 350 / 1550 Balance -1150 / -1003.633 -286.334 / -1289.967 300 / 300 Weight last 48 hrs Weight 101.151 kg Weight 103.464 kg Physical Exam Const: COMMON NORMALS: alert GENERAL APPEARANCE: cooperative and frail appearing ORIENTATION/CONSCIOUSNESS: Yes awake, Yes oriented to person, Yes oriented to place and Yes confused HENMT: COMMON NORMALS: oropharynx normal Neck/C-Spine: COMMON NORMALS: no JVD Resp: COMMON NORMALS: normal respiratory effort AUSCULTATION: diminished lung sounds Cardio: COMMON NORMALS: no JVD, regular rhythm, S1 normal heart sound present, S2 normal heart sound present and No murmurs present (Cardio) RHYTHM: regular rhythm HEART SOUNDS: S1 normal heart sound present and S2 normal heart sound present GI: COMMON NORMALS: Normal to inspection, nondistended, normoactive bowel sounds present, Soft to palpation and non-tender PALPATION: Yes Soft to palpation Extremity: COMMON NORMALS: no joint enlargement GENERAL: Yes edema (3+ BL LE edema) Neuro: COMMON NORMALS: moves all extremities SENSORIUM/ORIENTATION: Yes alert, Yes oriented to person and Yes oriented to place Urinary Catheter Management: Greene: Cath Placed During This Visit: yes Reason for Continuing Indwelling Catheter: Acute Urinary Retention or Obstruction Urinary Catheter Date of Insertion: 07/02/23 Urinary Catheter Time of Insertion: 10:35 Data 07/03/23 06:12 07/03/23 06:12 A&P Assessment and plan (1) Encephalopathy: (2) CHF (congestive heart failure): (3) Ischemic cardiomyopathy: (4) Anemia: Qualifiers: Anemia type: unspecified type Qualified Code(s): D64.9 - Anemia, unspecified (5) Thrombocytopenia: (6) Myelodysplastic syndrome: (7) MCDUFFIE (dyspnea on exertion): (8) Acute kidney injury superimposed on chronic kidney disease: (9) CKD (chronic kidney disease): (10) Aortic valve stenosis: Qualifiers: Cardiac valve disease etiology: nonrheumatic Qualified Code(s): I35.0 - Nonrheumatic aortic (valve) stenosis (11) Cardiomyopathy: Qualifiers: Cardiomyopathy type: ischemic Qualified Code(s): I25.5 - Ischemic cardiomyopathy (12) Type 2 diabetes mellitus: Qualifiers: Diabetes mellitus material planning analyst insulin use: without correction use Diabetes mellitus complication detail: with chronic kidney disease Chronic kidney disease stage: unspecified stage (13) Goals of care, counseling/discussion: Plan Encephalopathy: Most likely worsening of dementia in setting of acute illness and multiple hospitalization. Patient does have history of anxiety. Restart home dose of Klonopin. Sitter at bedside. Frequent reorientation, fall precautions. Acute on chronic hypoxia: Most likely in setting of congestive heart failure from severe aortic stenosis and cardiomyopathy. Currently on Lasix drip. Patient developing acute on chronic CKD with creatinine going up to 2.4. Continue Greene catheter hydration, fluid restriction up to 1500 cc. Switch to Lasix 40 mg IV twice daily. Start on metolazone 5 mg oral daily. Strict input charting, daily weights. Last echocardiogram EF of 30 to 35%, mild dilated LV cavity, grade 2 diastolic dysfunction, mild dilated LA severe low gradient aortic valve stenosis with peak velocity of 3.06. Acute on chronic kidney disease: Baseline creatinine seems to be ranging from 1.5-2. Currently 2.4 with mild elevation in BUN. Check BMP daily. Medical reconciliation done for nephrotoxic drugs. Severe anemia/thrombocytopenia: History of mild dysplastic syndrome. Hemoglobin less than 7. Target hemoglobin around 8. Transfused 2 unit of PRBC. Monitor CBC daily for now. Restart multiple home medications including Plavix, finasteride, Klonopin, atorvastatin, allopurinol, Protonix, Flomax. Goals of care discussion: If patient is not improving or worsening in mentation or clinical setting family would like to discuss further with the possibility of hospice care. DNR/DNI Cardiac diet with fluid restriction of 1200 cc, Nepro protein shakes. Protonix for PUD prophylaxis SCDs for DVT prophylaxis given significant thrombocytopenia. Attestations Medical Necessity Statement*: Requires further hospitalization for management of encephalopathy in setting of worsening dementia, acute on chronic hypoxia from congestive heart failure, acute on chronic CKD Diagnoses Encephalopathy G93.40 CHF (congestive heart failure) I50.9 Ischemic cardiomyopathy I25.5 Anemia D64.9 Anemia type: unspecified type Thrombocytopenia D69.6 Myelodysplastic syndrome D46.9 MCDUFFIE (dyspnea on exertion) R06.09 Acute kidney injury superimposed on chronic kidney disease N17.9; N18.9 CKD (chronic kidney disease) N18.9 Aortic valve stenosis I35.0 Cardiac valve disease etiology: nonrheumatic Cardiomyopathy I25.5 Cardiomyopathy type: ischemic Type 2 diabetes mellitus E11.9 Diabetes mellitus material planning analyst insulin use: without correction use Diabetes mellitus complication detail: with chronic kidney disease Chronic kidney disease stage: unspecified stage Goals of care, counseling/discussion Z71.89
[2023-07-03] MEDS: haloperidol inj 5 mg/mL INJ 1 mL 1 MG IM (16:43)
--- NOTE | 2023-07-03 17:55 | PC.SOCIAL ---
PG 2 IMM Provided pt a copy of Pg 2 IMM. Will explain to pt's family via phone, since pt is confused at this time. Initialed, dated, & timed a copy & placed in chart.
[2023-07-04] VITALS (10 sets, daily range): BP systolic 92–132; BP diastolic 54–66; PULSE 62–99; RESP 18–89; TEMP 36.4–36.9; O2SAT 72–98
[2023-07-04] MEDS: levothyroxine 50 mcg Tablet PO (04:00)
[2023-07-04] MEDS: acetaminophen 500 mg Tablet PO (04:00)
[2023-07-04] MEDS: allopurinol 300 mg Tablet PO (07:10)
[2023-07-04 08:24] LABS: Alanine Aminotransferase 10 U/L (0-41); Albumin Level 3.9 g/dL (3.5-5.2); Alkaline Phosphatase 72 U/L (40-130); Anion Gap 16.7 (5-19); Aspartate Amino Transferase 11 U/L (0-40); Blood Urea Nitrogen 57 mg/dL (8-23); Calcium 9.2 mg/dL (8.5-10.5); Carbon Dioxide 29 mmol/L (22-29); Chloride 96 mmol/L (98-107); Globulin 3.6 g/dL (1.3-4.6); Glucose 116 mg/dL (65-115); Osmolality Calculated 301 mOsm/kg (285-295); Potassium 4.7 mmol/L (3.5-5.1); Sodium 137 mmol/L (136-145); Total Bilirubin 1.2 mg/dL (0.15-1.2); Total Protein 7.5 g/dL (6.6-8.7)
[2023-07-04 08:28] LABS: Magnesium 2.4 mg/dL (1.7-2.3)
--- NOTE | 2023-07-04 08:56 | PC.NURSE ---
Physician Orders: Haldol IM 1mg q6h
[2023-07-04 09:19] LABS: Basophils % 0.4 %; Eosinophils % 0.2 %; Hematocrit 29.4 % (37-53); Lymphocytes # 1.2 10^3/uL (0.8-4.8); Lymphocytes % 22.4 %; Mean Corpuscular Hemoglobin 26.8 pg (27-33); Mean Corpuscular Volume 86.7 fl (82-101); Monocytes # 0.7 10^3/uL (0.2-0.9); Monocytes % 13.5 %; Neutrophils # 2.97 10^3/uL (1.8-7.7); Neutrophils % 55.5 %; Nucleated Red Blood Cells # 0.1 /100WBC; Nucleated Red Blood Cells % 0.9 %; Platelet Count 33 10^3/cmm (157-399); Red Blood Count 3.39 10^6/uL (3.85-5.65); Red Cell Distribution Width 19.7 % (12.1-15.1); White Blood Count 5.35 10^3/uL (3.29-11.43)
[2023-07-04 09:26] LABS: Slide Review Slide Review Perform
[2023-07-04] MEDS: pantoprazole DR 40 mg Tablet PO (09:46)
[2023-07-04] MEDS: metoprolol tartrate 25 mg Tablet PO ×2 (09:46→21:43)
[2023-07-04] MEDS: sennosides-docusate Tablet 1 TAB PO (09:46)
[2023-07-04] MEDS: ranolazine (12HR) 500 mg Tablet PO (09:46)
[2023-07-04] MEDS: clopidogrel 75 mg Tablet PO (09:46)
[2023-07-04] MEDS: FUROsemide 10 mg/mL SDV 4mL 40 MG IVP ×2 (09:46→21:43)
[2023-07-04] MEDS: metOLazone 5 MG Tablet PO (09:46)
[2023-07-04] MEDS: CLONazepam 1 mg Tablet 0.5 MG PO ×2 (09:46→21:43)
--- NOTE | 2023-07-04 12:28 | CT_ITS ---
WS: [id number] CT HEAD TECHNIQUE: Noncontrast CT of the head obtained from the skullbase to the vertex. CLINICAL INFORMATION: ams COMPARISON: None. DLP: 1121.[address] scans at [facility] use at least one of these dose optimization techniques: automated e xposure control; mA and/or kV adjustment per patient size (includes targeted exams where dose is matc hed to clinical indication); or iterative reconstruction. FINDINGS: No evidence of intracranial hemorrhage or mass effect. Ventricular system and basal cisterns are corrales nt. Moderate small vessel changes with moderate parenchymal volume loss. No extra-axial fluid collect ions. No evidence of mass or mass effect. Intracranial vascular calcification. Paranasal sinuses and mastoid air cells are well aerated. 1.5 cm retention cyst LEFT maxillary sinus. Normal visualized soft tissues. IMPRESSION: 1. No evidence of intracranial hemorrhage or mass effect. 2. Moderate small vessel changes with moderate parenchymal volume loss. 3. No acute intracranial findings.
--- NOTE | 2023-07-04 12:46 | PM.PN ---
Subjective Subjective: No acute events overnight. Patient did have 1 episode of agitation yesterday evening for which she received Haldol. Patient received further dose of Haldol earlier today morning for agitation and trying to climb out of bed. On examination patient is laying comfortably in bed, awake and alert to self and being in place. He does have episodes of confusion. Patient states he is scared. Sitter at bedside. Otherwise has remained hemodynamically stable and afebrile.Document urine output of around 1115 last 24 hours. Blood work shows a stable CBC with improvement of hemoglobin up to 9.1 after blood transfusion yesterday, creatinine up to 3 with BUN of 57 Vitals/I&O/Wt Last Vital Signs Temp 97.6 F 07/04/23 08:00 Pulse 76 07/04/23 11:58 Resp 18 07/04/23 11:58 BP 132/62 07/04/23 11:58 Pulse Ox 96 07/04/23 11:58 O2 Del Method Nasal Cannula 07/04/23 11:58 O2 Flow Rate 2 07/04/23 11:58 07/03/23 07/04/23 07/04/23 22:59 06:59 14:59 Intake Total 571.017 / 871.017 120 / 120 Output Total 1150 / 1150 Balance -578.983 / -278.983 120 / 120 Weight last 48 hrs Weight 102.228 kg Weight 101.151 kg Physical Exam Const: COMMON NORMALS: alert GENERAL APPEARANCE: cooperative and frail appearing ORIENTATION/CONSCIOUSNESS: Yes awake, Yes oriented to person, Yes oriented to place and Yes confused HENMT: COMMON NORMALS: oropharynx normal Neck/C-Spine: COMMON NORMALS: no JVD Resp: COMMON NORMALS: normal respiratory effort AUSCULTATION: diminished lung sounds Cardio: COMMON NORMALS: no JVD, regular rhythm, S1 normal heart sound present, S2 normal heart sound present and No murmurs present (Cardio) RHYTHM: regular rhythm HEART SOUNDS: S1 normal heart sound present and S2 normal heart sound present GI: COMMON NORMALS: Normal to inspection, nondistended, normoactive bowel sounds present, Soft to palpation and non-tender PALPATION: Yes Soft to palpation Extremity: COMMON NORMALS: no joint enlargement GENERAL: Yes edema (3+ BL LE edema) Neuro: COMMON NORMALS: moves all extremities SENSORIUM/ORIENTATION: Yes alert, Yes oriented to person and Yes oriented to place Urinary Catheter Management: Greene: Cath Placed During This Visit: yes Reason for Continuing Indwelling Catheter: Acute Urinary Retention or Obstruction Urinary Catheter Date of Insertion: 07/02/23 Urinary Catheter Time of Insertion: 10:35 Data 07/04/23 03:40 07/04/23 03:40 A&P Assessment and plan (1) Encephalopathy: (2) CHF (congestive heart failure): (3) Ischemic cardiomyopathy: (4) Anemia: Qualifiers: Anemia type: unspecified type Qualified Code(s): D64.9 - Anemia, unspecified (5) Thrombocytopenia: (6) Myelodysplastic syndrome: (7) Acute kidney injury superimposed on chronic kidney disease: (8) CKD (chronic kidney disease): (9) Aortic valve stenosis: Qualifiers: Cardiac valve disease etiology: nonrheumatic Qualified Code(s): I35.0 - Nonrheumatic aortic (valve) stenosis (10) Cardiomyopathy: Qualifiers: Cardiomyopathy type: ischemic Qualified Code(s): I25.5 - Ischemic cardiomyopathy (11) Type 2 diabetes mellitus: Qualifiers: Diabetes mellitus shelter insulin use: without data processing equipment repairer use Diabetes mellitus complication detail: with chronic kidney disease Chronic kidney disease stage: unspecified stage (12) Goals of care, counseling/discussion: Plan Encephalopathy: Most likely worsening of underlying dementia in setting of acute illness and multiple hospitalization. Patient does have history of anxiety. Continue with home dose of Klonopin. Will add Haldol 1 mg IM every 6 as needed. Sitter at bedside. Frequent reorientation, fall precautions. Acute on chronic hypoxia: Most likely in setting of congestive heart failure from severe aortic stenosis and cardiomyopathy. Patient close to achieving euvolemia with worsening on renal functions. For now continue with IV Lasix 40 mg twice daily along with metolazone 5 mg daily. Fluid restriction up to 1500 cc. Strict input charting, daily weights. Last echocardiogram EF of 30 to 35%, mild dilated LV cavity, grade 2 diastolic dysfunction, mild dilated LA severe low gradient aortic valve stenosis with peak velocity of 3.06. Acute on chronic kidney disease: Baseline creatinine seems to be ranging from 1.5-2. Creatinine continues to worsen. For now we will continue IV diuresis and monitor BMP twice daily. High concerns for patient being intravascular depleted given baseline significant severe aortic stenosis. Medical reconciliation done for nephrotoxic drugs. Given aggressive IV diuresis will monitor electrolytes. Currently potassium stable. Severe anemia/thrombocytopenia: History of mild dysplastic syndrome. Post 2 unit blood transfusion. Hemoglobin appropriately elevated to more than 9. Monitor CBC daily for now. Restart multiple home medications including Plavix, finasteride, Klonopin, atorvastatin, allopurinol, Protonix, Flomax. Goals of care discussion: If patient is not improving or worsening in mentation or clinical setting family would like to discuss further with the possibility of hospice care. DNR/DNI Cardiac diet with fluid restriction of 1200 cc, Nepro protein shakes. Protonix for PUD prophylaxis SCDs for DVT prophylaxis given significant thrombocytopenia. Goals of care: Discussed in detail with patient's son Mr. Wilson over the phone. We discussed it seems patient has worsening mental status because of underlying undiagnosed dementia getting worse and by his diagnosed anxiety which has been getting worse because of multiple recent admissions. Also discussed about concerns for fluid retention/overload in setting of severe slow flow aortic stenosis leading to RADHA on CKD. Discussed that it is quite possible patient is close to euvolemia but failure slightly fluid overloaded given renal dysfunction and there is a high chance of patient ending up being on dialysis. Discussed patient's mentation might improve but cannot be said for sure if he is in his baseline regular surroundings. Son verbalized understanding. Discussed option of hospice given his advanced age and multiple comorbidities as stated above. Son verbalized understanding and is agreeable for hospice. He would want field nurse case manager discussed options of hospice with his . Case management alerted. Attestations Medical Necessity Statement*: Requires further hospitalization for management of encephalopathy in setting of worsening baseline dementia, acute on chronic hypoxia in setting of congestive heart failure with baseline severe slow flow aortic stenosis, acute on chronic kidney disease, acute anemia requiring blood transfusions secondary to MDS while hospice is set up Diagnoses Encephalopathy G93.40 CHF (congestive heart failure) I50.9 Ischemic cardiomyopathy I25.5 Anemia, unspecified type D64.9 Anemia type: unspecified type Thrombocytopenia D69.6 Myelodysplastic syndrome D46.9 Acute kidney injury superimposed on chronic kidney disease N17.9; N18.9 CKD (chronic kidney disease) N18.9 Nonrheumatic aortic valve stenosis I35.0 Cardiac valve disease etiology: nonrheumatic Cardiomyopathy I25.5 Cardiomyopathy type: ischemic Type 2 diabetes mellitus E11.9 Diabetes mellitus shelter insulin use: without shelter use Diabetes mellitus complication detail: with chronic kidney disease Chronic kidney disease stage: unspecified stage Goals of care, counseling/discussion Z71.89
[2023-07-04] MEDS: haloperidol inj 5 mg/mL INJ 1 mL 1 MG IM (13:19)
[2023-07-04] MEDS: atorvastatin 40 mg Tablet PO (13:19)
[2023-07-04] MEDS: tamsulosin 0.4 mg Capsule PO (13:19)
[2023-07-04] MEDS: finasteride 5 mg Tablet PO (13:19)
[2023-07-04] MEDS: ondansetron 2 mg/ML SDV 2 mL 4 MG IVP (15:08)
[2023-07-05] VITALS (11 sets, daily range): BP systolic 90–125; BP diastolic 48–68; PULSE 78–103; RESP 20–28; TEMP 36.7–41.7; O2SAT 87–93
[2023-07-05] MEDS: allopurinol 300 mg Tablet PO (06:16)
[2023-07-05] MEDS: levothyroxine 50 mcg Tablet PO (06:16)
[2023-07-05 07:42] LABS: Basophils % 0.2 %; Hematocrit 29.1 % (37-53); Lymphocytes # 0.6 10^3/uL (0.8-4.8); Lymphocytes % 11.1 %; Mean Corpuscular HGB Conc 30.6 g/dL (30-55); Mean Corpuscular Hemoglobin 27.1 pg (27-33); Mean Corpuscular Volume 88.4 fl (82-101); Monocytes # 0.7 10^3/uL (0.2-0.9); Monocytes % 14.9 %; Neutrophils # 3.37 10^3/uL (1.8-7.7); Nucleated Red Blood Cells # 0.1 /100WBC; Nucleated Red Blood Cells % 1.4 %; Platelet Count 34 10^3/cmm (157-399); Red Blood Count 3.29 10^6/uL (3.85-5.65); Red Cell Distribution Width 19.9 % (12.1-15.1); White Blood Count 4.96 10^3/uL (3.29-11.43)
[2023-07-05] MEDS: FUROsemide 10 mg/mL SDV 4mL 40 MG IVP ×2 (07:48→22:01)
[2023-07-05 07:58] LABS: Alanine Aminotransferase 8 U/L (0-41); Albumin Level 3.8 g/dL (3.5-5.2); Alkaline Phosphatase 74 U/L (40-130); Anion Gap 18.9 (5-19); Aspartate Amino Transferase 12 U/L (0-40); Blood Urea Nitrogen 58 mg/dL (8-23); Calcium 9.1 mg/dL (8.5-10.5); Carbon Dioxide 26 mmol/L (22-29); Chloride 93 mmol/L (98-107); Globulin 3.5 g/dL (1.3-4.6); Glucose 145 mg/dL (65-115); Osmolality Calculated 295 mOsm/kg (285-295); Potassium 4.9 mmol/L (3.5-5.1); Sodium 133 mmol/L (136-145); Total Bilirubin 1.3 mg/dL (0.15-1.2); Total Protein 7.3 g/dL (6.6-8.7)
[2023-07-05 08:13] LABS: Magnesium 2.2 mg/dL (1.7-2.3)
[2023-07-05 08:48] LABS: Slide Review Slide Review Perform
[2023-07-05] MEDS: acetaminophen 500 mg Tablet PO (09:11)
[2023-07-05] MEDS: ranolazine (12HR) 500 mg Tablet PO ×2 (09:18→19:18)
[2023-07-05] MEDS: clopidogrel 75 mg Tablet PO (09:19)
[2023-07-05] MEDS: metoprolol tartrate 25 mg Tablet PO (09:19)
[2023-07-05] MEDS: metOLazone 5 MG Tablet PO (09:19)
--- NOTE | 2023-07-05 10:21 | ECG_ITS ---
[facility] Test Date: 2023-07-05 Pat Name: Guido Crump Department: Room: 107 Gender: Male Accounts Payable Representative: : 1940 Requested By: Jose Ken Order Number: [id number] Tari MD: Casandra Wu M.D. Measurements Intervals Connell Rate: 94 P: 24 UT: 164 QRS: 37 QRSD: 111 T: -7 QT: 387 QTc: 486 Interpretive Statements SINUS RHYTHM NONSPECIFIC ST & T-WAVE ABNORMALITY, consider ischemia Compared to ECG 06/30/2023 19:02:06 Sinus tachycardia no longer present No significant change Electronically Signed On 07-06-2023 16:44:22 2ND GRADE TEACHER by Casandra Wu M.D. [id number]
[2023-07-05] MEDS: atorvastatin 40 mg Tablet PO (11:58)
[2023-07-05] MEDS: CLONazepam 1 mg Tablet 0.5 MG PO (11:59)
[2023-07-05] MEDS: tamsulosin 0.4 mg Capsule PO (12:07)
[2023-07-05] MEDS: finasteride 5 mg Tablet PO (12:07)
--- NOTE | 2023-07-05 12:12 | P.PN_ITS ---
Subjective 2 Subjective: No acute vents overnight. Patient has remained hemodynamically stable and afebrile. As per the nursing staff patient had a restful night. Did not have any events of agitation. Patient sleeping during examination but waking up in between, continues to remain confused. Does wake up on and off asking for help. Does have baseline anxiety. Documented urine output of around 1300 cc in last 24 hours. Continues to remain on 2 L of oxygen supplementation. Tmax in last 24 hours 100.4 Fahrenheit. Vitals/I&O/Wt Last Vital Signs Temp 100.4 F H 07/05/23 11:23 Pulse 82 07/05/23 11:23 Resp 28 H 07/05/23 11:23 BP 90/48 07/05/23 11:23 Pulse Ox 90 07/05/23 11:23 O2 Del Method Nasal Cannula 07/05/23 11:23 O2 Flow Rate 4 07/05/23 08:34 07/04/23 07/05/23 07/05/23 22:59 06:59 14:59 Intake Total 200 / 320 Output Total 1325 / 1325 440 / 440 Balance -1125 / -1005 -440 / -440 Weight last 48 hrs Weight 99.79 kg Weight 102.228 kg Physical Exam 2 Const: COMMON NORMALS: alert GENERAL APPEARANCE: cooperative and frail appearing ORIENTATION/CONSCIOUSNESS: Yes awake, Yes oriented to person, Yes oriented to place and Yes confused HENMT: COMMON NORMALS: oropharynx normal Neck/C-Spine: COMMON NORMALS: no JVD Resp: COMMON NORMALS: normal respiratory effort AUSCULTATION: diminished lung sounds Cardio: COMMON NORMALS: no JVD, regular rhythm, S1 normal heart sound present, S2 normal heart sound present and No murmurs present (Cardio) RHYTHM: regular rhythm HEART SOUNDS: S1 normal heart sound present and S2 normal heart sound present GI: COMMON NORMALS: Normal to inspection, nondistended, normoactive bowel sounds present, Soft to palpation and non-tender PALPATION: Yes Soft to palpation Extremity: COMMON NORMALS: no joint enlargement GENERAL: Yes edema (3+ BL LE edema) Neuro: COMMON NORMALS: moves all extremities SENSORIUM/ORIENTATION: Yes alert, Yes oriented to person and Yes oriented to place Urinary Catheter Management: Greene: Cath Placed During This Visit: yes Reason for Continuing Indwelling Catheter: Not indwelling catheter Urinary Catheter Date of Insertion: 07/02/23 Urinary Catheter Time of Insertion: 10:35 Data 07/05/23 07:25 07/05/23 07:25 A&P Assessment and plan (1) Encephalopathy: (2) CHF (congestive heart failure): (3) Ischemic cardiomyopathy: (4) Anemia: Qualifiers: Anemia type: unspecified type Qualified Code(s): D64.9 - Anemia, unspecified (5) Thrombocytopenia: (6) Myelodysplastic syndrome: (7) Acute kidney injury superimposed on chronic kidney disease: (8) CKD (chronic kidney disease): (9) Aortic valve stenosis: Qualifiers: Cardiac valve disease etiology: nonrheumatic Qualified Code(s): I35.0 - Nonrheumatic aortic (valve) stenosis (10) Cardiomyopathy: Qualifiers: Cardiomyopathy type: ischemic Qualified Code(s): I25.5 - Ischemic cardiomyopathy (11) Type 2 diabetes mellitus: Qualifiers: Diabetes mellitus senior care insulin use: without senior care use Diabetes mellitus complication detail: with chronic kidney disease Chronic kidney disease stage: unspecified stage (12) Goals of care, counseling/discussion: Plan Encephalopathy: Most likely worsening of underlying dementia in setting of acute illness and multiple hospitalization. Patient does have history of anxiety. Continue with home dose of Klonopin. Will add Haldol 1 mg IM every 6 as needed. Continues to remain confused. No agitation. Frequent reorientation, fall precautions. Acute on chronic hypoxia: Most likely in setting of congestive heart failure from severe aortic stenosis and cardiomyopathy. Patient close to achieving euvolemia with worsening on renal functions. For now continue with IV Lasix 40 mg twice daily along with metolazone 5 mg daily. Fluid restriction up to 1500 cc. Strict input charting, daily weights. Last echocardiogram EF of 30 to 35%, mild dilated LV cavity, grade 2 diastolic dysfunction, mild dilated LA severe low gradient aortic valve stenosis with peak velocity of 3.06. Acute on chronic kidney disease: Baseline creatinine seems to be ranging from 1.5-2. Creatinine slightly improved today. For now we will continue IV diuresis and monitor BMP twice daily. High concerns for patient being intravascular depleted given baseline significant severe aortic stenosis. Medical reconciliation done for nephrotoxic drugs. Given aggressive IV diuresis will monitor electrolytes. Currently potassium stable. Severe anemia/thrombocytopenia: History of mild dysplastic syndrome. Post 2 unit blood transfusion. Hemoglobin stable and appropriately elevated to more than 9. Restart multiple home medications including Plavix, finasteride, Klonopin, atorvastatin, allopurinol, Protonix, Flomax. Goals of care discussion: If patient is not improving or worsening in mentation or clinical setting family would like to discuss further with the possibility of hospice care. DNR/DNI Cardiac diet with fluid restriction of 1200 cc, Nepro protein shakes. Protonix for PUD prophylaxis SCDs for DVT prophylaxis given significant thrombocytopenia. Goals of care: Discussed in detail with patient's son Mr. Wilson over the phone. We discussed it seems patient has worsening mental status because of underlying undiagnosed dementia getting worse and by his diagnosed anxiety which has been getting worse because of multiple recent admissions. Also discussed about concerns for fluid retention/overload in setting of severe slow flow aortic stenosis leading to RADHA on CKD. Discussed that it is quite possible patient is close to euvolemia but failure slightly fluid overloaded given renal dysfunction and there is a high chance of patient ending up being on dialysis. Discussed patient's mentation might improve but cannot be said for sure if he is in his baseline regular surroundings. Son verbalized understanding. Discussed option of hospice given his advanced age and multiple comorbidities as stated above. Son verbalized understanding and is agreeable for hospice. He would want case work aide discussed options of hospice with his . 07/05: Discussed in detail with patient's family both by myself and case management. Son and [id number] would want to go ahead and pursue hospice. Plan: Hospice referral. Case management alerted for setting up of hospice at SNF. For now continue with IV diuresis. Will repeat CMP in AM. Continue with other chronic medications. Attestations 2 Medical Necessity Statement*: Requires further hospitalization for management of acute on chronic hypoxia in setting of congestive heart failure, severe aortic stenosis, acute on chronic CKD while hospice is set up Diagnoses Encephalopathy G93.40 CHF (congestive heart failure) I50.9 Ischemic cardiomyopathy I25.5 Anemia, unspecified type D64.9 Anemia type: unspecified type Thrombocytopenia D69.6 Myelodysplastic syndrome D46.9 Acute kidney injury superimposed on chronic kidney disease N17.9; N18.9 CKD (chronic kidney disease) N18.9 Nonrheumatic aortic valve stenosis I35.0 Cardiac valve disease etiology: nonrheumatic Cardiomyopathy I25.5 Cardiomyopathy type: ischemic Type 2 diabetes mellitus E11.9 Diabetes mellitus senior care insulin use: without senior care use Diabetes mellitus complication detail: with chronic kidney disease Chronic kidney disease stage: unspecified stage Goals of care, counseling/discussion Z71.89
--- NOTE | 2023-07-05 12:23 | PC.SOCIAL ---
IMM Update pg 2 of IMM updated and reviewed w/ patients daughter in law. Copy left @ bedside and copy dated, initialed and placed in chart.
--- NOTE | 2023-07-05 12:30 | PC.NURSE ---
Physician order- discontinue bedside sitter. Nurse told Sosa ro, who exited. Granddaughter currently in room with patient.
[2023-07-06 01:10] LABS: Adenovirus Not Detected (NOT DETECT); Chlamydia Pneumoniae Not Detected (NOT DETECT); Coronavirus 229E,HKU1,NL63,OC4 Not Detected (NOT DETECT); Human Metapneumovirus Not Detected (NOT DETECT); Human Rhinovirus/Enterovirus Not Detected (NOT DETECT); Influenza A Not Detected (NOT DETECT); Influenza A H1 Not Detected (NOT DETECT); Influenza A H1-2009 Not Detected (NOT DETECT); Influenza A H3 Not Detected (NOT DETECT); Influenza B Not Detected (NOT DETECT); Mycoplasma Pneumoniae Not Detected (NOT DETECT); Parainfluenza Virus Type 1 Not Detected (NOT DETECT); Parainfluenza Virus Type 2 Not Detected (NOT DETECT); Parainfluenza Virus Type 3 Not Detected (NOT DETECT); Parainfluenza Virus Type 4 Not Detected (NOT DETECT); Respiratory Syncytial Virus A Not Detected (NOT DETECT); Respiratory Syncytial Virus B Not Detected (NOT DETECT); SARS-COV-2 Not Detected (NOT DETECT)
[2023-07-06 03:40] VITALS: BP 90/52; PULSE 89; RESP 20; TEMP 37.6; O2SAT 95
[2023-07-06] MEDS: levothyroxine 50 mcg Tablet PO (05:47)
[2023-07-06] MEDS: allopurinol 300 mg Tablet PO (05:47)
[2023-07-06 06:00] VITALS: PULSE 88
[2023-07-06 06:37] LABS: Magnesium 2.2 mg/dL (1.7-2.3)
[2023-07-06 06:38] LABS: Alanine Aminotransferase 10 U/L (0-41); Albumin Level 3.5 g/dL (3.5-5.2); Alkaline Phosphatase 58 U/L (40-130); Anion Gap 17.4 (5-19); Aspartate Amino Transferase 15 U/L (0-40); Blood Urea Nitrogen 78 mg/dL (8-23); Carbon Dioxide 27 mmol/L (22-29); Chloride 95 mmol/L (98-107); Globulin 3.5 g/dL (1.3-4.6); Glucose 138 mg/dL (65-115); Osmolality Calculated 306 mOsm/kg (285-295); Potassium 4.4 mmol/L (3.5-5.1); Sodium 135 mmol/L (136-145); Total Bilirubin 1.1 mg/dL (0.15-1.2)
[2023-07-06 07:33] VITALS: BP 109/61; PULSE 100; RESP 30; TEMP 37.9; O2SAT 90
[2023-07-06 08:00] VITALS: PULSE 99; RESP 19; O2SAT 92
[2023-07-06 08:58] LABS: Hematocrit 25.3 % (37-53); Mean Corpuscular HGB Conc 31.2 g/dL (30-55); Mean Corpuscular Hemoglobin 27.1 pg (27-33); Mean Corpuscular Volume 86.9 fl (82-101); Platelet Count 32 10^3/cmm (157-399); Red Blood Count 2.91 10^6/uL (3.85-5.65); Red Cell Distribution Width 19.6 % (12.1-15.1); White Blood Count 4.58 10^3/uL (3.29-11.43)
--- NOTE | 2023-07-06 09:02 | XR_ITS ---
WS: [id number] Portable AP upright chest, 07/06/2023 Clinical Data: Hypoxia Comparison: Portable chest, 06/30/2023 Findings: There are diffuse bilateral pulmonary opacity remains the same. The heart is enlarged. Ther e are no nodules or masses. No pneumothorax is seen. There are monitor leads on the chest wall. Impression: No change in diffuse bilateral pulmonary opacities which could represent pneumonia, chronic interstit ial lung disease, and a number of entities.
[2023-07-06] MEDS: CLONazepam 1 mg Tablet 0.5 MG PO (09:36)
[2023-07-06] MEDS: sennosides-docusate Tablet 1 TAB PO (09:36)
[2023-07-06] MEDS: clopidogrel 75 mg Tablet PO (09:36)
[2023-07-06] MEDS: pantoprazole DR 40 mg Tablet PO (09:36)
[2023-07-06] MEDS: ranolazine (12HR) 500 mg Tablet PO (09:36)
[2023-07-06] MEDS: metOLazone 5 MG Tablet PO (09:36)
[2023-07-06] MEDS: FUROsemide 10 mg/mL SDV 4mL 40 MG IVP (09:36)
[2023-07-06] MEDS: haloperidol inj 5 mg/mL INJ 1 mL 1 MG IM (09:36)
[2023-07-06] MEDS: cefTRIAXone 1,000 MG in sodium chloride 0.9% (plus) 50 ML 100 MG IV (09:37)
[2023-07-06] MEDS: metoprolol tartrate 25 mg Tablet PO (09:39)
--- NOTE | 2023-07-06 10:10 | PC.CHAP ---
Pastoral Care Encounter/Spiritual Assessment Type of Contact [] Declined collar separator visit [] Patient/Family/Request visit [] Outpatient visit [] Follow-up visit [] Physician referral [] Code/Alert [x] Routine visit [] Staff referral [] Actively dying [] Patient sleeping [] Family support [] [] Out of room [] Palliative care [] [x] Receiving care in room [] Pre-surgical visit [] Trauma [] Long length of stay [] ICU visit [x] Other: unable to communicat Relational/Emotional Strength [] Patient feels connected with others/family/visitors/staff [] Distress [] Loneliness/isolation [] Abandonment Spirituality of Patient [] Person of Aliyah [] Attends Sikh of their Aliyah [] Believes in Prayer [] Reads Bible or Voodoo materials [] There are Spiritual issues to be addressed Pizza Baker Interventions [] Prayer [] Active listening [] Non-anxious presence [] Spiritual/emotional support [] Crisis/trauma care [] Spiritual counseling [] Bereavement support [] Provided bereavement packet [] Provided Bible/devotional materials [] Provided toy/stuffed animal, coloring book to patient or family member [] Provided Communion [] Anointing/[place]y [] Salvation [] Completed spiritual assessment [] Other: Impact on Illness or Injury [] Angry [] Fearful [] Anxious [] Often cries [] Exhaustion [] Unable to work [] Unable to attend taoism [] Unable to walk/stand [] Unable to read [] Unable to drive [] Unable to eat/drink [] Unable to sleep [] Unable to be with family [] Patient intubated [] Other: Summary unable to communicat Time spent with patient 5 mins
[2023-07-06 10:12] LABS: Slide Review Slide Review Perform
[2023-07-06 10:13] LABS: Absolute Neutrophil 3.7 10^3/cmm (1.4-6.5); Absolute Segmented Neutrophil 3.3 10/cmm (1.6-7.1); Band Neutrophils Absolute 0.3 10^3/cmm (0.0-1.2); Eosinophils 0 %; Lymphocytes 9 %; Lymphocytes Absolute 0.4 10^3/cmm (1.2-3.4); Monocytes Absolute 0.5 10^3/cmm (0.1-0.6); Platelet Estimate Decreased (Normal); Segmented Neutrophils 73 %; Total Cells Counted 100 (0-100)
[2023-07-06 10:14] LABS: Anisocytosis 1+; Poikilocytosis 1+
[2023-07-06 11:22] VITALS: BP 107/49; PULSE 77; RESP 30; TEMP 38.5; O2SAT 94
--- NOTE | 2023-07-06 11:55 | PC.NURSE ---
Notified Dr. Ken that the pt has not produced any urine this morning as he is wanting a urine to be collected for another UA. Noted that the pt's creatinine has been elevating daily and was 3.2 this morning.
[2023-07-06 14:00] VITALS: PULSE 77
--- NOTE | 2023-07-06 14:31 | PM.PN ---
Subjective Subjective: No acute events overnight. Patient has remained hemodynamically. Stable. Patient afebrile. Tmax 101.3 Fahrenheit. On examination patient looks uncomfortable, confused and incoherent. Blood work appreciated. Patient on 4 to 5 L of oxygen supplementation. Vitals/I&O/Wt Last Vital Signs Temp 101.3 F H 07/06/23 11:22 Pulse 77 07/06/23 11:22 Resp 30 H 07/06/23 11:22 BP 107/49 07/06/23 11:22 Pulse Ox 94 07/06/23 11:22 O2 Del Method Aerosol Mask 07/06/23 11:22 O2 Flow Rate 6 07/06/23 08:00 07/05/23 07/06/23 07/06/23 22:59 06:59 14:59 Intake Total 0 / 0 0 / 0 Output Total 0 / 440 250 / 690 Balance 0 / -440 -250 / -690 Weight last 48 hrs Weight 98.384 kg Weight 99.79 kg Physical Exam Const: COMMON NORMALS: alert GENERAL APPEARANCE: cooperative and frail appearing ORIENTATION/CONSCIOUSNESS: Yes awake, Yes oriented to person, Yes oriented to place and Yes confused HENMT: COMMON NORMALS: oropharynx normal Neck/C-Spine: COMMON NORMALS: no JVD Resp: COMMON NORMALS: normal respiratory effort AUSCULTATION: diminished lung sounds Cardio: COMMON NORMALS: no JVD, regular rhythm, S1 normal heart sound present, S2 normal heart sound present and No murmurs present (Cardio) RHYTHM: regular rhythm HEART SOUNDS: S1 normal heart sound present and S2 normal heart sound present GI: COMMON NORMALS: Normal to inspection, nondistended, normoactive bowel sounds present, Soft to palpation and non-tender PALPATION: Yes Soft to palpation Extremity: COMMON NORMALS: no joint enlargement GENERAL: Yes edema (3+ BL LE edema) Neuro: COMMON NORMALS: moves all extremities SENSORIUM/ORIENTATION: Yes alert, Yes oriented to person and Yes oriented to place Urinary Catheter Management: Greene: Cath Placed During This Visit: yes Reason for Continuing Indwelling Catheter: Acute Urinary Retention or Obstruction Urinary Catheter Date of Insertion: 07/02/23 Urinary Catheter Time of Insertion: 10:35 Data 07/06/23 06:10 07/06/23 06:10 Micro: Microbiology 06/30/23 05:30 Blood Culture - Final Blood NO GROWTH AFTER 5 DAYS 06/30/23 21:21 Blood Culture - Final Blood NO GROWTH AFTER 5 DAYS A&P Assessment and plan (1) Encephalopathy: (2) CHF (congestive heart failure): (3) Ischemic cardiomyopathy: (4) Anemia: Qualifiers: Anemia type: unspecified type Qualified Code(s): D64.9 - Anemia, unspecified (5) Thrombocytopenia: (6) Myelodysplastic syndrome: (7) Acute kidney injury superimposed on chronic kidney disease: (8) CKD (chronic kidney disease): (9) Aortic valve stenosis: Qualifiers: Cardiac valve disease etiology: nonrheumatic Qualified Code(s): I35.0 - Nonrheumatic aortic (valve) stenosis (10) Cardiomyopathy: Qualifiers: Cardiomyopathy type: ischemic Qualified Code(s): I25.5 - Ischemic cardiomyopathy (11) Type 2 diabetes mellitus: Qualifiers: Diabetes mellitus long term care administrator insulin use: without long term care administrator use Diabetes mellitus complication detail: with chronic kidney disease Chronic kidney disease stage: unspecified stage (12) Goals of care, counseling/discussion: Plan Encephalopathy: Most likely worsening of underlying dementia in setting of acute illness and multiple hospitalization. Patient does have history of anxiety. Continue with home dose of Klonopin. Will add Haldol 1 mg IM every 6 as needed. Continues to remain confused. No agitation. Frequent reorientation, fall precautions. Acute on chronic hypoxia: Most likely in setting of congestive heart failure from severe aortic stenosis and cardiomyopathy. Patient close to achieving euvolemia with worsening on renal functions. For now continue with IV Lasix 40 mg twice daily along with metolazone 5 mg daily. Fluid restriction up to 1500 cc. Strict input charting, daily weights. Last echocardiogram EF of 30 to 35%, mild dilated LV cavity, grade 2 diastolic dysfunction, mild dilated LA severe low gradient aortic valve stenosis with peak velocity of 3.06. Acute on chronic kidney disease: Baseline creatinine seems to be ranging from 1.5-2. Creatinine slightly improved today. For now we will continue IV diuresis and monitor BMP twice daily. High concerns for patient being intravascular depleted given baseline significant severe aortic stenosis. Medical reconciliation done for nephrotoxic drugs. Given aggressive IV diuresis will monitor electrolytes. Currently potassium stable. Severe anemia/thrombocytopenia: History of mild dysplastic syndrome. Post 2 unit blood transfusion. Hemoglobin stable and appropriately elevated to more than 9. Restart multiple home medications including Plavix, finasteride, Klonopin, atorvastatin, allopurinol, Protonix, Flomax. Goals of care discussion: If patient is not improving or worsening in mentation or clinical setting family would like to discuss further with the possibility of hospice care. DNR/DNI Cardiac diet with fluid restriction of 1200 cc, Nepro protein shakes. Protonix for PUD prophylaxis SCDs for DVT prophylaxis given significant thrombocytopenia. Goals of care: Discussed in detail with patient's son Mr. Wilson over the phone. We discussed it seems patient has worsening mental status because of underlying undiagnosed dementia getting worse and by his diagnosed anxiety which has been getting worse because of multiple recent admissions. Also discussed about concerns for fluid retention/overload in setting of severe slow flow aortic stenosis leading to RADHA on CKD. Discussed that it is quite possible patient is close to euvolemia but failure slightly fluid overloaded given renal dysfunction and there is a high chance of patient ending up being on dialysis. Discussed patient's mentation might improve but cannot be said for sure if he is in his baseline regular surroundings. Son verbalized understanding. Discussed option of hospice given his advanced age and multiple comorbidities as stated above. Son verbalized understanding and is agreeable for hospice. He would want residential case manager discussed options of hospice with his . 07/05: Discussed in detail with patient's family both by myself and case management. Son and [id number] would want to go ahead and pursue hospice. Plan for the day: Patient's oxygen supplementation have been going up, patient has been having high-grade fevers. Respiratory viral panel has been negative, chest x-ray appreciated. Patient's renal function is worsening, has developed oliguria. Patient seems to be developing either aspiration pneumonia versus UTI given Greene catheter in place. Patient was started on IV ceftriaxone. Care discussed in detail again on the phone with patient's son Mr. Wilson. Family is in the process of initiating hospice at SNF. We discussed that patient looks uncomfortable and seems to be getting septic with developing fevers. Family is agreeable to start hospice/comfort measures while being in the hospital and while he is awaiting transfer to SNF. No further blood work. Vital check as per protocol for comfort measures. Will place patient on comfort measures status only. Attestations Medical Necessity Statement*: Requires further hospitalization while hospice/comfort measures are set up in an elderly patient who is admitted for congestive heart failure, worsening encephalopathy from dementia in setting of severe slow flow aortic stenosis, cardiomyopathy Diagnoses Encephalopathy G93.40 CHF (congestive heart failure) I50.9 Ischemic cardiomyopathy I25.5 Anemia, unspecified type D64.9 Anemia type: unspecified type Thrombocytopenia D69.6 Myelodysplastic syndrome D46.9 Acute kidney injury superimposed on chronic kidney disease N17.9; N18.9 CKD (chronic kidney disease) N18.9 Nonrheumatic aortic valve stenosis I35.0 Cardiac valve disease etiology: nonrheumatic Cardiomyopathy I25.5 Cardiomyopathy type: ischemic Type 2 diabetes mellitus E11.9 Diabetes mellitus long term care administrator insulin use: without long term care administrator use Diabetes mellitus complication detail: with chronic kidney disease Chronic kidney disease stage: unspecified stage Goals of care, counseling/discussion Z71.89
--- NOTE | 2023-07-06 15:00 | PC.NURSE ---
Went in room to check on pt and son. Pt due to take clonazepam po; however, he does not appear to be in any condition to try and swallow any po medication. Pt appears to be in agonal respirations and the son noted that the pt's heart rate per the monitor had been dropping a little. Asked the son if there was anything that I could do for him at this time and he denied any needs. Will continue to monitor.
--- NOTE | 2023-07-06 15:59 | PC.NURSE ---
Stopped in [place] by patients family he reported that he thought his dad had just passed upon entering room asystole was noted on the monitor and was not breathing normally GRIP WRAPPER entered room with stethascope and no heart tones was noted not carotid pulse located son reported at bedside patient was a DNR on comfort care confirmed with EHR NOtified provider of TOD of 1530 MTS notified
--- NOTE | 2023-07-06 16:18 | P.DES_ITS ---
Discharge Providers DDS Date of Admission: 06/30/23 22:04 Date Summary Completed: 07/07/23 Attending Provider at Admission: Nikki Faust MD Time of : 15:35 Attending Provider at Discharge: Jose Ken MD Primary Care Provider: Amando LUNA Diagnoses Hospital Diagnoses (1) Encephalopathy: (2) CHF (congestive heart failure): (3) Ischemic cardiomyopathy: (4) Anemia: Qualifiers: Anemia type: unspecified type Qualified Code(s): D64.9 - Anemia, unspecified (5) Thrombocytopenia: (6) Myelodysplastic syndrome: (7) Acute kidney injury superimposed on chronic kidney disease: (8) CKD (chronic kidney disease): Permanent Problem Comments: baseline creatinine 1.9 (9) Aortic valve stenosis: Qualifiers: Cardiac valve disease etiology: nonrheumatic Qualified Code(s): I35.0 - Nonrheumatic aortic (valve) stenosis (10) Cardiomyopathy: Qualifiers: Cardiomyopathy type: ischemic Qualified Code(s): I25.5 - Ischemic cardiomyopathy (11) Type 2 diabetes mellitus: Qualifiers: Chronic kidney disease stage: unspecified stage Diabetes mellitus complication detail: with chronic kidney disease Diabetes mellitus [facility] insulin use: without [facility] use (12) Goals of care, counseling/discussion: Reason for Visit Reason for Visit SOB Brief History: Guido Crump is a 83 year old male with past medical history of congestive heart failure, abnormal stress test, CKD, MDS, anemia, recent hospitalization for CHF exacerbation metabolic encephalopathy, patient was diuresed, patient and family were decided to rule out against surgical intervention for severe aortic valve stenosis, he is being managed medically, he does require blood transfusions frequently. He is presenting today with chief complaint of worsening of shortness of breath however at baseline he uses 3 L of oxygen in the ER he is requiring 4 L with anasarca. He is experiencing orthopnea and PND. Had a long discussion with the patient and the family, patient is stating that he would go by Dr. Hassan recommendation. Dr. Hassan recommended medical management. Patient has failed medical management he still experiencing chest pain shortness of breath PND orthopnea. I spoke with his son who is stating that he agrees that he is high risk surgical candidate because of thrombocytopenia and anemia, they have change his CODE STATUS to DNR/DNI in case of further worsening they might opt for hospice care. Summary Date and Time of Date of : 07/06/23 Time of : 15:35 Summary Summary: Patient was admitted to the hospital further evaluation and management of altered mental status in setting of worsening dementia along with RADHA and CKD and congestive heart failure in setting of severe slow flow aortic stenosis. He was started on aggressive IV diuresis. Patient's mentation continued to worsen with renal functions being highly labile. Multiple goals of care discussions were done with patient's son/DPOA over the phone. We discussed in detail with patient's son Mr. Wilson over the phone. We discussed it seems patient has worsening mental status because of underlying undiagnosed dementia getting worse and by his diagnosed anxiety which has been getting worse because of multiple recent admissions. Also discussed about concerns for fluid retention/overload in setting of severe slow flow aortic stenosis leading to RADHA on CKD. Discussed that it is quite possible patient is close to euvolemia but failure slightly fluid overloaded given renal dysfunction and there is a high chance of patient ending up being on dialysis. Son verbalized understanding and wanted the patient to be transitioned over to h ospice. Arrangements were done to transition patient to hospice at SNF. While arrangements were done patient on 07/06 at 3:35 PM in afternoon with family at bedside and comfortable status. Additional Data Confirmation of as documented by pronouncing clinician: no pulse and no respirations Family: at bedside Additional persons at bedside: nursing staff Attending/PCP notified?: I am attending Was code activated?: No Autopsy requested?: No Advance directives?: No Hospice patient?: Yes Discharge Plan Discharge Patient Disposition: Condition: Stable Prescriptions: No Action (DME) Diabetic shoes Qty: 1 0RF Rx Instructions: As directed ProAir HFA 90 mcg/actuation HFA aerosol inhaler 2 puff INHALATION QID PRN (Reason: Shortness Of Breath) Qty: 8.5 6RF nitroglycerin [Nitrostat] 0.4 mg tablet, sublingual 0.4 mg sublingual Q5M PRN (Reason: chest pain) Qty: 50 3RF Rx Instructions: do not exceed 3 doses per episode metoprolol tartrate 25 mg tablet 12.5 mg PO BID Qty: 90 3RF isosorbide mononitrate 30 mg tablet extended release 24 hr 30 mg PO BID Qty: 180 3RF ranolazine 500 mg tablet extended release 12 hr 500 mg PO BID 60 Days Qty: 120 5RF (DME) lancets [BD Ultra-Fine II Lancets] 30 gauge misc See Rx Instructions .Route Qty: 200 0RF Rx Instructions: As directed (DME) True Metrix Glucose Test Strip Strip See Rx Instructions .ROUTE .MEDSUPPLY Qty: 100 3RF Rx Instructions: TEST TWICE A DAY AND PRN pantoprazole 40 mg tablet,delayed release (DR/EC) 40 mg PO DAILY 90 Days Qty: 90 3RF Flomax 0.4 mg capsule 0.4 mg PO DAILY@12 Qty: 90 3RF clopidogrel 75 mg tablet 75 mg PO DAILY Qty: 30 11RF finasteride 5 mg tablet 5 mg PO DAILY@1200 Qty: 90 3RF lisinopril 5 mg tablet 5 mg PO DAILY Qty: 90 3RF levothyroxine 50 mcg tablet 50 mcg PO DAILY@05 Qty: 90 3RF clonazepam 1 mg tablet 0.5 mg PO TID Qty: 45 2RF atorvastatin 40 mg tablet 40 mg PO DAILY@1200 gabapentin 300 mg capsule 300 mg PO BID allopurinol 300 mg tablet 300 mg PO QAM furosemide 40 mg tablet 40 mg PO DAILY PRN (Reason: Edema) Qty: 60 11RF Referrals: Amando Sanchez NP [Primary Care Provider] - Patient Instructions: Heart Failure (DC), CHF Stoplight, Opioid Safety Probable Cause of Probable cause of : Cardiomyopathy DS Attestations Time Spent in /Discharge Care*: greater than 30 min Quality - AMI: AMI present?: No Quality - Stroke: CVA present?: No Quality - VTE: VTE present?: No Coding Level of Care Code 00574 Total time (in minutes) for Discharge: 50 Diagnoses Encephalopathy G93.40 CHF (congestive heart failure) I50.9 Ischemic cardiomyopathy I25.5 Anemia, unspecified type D64.9 Anemia type: unspecified type Thrombocytopenia D69.6 Myelodysplastic syndrome D46.9 Acute kidney injury superimposed on chronic kidney disease N17.9; N18.9 CKD (chronic kidney disease) N18.9 Nonrheumatic aortic valve stenosis I35.0 Cardiac valve disease etiology: nonrheumatic Cardiomyopathy I25.5 Cardiomyopathy type: ischemic Type 2 diabetes mellitus E11.9 Chronic kidney disease stage: unspecified stage Diabetes mellitus complication detail: with chronic kidney disease Diabetes mellitus [facility] insulin use: without termite control representative use Goals of care, counseling/discussion Z71.89
--- NOTE | 2023-07-06 16:52 | PC.NURSE ---
[facility] called and stated that the pt is a candidate. Post mortem care performed, IV's and salomon removed. Pt placed in a gown and awaiting more info from [facility]. Pt to go to [facility] in [place] per family request.
--- NOTE | 2023-07-06 22:38 | PC.NURSE ---
belongings sent with family. Patient .
== END 2023-07-06 22:39 | disposition expired | DRG 292 ==
LOC: ER 22:16 → CSU 22:24
PROVIDERS: Internal Medicine; Admitting Provider Internal Medicine; Emergency Provider Internal Medicine; PCP Clinical Nurse Specialist Adult Health; Visit Provider Student in an Organized Health Care Education/Training Program
DX: I13.0 Hypertensive heart and chronic kidney disease with heart failure and stage 1 through stage 4 chronic kidney disease, or unspecified chronic kidney disease (principal); F03.911 Unspecified dementia, unspecified severity, with agitation; G93.40 Encephalopathy, unspecified; F03.94 Unspecified dementia, unspecified severity, with anxiety; I50.9 Heart failure, unspecified; N18.9 Chronic kidney disease, unspecified; E11.22 Type 2 diabetes mellitus with diabetic chronic kidney disease; J44.9 Chronic obstructive pulmonary disease, unspecified; Z99.81 Dependence on supplemental oxygen; F41.9 Anxiety disorder, unspecified; N40.1 Benign prostatic hyperplasia with lower urinary tract symptoms; R39.11 Hesitancy of micturition; M10.9 Gout, unspecified; E78.5 Hyperlipidemia, unspecified; E03.9 Hypothyroidism, unspecified; D46.9 Myelodysplastic syndrome, unspecified; Z87.891 Personal history of nicotine dependence; D69.6 Thrombocytopenia, unspecified; I35.0 Nonrheumatic aortic (valve) stenosis; Z66 Do not resuscitate; I25.5 Ischemic cardiomyopathy; R09.02 Hypoxemia; E83.111 Hemochromatosis due to repeated red blood cell transfusions
CPT/HCPCS: 36415; 36430; 36600; 51702; 51798; 70450; 71045; 80048; 80053; 80503; 81003; 82805; 83605; 83735; 83880; 84145; 84484; 85007; 85025; 85610; 86850; 86900; 86920; 87040; 87486; 87581; 87633; 87804; 93005; 93010; 94640; 96365; 96372; 96375; 96376; 99285; J0696; J1630; J1940; J2405; J2930; J3490; P9016